=== PATIENT | female | born 1980 | race Caucasian/White ===

== ENCOUNTER 2022-05-03 07:14 | Outpatient (CLI) | payer BC, SELFPAY | END 2022-05-03 07:15 | disposition home or self-care (01) | LOC: INJ CL 07:15 | PROVIDERS: PCP Internal Medicine; Visit Provider Family Medicine | DX: M54.16 Radiculopathy, lumbar region (principal); M51.36 Other intervertebral disc degeneration, lumbar region | CPT/HCPCS: 64483; J1100; Q9966 ==

== ENCOUNTER 2022-08-30 07:37 | Outpatient (CLI) | payer BC, SELFPAY ==
--- OUTSIDE RECORDS SUMMARY | 2022-08-30 07:40 | XMS_ITS | Encounter Summary ---
:1980 Author Organization [place] Address [address] [place] [address]. [place] [address] Care Team Providers Name Role Phone Coral Douglas NP Primary Care Provider Unavailable Reason for Visit Reason Comments Infusion Fasenra Treatment and Therapy Plans (Routine) - Closed Specialty Diagnoses / Procedures Referred By Contact Refer red To Contact Diagnoses Severe persistent asthma, uncomplicated Chronic rhinosinusitis Carol Esquivel MD [facility] Procedures C INJ., BENRALIZUMAB, 1 MG [facility] [address] [place], [place] [address] [place] [id number] [address] [place] [address] Referral ID Status Reason Start Date Expiration Date Visits Requ ested Visits Authorized [id number] Closed 02/27/2020 09/24/2022 100 1 Encounter Details Date Type Department Care Team Description 10/14/2020 Infusion Therapy [facility] Carol Esquivel Sev ere persistent asthma, uncomplicated (Primary Dx); Visit [facility] MD Nader Chronic rhinosinusitis [facility] [address] [address] [place] [address] [place] [address] [place], [place] [phone] (Work) [phone] Social History Tobacco Use Types Packs/Day Years Used Date Smoking Tobacco: Never Assessed Sex Assigned at Date Recorded Not on file COVID-19 Exposure Response Date Recorded In the last month, have you been in contact with No / Unsure 10/14/2020 7:45 AM DATA CONTROL ASSISTANT someone who was confirmed or suspected to have Coronavirus / COVID-19? documented as of this encounter Last Filed Vital Signs Vital Sign Reading Time Taken Comments Blood Pressure 144/98 10/14/2020 7:55 AM DATA CONTROL ASSISTANT Pulse 98 10/14/2020 7:55 AM DATA CONTROL ASSISTANT Temperature 36.1 ??C (97 ??F) 10/14/2020 7:55 AM DATA CONTROL ASSISTANT Respiratory Rate 16 10/14/2020 7:55 AM DATA CONTROL ASSISTANT Oxygen Saturation 96% 10/14/2020 7:55 AM DATA CONTROL ASSISTANT Inhaled Oxygen Concentration - - Weight - - Height - - Body Mass Index - - documented in this encounter Progress Notes Peer, Ana Rosa Olson RN - 10/14/2020 8:00 AM CST Infusion Nursing Note: Joshua Peters presents today for [facility]. Patient seen by provider today: No Assistant Manager/Embalmer present during visit today: Not Applicable. Note: N/A. Patient did meet criteria for an asymptomatic covid-19 PCR test in infusion today. Patient declined the covid-19 test. Intravenous Access: No Intravenous access/labs at this visit. Treatment Conditions: Biological Infusion Checklist: ~~~ NOTE: If the patient answers yes to any of the questions below, hold the infusion and contact ordering provider or on-call provider. 1. Have you recently had an elevated temperature, fever, chills, productive cough, coughing for 3 weeks or longer or hemoptysis, abnormal vital signs, night sweats, chest pain or have you noticed a decrease in your appetite, unexplained weight loss or fatigue? No 2. Do you have any open wounds or new incisions? No 3. Do you have any recent or upcoming hospitalizations, surgeries or dental procedures? No 4. Do you currently have or recently have had any signs of illness or infection or are you on any antibiotics? No 5. Have you had any new, sudden or worsening abdominal pain? No 6. Have you or anyone in your household received a live vaccination in the past 4 weeks? Please note: No live vaccines while on biologic/chemotherapy until 6 months after the last treatment. Patient can receive the flu vaccine (shot only) and the pneumovax. It is optimal for the patient to get these vaccines mid cycle, but they can be given at any time as long as it is not on the day of the infusion.No 7. Have you recently been diagnosed with any new nervous system diseases (ie. Multiple sclerosis, Guillain [place], seizures, neurological changes) or cancer diagnosis? No 8. Are you on any form of radiation or chemotherapy? No 9. Are you or breast feeding or do you have plans of in the future? No 10. Have you been having any signs of worsening depression or suicidal ideations? (benlysta only) No 11. Have there been any other new onset medical symptoms? No Post Infusion Assessment: Patient tolerated injection without incident. Patient does not need to be observed for 30 minutes post Fasenra per protocol. Preston Whitley Verified this with Dr. Carol Jamil's office. Biologic Infusion Post Education: Call the triage nurse at your clinic or seek medical attention if you have chills and/or temperature greater than or equal to 100.5, uncontrolled nausea/vomiting, diarrhea, constipation, dizziness, shortness of breath, chest pain, heart palpitations, weakness or any other new or concerning symptoms, questions or concerns. You cannot have any live virus vaccines prior to or during treatment or up to 6 months post infusion. If you have an upcoming surgery, medical procedure or dental procedure during treatment, this should be discussed with your ordering physician and your surgeon/dentist. If you are having any concerning symptom, if you are unsure if you should get your next infusion or wish to speak to a provider before your next infusion, please call your respiratory care instructor or triage nurse at your clinic to notify them so we can adequately serve you. Discharge Plan: Discharge instructions reviewed with: Patient. Patient and/or family verbalized understanding of discharge instructions and all questions answered. AVS to patient via [employer]. Patient will return 12/09/2020 for next appointment. Patient discharged in stable condition accompanied by: self. Departure Mode: Ambulatory. Ana Rosa Fontana RN CONTROL ASSISTANT documented in this encounter Plan of Treatment Not on filedocumented as of this encounter Visit Diagnoses Diagnosis Severe persistent asthma, uncomplicated - Primary Unspecified asthma Chronic rhinosinusitis Unspecified sinusitis (chronic) documented in this encounter Administered Medications Inactive Administered Medications - up to 3 most recent administrations Medication Order MAR Action Action Date Dose Rate Site benralizumab (FASENRA) Given 10/14/2020 8:06 AM 30 mg Right Upper Abdomen injection 30 mg DATA CONTROL ASSISTANT 30 mg, Subcutaneous, ONCE, On Mon10/14/20 at 0815, For 1 dose, Begin 8 weeks after the third dose and repeat every 8 weeks. Let medication stand at room temp 30 minutes before injection. Administer in upper arm, thigh or abdomen. Prior to administration, warm FASENRA by leaving carton at room temperature for about 30 minutes. documented in this encounter Care Teams Ventilator Specialist Relationship Specialty Start Date End Date Coral Douglas NP PCP - General Nurse Practitioner 09/20/17 documented as of this encounter
--- OUTSIDE RECORDS SUMMARY | 2022-08-30 07:40 | XMS_ITS | Encounter Summary ---
:1980 Author Organization [place] Address [facility] [place] [address] Care Team Providers Name Role Phone Coral Douglas NP Primary Care Provider Unavailable Reason for Visit Reason Comments Imm/Inj Fasenra Treatment and Therapy Plans (Routine) - Closed Specialty Diagnoses / Procedures Referred By Contact Refer red To Contact Diagnoses Severe persistent asthma, uncomplicated Chronic rhinosinusitis Carol Esquivel MD [facility] Procedures C INJ., BENRALIZUMAB, 1 MG [facility] [address] [place], [place] [address] [place] [address] [address] [id number] Referral ID Status Reason Start Date Expiration Date Visits Requ ested Visits Authorized [id number] Closed 02/27/2020 09/24/2022 100 1 Encounter Details Date Type Department Care Team Description 05/26/2021 Infusion Therapy [facility] Carol Esquivel Sev ere persistent Visit Cancer Center MD Nader asthma, uncomplicated [place] [facility] (Primary Dx) [facility] [address] [address] [place] [address] [address] [address] [place] [address] [place], [place] [phone] (Work) [phone] Social History Tobacco Use Types Packs/Day Years Used Date Smoking Tobacco: Never Assessed Sex Assigned at Date Recorded Not on file COVID-19 Exposure Response Date Recorded In the last month, have you been in contact with No / Unsure 05/26/2021 7:37 AM CDT someone who was confirmed or suspected to have Coronavirus / COVID-19? documented as of this encounter Last Filed Vital Signs Vital Sign Reading Time Taken Comments Blood Pressure 137/83 05/26/2021 8:15 AM CDT Pulse 99 05/26/2021 8:15 AM CDT Temperature 36.6 ??C (97.8 ??F) 05/26/2021 8:15 AM CDT Respiratory Rate - - Oxygen Saturation 97% 05/26/2021 8:15 AM CDT Inhaled Oxygen Concentration - - Weight - - Height - - Body Mass Index - - documented in this encounter Progress Notes Caleb Mae RPH - 05/26/2021 8:00 AM CDT Images from the original note were not included. Copy of original order Zuly Plummer RN - 05/26/2021 8:00 AM CDT Infusion Nursing Note: Joshua Peters presents today for Fasenra. Patient seen by provider today: No Mortgage Originator present during visit today: Not Applicable. Note: Pt scheduled for back surgery 06/04/21 for herniated/bulging disc. Intravenous Access: No Intravenous access/labs at this [...] or upcoming hospitalizations, surgeries or dental procedures? Yes, Back surgery scheduled for 06/04/21; Dr Esquivel aware and ok for pt to receive Fasenra injection today per pt report Pt was told she could receive even up to day before surgery 4. Do you currently have or recently [...] nervous system diseases (ie. Multiple sclerosis, Guillain [place], seizures, neurological changes) or cancer diagnosis? No [...] Infusion Assessment: Patient tolerated injection without incident. Site patent and intact, free from redness, edema or discomfort. Discharge Plan: Discharge instructions reviewed with: Patient. Patient and/or family verbalized understanding of discharge instructions and all questions answered. AVS to patient via [employer]. Patient will return in 8 weeks for next Fasenra injection. Pt will schedule at her convenience for next appointment. Patient discharged in stable condition accompanied by: self. Departure Mode: Ambulatory. Zuly Plummer RN documented in this encounter Plan of Treatment Not on filedocumented as of this encounter Visit Diagnoses Diagnosis Severe persistent asthma, uncomplicated - Primary Unspecified asthma documented in this encounter Administered Medications Inactive Administered Medications - up to 3 most recent administrations Medication Order MAR Action Action Date Dose Rate Site benralizumab (FASENRA) Given 05/26/2021 8:17 AM 30 mg Abdominal Tissue injection 30 mg CDT 30 mg, Subcutaneous, ONCE, On Mon05/26/21 at 0745, For 1 dose, Begin 8 weeks after the third dose and repeat every 8 weeks. Let medication stand at room temp 30 minutes before injection. Administer in upper arm, thigh or abdomen. Prior to administration, warm FASENRA by leaving carton at room temperature for about 30 minutes. documented in this encounter Care Teams Clinical Technician Relationship Specialty Start Date End Date Coral Douglas NP PCP - General Nurse Practitioner 09/20/17 documented as of this encounter
--- OUTSIDE RECORDS SUMMARY | 2022-08-30 07:40 | XMS_ITS | Encounter Summary ---
:1980 Author Organization [place] Address [facility] [place] [address] Care Team Providers Name Role Phone Coral Douglas NP Primary Care Provider Unavailable Reason for Visit Reason Comments Imm/Inj Fasenra Treatment and Therapy Plans (Routine) - Closed Specialty Diagnoses / Procedures Referred By Contact Refer red To Contact Diagnoses Severe persistent asthma, uncomplicated Chronic rhinosinusitis Carol Esquivel MD [facility] Procedures C INJ., BENRALIZUMAB, 1 MG [facility] [address] [place], [place] [address] [place] [address] [address] [address] Referral ID Status Reason Start Date Expiration Date Visits Requ ested Visits Authorized [id number] Closed 02/27/2020 09/24/2022 100 1 Encounter Details Date Type Department Care Team Description 12/09/2020 Infusion Therapy [facility] Carol Esquivel Sev ere persistent Visit Cancer Center MD Nader asthma, uncomplicated [place] (Primary Dx) [facility] [address] [address] [place] [address] [address] [place] [address] [place], [place] [phone] (Work) [phone] Social History Tobacco Use Types Packs/Day Years Used Date Smoking Tobacco: Never Assessed Sex Assigned at Date Recorded Not on file COVID-19 Exposure Response Date Recorded In the last month, have you been in contact with No / Unsure 12/09/2020 7:40 AM CDT someone who was confirmed or suspected to have Coronavirus / COVID-19? documented as of this encounter Last Filed Vital Signs Vital Sign Reading Time Taken Comments Blood Pressure 147/89 12/09/2020 7:58 AM CDT Pulse 104 12/09/2020 7:58 AM CDT Temperature 36.5 ??C (97.7 ??F) 12/09/2020 7:58 AM CDT Respiratory Rate - - Oxygen Saturation 97% 12/09/2020 7:58 AM CDT Inhaled Oxygen Concentration - - Weight - - Height - - Body Mass Index - - documented in this encounter Progress Notes Zuly Plummer RN - 12/09/2020 8:00 AM CDT Infusion Nursing Note: Joshua Peters presents today for [facility]. Patient seen by provider today: No Delinquent Tax Collector Assistant present during visit today: Not Applicable. Note: N/A. Intravenous Access: No Intravenous access/labs at this [...] nervous system diseases (ie. Multiple sclerosis, Guillain [place], seizures, neurological changes) or cancer diagnosis? No [...] all questions answered. AVS to patient via [employer]. Patient will return 02/03/21 for next dose of Fasenra for next appointment. Patient discharged in stable [...] Date Dose Rate Site benralizumab (FASENRA) Given 12/09/2020 8:01 AM 30 mg Abdominal Tissue injection 30 mg CDT 30 mg, Subcutaneous, ONCE, On Mon12/09/20 at 0800, For 1 dose, Begin 8 weeks after the third dose and repeat every 8 weeks. Let medication stand at room temp 30 minutes before injection. Administer in upper arm, thigh or abdomen. Prior to administration, warm FASENRA by leaving carton at room temperature for about 30 minutes. documented in this encounter Care Teams Field Consultant Relationship Specialty Start Date End Date Coral Douglas NP PCP - General Nurse Practitioner 09/20/17 documented as of this encounter
--- OUTSIDE RECORDS SUMMARY | 2022-08-30 07:40 | XMS_ITS | Clinical Summary ---
:1980 Author Organization [place] Address [address] [place] [id number] Care Team Providers Name Role Phone Coral Douglas NP Primary Care Provider Unavailable Allergies Active Allergy Reactions Severity Noted Date Comments Amitriptyline Hives Medium 03/31/2021 Cefprozil Rash High 02/16/2010 has tolerated omnicef Erythromycin Nausea, Nausea and High 12/20/2006 Vomiting Fish Hives, Itching, High 01/28/2020 Nausea, Nausea and Vomiting Convallariae Majalis Anaphylaxis High 01/28/2020 Metoprolol Hives 08/19/2020 Penicillins Nausea and Vomiting, Low 12/20/2006 Rash Shellfish Allergy Hives 10/22/2018 Sulfa Drugs 03/04/2020 Sulfamethoxazole-Trimeth Nausea and Vomiting 7 oprim Medications Medication Sig Dispensed Refills Start End Status Date Date albuterol (PROVENTIL) albuterol sulfate 2.5 0 Active (2.5 MG/3ML) 0.083% neb mg/3 mL (0.083 %) 19 solution solution for nebulization albuterol (PROAIR albuterol sulfate HFA 0 02/04/20 Active HFA/PROVENTIL 90 mcg/actuation 20 HFA/VENTOLIN HFA) 108 aerosol inhaler (90 Base) MCG/ACT inhaler budesonide (PULMICORT) 0 02/19/20 Active 0.5 MG/2ML neb solution 20 cetirizine (ZYRTEC) 10 0 02/27/20 Active MG tablet 20 cyclobenzaprine 0 12/10/19 Acti ve (FLEXERIL) 10 MG tablet 20 EPINEPHrine (ANY BX epinephrine 0.3 mg/0.3 0 01/31/ 0 Active GENERIC EQUIV) 0.3 mL injection, 19 MG/0.3ML injection auto-injector 2-pack fluticasone (FLONASE) fluticasone propionate 0 11/06 Active 50 MCG/ACT nasal spray 50 mcg/actuation nasal 20 spray,suspension hydrochlorothiazide hydrochlorothiazide 25 0 04/25/ 0 Active (HYDRODIURIL) 25 MG mg tablet 19 tablet DULERA 200-5 MCG/ACT 0 01/16/20 Active inhaler 20 montelukast (SINGULAIR) montelukast 10 mg 0 10/28/19 Active 10 MG tablet tablet 20 naproxen (NAPROSYN) 500 naproxen 500 mg tablet 0 Active MG tablet omeprazole (PRILOSEC) 0 02/29/[address] capsule 20 DULoxetine (CYMBALTA) Take 30 mg by mouth 0 Active 30 MG capsule daily amLODIPine (NORVASC) 5 Take 5 mg by mouth 0 Active MG tablet daily PREDNISONE PO Take 60 mg by mouth 0 Active Prednisone traper. 60 mg for 3 days, starting 08/18, then 50 mg for 3 days, then 40 mg for 3 days, 30 mg for 3 days, 20mg for 3 days, 10 mg for 3 day, 5 mg for 2 days, then complete. topiramate (TOPAMAX) 25 Take 25 mg by mouth 2 0 Active MG tablet times daily Currently taking two tabs daily SUMAtriptan (IMITREX) Take 100 mg by mouth 0 Active 100 MG tablet at onset of headache for migraine verapamil (CALAN) 80 MG Take 80 mg by mouth 2 0 Active tablet times daily Active Problems Problem Noted Date Severe persistent asthma, uncomplicated 02/27/2020 Chronic rhinosinusitis 02/27/2020 Social History Tobacco Use Types Packs/Day Years Used Date Smoking Tobacco: Never Assessed Sex Assigned at Date Recorded Not on file Last Filed Vital Signs Vital Sign Reading Time Taken Comments Blood Pressure 150/108 07/21/2021 7:47 AM CDT Pulse 112 07/21/2021 7:47 AM CDT Temperature 36.3 ??C (97.4 ??F) 07/21/2021 7:47 AM CDT Respiratory Rate 16 07/21/2021 7:47 AM CDT Oxygen Saturation 95% 07/21/2021 7:47 AM CDT Inhaled Oxygen Concentration - - Weight - - Height - - Body Mass Index - - Plan of Treatment Health Maintenance Due Date Last Done Comments ADVANCE CARE PLANNING 1980 ANNUAL REVIEW OF HM ORDERS 1980 ASTHMA ACTION PLAN 1980 ASTHMA CONTROL TEST 1980 YEARLY PREVENTIVE VISIT 1980 HIV SCREENING 1995 HEPATITIS C SCREENING 1998 PAP 2001 HEPATITIS B IMMUNIZATION (3 06/22/2006 03/29/2006, 03/02/20 06 of 3 - 3-dose series) COVID-19 Vaccine (3 - 02/09/2021 01/12/2021, 12/20/2020 Pfizer risk series) PHQ-2 (once per calendar 09/25/2021 year) INFLUENZA VACCINE (#1) 2022 07/05/2021, 06/08/2020, 06/11/2019, Additional history exists DTAP/TDAP/TD IMMUNIZATION 05/14/2031 05/14/2021, 05/10/2011 (3 - Td or Tdap) Pneumococcal Vaccine: 2045 11/08/2019, 10/28/2019 Pediatrics (0 to 5 Years) and At-Risk Patients (6 to 64 Years) (3 - PPSV23 if available, else PCV20) IPV IMMUNIZATION Aged Out No longer eligi ble based on patient 's age to complete this topic MENINGITIS IMMUNIZATION Aged Out No longe r eligible based on patient 's age to complete this topic Insurance Payer Benefit Plan / Subscriber ID Effective Dates Phone Addre ss Type Group BLUE PLUS BLUE PLUS [id number] 2018-Present [phone] [place] [address] [id number] [address]MO [address] [place] [address] Care Teams Upset Welding Machine Operator Relationship Specialty Start Date End Date Coral Douglas NP PCP - General Nurse Practitioner 09/20/17
--- OUTSIDE RECORDS SUMMARY | 2022-08-30 07:40 | XMS_ITS | Encounter Summary ---
:1980 Author Organization [place] Address [address] [place] [address] Care Team Providers Name Role Phone Coral Douglas NP Primary Care Provider Unavailable Encounter Details Date Type Department Care Team Description 05/26/2021 Travel Social History Tobacco Use Types Packs/Day Years Used Date Smoking Tobacco: Never Assessed Sex Assigned at Date Recorded Not on file COVID-19 Exposure Response Date Recorded In the last month, have you been in contact with No / Unsure 05/26/2021 7:37 AM CDT someone who was confirmed or suspected to have Coronavirus / COVID-19? documented as of this encounter Plan of Treatment Not on filedocumented as of this encounter Visit Diagnoses Not on filedocumented in this encounter Care Teams Job Forwarder Relationship Specialty Start Date End Date Coral Douglas NP PCP - General Nurse Practitioner 09/20/17 documented as of this encounter
--- OUTSIDE RECORDS SUMMARY | 2022-08-30 07:40 | XMS_ITS | Encounter Summary ---
:1980 Author Organization [place] Address [facility] [place] [address] Care Team Providers Name Role Phone Coral Douglas NP Primary Care Provider Unavailable Reason for Visit Reason Comments Imm/Inj Fasenra Treatment and Therapy Plans (Routine) - Closed Specialty Diagnoses / Procedures Referred By Contact Refer red To Contact Diagnoses Severe persistent asthma, uncomplicated Chronic rhinosinusitis Carol Esquivel MD [facility] Procedures C INJ., BENRALIZUMAB, 1 MG [facility] [address] [place], [place] [address] [place] [phone] [address] [place] [id number] Referral ID Status Reason Start Date Expiration Date Visits Requ ested Visits Authorized [id number] Closed 02/27/2020 09/24/2022 100 1 Encounter Details Date Type Department Care Team Description 03/31/2021 Infusion Therapy [facility] Carol Esquivel Sev ere persistent Visit [facility] MD [place] asthma, uncomplicated [place] [facility] (Primary Dx) [facility] [address] [address] [place] [address] [place] [address] [place] [address] [place], [place] [phone] (Work) [phone] Social History Tobacco Use Types Packs/Day Years Used Date Smoking Tobacco: Never Assessed Sex Assigned at Date Recorded Not on file COVID-19 Exposure Response Date Recorded In the last month, have you been in contact with No / Unsure 03/31/2021 7:39 AM CDT someone who was confirmed or suspected to have Coronavirus / COVID-19? documented as of this encounter Last Filed Vital Signs Vital Sign Reading Time Taken Comments Blood Pressure 127/85 03/31/2021 7:00 AM CDT Pulse 107 03/31/2021 7:00 AM CDT Temperature 36.7 ??C (98 ??F) 03/31/2021 7:00 AM CDT Respiratory Rate 18 03/31/2021 7:00 AM CDT Oxygen Saturation 97% 03/31/2021 7:00 AM CDT Inhaled Oxygen Concentration - - Weight - - Height - - Body Mass Index - - documented in this encounter Progress Notes Keerthi Coleman, DAMON - 03/31/2021 8:00 AM CDT Infusion Nursing Note: Joshua Peters presents today for Fasenra. Patient seen by provider today: No Production Cost Estimator present during visit today: Not Applicable. Note: Patient has consult with spinal surgeon. She will contact Dr Esquivel's office to find out when she can schedule a potential surgery in relation to her fasenra injections. Intravenous Access: No Intravenous access/labs at this [...] or upcoming hospitalizations, surgeries or dental procedures? No, 4. Do you currently have or recently [...] nervous system diseases (ie. Multiple sclerosis, Guillain [place], seizures, neurological changes) or cancer diagnosis? No [...] from redness, edema or discomfort. Discharge Plan: [facility] Patient will return 05/26 for next appointment. Patient discharged in stable condition accompanied by: self. Departure Mode: Ambulatory. Keerthi Coleman RN documented in this encounter Plan of Treatment Not on filedocumented as of this encounter Visit Diagnoses Diagnosis Severe persistent asthma, uncomplicated - Primary Unspecified asthma documented in this encounter Administered Medications Inactive Administered Medications - up to 3 most recent administrations Medication Order MAR Action Action Date Dose Rate Site benralizumab (FASENRA) Given 03/31/2021 8:04 AM 30 mg Abdominal Tissue injection 30 mg CDT 30 mg, Subcutaneous, ONCE, On Mon03/31/21 at 0800, For 1 dose, Begin 8 weeks after the third dose and repeat every 8 weeks. Let medication stand at room temp 30 minutes before injection. Administer in upper arm, thigh or abdomen. Prior to administration, warm FASENRA by leaving carton at room temperature for about 30 minutes. documented in this encounter Care Teams Sash Installer Relationship Specialty Start Date End Date Coral Douglas NP PCP - General Nurse Practitioner 09/20/17 documented as of this encounter
--- OUTSIDE RECORDS SUMMARY | 2022-08-30 07:40 | XMS_ITS | Encounter Summary ---
:1980 Author Organization [place] Address [address] [place] [address] Care Team Providers Name Role Phone Coral Douglas NP Primary Care Provider Unavailable Encounter Details Date Type Department Care Team Description 07/21/2021 Travel Social History Tobacco Use Types Packs/Day Years Used Date Smoking Tobacco: Never Assessed Sex Assigned at Date Recorded Not on file COVID-19 Exposure Response Date Recorded In the last month, have you been in contact with No / Unsure 07/21/2021 7:39 AM CDT someone who was confirmed or suspected to have Coronavirus / COVID-19? documented as of this encounter Plan of Treatment Not on filedocumented as of this encounter Visit Diagnoses Not on filedocumented in this encounter Care Teams Repairer [employer]gear Relationship Specialty Start Date End Date Coral Douglas NP PCP - General Nurse Practitioner 09/20/17 documented as of this encounter
--- OUTSIDE RECORDS SUMMARY | 2022-08-30 07:40 | XMS_ITS | Encounter Summary ---
:1980 Author Organization [place] Address [address] [place] [address] Care Team Providers Name Role Phone Coral Douglas NP Primary Care Provider Unavailable Encounter Details Date Type Department Care Team Description 03/31/2021 Travel Social History Tobacco Use Types Packs/Day [...] on filedocumented in this encounter Care Teams Reception Specialist Relationship Specialty Start Date End Date Coral Douglas NP PCP - General Nurse Practitioner 09/20/17 documented as of this encounter
--- OUTSIDE RECORDS SUMMARY | 2022-08-30 07:40 | XMS_ITS | Encounter Summary ---
:1980 Author Organization [place] Address [address] [place] [address] Care Team Providers Name Role Phone Coral Douglas NP Primary Care Provider Unavailable Encounter Details Date Type Department Care Team Description 02/03/2021 Travel Social History Tobacco Use Types Packs/Day Years Used Date Smoking Tobacco: Never Assessed Sex Assigned at Date Recorded Not on file COVID-19 Exposure Response Date Recorded In the last month, have you been in contact with No / Unsure 02/03/2021 7:44 AM CDT someone who was confirmed or suspected to have Coronavirus / COVID-19? documented as of this encounter Plan of Treatment Not on filedocumented as of this encounter Visit Diagnoses Not on filedocumented in this encounter Care Teams Weatherization Field Technician Relationship Specialty Start Date End Date Coral Douglas NP PCP - General Nurse Practitioner 09/20/17 documented as of this encounter
--- OUTSIDE RECORDS SUMMARY | 2022-08-30 07:40 | XMS_ITS | Encounter Summary ---
:1980 Author Organization [place] Address [address] [place] [address] Care Team Providers Name Role Phone Coral Douglas NP Primary Care Provider Unavailable Encounter Details Date Type Department Care Team Description 10/14/2020 Travel Social History Tobacco Use Types Packs/Day Years Used Date Smoking Tobacco: Never Assessed Sex Assigned at Date Recorded Not on file COVID-19 Exposure Response Date Recorded In the last month, have you been in contact with No / Unsure 10/14/2020 7:45 AM MECHANICAL SERVICE TECHNICIAN someone who was confirmed or suspected to have Coronavirus / COVID-19? documented as of this encounter Plan of Treatment Not on filedocumented as of this encounter Visit Diagnoses Not on filedocumented in this encounter Care Teams Commercial [employer] Sales Executive Relationship Specialty Start Date End Date Coral Douglas NP PCP - General Nurse Practitioner 09/20/17 documented as of this encounter
--- OUTSIDE RECORDS SUMMARY | 2022-08-30 07:40 | XMS_ITS | Encounter Summary ---
:1980 Author Organization [place] Address [facility] [place] [address] Care Team Providers Name Role Phone Coral Douglas NP Primary Care Provider Unavailable Reason for Visit Reason Comments Imm/Inj Fasenra Treatment and Therapy Plans (Routine) - Closed Specialty Diagnoses / Procedures Referred By Contact Refer red To Contact Diagnoses Severe persistent asthma, uncomplicated Chronic rhinosinusitis Carol Esquivel MD [facility] Procedures C INJ., BENRALIZUMAB, 1 MG [facility] [address] [place], [place] [address] [facility] [phone] [place] [address] Referral ID Status Reason Start Date Expiration Date Visits Requ ested Visits Authorized [id number] Closed 02/27/2020 09/24/2022 100 1 Encounter Details Date Type Department Care Team Description 07/21/2021 Infusion Therapy [facility] St[place], Severe persistent Visit [facility] [place] asthma, uncomplicated [facility] [address] (Primary Dx) [facility] [address] [place] [facility] [address] [place] [address] Social History Tobacco Use Types Packs/Day Years [...] - documented in this encounter Progress Notes Katrina [place], DAMON - 07/21/2021 8:00 AM CDT Infusion Nursing Note: Joshua Peters presents today for Ami. Patient seen by provider today: No Solar Installation Manager present during visit today: Not Applicable. Note: Pt states she is currently on steroids and whenever she is on a steroid her blood pressure is elevated. BP elevated this morning, but she states its how it normally runs with being on steroids and doing the neb treatments. She denies any headache, shortness of breath, chest pain, or other symptoms at this time. Intravenous Access: No Intravenous access/labs at this [...] nervous system diseases (ie. Multiple sclerosis, Guillain [place], seizures, neurological changes) or cancer diagnosis? No [...] Infusion Assessment: Patient tolerated injection without incident. Discharge Plan: Discharge instructions reviewed with: Patient. Patient and/or family verbalized understanding of discharge instructions and all questions answered. Copy of AVS reviewed with patient and/or family. Patient will return 09/15/21 for next appointment. Patient discharged in stable condition accompanied by: self. Departure Mode: Ambulatory. Katrina [place] RN documented in this encounter Plan of Treatment Not on filedocumented as of this encounter Visit Diagnoses Diagnosis Severe persistent asthma, uncomplicated - Primary Unspecified asthma documented in this encounter Administered Medications Inactive Administered Medications - up to 3 most recent administrations Medication Order MAR Action Action Date Dose Rate Site benralizumab (FASENRA) Given 07/21/2021 8:00 AM 30 mg Abdominal Tissue injection 30 mg CDT 30 mg, Subcutaneous, ONCE, On Mon07/21/21 at 0745, For 1 dose, Begin 8 weeks after the third dose and repeat every 8 weeks. Let medication stand at room temp 30 minutes before injection. Administer in upper arm, thigh or abdomen. Prior to administration, warm FASENRA by leaving carton at room temperature for about 30 minutes. documented in this encounter Care Teams Communications Equipment Installer Relationship Specialty Start Date End Date Coral Douglas NP PCP - General Nurse Practitioner 09/20/17 documented as of this encounter
--- OUTSIDE RECORDS SUMMARY | 2022-08-30 07:40 | XMS_ITS | Encounter Summary ---
:1980 Author Organization [place] Address [address] [place] [address] Care Team Providers Name Role Phone Coral Douglas NP Primary Care Provider Unavailable Encounter Details Date Type Department Care Team Description 12/09/2020 Travel Social History Tobacco Use Types Packs/Day [...] on filedocumented in this encounter Care Teams Freight Brake Operator Relationship Specialty Start Date End Date Coral Douglas NP PCP - General Nurse Practitioner 09/20/17 documented as of this encounter
--- OUTSIDE RECORDS SUMMARY | 2022-08-30 07:40 | XMS_ITS | Clinical Summary ---
:1980 Author Organization [employer] [place] [address] Care Team Providers Name Role Phone Do Barlow Saloni MONK Primary Care Provider Allergies Active Allergy Reactions Severity Noted Date Comments Amitriptyline Hives, Itching Medium 03/31/2021 Amoxicillin Rash, Nausea And 12/20/2006 Vomiting Sulfamethoxazole-Trimeth Nausea And Vomiting 7 oprim Cefprozil Rash 02/16/2010 has tolerated omnicef Erythromycin Nausea And Vomiting 12/20/2006 Fish Containing Products Hives, Itching, Nausea High 2019 Only, Vomiting [facility] Anaphylaxis High 01/28/2020 Unlisted Allergen Anaphylaxis High 05/11/2015 [facility] (Include Detail In Comments) Shellfish Containing *Unknown 10/22/2018 Products Metoprolol Succinate Hives 08/07/2020 Medications Medication Sig Dispensed Refills Start End Status Date Date cholecalciferol Take 1 0 Acti ve (VITAMIN D-3) 2,000 capsule by 7 unit capsule mouth once daily. cetirizine (ZYRTEC) 10 Take 1 tablet 0 Active mg tablet by mouth once 9 daily. every morning Magnesium Oxide 500 mg Take by 0 Active tab mouth. 0 albuterol (PROVENTIL) INHALE 3ML (1 1 box 2 Active 0.083 % neb AMPULE) VIA A 0 solutionIndications: NEBULIZER Exacerbation of asthma, EVERY 4 HOURS unspecified asthma NEEDED severity, unspecified whether persistent albuterol HFA (PRO-AIR; INHALE TWO 1 Each 1 Active VENTOLIN; PROVENTIL) 90 PUFFS BY 1 mcg/actuation MOUTH EVERY 4 inhalerIndications: HOURS WHILE Exacerbation of asthma, AWAKE unspecified asthma severity, unspecified whether persistent montelukast (SINGULAIR) TAKE ONE 90 tablet 2 Active 10 mg TABLET BY 1 tabletIndications: MOUTH AT Intrinsic asthma BEDTIME fluticasone (50 mcg per INSTILL ONE 0 Active actuation) nasal SPRAY IN THE 1 solution (FLONASE) AFFECTED NOSTRIL EVERY DAY gabapentin (NEURONTIN) Take 3 810 Capsule 3 Active 300 mg Capsules (900 1 capsuleIndications: mg) by mouth Acute bilateral low 3 times back pain without daily. 900mg sciatica, Chronic 3x daily by midline low back pain mouth with left-sided sciatica loperamide (IMODIUM) 1 Take 15 mL (2 236 mL Active mg/7.5 mL mg) by mouth 2 liquidIndications: each time if Chronic diarrhea needed for Diarrhea. esomeprazole (NEXIUM) Take 1 30 Capsule 1 Active 20 mg Capsule (20 2 capsuleIndications: mg) by mouth Gastroesophageal reflux once daily. disease, unspecified whether esophagitis present prochlorperazine Take 1-2 30 Tablet 0 Act gerhard (COMPAZINE) 5 mg Tablets (5-10 2 tabletIndications: mg) by mouth Nausea every 6 hours if needed for Nausea/Vomiti ng. naratriptan (AMERGE) Take 2.5 mg 0 Active 2.5 mg tablet by mouth 2 023 every 4 hours if needed. cyclobenzaprine Take 1 Tablet 90 Tablet 3 Active (FLEXERIL) 5 mg (5 mg) by 2 tabletIndications: mouth 3 times Acute bilateral low daily if back pain without needed for sciatica Muscle Spasm. amLODIPine (NORVASC) 10 Take 1 Tablet 90 Tablet 3 Active mg tabletIndications: (10 mg) by 2 Benign essential mouth once hypertension daily. Pulmozyme 1 mg/mL neb 0 Active solution 2 ipratropium (ATROVENT Inhale 2 15 mL 0 Active NASAL) 42 mcg (0.06 %) Sprays to 2 nasal spray both nostrils four times daily. mometasone-formoterol 2 puffs twice 0 Active (DULERA) 200-5 daily as 2 mcg/actuation needed for inhalerIndications: illnesses Exacerbation of asthma, unspecified asthma severity, unspecified whether persistent verapamiL (CALAN) 80 mg TAKE ONE 180 Tablet 0 Active tabletIndications: TABLET BY 2 Chronic migraine with MOUTH TWICE A aura DAY hydroCHLOROthiazide TAKE ONE 60 Tablet 0 Active (HCTZ) 25 mg TABLET BY 2 tabletIndications: MOUTH EVERY Hypertension, DAY unspecified type DULoxetine (CYMBALTA) TAKE ONE 60 Capsule 0 Active 30 mg Delayed-release CAPSULE BY 2 capsuleIndications: MOUTH EVERY Depression with anxiety DAY DULoxetine (CYMBALTA) Take 1 90 Capsule 0 Discontinued 30 mg Delayed-release Capsule (30 2 022 capsuleIndications: mg) by mouth Depression with anxiety once daily. hydroCHLOROthiazide Take 1 Tablet 90 Tablet 0 Discontinued (HCTZ) 25 mg (25 mg) by 2 022 tabletIndications: mouth once Hypertension, daily. 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 Krishan Almendarez at [facility] in Oct 2020. Recommended the following for treatment: A) Topiramate starting at 15-25 mg orall y once a day at bedtime and this can be increased by 15-25 mg every week if needed and if tolerated to a goal dose that will typically range between 75 to 200 mg once a day at bedtime. An initial goal d ose of 100 mg daily, however, is often enough to control migraine without experiencing bothersome side effects. B) Verapamil starting at 80 mg orally on ce a day and increase this by 80 mg every week if needed and if tolerated to a typical goal dose of 80 mg three times a day. C) Botox following the PREEMPT treatment paradigm, giving it at least 3 tries with 12 weeks in between injections. D) Emgality (galcanezumab), starting wit h one 240 mg subcutaneous dose (administered as 2 consecutive 120 mg doses), followed by 120 mg subcutaneously once monthly. If no meaningful response after 3 mon ths of treatment I typically discontinue this. If there is a favorable response, however, I typically continue this for a longer period of time. An oral prophylactic should be tried one at a time for at least three months at the highest tolerated dose (within the above specified goal dose range) before believing it has failed. A successful preve ntive is commonly defined as one that de creases the headache frequency and/or intensity by approximately 50%. Once a successful preventive is found, I suggest continuing it for at least 6-24 months before attempting to gradually taper off it. For the acute treatment of mild to moder ate headaches, I recommend to continue acetaminophen or Aleve as needed but these should not be used more than 14 days a month. For headaches that do not respond to this, or for severe headaches from on set, I recommend 100 mg of oral sumatriptan at onset and this can be repeated every 2 hours if needed (maximum 200 mg/24 hours) and this should not be used more t carmona 9 days a month (2 days per week) to prevent medication overuse headache. Sumatriptan should only be used if her blood pressure is under good control. She can use antiemetics as needed for migraine r elated nausea under the guidance of her local providers. The patient will follow the above recomm endations with her local providers. Headache 10/30/2020 COVID-19 virus infection 09/22/2020 Overview: Positive covid antibody in Aug 2020, lik anisa infection in Jul 2020 Severe persistent asthma, uncomplicated 02/27/2020 Chronic rhinosinusitis 02/27/2020 Tinnitus of right ear 12/10/2019 Myofascial pain 12/10/2019 Limited opening of mandible 12/10/2019 Instability of right shoulder joint 12/21/2018 Hand pain, left 07/26/2017 Encounter for surveillance of injectable contraceptive 02/25/2016 Overview: last DepoProvera 11/09/15 Morbid obesity 12/17/2015 Overview: Formatting of this note might be differe nt from the original. Morbid Obesity Body Mass Index (BMI) >40 Adult Benign essential hypertension 12/17/2015 Overview: Formatting of this note might be differe nt from the original. Hypertension (HTN) Essential Benign Anaphylactic reaction 05/11/2015 Overview: [place] Vitamin D deficiency 11/04/2014 Otalgia 07/11/2012 Episodic tension-type headache 07/11/2012 GERD (gastroesophageal reflux disease) 07/28/2011 Allergic rhinitis, cause unspecified 04/02/2008 Dysthymic disorder 06/17/2007 Irritable bowel syndrome 12/20/2006 Neuritis of right sural nerve Resolved Problems Problem Noted Date Resolved Date Pain 12/21/2018 05/14/2021 Moderate persistent asthma with acute exacerbation 8 05/14/2021 Overview: heterozygous for alpha 1 antitrypsin Adjustment disorder 01/27/2017 01/27/2017 HTN (hypertension) 11/09/2015 05/14/2021 Obesity 11/03/2014 05/14/2021 ALLERGIC RHINITIS 06/17/2007 01/30/2010 Unspecified asthma(493.90) 12/20/2006 05/14/2021 Scar tissue 05/14/2021 Encounters Date Type Specialty Care Team Description 08/29/2022 Travel 08/15/2022 Medical Messaging Lazaro Ramirez Back manuela giovanni Garcia MD 08/06/2022 Refill CainDo james, Refill Re quest DO (Hydrochlorothi azide, Duloxetine) 08/01/2022 Orders Only Scanner <No scans attac hed> 07/23/2022 Refill Do Barlow, Refill Re quest (Verapamil) DO 07/04/2022 Office Visit Do Barlow, Medicatio n Management DO (coughing); Immunization/In jection (COVID-19 vacci ne) 07/04/2022 Travel 06/29/2022 Orders Only Scanner <No scans attac hed> 06/29/2022 Travel 06/08/2022 Refill Do Barlow, Refill Re quest (Verapamil) DO 06/02/2022 Ancillary Procedure 06/02/2022 Office Visit Lazaro Ramirez Musculoskelet eros Garcia MD (Follow up back pain, NAOMI on 05/03/22/Follo w up right shoulder pain, USGI 04/06/22) 06/02/2022 Travel from Last 3 Months Immunizations Name Administration Dates Next Due COVID-19 vaccine ([facility] 07/04/2022 30mcg/0.3mL) 12YO+ BIVALENT BOOSTER PF, MDV COVID-19 vaccine ([facility] 08/10/2021, 01/12/2021, 30mcg/0.3mL) PF, MDV Hepatitis B (Peds) 09/05/2006, 03/29/2006, 03/02/2006 Influenza A (H1N1), Inactivated (Age 1209/08/2009 >=3 Years) Influenza, IIV3 (Age >=3 years) 05/31/2018, 06/20/2013, 10/2011, 05/26/2011, 06/30/2010, 08/20/2008, 07/19/2007 Influenza, IIV4 07/04/2022, 07/05/2021, 06/08/2020, 05/28/2019, 06/01/2017, 08/19/2015, 06/11/2014 Influenza, IIV4 (=>6mos) MDV 05/31/2018 Influenza, RIV3 (Age =>18 Years) 05/19/2016 Pneumococcal Poly,23-Valent 10/28/2019 (Pneumovax) Td (Age >=7 Years) 10/20/1997 Tdap 05/14/2021, 05/10/2011 Family History Medical History Relation Name Comments Heart Disease Brother hole heart Diabetes Father Genetic Father MS Heart Disease Father Hypertension Father Lupus Father Psychiatric illness Maternal Aunt schizophreni a Seizures Maternal Aunt Allergies Maternal Grandfather Kidney failure Maternal Grandfather Cancer Maternal Grandmother skin Allergies Maternal Uncle Allergies Mother Hypertension Mother Melanoma Paternal Aunt 1 Allison Heart Disease Paternal Grandfather kidney fail ure after infection Other Paternal Uncle 1 Rishi ms Other Paternal Uncle 2 MS Genetic Son Seizures and Aut ism Cancer-breast No Family History Relation Name Status Comments Brother Alive Father Alive Maternal Aunt Maternal Grandfather Maternal Grandmother Alive Maternal Uncle Alive Mother Alive Paternal Aunt 1 Allison Paternal Aunt 2 Alive Paternal Aunt 3 Alive Paternal Aunt 4 Alive Paternal Aunt 5 Alive Paternal Grandfather Paternal Grandmother Paternal Uncle 1 Rishi Paternal Uncle 2 Alive Son Alive Social History Tobacco Use Types Packs/Day Years Used Date Never Smoker Smokeless Tobacco: Never Used Tobacco Cessation: Counseling Given: Yes Alcohol Use Standard Drinks/Week Comments Not Currently 0 (1 standard drink = 0.6 oz pure alcoho l) rarely Alcohol Habits Answer Date Recorded How often do you have a drink containing alcohol? Not asked How many drinks containing alcohol do you have on a typical Not asked day when you are drinking? How often do you have six or more drinks on one occasion? No t asked Comment: rarely 11/03/2014 Sex Assigned at Date Recorded Not on file COVID-19 Exposure Response Date Recorded In the last 10 days, have you been in contact with No / Unsu re 08/29/2022 1:52 PM SURVEY INTERVIEWER someone who was confirmed or suspected to have Coronavirus/COVID-19? Obstetrics History Last Filed Vital Signs Vital Sign Reading Time Taken Comments Blood Pressure 126/64 07/04/2022 7:40 AM CDT Pulse 82 07/04/2022 7:40 AM CDT Temperature 36.8 ??C (98.2 ??F) 06/02/2022 1:44 PM CDT Respiratory Rate 18 06/04/2021 12:17 PM CDT Oxygen Saturation 98% 06/02/2022 1:44 PM CDT Inhaled Oxygen Concentration - - Weight 165.5 kg (364 lb 12.8 oz) 07/04/2022 7:40 AM CDT Height 178.2 cm (5' 10.16) 01/21/2022 8:11 AM CDT Body Mass Index 52.11 01/21/2022 8:11 AM CDT Plan of Treatment Upcoming Encounters Date Type Specialty Care Team Description 09/13/2022 Telemedicine Haley Quezada, WORKSHOP MANAGER [address] [place], [place] [phone] (Wo rk) 09/29/2022 Office Visit Cain Doedda coleman, DO [address] [place], [place] [address] (Wo rk) Health Maintenance Due Date Last Done Comments HIV for age 15-65 1995 Pneumococcal series for age 19-64 10/28/2020 10/28/2019 (2 - PCV) BMI (ht and wt on same day) for 01/21/2023 01/21/2022, 02/24, age 18+ 12/23/2020, Additional history exists Depression screening for age 12+ 03/09/2023 03/09/2022, 07/2021, 06/08/2020, Additional history exists Pap test for age 21-65 10/28/2024 10/28/2019, 10/28/2019, 11/01/2016, Additional history exists Tetanus booster 05/14/2031 05/14/2021, 05/10/2011, 10/20/1997 Hepatitis C screening for age Completed 11/08/2004 18-79 Tdap Completed 05/14/2021, 05/10/2011 COVID-19 vaccine series Completed 07/04/2022, 08/10/2021, 01/12/2021, Additional history exists Influenza for age 9-49 Completed 07/04/2022, 07/05/2021, 06/08/2020, Additional history exists Medical Devices Implanted Type Area Special Machine Operator Device Shelf Model / Identifier Expiration Date Ser ial / Lot Ancr Sut 2.4x8.5mm Suturetak Micro W/2-0 Fiberwire Ndls Bio - Lo [id number] Left: [employer] 09/25/2016 [id number] / Implanted: Qty: 2 on 07/18/2016 by Marcio Fried DPM at [facility] Ankle / [id number] Description: Suture anchor Nov-1688-Cp - [id number] Right: Ankle [employer] 08/24/2020 [id number] / Implanted: Qty: 1 on 10/22/2018 by Marcio Fried DPM at [facility] / [id number] Description: Implant System, Internal br jayne Ligament Augmentation Repair Collagen Nerve Wrap- Neuromend Right: Leg [place] [facility] 09/24/2019 [id number] / Implanted: Qty: 1 on 06/17/2019 by Marcio Fried DPM at [facility] / [id number] Description: From our shelf by Jan i mplants Explanted Type Area Special Machine Operator Device Shelf Model / Identifier Expiration Date Ser ial / Lot Nov-8990st - [id number] Right: [employer] 05/28 [id number] / Explanted: Qty: 1 on 10/22/2018 by Marcio Fried DPM at [facility] Ankle / [id number] Description: Fiber Jordan DX Suture [place] with 1.3mm FiberWire Suture Tape and [place] Procedures Procedure Name Priority Date/Time Associated Diagnosis Comme nts SCAN-OPERATIVE/PROCED 08/01/2022 12:00 Re sults for this URE REPORT AM SURVEY INTERVIEWER procedure are i n the results section. CBC WITH AUTO Routine 07/04/2022 8:32 Benign essential Results for this DIFFERENTIAL AM CDT hypertension procedure are i n the results section. LIPID PANEL W REFLEX Routine 07/04/2022 8:32 Benign essential Results for this MEASURED LDL AM CDT hypertension procedure are i n the results section. COMP METABOLIC PANEL Routine 07/04/2022 8:32 Benign essential Results for this AM CDT hypertension procedure are i n the results section. CBC WITH AUTO Routine 07/04/2022 8:32 Benign essential Results for this DIFFERENTIAL AM CDT hypertension procedure are i n the results section. VITAMIN D 25 Routine 07/04/2022 8:31 Vitamin D deficiency Resu lts for this (DEFICIENCY) AM CDT procedure are i n the results section. SCAN-ELECTROMYOGRAM 06/29/2022 12:00 Resu lts for this EMG AM CDT procedure are i n the results section. XR KNEE WB 2 VIEWS Routine 06/02/2022 2:39 Lumbar hernia leno disc Results for this BILATERAL AND 1 VIEW PM CDT Lumbar radiculopathy procedure are in RIGHT the results section. from Last 3 Months Results SCAN-OPERATIVE/PROCEDURE REPORT (08/01/2022 12:00 AM SURVEY INTERVIEWER) Narrative This result has an attachment that is no t available. Scanner OTHER (ABNORMAL) CBC WITH AUTO DIFFERENTIAL (07/04/2022 8:32 AM CDT) [facility] gist Method Time Signature WHITE BLOOD 8.6 4.5 - 07/04/2022 [place] COUNT 11.0 8:43 AM [facility] thou/cu LABORATORY mm RED BLOOD COUNT 5.07 4.00 - 07/04/2022 [place] 5.20 8:43 AM [facility] mil/cu mm LABORATORY HEMOGLOBIN 13.4 12.0 - 07/04/2022 [place] 16.0 g/dL 8:43 AM [facility] LABORATORY HEMATOCRIT 42.2 33.0 - 07/04/2022 [place] 51.0 % 8:43 AM [facility] LABORATORY MCV 83 80 - 100 07/04/2022 [place] fL 8:43 AM [facility] LABORATORY MCH 26.4 26.0 - 07/04/2022 [place] 34.0 pg 8:43 AM [facility] LABORATORY MCHC 31.8 (L) 32.0 - 07/04/2022 [place] 36.0 g/dL 8:43 AM [facility] LABORATORY RDW 15.5 11.5 - 07/04/2022 [place] 15.5 % 8:43 AM [facility] LABORATORY PLATELET COUNT 277 140 - 440 07/04/2022 [place] thou/cu 8:43 AM [facility] mm LABORATORY MPV 10.0 6.5 - 07/04/2022 [place] 11.0 fL 8:43 AM [facility] LABORATORY % NEUT 61.5 % 07/04/2022 [place] 8:43 AM [facility] LABORATORY % LYMPH 30.4 % 07/04/2022 [place] 8:43 AM [facility] LABORATORY % MONO 6.2 % 07/04/2022 [place] 8:43 AM [facility] LABORATORY % EOS 1.3 % 07/04/2022 [place] 8:43 AM [facility] LABORAT[facility] % BASO 0.6 % 07/04/2022 [place] 8:43 AM [facility] LABOR[facility] ABSOLUTE 5.3 1.7 - 7.0 07/04/2022 [place] NEUTROPHILS thou/cu 8:43 AM [facility] mm LABORATORY ABSOLUTE 2.6 0.9 - 2.9 07/04/2022 [place] LYMPHOCYTES thou/cu 8:43 AM [facility] mm LABORATORY ABSOLUTE 0.5 <0.9 07/04/2022 [place] MONOCYTES thou/cu 8:43 AM [facility] mm LABORATORY ABSOLUTE 0.1 <0.5 07/04/2022 [place] EOSINOPHILS thou/cu 8:43 AM [facility] mm LABORATORY ABSOLUTE 0.1 <0.3 07/04/2022 [place] BASOPHILS thou/cu 8:43 AM [facility] mm LABORATORY Specimen Anatomical Collection Method / Collection Time Recei christy Time (Source) Location / Volume Laterality Blood BLOOD SPECIMEN / Venipuncture / 07/04/2022 8:32 2021 8:34 Unknown Unknown AM CDT AM CDT Do Barlow DO HEMATOLOGY Performing Organization Address City/State/ZIP Code Phon e Number [facility] [address] [place] [address] (ABNORMAL) LIPID PANEL W REFLEX MEASURED LDL (07/04/2022 8:32 AM CDT) [facility] Method Time Signature CHOLESTEROL,TOTAL 250 (H) 100 - 199 07/04/2022 [place] mg/dL 8:59 AM [facility] TRIGLYCERIDES 290 (H) <150 07/04/2022 [facility] mg/dL 8:59 AM [facility] HDL CHOLESTEROL 33 (L) >40 mg/dL 07/04/2022 [place] 8:59 AM [facility] NON-HDL 217 (H) <145 07/04/2022 [facility] CHOLESTEROL mg/dl 8:59 AM [facility] LABOR[facility]ORY CHOL/HDL RATIO 7.58 (H) <4.50 07/04/2022 [place] 8:59 AM [facility] LABORATORY LDL CHOLESTEROL 159 (H) <=130 07/04/2022 [place] mg/dL 8:59 AM [facility] LABORATORY VLDL CHOLESTEROL 58 (H) <=30 07/04/2022 [place] mg/dL 8:59 AM [facility] LABORATORY PROVIDER ORDERED RANDOM 07/04/2022 [place] STATUS 8:59 AM [facility] LABORATORY Specimen Anatomical Collection Method / Collection Time Recei christy Time (Source) Location / Volume Laterality Blood BLOOD SPECIMEN / Venipuncture / 07/04/2022 8:32 2021 8:34 Unknown Unknown AM CDT AM CDT Do Barlow DO CHEMISTRY Performing Organization Address City/State/ZIP Code Phon e Number [facility] [address] [place] [address] (ABNORMAL) COMP METABOLIC PANEL (07/04/2022 8:32 AM CDT) [facility] gist Method Time Signature SODIUM 138 135 - 145 07/04/2022 [place] mmol/L 9:00 AM [facility] LABORATORY POTASSIUM 3.5 3.5 - 5.0 07/04/2022 [place] mmol/L 9:00 AM [facility] LABOR[facility] CHLORIDE 104 98 - 110 07/04/2022 [place] mmol/L 9:00 AM [facility] LABOR[facility]ORY CO2,TOTAL 24 21 - 31 07/04/2022 [place] mmol/L 9:00 AM [facility] LABOR[facility]ORY ANION GAP 10 5 - 18 07/04/2022 [place] 9:00 AM [facility] LABORATORY GLUCOSE 112 (H) 65 - 100 07/04/2022 [place] mg/dL 9:00 AM [facility] LABORATORY CALCIUM 9.8 8.5 - 10.5 07/04/2022 [place] mg/dL 9:00 AM [facility] LABORATORY BUN 10 8 - 25 07/04/2022 [place] mg/dL 9:00 AM [facility] LABORATORY CREATININE 0.82 0.57 - 07/04/2022 [place] 1.11 mg/dL 9:00 AM [facility] LABORATORY BUN/CREAT RATIO 12 10 - 20 07/04/2022 [place] 9:00 AM [facility] LABORATORY ALBUMIN 4.3 3.5 - 5.2 07/04/2022 [place] g/dL 9:00 AM [facility] LABORATORY PROTEIN,TOTAL 7.6 6.0 - 8.0 07/04/2022 [place] g/dL 9:00 AM [facility] LABORATORY GLOBULIN 3.3 2.0 - 3.7 07/04/2022 [place] g/dL 9:00 AM [facility] LABORATORY A/G RATIO 1.3 1.0 - 2.0 07/04/2022 [place] 9:00 AM [facility] LABORATORY BILIRUBIN,TOTAL 0.7 0.2 - 1.2 07/04/2022 [facility] mg/dL 9:00 AM [facility] LABOR[facility] ALK PHOSPHATASE 96 50 - 136 07/04/2022 [facility] IU/L 9:00 AM [facility] LAB[facility] ALT (SGPT) 22 8 - 45 07/04/2022 [facility] IU/L 9:00 AM [facility] LAB[facility] AST (SGOT) 19 2 - 40 07/04/2022 [facility] IU/L 9:00 AM [facility] LABORATORY eGFR >90 >90 07/04/2022 [place] mL/min/1.7 9:00 AM [facility] 3m2 LABORATORY Comment: As of 2021, eGFR is calcu lated by the CKD-EPI creatinine equation without race adjustment. eGFR can be inf luenced by muscle mass, exercise, and diet. The reported eGFR is an estimation only and is only applicable if the renal function is stable. Specimen Anatomical Collection Method / Collection Time Recei christy Time (Source) Location / Volume Laterality Blood BLOOD SPECIMEN / Venipuncture / 07/04/2022 8:32 2021 8:34 Unknown Unknown AM [facility] AM T Do Barlow DO CHEMISTRY Performing Organization Address City/State/ZIP Code Phon e Number [facility] [address] [place] [address] VITAMIN D 25 (DEFICIENCY) (07/04/2022 8:31 AM CDT) athologist Signature VITAMIN D 36.5 30.0 - 07/04/2022 [facility] TOTAL 80.0 ng/mL 9:08 PM CDT LABORATORY-[facility]ENT [facility]AL LABORATORY Specimen Anatomical Collection Method / Collection Time Recei christy Time (Source) Location / Volume Laterality Blood BLOOD SPECIMEN / Venipuncture / 07/04/2022 8:31 2021 8:32 Unknown Unknown AM CDT AM CDT Narrative [facility] LABORATORY-CENTRAL LAB[facility]AT [facility]Y - 07/04/2022 9:08 PM CDT Deficiency: ? <20 ng/mL Insufficiency: ?20-29 ng/mL Sufficiency: ?30-80 ng/mL Possible Toxicity: ??>80 ng/mL Based on [place] [facility] recommend ations Do Barlow DO SEND OUTS Performing Organization Address City/State/ZIP Code Phon e Number [facility] [address] [place] [address] LABORATORY-CENTRAL 2000 LABORATORY SCAN-ELECTROMYOGRAM EMG (06/29/2022 12:00 AM CDT) Narrative This result has an attachment that is no t available. Scanner OTHER XR KNEE WB 2 VIEWS BILATERAL AND 1 VIEW RIGHT (06/02/2022 2:39 PM CDT) Anatomical Region Laterality Modality KNEES, KNEE R Computed Radiography Specimen (Source) Anatomical Collection Method Collection Time Re ceived Time Location / / Volume Laterality 06/02/2022 2:46 PM CDT Narrative 06/02/2022 2:46 PM CDT For Patients: ??As a result of the Century Cures Act, medical imaging exams and procedure report s are released immediately into your [facility] medical record. ??You may view this report before your referring provider. ??If you have questions, please contact your health care provider. Indication: Radiating pain Technique: PA standing both knees, standing lateral view right knee and bilateral patellofemoral views, five views total Comparison: MRI 03/29/2019 Findings: Chronic incidental thickening of the lef t proximal tibial diaphyseal cortex. No acute destructive changes or fracture. Medial compartment narrowing and spurring bilaterally, mild. Small right knee effusion. Mild bilateral patellofemoral spurring. Impression: Mild medial and patellofemoral compartme nt spurring bilaterally. Incidental chronic thickening of the left proximal medial tibial cortex, unchanged. Dictated by Rishi Copeland MD @ Sep ??2021 ??2:46PM (Electronically Signed) ?? Procedure Note Rishi Copeland MD - 06/02/2022For matting of this note might be different from the original. For Patients: As a result of the ntury Cures Act, medical imaging exams and procedure reports are released immediately into your electronic medical record. You may view this report before your referring provider. If you have questions, please contact [facility] health care provider. Indication: Radiating pain Technique: PA standing both knees, standing lateral view right knee and bilateral patellofemoral views, five views total Comparison: MRI 03/29/2019 Findings: Chronic incidental thickening of the lef t proximal tibial diaphyseal cortex. No acute destructive changes or fracture. Medial compartment narrowing and spurring bilaterally, mild. Small right knee effusion. Mild bilateral patellofemoral spurring. Impression: Mild medial and patellofemoral compartme nt spurring bilaterally. Incidental chronic thickening of the left proximal medial tibial cortex, unchanged. Dictated by Rishi Copeland MD @ Jun 02 2:46PM (Electronically Signed) Lazaro Ramirez MD GENERAL IMAGING from Last 3 Months Insurance Payer Benefit Plan / Subscriber ID Effective Dates Phone Addre ss Type Group [employer]UE [employer]OSS [place] BLUE ADVANTAGE [id number] 2018-Present [address] [address] [place] [address] [employer]UE [employer]OSS BLUE CROSS OF [id number] 2020-Presen [facility] [address] [place] [address] Joshua Peters Personal/Famil Self 1980 [address] (Home) [facility] [phone] Nika CHEUNG (Work) [id number] [address] [facility] Employer 09/25/1900 [address] [facility] (Home) [place] [id number] Advance Directives Latest Code Status on File Code Status Date Activated Date Inactivated Comments Full Code 06/17/2019 7:34 AM 06/17/2019 4:45 PM Code Status Discussion: Discussed Full Code 06/17/2019 7:34 AM 06/17/2019 7:34 AM Code Status Discussion: Discussed Full Code 10/22/2018 10:19 AM 10/22/2018 6:52 PM Code Status Discussion: Discussed Full Code 07/18/2016 11:34 AM 07/18/2016 5:35 PM Code Status Discussion: Not Discussed Full Code 07/18/2016 9:26 AM 07/18/2016 11:34 AM Code Status Discussion: Not Discussed Care Teams Cafeteria Worker Relationship Specialty Start Date End Date Do Barlow, DO PCP - General Internal Medicine 11/10/[address] [place] [address] [place] [id number]
--- OUTSIDE RECORDS SUMMARY | 2022-08-30 07:40 | XMS_ITS | Encounter Summary ---
:1980 Author Organization [place] Address [facility] [place] [address] Care Team Providers Name Role Phone Coral Douglas NP Primary Care Provider Unavailable Reason for Visit Reason Comments Infusion Fasenra Treatment and Therapy Plans (Routine) - Closed Specialty Diagnoses / Procedures Referred By Contact Refer red To Contact Diagnoses Severe persistent asthma, uncomplicated Chronic rhinosinusitis Carol Esquivel MD [facility] Procedures C INJ., BENRALIZUMAB, 1 MG [facility] [address] [place], [place] [address] [place] [phone] [address] [place] [id number] Referral ID Status Reason Start Date Expiration Date Visits Requ ested Visits Authorized [id number] Closed 02/27/2020 09/24/2022 100 1 Encounter Details Date Type Department Care Team Description 02/03/2021 Infusion Therapy [facility] Carol Esquivel Sev ere persistent Visit Cancer Center MD Nader asthma, uncomplicated [facility] (Primary Dx) [facility] [address] [address] [place] [address] [place] [address] [place], [place] [phone] (Work) [phone] Social History Tobacco Use Types Packs/Day Years [...] Sign Reading Time Taken Comments Blood Pressure 138/83 02/03/2021 8:00 AM CDT Pulse 108 02/03/2021 8:00 AM CDT Temperature 36.8 ??C (98.3 ??F) 02/03/2021 8:00 AM CDT Respiratory Rate 18 02/03/2021 8:00 AM CDT Oxygen Saturation 97% 02/03/2021 8:00 AM CDT Inhaled Oxygen Concentration - - Weight - - Height - - Body Mass Index - - documented in this encounter Progress Notes Peer, Ana Rosa Olson RN - 02/03/2021 8:00 AM CDT Infusion Nursing Note: Joshua Peters presents today for [facility]. Patient seen by provider today: No Record Systems Analyst present during visit today: Not Applicable. Note: [...] nervous system diseases (ie. Multiple sclerosis, Guillain [place], seizures, neurological changes) or cancer diagnosis? No [...] Infusion Assessment: Patient tolerated injection without incident. Biologic Infusion Post Education: Call the triage [...] before your next infusion, please call your healthcare administrative assistant or triage nurse at your clinic to notify them so we can adequately serve you. Discharge Plan: Discharge instructions reviewed with: Patient. Patient and/or family verbalized understanding of discharge instructions and all questions answered. AVS to patient via Appiterate. Patient will return 04/10/2021 for next appointment. Patient discharged in stable condition accompanied by: self. Departure Mode: Ambulatory. Ana Rosa Fontana, RN documented in this encounter Plan of Treatment Not on filedocumented as of this encounter Visit Diagnoses Diagnosis Severe persistent asthma, uncomplicated - Primary Unspecified asthma documented in this encounter Administered Medications Inactive Administered Medications - up to 3 most recent administrations Medication Order MAR Action Action Date Dose Rate Site benralizumab (FASENRA) Given 02/03/2021 8:13 AM CDT 30 mg Left Arm injection 30 mg 30 mg, Subcutaneous, ONCE, On Mon02/03/21 at 0815, For 1 dose, Begin 8 weeks after the third dose and repeat every 8 weeks. Let medication stand at room temp 30 minutes before injection. Administer in upper arm, thigh or abdomen. Prior to administration, warm FASENRA by leaving carton at room temperature for about 30 minutes. documented in this encounter Care Teams Hotel Services Sales Representative Relationship Specialty Start Date End Date Coral Douglas NP PCP - General Nurse Practitioner 09/20/17 documented as of this encounter
--- OUTSIDE RECORDS SUMMARY | 2022-08-30 07:41 | XMS_ITS | Encounter Summary ---
:1980 Author Organization [place] Address [facility] [place] [address] Care Team Providers Name Role Phone Coral Douglas NP Primary Care Provider Unavailable Encounter Details Date Type Department Care Team Description 02/27/2020 Orders Only [facility] Carol Esquivel Severe persistent asthma, uncomplicated; Cancer Center MD Nader Chronic rhinosinusitis [facility] [address] [place], [place] [address] [facility] [phone] [facility] [address] [place], [place] [address] (Wo rk) Social History Tobacco Use Types Packs/Day Years Used Date Smoking Tobacco: Never Assessed Sex Assigned at Date Recorded Not on file documented as of this encounter Progress Notes Rafa Colindres RPH - 02/27/2020 1:57 PM CDT Images from the original note were not included. documented in this encounter Plan of Treatment Not on filedocumented as of this encounter Visit Diagnoses Diagnosis Severe persistent asthma, uncomplicated Unspecified asthma Chronic rhinosinusitis Unspecified sinusitis (chronic) documented in this encounter Care Teams Air Control/Anti Air Warfare Officer Relationship Specialty Start Date End Date Coral Douglas NP PCP - General Nurse Practitioner 09/20/17 documented as of this encounter
--- OUTSIDE RECORDS SUMMARY | 2022-08-30 07:41 | XMS_ITS | Encounter Summary ---
:1980 Author Organization [place] Address [address] [place] [address] Care Team Providers Name Role Phone Coral Douglas NP Primary Care Provider Unavailable Encounter Details Date Type Department Care Team Description 08/19/2020 Travel Social History Tobacco Use Types Packs/Day Years Used Date Smoking Tobacco: Never Assessed Sex Assigned at Date Recorded Not on file COVID-19 Exposure Response Date Recorded In the last month, have you been in contact with No / Unsure 08/19/2020 8:34 AM STOVE CLEANER someone who was confirmed or suspected to have Coronavirus / COVID-19? documented as of this encounter Plan of Treatment Not on filedocumented as of this encounter Visit Diagnoses Not on filedocumented in this encounter Care Teams Staff Editor Relationship Specialty Start Date End Date Coral Douglas NP PCP - General Nurse Practitioner 09/20/17 documented as of this encounter
--- OUTSIDE RECORDS SUMMARY | 2022-08-30 07:41 | XMS_ITS | Encounter Summary ---
:1980 Author Organization [place] Address [address] [place] [address]. [place] [address] Care Team Providers Name Role Phone Coral Douglas NP Primary Care Provider Unavailable Reason for Visit Reason Comments Imm/Inj Fasenra Treatment and Therapy Plans (Routine) - Closed Specialty Diagnoses / Procedures Referred By Contact Refer red To Contact Diagnoses Severe persistent asthma, uncomplicated Chronic rhinosinusitis Carol [facility] MD [facility] Procedures C INJ., BENRALIZUMAB, 1 MG [facility] [address] [place], [place] [address] [place] [phone] [address] [place] [address] Referral ID Status Reason Start Date Expiration Date Visits Requ ested Visits Authorized [id number] Closed 02/27/2020 09/24/2022 100 1 Encounter Details Date Type Department Care Team Description 06/24/2020 [facility] Carol Esquivel Imm/Inj (Fasenra) Health/Nurse Cancer Center MD Nader Visit [facility] P[facility]IATRIC [facility] Medical Ctr [facility] [address] [address] [place] [address] [place] [address] [place], [place] [phone] (Wo rk) [id number] [phone] Social History Tobacco Use Types Packs/Day Years Used Date Smoking Tobacco: Never Assessed Sex Assigned at Date Recorded Not on file COVID-19 Exposure Response Date Recorded In the last month, have you been in contact with No / Unsure 06/24/2020 8:45 AM CDT someone who was confirmed or suspected to have Coronavirus / COVID-19? documented as of this encounter Last Filed Vital Signs Vital Sign Reading Time Taken Comments Blood Pressure 142/99 06/24/2020 9:00 AM CDT Pulse 96 06/24/2020 9:00 AM CDT Temperature 36.7 ??C (98 ??F) 06/24/2020 9:00 AM CDT Respiratory Rate 20 06/24/2020 9:00 AM CDT Oxygen Saturation 96% 06/24/2020 9:00 AM CDT Inhaled Oxygen Concentration - - Weight - - Height - - Body Mass Index - - documented in this encounter Progress Notes Keerthi Coleman, DAMON - 06/24/2020 9:00 AM CDT Infusion Nursing Note: Joshua Peters presents today for Fasenra. Patient seen by provider today: No Software Tools Engineer present during visit today: Not Applicable. Note: Per order, only observe post Fasenra for first three doses. Today was the fourth dose. No prior reactions. No observation time needed. Currently taking PO doxycycline for sinus infection. Dr Esquivel's office notified. TORB: Ok to give Fasenra today. Intravenous Access: No Intravenous access/labs at this [...] infection or are you on any antibiotics? Yes, sinus infection on doxycycline since 06/19 5. Have you had any new, sudden [...] nervous system diseases (ie. Multiple sclerosis, Guillain [place], seizures, neurological changes) or cancer diagnosis? No 8. Are you on any form of radiation or chemotherapy? No 9. Are you or breast feeding or do you have plans of in the future? No 10. Have you been having any signs of worsening depression or suicidal ideations? (benlysta only) No 11. Have there been any other new onset medical symptoms? Yes, sinus infection Post Infusion Assessment: Patient tolerated injection without incident. Site patent and intact, free from redness, edema or discomfort. Discharge Plan: AVS to patient via MYCHART. Patient needs to schedule next appointment. Patient discharged in stable condition [...] Date Dose Rate Site benralizumab (FASENRA) Given 06/24/2020 9:05 AM CDT 30 mg Right Arm injection 30 mg 30 mg, Subcutaneous, ONCE, On Mon06/24/20 at 0900, For 1 dose, Begin 8 weeks after the third dose and repeat every 8 weeks. Let medication stand at room temp 30 minutes before injection. Administer in upper arm, thigh or abdomen. Prior to administration, warm FASENRA by leaving carton at room temperature for about 30 minutes. documented in this encounter Care Teams Band Attacher Relationship Specialty Start Date End Date Coral Douglas NP PCP - General Nurse Practitioner 09/20/17 documented as of this encounter
--- OUTSIDE RECORDS SUMMARY | 2022-08-30 07:41 | XMS_ITS | Encounter Summary ---
:1980 Author Organization [place] Address [address] [place] [address] Care Team Providers Name Role Phone Coral Douglas NP Primary Care Provider Unavailable Encounter Details Date Type Department Care Team Description 04/01/2020 Travel Social History Tobacco Use Types Packs/Day Years Used Date Smoking Tobacco: Never Assessed Sex Assigned at Date Recorded Not on file COVID-19 Exposure Response Date Recorded In the last month, have you been in contact with No / Unsure 04/01/2020 11:41 AM CDT someone who was confirmed or suspected to have Coronavirus / COVID-19? documented as of this encounter Plan of Treatment Not on filedocumented as of this encounter Visit Diagnoses Not on filedocumented in this encounter Care Teams Software Programmer Relationship Specialty Start Date End Date Coral Douglas NP PCP - General Nurse Practitioner 09/20/17 documented as of this encounter
--- OUTSIDE RECORDS SUMMARY | 2022-08-30 07:41 | XMS_ITS | Encounter Summary ---
:1980 Author Organization [facility] Address [address] [place] [address] Care Team Providers Name Role Phone Unavailable Primary Care Provider Unavailable Reason for Referral Outpatient (Routine) - Authorized Specialty Diagnoses / Procedures Referred By Contact Refer red To Contact Diagnoses Migraine Headache Krishan Rodrigues M.D. [facility] Procedures Botox for Chronic Migraine RI INJECTION,ONABOTULINUMTOXINA RI CHEMODENERV FACIAL TRIGEM CRUZ Botox 150 units every 12 weeks [address] [place], [place] [phone] Referral ID Status Reason Start Date Expiration Date Visits V isits Requested Authorized [id number] Authorized 02/08/2022 02/08/2023 12 12 Reason for Visit Outpatient (Routine) - Authorized Specialty Diagnoses / Procedures Referred By Contact Refer red To Contact Diagnoses Migraine Headache Chronic Krishan Almendarez M.D. [facility] Procedures Botox for Chronic Migraine RI INJECTION,ONABOTULINUMTOXINA RI CHEMODENERV FACIAL TRIGEM CRUZ Botox 150 units every 12 weeks [address] [place] [phone] Referral ID Status Reason Start Date Expiration Date Visits V isits Requested Authorized [id number] Authorized 02/08/2022 02/08/2023 12 12 Encounter Details Date Type Department Care Team Description 02/10/2022 Hospital Encounter Department of Krishan Almendarez M.D. [address] [place] [phone] Migraine Headache Neurology in [facility] P[facility] Olson C.NGaudencioPGaudencio, M.S.N. [address] [place] [phone] Chronic [place], [place] [address] [place] [phone] Social History Tobacco Use Types Packs/Day Years Used Date Smoking Tobacco: Never Smokeless Tobacco: Never Alcohol Use Standard Drinks/Week Comments Never 0 (1 standard drink = 0.6 oz pure alcoho l) Alcohol Habits Answer Date Recorded How often do you have a drink containing alcohol? Never 10/21/2021 How many drinks containing alcohol do you have on a typical Not asked day when you are drinking? How often do you have six or more drinks on one occasion? No t asked Social Isolation Answer Date Recorded In a typical week, how many times do you talk on the phone T wice a week 10/21/2021 with family, friends, or neighbors? How often do you get together with friends or relatives? Nev er 10/21/2021 How often do you attend buddhism or synagogue services? Never 10/21/2021 Do you belong to any clubs or organizations such as buddhism N o 10/21/2021 groups, unions, fraternal or athletic groups, or school groups? How often do you attend meetings of the clubs or Never 10/21/2021 organizations you belong to? Are you now , , , , never Div orced 10/21/2021 or living with a partner? Physical Activity Answer Date Recorded On average, how many days per week do you engage in moderate to 7 days 10/21/2021 strenuous exercise (like walking fast, running, jogging, dancing, swimming, biking, or other activities that cause a light or heavy sweat)? On average, how many minutes do you engage in exercise at th is 10 min 10/21/2021 level? Stress Answer Date Recorded Do you feel stress - tense, restless, nervous, or Only a lit tle 10/21/2021 anxious, or unable to sleep at night because your mind is troubled all the time - these days? Financial Resource Strain Answer Date Recorded How hard is it for you to pay for the very basics like Not v wilbur hard 10/21/2021 food, housing, medical care, and heating? Intimate Partner Violence Answer Date Recorded Within the last year, have you been afraid of your partner o r No 10/21/2021 ex-partner? Within the last year, have you been humiliated or emotionall y No 10/21/2021 abused in other ways by your partner or ex-partner? Within the last year, have you been kicked, hit, slapped, or No 10/21/2021 otherwise physically hurt by your partner or ex-partner? Within the last year, have you been raped or forced to have any No 10/21/2021 kind of sexual activity by your partner or ex-partner? Food Insecurity Answer Date Recorded Within the past 12 months, you worried that your food would Never true 10/21/2021 run out before you got money to buy more. Within the past 12 months, the food you bought just didn't N ever true 10/21/2021 last and you didn't have money to get more. Transportation Needs Answer Date Recorded In the past 12 months, has lack of transportation kept you f rom No 10/21/2021 medical appointments or from getting medications? In the past 12 months, has lack of transportation kept you f rom No 10/21/2021 meetings, work, or getting things needed for daily living? Housing Stability Answer Date Recorded In the last 12 months, was there a time when you were not ab le No 10/21/2021 to pay the mortgage or rent on time? In the last 12 months, how many places have you lived? 1 10/21/2021 In the last 12 months, was there a time when you did not hav e a No 10/21/[address] to sleep or slept in a custodial (including now)? Education Answer Date Recorded What is the highest level of school you have GED or equivale nt 10/21/2021 completed or the highest degree you have received? 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 0 mg tablet azelastine (ASTELIN) 137 Administer 2 sprays into 30 mL 11 01/03/2022 mcg/spray (0.1 %) nasal each nostril 2 (two) spray times a day. Use in each nostril as directed benzonatate (TESSALON) benzonatate 200 mg 0 08/26 200 mg capsule capsule budesonide (PULMICORT) budesonide 0.5 mg/2 mL 0 0 02/19/2020 0.5 mg/2 mL nebulizer suspension for solution nebulization cetirizine 10 mg capsule 0 cholecalciferol (VITAMIN Take 2,000 Units by 0 D3) 50 mcg (2,000 Unit) mouth. capsule cyclobenzaprine 0 (FLEXERIL) 5 mg tablet dextromethorphan-guaiFEN Take 1 tablet by mouth. 0 09/29/2020 esin 60-1,200 mg tablet extended release 12 hr Dulera 200-5 2 puffs 2 (two) times a 0 09/30/2021 mcg/actuation inhaler day. DULoxetine (CYMBALTA) 30 Take 30 mg by mouth. 0 0 06/08/[address] capsule Dupixent Pen 300 mg/2 mL 0 09/27/2021 injection EPINEPHrine 0.3 mg/0.3 epinephrine 0.3 mg/0.3 0 0 01/31/2019 mL injection syringe mL injection, auto-injector esomeprazole (NexIUM) 20 Take 20 mg by mouth [address] capsule every morning before breakfast. fluticasone propionate INSTILL ONE SPRAY IN THE 0 12/10/2020 (FLONASE) 50 AFFECTED NOSTRIL EVERY mcg/actuation nasal DAY spray fluticasone propionate Administer 2 sprays into 16 g 5 11/24/2021 (FLONASE) 50 each nostril daily. mcg/actuation nasal spray gabapentin (NEURONTIN) Take 900 mg by mouth 3 0 0 09/28/2021 300 mg capsule (three) times a day. hydroCHLOROthiazide hydrochlorothiazide 25 0 11/24 (HYDRODIURIL) 25 mg mg tablet tablet ipratropium (ATROVENT) Administer 2 sprays into 15 mL 0 01/03/2022 42 mcg (0.06 %) nasal each nostril 3 (three) spray times a day. magnesium oxide 500 mg Take by mouth. 0 0 tablet tablet montelukast (SINGULAIR) Take 10 mg by mouth 0 12/2021 10 mg tablet daily. sodium chloride (OCEAN) Administer 1 spray into 15 mL 12 11/24/2021 0.65 % nasal spray each nostril 2 (two) times a day. verapamiL (CALAN) 80 mg Take 80 mg by mouth 2 0 1 tablet (two) times a day. rizatriptan ARCHITECT MANAGER Dissolve 1 tablet (10 mg 18 tablet 3 2021 (MAXALT-ARCHITECT MANAGER) 10 mg total) in the mouth 2 disintegrating tablet every 2 (two) hours as needed for migraine. MAX 30mg/day. MAX 9 days/month. documented as of this encounter Procedure Notes Diana Price APRN C.NJuan Francisco, M.S.N. - 02/10/2022 9:15 AM CDTAssociated Order(s): Botox for Chronic Migraine Pre-Procedure Diagnose(s): Migraine Headache Chronic Post-Procedure Diagnose(s): Migraine Headache Chronic Botox for Chronic Migraine Date/Time: 02/10/2022 9:07 AM Performed by: Diana Price APRN, C.N.P., M.S.N. Authorized by: Krishan Almendarez M.D. Care team members present 1. Winnie Nettles L.P.N. 2. Socorro Molina R.N. PROCEDURE DETAILS Pre-procedure pain score: 6/10 Injection of: 100 Units onabotulinumtoxinA 100 unit 50 Units onabotulinumtoxinA 50 unit Needle gauge: 30 Needle length: 0.5 in Injection site details Security Professional / Procerus muscle(s): 5 units into the left pie baker muscle, 5 units into the right pie baker muscle and 5 units into the procerus muscle (15 units total). Superior Frontalis muscle(s): 5 units into the left superior frontalis muscle and 5 units into the right superior frontalis muscle (2 injection sites per muscle) (10 units total). Temporalis muscle(s): 12.5 units into the left temporalis muscle and 12.5 units into the right temporalis muscle (2 injection sites per muscle) (25 units total). Splenius Capitis muscle(s): 12.5 units into the left splenius capitis muscle and 12.5 units into theright splenius capitis muscle (2 injection sites per muscle) (25 units total). Occipitalis muscle(s): 12.5 units into the left occipitalis muscle and 12.5 units into the right occipitalis muscle (2 injection sites per muscle) (25 units total). Trapezius muscle(s): 25 units into the left trapezius muscle and 25 units into the right trapezius muscle (3 injection sites per muscle) (50 units total). Total units wasted: 0 Total units injected: 150 CONSENT Consent obtained: written UNIVERSAL PROTOCOL All relevant documentation and testing were reviewed and available. All required blood products, implants, devices and or special equipment were made available as applicable. Pre-procedure verificationwas conducted and the correct site was marked if required. A fire risk assessment was done as applicable. The procedural time-out was conducted prior to performing the procedure and confirmed in a procedural pause. PRE-PROCEDURE DETAILS Reason for injections: chronic migraine Appropriate hand hygiene, gown, cap, mask, protective eyewear, sterile gloves, skin preparation, sterile drape, and strict aseptic technique were utilized as applicable for the procedure: yes Site preparation: alcohol Clinical history: Patient was made aware that they may be responsible for any and all costs associated with injection of Botulinum Toxin Type A that is not covered by a third republican. Prior preventative medication trials: gabapentin, verapamil, amitriptyline and duloxetine (Cymbalta)(Vitamin D 3) Headache frequency Headache days per month: 30 days Severe headache days per month: 15 days Midas Scorin (02/02/2022 11:21 AM) POST-PROCEDURE DETAILS Procedure completed successfully: yes Complications: no apparent complications documented in this encounter Plan of Treatment Upcoming Encounters Date Type Specialty Care Team Description 10/31/2022 Appointment Neurology Krishan Almendarez M.D . [address] [place], [place] [phone] (Wo rk) documented as of this encounter Procedures Procedure Name Priority Date/Time Associated Comments Diagnosis RI CHEMODENERV FACIAL Routine 02/10/2022 9:07 AM Migraine Head ache Results for this TRIGEM CRUZ CDT Chronic procedure are i n the results section. documented in this encounter Results RI CHEMODENERV FACIAL TRIGEM CRUZ (02/10/2022 9:07 AM CDT) Narrative MMODAL - 02/10/2022 9:07 AM CDT Diana Price APRN, C.N.P., M.S.N. ? 02/10/2022 ??9:48 AM Botox for Chronic Migraine Date/Time: 02/10/2022 9:07 AM Performed by: Diana Price APRN, C .N.P., M.S.N. Authorized by: Krishna Almendarez M.D. Care team members present 1. Winnie Nettles L.P.N. 2. Socorro Molina R.N. PROCEDURE DETAILS ?? Pre-procedure pain score: 6/10 Injection of: 100 Units onabotulinumtoxi nA 100 unit 50 Units onabotulinumtoxinA 50 unit Needle gauge: 30 Needle length: 0.5 in Injection site details Security Professional / Procerus muscle(s): 5 units into the left pie baker muscle, 5 units into the right pie baker muscle and 5 units into the procerus muscle ??(15 units total). Superior Frontalis muscle(s): 5 units in to the left superior frontalis muscle and 5 units into the right superi or frontalis muscle ?? (2 injection sites per muscle) (10 units total). Temporalis muscle(s): 12.5 units into th e left temporalis muscle and 12.5 units into the right temporalis muscle ? ? (2 injection sites per muscle) ?? (25 units total). Splenius Capitis muscle(s): 12.5 units i nto the left splenius capitis muscle and 12.5 units into the right spl enius capitis muscle ?? (2 injection sites per muscle) ??(25 units total). Occipitalis muscle(s): 12.5 units into t he left occipitalis muscle and 12.5 units into the right occipitalis mu scle ??(2 injection sites per muscle) ??(25 units total). Trapezius muscle(s): 25 units into the l eft trapezius muscle and 25 units into the right trapezius muscle ??(3 inj ection sites per muscle) ??(50 units total). Total units wasted: 0 Total units injected: 150 CONSENT Consent obtained: written UNIVERSAL PROTOCOL All relevant documentation and testing w ere reviewed and available. All required blood products, implants, devic es and or special equipment were made available as applicable. Pre-proced ure verification was conducted and the correct site was marked if required. A fire risk assessment was done as applicable. The procedural time-out w as conducted prior to performing the procedure and confirmed in a procedu ral pause. PRE-PROCEDURE DETAILS ?? Reason for injections: chronic migraine Appropriate hand hygiene, gown, cap, mas k, protective eyewear, sterile gloves, skin preparation, sterile drape, and strict aseptic technique were utilized as applicable for the procedure : yes Site preparation: alcohol Clinical history: Patient was made aware that they may be responsible for any and all costs associated with inject ion of Botulinum Toxin Type A that is not covered by a third republican. ?? Prior preventative medication trials: [place] bapentin, verapamil, amitriptyline and duloxetine (Cymbalta) (Vitamin D 3) Headache frequency Headache days per month: 30 days Severe headache days per month: 15 days Midas Scorin (02/02/2022 11:21 AM) POST-PROCEDURE DETAILS ?? Procedure completed successfully: yes ?? Complications: no apparent complications Authorizing Provider Result Faye Almendarez M.D. NEUROLOGY ORDERABLES Performing Organization Address City/State/ZIP Code Phon e Number MMODAL MMODAL NA documented in this encounter Visit Diagnoses Diagnosis Migraine Headache Chronic documented in this encounter Administered Medications Inactive Administered Medications - up to 3 most recent administrations Medication Order MAR Action Action Date Dose Rate Site onabotulinumtoxinA injection 100 Given 02/10/2022 9:07 AM 100 Un its Units (BOTOX) CDT 100 Units, injection, One-Time Injection, Starting on Aster 02/10/22 at 0907, For 1 dose onabotulinumtoxinA injection 50 Units Given 02/10/2022 9:07 AM C DT 50 Units (BOTOX COSMETIC) 50 Units, injection, One-Time Injection, Starting on Aster 02/10/22 at 0907, For 1 dose documented in this encounter Additional Health Concerns Assessment Noted Time PHQ-9 Depression Total Score: 13 02/08/2022 10:14 AM C DT documented as of this encounter
--- OUTSIDE RECORDS SUMMARY | 2022-08-30 07:41 | XMS_ITS | Encounter Summary ---
:1980 Author Organization [facility] Address [address] [place] [address] Care Team Providers Name Role Phone Unavailable Primary Care Provider Unavailable Reason for Visit Outpatient (Routine) - Closed Specialty Diagnoses / Procedures Referred By Contact Refer red To Contact Otorhinolaryngology Diagnoses Rhinitis [facility] [address] [place] [address] Referral ID Status Reason Start Date Expiration Date Visits V isits Requested Authorized [id number] Closed Specialty 12/14/2021 12/14/2022 1 1 Services Required Encounter Details Date Type Department Care Team Description 01/03/2022 Comprehensive Visit Department of Burak Ashby Nasal (Primary Dx); Otorhinolaryngology in [place], Rhini tis; [place], [place] 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 Epistaxis; [place] [address] [address] Chronic Cough [phone] [place] [id number] Social History Tobacco Use Types Packs/Day Years [...] do you talk on the phone T kenny a week 10/21/2021 with family, friends, or neighbors? How often do you get together with friends or relatives? Nev er 10/21/2021 How often do you attend latter-day or alevism services? Never 10/21/2021 Do you belong to any clubs or organizations such as latter-day N o 10/21/2021 groups, unions, fraternal or [...] place to sleep or slept in a jail (including now)? Education Answer Date Recorded What is the highest level of school you have GED or equivale nt 10/21/2021 completed or the highest degree you have received? 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 - 01/03/2022 2:00 PM CDT SUBJECTIVE CHIEF COMPLAINT / REASON FOR VISIT Joshua Peters is a 41 y.o. female who presents for evaluation of recurrent sinusitis History of Present Illness: Joshua Peters is here for evaluation of sinus issues. She was referred by pulmonology, who she last saw on 10/25/2021 with recurrent cough. She messaged in on 12/14/2021 and felt her cough was caused by sinus drainage. Reports having seen several ENTs who had prescribed nasal saline rinses withclindamycin. She reported it dried her out and caused her to have epistaxis and increased drainage down the back of her throat. She is also using Afrin and Sudafed for 3 days on and 3 days off of the time. She has reported sinus headaches, facial pain, teeth pain, and yellow nasal discharge. Today, she reports daily clear, white, thick nasal drainage, frontal and maxillary sinus pain and pressure, cough, nausea, and thick clear phlegm. She reports feeling like she had an infection all yearlong last year requiring multiple courses of antibiotics and steroids. She feels like she always needs 1 or both of these to feel better. She also endorses difficulty with trying to cough up her phlegmand a getting stuck in her throat. She does endorse 1 to 2 times a week epistaxis, that she pinches and applies pressure for. 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 She currently uses Tessalon Pearls and Mucinex and feels that this has kepther asthma under control. She is also using twice daily saline rinses, Flonase once daily but has discontinued the triple spray due to repeated epistaxis and insurance issues. This was prescribed by Allergy in 2020. She reports that since her COVID infection in 2019 she has had a severely dry mouth, diminished sense of smell and almost complete loss of taste. She denies any nasal obstruction or difficulty breathing through her nose. She does endorse a history of GERD, taking omeprazole 20 mg twice daily. This was just changed and was only using it p.r.n. She states to have environmental allergies with skin testing in 2020 revealing an allergen to short ragweed. Prior to this she did have allergy skin test done in 2010 that revealed multiple allergens. At that time she underwent allergy shots but was unable to get in for routine shots due to other obstacles going on. She was previously seen by Dr. Iniguez in Allergy, in October of 2020 with complaints of chronic cough, and allergic rhinitis. Her sinus CT was clear at that time and did not indicate any signs of acute or chronic sinusitis. She was recommended to start triple nasal spray 1 spray twice daily, and undergo allergy skin testing. She was also referred to Neurology for evaluation and treatment of her headaches. She currently takes Tylenol and Aleve to manage her migraines. The patient's worst symptoms are Nasal blockage, Post-nasal discharge, Thick nasal discharge, Facialpain/pressure, Decreased sense of smell/taste and the total SNOT-22 score is 80. Of note, she was seen by Collette Cole in October 2020 for goals of improving breathing for functional communication in activities of daily living. REVIEW OF SYSTEMS The following portions of the patient's history were reviewed and updated as appropriate: allergies,current medications, family history, medical history, social history, surgical history and problem list. Social History Tobacco Use Smoking status: Never Smoker Smokeless tobacco: Never Used REVIEW OF SYSTEMS Respiratory: Positive for coughing up mucus (phlegm). All other systems reviewed and are negative. OBJECTIVE PHYSICAL EXAM Physical Exam PHYSICAL EXAM: General: Patient doing well overall and is in no apparent distress. Psych: Pleasant affect, and answers questions appropriately. Head & Face: Symmetric facial movements Eyes: Pupils equal, round, reactive. Extraoccular movements intact without gaze restrictions or nystagmus. No epiphora. Ears: External auditory canals are normal. Tympanic membranes are clear. No middle ear effusion is seen. All middle ear landmarks are normal. Nose: Anterior rhinoscopy revealed nonobstructive inferior turbinates with view of middle meatus. More posterior areas of the nasal cavity could not be completely examined. Oral Cavity/Oropharynx: Without lesions or masses to visual exam. Neck: Supple without lymphadenopathy. Lungs: Non-labored, and without evidence of stridor. Cardiac: Pulses are strong, well-perfused. Extremities: Without gross evidence of clubbing, cyanosis, or edema. Neuro: Cranial nerves II-XII grossly intact; Intact facial movements. PROCEDURE NOTE Laryngoscopy: A comprehensive upper airway exam was performed using a flexible fiberoptic scope under topical anesthesia. Verbal consent was obtained and universal protocol was followed. The bilateral nares were anesthestized using oxymetazoline with tetracaine nasal spray. The endoscope was passed gently along thefloor of the nose. The bilateral nasal cavities were unremarkable. The nasopharynx was without masses or lesions. The scope was passed in to the oropharynx. There were no masses or lesions appreciable here. The posterior pharyngeal wall and palatine tonsils were non-erythematous without exudates. The base of tongue, vallecula, lingual tonsils, epiglottis, were all unremarkable. The pyriform sinuses, arytenoids, aryepiglottic folds were without masses or lesions. The vocal cords were visualized and appeared symmetrically mobile on abduction and adduction. There were no nodules, granulomas, or papillomas visualized on the vocal cords. Full glottic closure can be achieved with phonation. The subglottis was briefly visualized and appeared patent without edema or stenosis. The endoscope was then withdrawn atraumatically and the patient tolerated the procedure well. Findings: Septum midline. Bilateral anterior crusting. Middle meatus found to have thick, clear mucus bilaterally and down into bilateral nasaopharynx. Bilateral middle and inferior turbinates were in good position. The base of the tongue, vallecula, lingual tonsils, and epiglottis were all covered with thick, foamy type mucus. No pus/purulence/polyps noted in by lateral nares. [place]-Moncho Endoscopic Scoring System Right Side Left Side Polyp Absent = 0 Absent = 0 Edema Absent = 0 Absent = 0 Discharge Purulent or thick = 2 Purulent or thick = 2 Scarring Absent = 0 Absent = 0 Crusting Absent = 0 Absent = 0 Emanuel-Moncho Endoscopy Score =4 ASSESSMENT / PLAN #1 Rhinitis #2 Postnasal drip #3 GERD #4 Epistaxis #5 Chronic cough It was a pleasure to meet Ms. Peters in clinic today. She has a history of postnasal drainage and sinus congestion having seen allergy in 2020. She has also been seen by our speech language pathology team, Pulmonary, Allergy, and neurology for continued cough, postnasal drainage, allergies, and repeated bronchitis. She has daily thick clear drainage from her nose and throat along with bilateralmaxillary and frontal sinus pressure. She has felt sick the past year and only felt better when on courses of antibiotics and/or steroids. Her previous CT exams from September 2020, October & February of 2020, revealed no inflammation or sinus disease. On physical exam, she is noted to have anterior bilateral crusting, with thick, clear postnasal drainage. She is also noted to have thick, foamy mucus around her vocal cords and base of tongue. Due to insurance, she has been struggling with starting her twice daily omeprazole. We discussed changing it to 40 mg once daily to see if that improves symptoms. I advised her to try the triple spray again but due to insurance not covering we will order each item separate. She is currently already using Flonase once a day and will just add Astelin and Atrovent to her daily routine. She will do this for the next 6-8 weeks, and message in to let us know how she is doing. We also discussed when she begins to have signs of an acute infection to reach out and we will get asinus CT at that time. We have discussed the importance of nasal humidity, hygiene, and nasal cares and this has been demonstrated and discussed with patient. I likely feel her cough, post nasal drip and rhinitis are the results of her GERD and hope this willalleviate her symptoms. She is welcome to reach out with any questions or concerns as they arise.Allquestions were answered and the patient was agreeable to plan. Ady Ashby APRN, C.N.P., M.S.N. Addendum: We did also discuss her facial pain. I likely feel this is related to her history of migraines not due to sinus pressure as her 3 previous sinus CTs have been clear. Ady Ashby APRN, Milka.NNaveen., M.S.N. documented in this encounter Plan of Treatment Upcoming Encounters Date Type Specialty Care Team Description 10/31/2022 Appointment Neurology Krishan Almendarez M.D . [address] [place] [address] [phone] (Wo rk) documented as of this encounter Visit Diagnoses Diagnosis Drip Post Nasal - Primary Rhinitis Gastroesophageal Reflux Disease Epistaxis Chronic Cough documented in this encounter
--- OUTSIDE RECORDS SUMMARY | 2022-08-30 07:41 | XMS_ITS | Encounter Summary ---
:1980 Author Organization [facility] Address 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 Primary Care Provider Unavailable Encounter Details Date Type Department Care Team Description 09/16/2020 Orders Only [facility] Cancer Craol Esquivel MD [facility] [address] [facility] [address] [place] [address] [place], [place] [id number] (Wo rk) Social History Tobacco Use Types Packs/Day Years Used Date Smoking Tobacco: Never Assessed Sex Assigned at Date Recorded Not on file COVID-19 Exposure Response Date Recorded In the last month, have you been in contact with No / Unsure 08/19/2020 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 documented as of this encounter Progress Notes Caleb Mae RPH - 09/16/2020 1:47 PM CST Images from the original note were not included. Copy of original order RAM PROPOSALS COORDINATOR documented in this encounter Plan of Treatment Not on filedocumented as of this encounter Visit Diagnoses Not on filedocumented in this encounter Care Teams Fold Skiver Relationship Specialty Start Date End Date Coral Douglas NP PCP - General Nurse Practitioner 09/20/17 documented as of this encounter
--- OUTSIDE RECORDS SUMMARY | 2022-08-30 07:41 | XMS_ITS | Encounter Summary ---
:1980 Author Organization [facility] Address [address] [place] [id number] Care Team Providers Name Role Phone Coral Douglas NP Primary Care Provider Unavailable Encounter Details Date Type Department Care Team Description 03/04/2020 Travel Social History Tobacco Use Types Packs/Day Years Used Date Smoking Tobacco: Never Assessed Sex Assigned at Date Recorded Not on file COVID-19 Exposure Response Date Recorded In the last month, have you been in contact with No / Unsure 03/04/2020 12:23 PM CDT someone who was confirmed or suspected to have Coronavirus / COVID-19? documented as of this encounter Plan of Treatment Not on filedocumented as of this encounter Visit Diagnoses Not on filedocumented in this encounter Care Teams Padded Box Sewer Relationship Specialty Start Date End Date Coral Douglas NP PCP - General Nurse Practitioner 09/20/17 documented as of this encounter
--- OUTSIDE RECORDS SUMMARY | 2022-08-30 07:41 | XMS_ITS | Clinical Summary ---
:1980 Author Organization [facility] Address [address] [place] [address] Care Team Providers Name Role Phone Unavailable Primary Care Provider Unavailable Source Comments Patient records contain information from all sites at [facility]. For routine questions regarding patient records, call [phone] during business hours, M-F 8:00 AM - 5:00 PM Central Time. Record requests for emergency care only can be directed to [phone] at any time.[facility] Allergies Active Allergy Reactions Severity Noted Date Comments Amitriptyline Hives, Itching Medium 03/31/2021 Cefprozil Hives, Rash High 02/16/2010 has tolerated omnicef has tolerated omnicef Erythromycin Nausea Only, Nausea High 12/20/2006 And Vomiting, Other (see comments), GI intolerance Fish Containing Products Hives, Itching, Nausea High 2019 Only, Nausea And Vomiting Eason Anaphylaxis, Hives, High 10/12/2020 Lillies Shortness of breath, Itching, Rash, Wheezing [place] Anaphylaxis High 01/28/2020 Metoprolol Cough, Hives, Itching, 08/07/2020 Rash Penicillins GI intolerance, Hives, Low 12/20/2006 Nausea And Vomiting, Rash Shellfish Containing Hives 10/22/2018 Products Sulfa (Sulfonamide GI intolerance 03/04/2020 Antibiotics) Sulfamethoxazole-Trimeth Nausea And Vomiting 7 oprim Medications Medication Sig Dispensed Refills Start End Status Date Date albuterol sulfate 90 0 Active mcg/actuation aero powdr breath act w/sensor cetirizine 10 mg 0 Act gerhard capsule cyclobenzaprine 0 Acti ve (FLEXERIL) 5 mg tablet dextromethorphan-guaiFE Take 1 tablet by 0 09/29/19 Active Nesin 60-1,200 mg mouth. 21 tablet extended release 12 hr albuterol (ACCUNEB) 2.5 albuterol sulfate 2.5 0 08/26 03/14 Active mg /3 mL nebulizer mg/3 mL (0.083 %) 19 solution solution for nebulization amLODIPine (NORVASC) 10 Take 10 mg by mouth. 0 08/31 Active mg tablet 20 benzonatate (TESSALON) benzonatate 200 mg 0 08/26/20 Active 200 mg capsule capsule 20 budesonide (PULMICORT) budesonide 0.5 mg/2 mL 0 01/24 04/13 Active 0.5 mg/2 mL nebulizer suspension for 20 solution nebulization DULoxetine (CYMBALTA) Take 30 mg by mouth. [address] capsule 20 magnesium oxide 500 mg Take by mouth. 0 06/17/20 Active tablet tablet 20 hydroCHLOROthiazide hydrochlorothiazide 25 0 0 Active (HYDRODIURIL) 25 mg mg tablet 16 tablet EPINEPHrine 0.3 mg/0.3 epinephrine 0.3 mg/0.3 0 06/14 Active mL injection syringe mL injection, 19 auto-injector cholecalciferol Take 2,000 Units by 0 09/29/19 Active (VITAMIN D3) 50 mcg mouth. 17 (2,000 Unit) capsule verapamiL (CALAN) 80 mg Take 80 mg by mouth 2 0 06/26 11/14 Active tablet (two) times a day. 21 montelukast (SINGULAIR) Take 10 mg by mouth 0 Active 10 mg tablet daily. 22 Dulera 200-5 2 puffs 2 (two) times 0 09/30/19 Active mcg/actuation inhaler a day. 22 medroxyPROGESTERone Inject 150 mg 0 11/18/19 Active (DEPO-PROVERA) 150 intramuscularly. 21 mg/mL injection gabapentin (NEURONTIN) Take 900 mg by mouth 3 0 01/12 Active 300 mg capsule (three) times a day. 22 fluticasone propionate INSTILL ONE SPRAY IN 0 Active (FLONASE) 50 THE AFFECTED NOSTRIL 21 mcg/actuation nasal EVERY DAY spray Dupixent Pen 300 mg/2 0 09/27/19 Active mL injection 22 fluticasone propionate Administer 2 sprays 16 g 5 0 Active (FLONASE) 50 into each nostril 22 mcg/actuation nasal daily. spray sodium chloride (OCEAN) Administer 1 spray 15 mL 12 0 Active 0.65 % nasal spray into each nostril 2 22 (two) times a day. azelastine (ASTELIN) Administer 2 sprays 30 mL 11 01/04/20 Active 137 mcg/spray (0.1 %) into each nostril 2 22 nasal spray (two) times a day. Use in each nostril as directed ipratropium (ATROVENT) Administer 2 sprays 15 mL 0 0 Active 42 mcg (0.06 %) nasal into each nostril 3 22 spray (three) times a day. esomeprazole (NexIUM) Take 20 mg by mouth [address] capsule every morning before breakfast. naratriptan (AMERGE) Take 1 tablet (2.5 mg 18 tablet 3 0 Active 2.5 mg tablet total) by mouth every 22 023 4 (four) hours as needed for migraine. MAX 5mg/day. MAX 9 days/month. Active Problems Problem Noted Date Migraine Headache Chronic 02/08/2022 Headache Daily 10/30/2020 Asthma Chronic Mild 12/17/2015 Overview: Asthma Chronic Mild Hypertension Essential Benign 12/17/2015 Overview: Hypertension (HTN) Essential Benign Morbid Obesity Body Mass Index Greater Than Or Equal T o 40 Adult 12/17/2015 Overview: Morbid Obesity Body Mass Index (BMI) >40 Adult Encounters Date Type Specialty Care Team Description 08/01/2022 Hospital Encounter Neurology Krishan Almendarez M.D. Migraine Headache Chronic Diana Price APRN, C.N.P., M.S.N. from Last 3 Months Immunizations Name Administration Dates Next Due H1N1 All Forms 09/08/2009 HepB, Unspecified 03/29/2006, 03/02/2006 Influenza, Unspecified 08/20/2008, 07/19/2007, 07/25/2006, 1 10/01/2004, 07/21/2004, 08/23/2002 Family History Medical History Relation Name Comments pneumothorax Brother Arthritis Father Harman Rischmiller Depression Father Harman Rischmiller Diabetes Father Harman Rischmiller Hypertension Father Harman Rischmiller Sleep apnea Father Harman Rischmiller Tuberculosis Father Harman Rischmiller Tuberculosis Father's Sister Giovana Rischmiller Alcohol abuse Maternal Grandfather Augie Givenskristal Dementia Maternal Grandmother Bee Givenskristal Skin cancer Maternal Grandmother Bee Givenskristal Anesthesia problems Mother Ludmila Rischmiller Has proble ms waking up Depression Mother Ludmila Rischmiller Hypertension Mother Ludmila Rischmiller Migraines Mother Ludmila Rischmiller Psychiatric Mother's Sister Giovana Fratzke Schizophrenia Seizures Mother's Sister Giovana Fratzfazal Tuberculosis Paternal Grandfather Derek Theronchmijori Anxiety disorder Son Derek Theronchmillhi Depression Son Derek Peters Relation Name Status Comments Brother Father Harman Rischmiller Father's Sister Giovana Rischmiller Maternal Grandfather Augie Givensjessafazal Maternal Grandmother Bee French Mother Ludmila Rischmiller Mother's Sister Giovana Fratzke Paternal Grandfather Derek Crumpchmiller Son Derek Lorraine Social History Tobacco Use Types Packs/Day Years [...] er 10/21/2021 How often do you attend mormon or muslim services? Never 10/21/2021 Do you belong to any clubs or organizations such as mormon N o 10/21/2021 groups, unions, fraternal or [...] place to sleep or slept in a care home (including now)? Education Answer Date Recorded What is the highest level of school you have GED or equivale nt 10/21/2021 completed or the highest degree you have received? Sex Assigned at Date Recorded Female 10/21/2021 4:05 AM HEAD OF MATHEMATICS Last Filed Vital Signs Vital Sign Reading Time Taken Comments Blood Pressure 168/103 02/08/2022 10:50 AM CDT Pulse 120 02/08/2022 10:50 AM CDT Temperature 36.9 ??C (98.4 ??F) 10/25/2021 3:48 PM HEAD OF MATHEMATICS Respiratory Rate 18 11/13/2020 11:21 AM HEAD OF MATHEMATICS Oxygen Saturation 95% 12/03/2021 8:47 AM HEAD OF MATHEMATICS Inhaled Oxygen Concentration - - Weight 167 kg (368 lb 2.7 oz) 02/08/2022 10:50 AM CDT Height 180.5 cm (5' 11.06) 02/08/2022 10:50 AM CDT Body Mass Index 51.26 02/08/2022 10:50 AM CDT Plan of Treatment Upcoming Encounters Date Type Specialty Care Team Description 10/31/2022 Appointment Neurology Krishan Almendarez M.D . [address] [place] [address] [phone] (Wo rk) Health Maintenance Due Date Last Done Comments Cervical Cancer Screening 1980 Hepatitis C Screening 1980 Mammogram 1980 Hepatitis B Vaccines (3 of 3 - 19+ 08/29/2006 03/29/2006, 0 03/02/2006 3-dose series) Asthma Action Plan 08/06/2020 Asthma Control Test Questionnaire 08/06/2020 Pneumococcal vaccine (0-64 years) 11/08/2020 11/08/2019, (2 - PCV) Office Visit for Blood Pressure 05/11/2022 02/08/2022 Check / Re-check Creatinine Level 05/14/2022 05/14/2021, 06/12/2020, 04/14/2020, Additional history exists Potassium Level 05/14/2022 05/14/2021, 06/12/2020, 04/14/2020, Additional history exists Sodium Level 05/14/2022 05/14/2021, 06/12/2020, 04/14/2020, Additional history exists Lipid (Cholesterol) Screening 07/04/2027 07/04/2022, 2019, 06/21/2018 DTaP,Tdap,and Td Vaccines (3 - Td 05/14/2031 05/14/2021, or Tdap) Depression Screening (Annual Completed 02/08/2022 PHQ-2) COVID-19 Vaccine Completed 07/04/2022, 08/10/2021, 01/12/2021, Additional history exists Influenza Vaccine Completed 07/04/2022, 07/05/2021, 06/08/2020, Additional history exists Medical Devices Implanted Type Area Public Affairs Director Device Shelf Model / Identifier Expiration Serial / Date Lot Hardware E.G. Hardware Bilateral Pins/Screws/R e.g. : Ankle ods pins/screws/ rods Procedures Procedure Name Priority Date/Time Associated Comments Diagnosis KS CHEMODENERV FACIAL Routine 08/01/2022 9:45 AM Migraine Head ache Results for this TRIGEM CRUZ HEAD OF MATHEMATICS Chronic procedure are i n the results section. from Last 3 Months Results [place] CHEMODENERV FACIAL TRIGEM CRUZ (08/01/2022 9:45 AM HEAD OF MATHEMATICS) Narrative MMODAL - 08/01/2022 9:45 AM HEAD OF MATHEMATICS Diana Price APRN, C.N.P., M.S.N. ? 08/01/2022 10:08 AM Botox for Chronic Migraine Performed by: Diana Price APRN, C .N.P., M.S.N. Authorized by: Krishan Almendarez M.D. Care team members present 1. Diana Price APRN, C.N.P., M.S. N. 2. Margaret Zepeda 3. Edmund Vasquez LGaudencioPGaudencioN. PROCEDURE DETAILS ?? Pre-procedure pain score: 7/10 Injection of: ??100 Units onabotulinumto xinA 100 unit 50 Units onabotulinumtoxinA 50 unit Needle gauge: 30 Needle length: 0.5 in Injection site details Doll Eye Setter / Procerus muscle(s): 5 units into the left staying machine operator muscle, 5 units into the right staying machine operator muscle ??and 5 units into the procerus muscle ??(15 units total). Superior Frontalis muscle(s): 5 units in to the left superior frontalis muscle and 5 units into the right superi or frontalis muscle ?(2 injection sites per muscle) (10 units to kayla). Temporalis muscle(s): 12.5 units into th e left temporalis muscle and 12.5 units into the right temporalis muscle ?(2 injection sites per muscle) ?? (25 units total). Splenius Capitis muscle(s): 12.5 units i nto the left splenius capitis muscle and 12.5 units into the right spl enius capitis muscle ?(2 injection sites per muscle) ??(25 units total). Occipitalis muscle(s): 12.5 units into t he left occipitalis muscle and 12.5 units into the right occipitalis mu scle ?? (2 injection sites per muscle) ??(25 units total). Trapezius muscle(s): 25 units into the l eft trapezius muscle and 25 units into the right trapezius muscle ?? (3 in jection sites per muscle) ??(50 units total). Total [...] was done as applicable. The procedural time-out t o verify correct patient, correct side/site, and procedure was conducted p rior to performing the procedure and confirmed in a procedural pause. PRE-PROCEDURE DETAILS ?? Reason for injections: [...] that is not covered by a third green party. ?? Prior to treatment with Botox, the frequ ency of headaches was greater than 15 days per month and with significant i mpairment in the quality of life. ?? Please see the initial Botox injection n ote and Headache consultation note regarding specific details of the headac he history prior to the start of treatment. Any other daily migraine prophylactic tr eatments taken over the last 3 months: ??Gabapentin, duloxetine (Cymbal ta), verapamil and atenolol (VD3) Headache frequency when Botox is most ef fective (middle month in between rounds). Headache days per month: 30 days Severe headache days per month: 30 days Wearing off phenomenon prior to this rou nd of Botox: no (pt still hant felt change but only second time) Patient finds Botox treatment helpful an d wants to repeat the treatment? yes Patient had migraine headache frequency reduction by at least 7 days per month compared to pretreatment level, or migraine headache duration reduction of at least 100 hours per shirley h compared to pretreatment level? yes POST-PROCEDURE DETAILS ?? Procedure completed successfully: yes ?? Complications: no apparent complications Comments MODIFIED PROTOCOL: ??Moved up staying machine operator and procerus to avoid brow droop. ?? Administered temporalis injections anter ior to the helix to avoid post auricular pain. PLAN: The patient has had good response for tr eatment of their chronic migraine with onabotulinumtoxin A injections at 1 50 units every 12 weeks in that the patient had migraine headache freque ncy reduction by at least 7 days per month compared to pretreatment level , or migraine headache duration reduction of at least 100 hours per shirley h compared to pretreatment level. ?? Therefore, I have encouraged the patient to schedule their next round of injections 150 units in 12 weeks. Authorizing Provider Result Faye Almendarez M.D. NEUROLOGY ORDERABLES Performing Organization Address City/State/ZIP Code Phon e Number MMODAL MMODAL NA from Last 3 Months Insurance Payer Benefit Plan Subscriber ID Effective Phone Address Typ e / Group Dates BLUE CROSS BS BLUE [id number] 2018-Prese ATTN: Nika zuñiga HMO BLUE SHIELD PLUS HMO nt [facility] [place] [address] [address] [place] [address]
--- OUTSIDE RECORDS SUMMARY | 2022-08-30 07:41 | XMS_ITS | Encounter Summary ---
:1980 Author Organization [facility] Address [address] [place] [address] Care Team Providers Name Role Phone Coral Douglas NP Primary Care Provider Unavailable Encounter Details Date Type Department Care Team Description 04/29/2020 Travel Social History Tobacco Use Types Packs/Day Years Used Date Smoking Tobacco: Never Assessed Sex Assigned at Date Recorded Not on file COVID-19 Exposure Response Date Recorded In the last month, have you been in contact with No / Unsure 04/29/2020 12:15 PM CDT someone who was confirmed or suspected to have Coronavirus / COVID-19? documented as of this encounter Plan of Treatment Not on filedocumented as of this encounter Visit Diagnoses Not on filedocumented in this encounter Care Teams Intern Product Marketing Manager Relationship Specialty Start Date End Date Coral Douglas NP PCP - General Nurse Practitioner 09/20/17 documented as of this encounter
--- OUTSIDE RECORDS SUMMARY | 2022-08-30 07:41 | XMS_ITS | Encounter Summary ---
:1980 Author Organization [facility] Address [address] [place] [address]. [place] [address] Care Team Providers Name Role Phone Coral Douglas NP Primary Care Provider Unavailable Reason for Visit Reason Comments Infusion fasenra Treatment and Therapy Plans (Routine) - Closed Specialty Diagnoses / Procedures Referred By Contact Refer red To Contact Diagnoses Severe persistent asthma, uncomplicated Chronic rhinosinusitis Carol Esquivel MD [facility] Procedures C INJ., BENRALIZUMAB, 1 MG [facility] [address] [place], [place] [address] [place] [phone] [address] [place] [id number] Referral ID Status Reason Start Date Expiration Date Visits Requ ested Visits Authorized [id number] Closed 02/27/2020 09/24/2022 100 1 Encounter Details Date Type Department Care Team Description 04/01/2020 Infusion Therapy [facility] Carol Esquivel Sev ere persistent asthma, uncomplicated (Primary Dx); Visit [facility] Nader Chronic rhinosinusitis [facility] [address] [address] [place] [address] [place] [address] [place] [address] [place], [place] [phone] (Work) [phone] Social History Tobacco Use Types Packs/Day Years [...] Sign Reading Time Taken Comments Blood Pressure 134/96 04/01/2020 12:22 PM CDT Pulse 89 04/01/2020 12:22 PM CDT Temperature 36.6 ??C (97.9 ??F) 04/01/2020 12:22 PM CDT Respiratory Rate 20 04/01/2020 12:22 PM CDT Oxygen Saturation 98% 04/01/2020 12:22 PM CDT Inhaled Oxygen Concentration - - Weight - - Height - - Body Mass Index - - documented in this encounter Progress Notes Keerthi Lozoya RN - 04/01/2020 12:00 PM CDT Infusion Nursing Note: Joshua Peters presents today for Fasenra, dose 2. Patient seen by provider today: No Echo Technician present during visit today: Not Applicable. Note: Patient didn't notice improvement in symptoms after first dose. Did have a headache a few hours after first dose but is prone to headaches. Only 30 minute observation per the orders. Intravenous Access: No Intravenous access/labs at this [...] nervous system diseases (ie. Multiple sclerosis, Guillain Severance, seizures, neurological changes) or cancer diagnosis? No [...] Assessment: Patient tolerated injection without incident. Patient observed for 30 minutes post Fasenra per protocol. Discharge Plan: Copy of AVS reviewed with patient and/or family. Patient will return 04/29 for next appointment. Patient discharged in stable condition accompanied by: self. Departure Mode: Ambulatory. Keerthi Lozoya RN documented in this encounter Plan of Treatment Not on filedocumented as of this encounter Visit Diagnoses Diagnosis Severe persistent asthma, uncomplicated - Primary Unspecified asthma Chronic rhinosinusitis Unspecified sinusitis (chronic) documented in this encounter Administered Medications Inactive Administered Medications - up to 3 most recent administrations Medication Order MAR Action Action Date Dose Rate Site benralizumab (FASENRA) Given 04/01/2020 12:27 PM CDT 30 mg Right Arm injection 30 mg 30 mg, Subcutaneous, ONCE, On Mon04/01/20 at 1230, For 1 dose, Give every 4 weeks x3 doses. Let medication stand at room temp 30 minutes before injection. Administer in upper arm, thigh or abdomen. Prior to administration, warm FASENRA by leaving carton at room temperature for about 30 minutes. documented in this encounter Care Teams Skein Inspector Relationship Specialty Start Date End Date Coral Douglas NP PCP - General Nurse Practitioner 09/20/17 documented as of this encounter
--- OUTSIDE RECORDS SUMMARY | 2022-08-30 07:41 | XMS_ITS | Encounter Summary ---
:1980 Author Organization [facility] Address [address] [place] [address]. [place] [address] Care Team Providers Name Role Phone Coral Douglas NP Primary Care Provider Unavailable Encounter Details Date Type Department Care Team Description 09/16/2020 Medical Correspondence [facility] Scan, PHYSICIAN ORDERS Health Info Mgmt Non-Provider [facility] [address] [place] [phone] Social History Tobacco Use Types Packs/Day Years Used Date Smoking Tobacco: Never Assessed Sex Assigned at Date Recorded Not on file COVID-19 Exposure Response Date Recorded In the last month, have you been in contact with No / Unsure 08/19/2020 8:34 AM DIRECTOR OF CAPITAL GIVING someone who was confirmed or suspected to have Coronavirus / COVID-19? documented as of this encounter Plan of Treatment Not on filedocumented as of this encounter Visit Diagnoses Not on filedocumented in this encounter Care Teams Polymer Engineer Relationship Specialty Start Date End Date Coral Douglas NP PCP - General Nurse Practitioner 09/20/17 documented as of this encounter
--- OUTSIDE RECORDS SUMMARY | 2022-08-30 07:41 | XMS_ITS | Encounter Summary ---
:1980 Author Organization [facility] Address [address] [place] [address] Care Team Providers Name Role Phone Unavailable Primary Care Provider Unavailable Reason for Visit Reason Comments Med Refill Encounter Details Date Type Department Care Team Description 01/31/2022 Refill RST Mira Ernandez M.D. Med Refill [address] [facility] [address] [place] [address] [place] [address] (Wo rk) Social History Tobacco Use Types [...] er 10/21/2021 How often do you attend cheondoism or zoroastrian services? Never 10/21/2021 Do you belong to any clubs or organizations such as cheondoism N o 10/21/2021 groups, unions, fraternal or [...] place to sleep or slept in a group home (including now)? Education Answer Date Recorded What is the highest level of school you have GED or equivale nt 10/21/2021 completed or the highest degree you have received? Sex Assigned at Date Recorded Female 10/21/2021 4:05 AM HAUL CANE BRAKEMAN documented as of this encounter Miscellaneous Notes Telephone Encounter - Lacy Ireland - 01/31/2022 3:04 PM CDT No primary documented in this encounter Plan of Treatment Upcoming Encounters Date Type Specialty Care Team Description 10/31/2022 Appointment Neurology Krishan Almendarez M.D . [address] [place] [address] [phone] (Wo rk) documented as of this encounter Visit Diagnoses Not on filedocumented in this encounter
--- OUTSIDE RECORDS SUMMARY | 2022-08-30 07:41 | XMS_ITS | Encounter Summary ---
:1980 Author Organization [facility] Address [address] [place] [address] Care Team Providers Name Role Phone Unavailable Primary Care Provider Unavailable Reason for Referral Outpatient (Routine) - Authorized Specialty Diagnoses / Procedures Referred By Contact Refer red To Contact Diagnoses Migraine Headache Krishan Rodrigues M.D. [facility] Procedures Botox for Chronic Migraine ND INJECTION,ONABOTULINUMTOXINA ND CHEMODENERV FACIAL TRIGEM CRUZ Botox 150 units every 12 weeks [address] [place], [place] [address] Referral ID Status Reason Start Date Expiration Date Visits V isits Requested Authorized [id number] Authorized 02/08/2022 02/08/2023 12 12 Reason for Visit Outpatient (Routine) - Authorized Specialty Diagnoses / Procedures Referred By Contact Refer red To Contact Diagnoses Migraine Headache Chronic Krishan Almendarez M.D. [facility] Procedures Botox for Chronic Migraine ND INJECTION,ONABOTULINUMTOXINA ND CHEMODENERV FACIAL TRIGEM CRUZ Botox 150 units every 12 weeks [address] [place] [address] Referral ID Status Reason Start Date Expiration Date Visits V isits Requested Authorized [id number] Authorized 02/08/2022 02/08/2023 12 12 Encounter Details Date Type Department Care Team Description 05/06/2022 Hospital Encounter Department of Krishan Almendarez M.D. [address] [place] [phone] Migraine Headache Neurology in Erich [place] M.D. [address] [place] [phone] Chronic [place], [place] [address] [place] [address] Social History Tobacco Use Types Packs/Day Years [...] er 10/21/2021 How often do you attend orthodox or hoahaoism services? Never 10/21/2021 Do you belong to any clubs or organizations such as orthodox N o 10/21/2021 groups, unions, fraternal or [...] minutes do you engage in exercise at is 10 min 10/21/2021 level? Stress Answer [...] place to sleep or slept in a long term (including now)? Education Answer Date Recorded What is the highest level of school you have GED or equivale nt 10/21/2021 completed or the highest degree you have received? 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 naratriptan (AMERGE) 2.5 Take 1 tablet (2.5 mg 18 tablet 3 04/05/2022 mg tablet total) by mouth every 4 3 (four) hours as needed for migraine. MAX 5mg/day. MAX 9 days/month. sodium chloride (OCEAN) Administer 1 spray into 15 mL 12 11/24/2021 0.65 % nasal spray each nostril 2 (two) times a day. verapamiL (CALAN) 80 mg Take 80 mg by mouth 2 0 1 tablet (two) times a day. documented as of this encounter Procedure Notes Janeen Teague M.D. - 05/06/2022 9:15 AM CDTAssociated Order(s): Botox for Chronic Migraine Pre-Procedure Diagnose(s): Migraine Headache Chronic Post-Procedure Diagnose(s): Migraine Headache Chronic Botox for Chronic Migraine Date/Time: 05/06/2022 8:57 AM Performed by: Janeen Teague M.D. Authorized by: Krishan Almendarez M.D. Care team members present 1. Denton Blair L.P.N. PROCEDURE DETAILS Pre-procedure pain score: 7/10 Injection of: 100 Units onabotulinumtoxinA 100 unit 50 Units onabotulinumtoxinA 50 unit Needle gauge: 30 Needle length: 0.5 in Injection site details Linux Server Engineer / Procerus muscle(s): 5 units into the left arts and sciences dean muscle, 5 units into the right arts and sciences dean muscle and 5 units into the procerus [...] was done as applicable. The procedural time-out to verify correct patient, correct side/site, and procedure was conducted prior to performing the procedure [...] that is not covered by a third alliance party. Prior to treatment with Botox, the frequency of headaches was greater than 15 days per month and with significant impairment in the quality of life. Please see the initial Botox injection note and Headache consultation note regarding specific details of the headache history prior to the start of treatment. Any other daily migraine prophylactic treatments taken over the last 3 months: Gabapentin, verapamiland duloxetine (Cymbalta) (Vitamin D3) Headache frequency when Botox is most effective (middle month in between rounds). Headache days per month: 30 days Severe headache days per month: 21 days Wearing off phenomenon prior to this round of Botox: no Patient finds Botox treatment helpful and wants to repeat the treatment? yes Patient had migraine headache frequency reduction by at least 7 days per month compared to pretreatment level, or migraine headache duration reduction of at least 100 hours per month compared to pretreatment level? yes POST-PROCEDURE DETAILS Procedure completed successfully: yes Complications: no apparent complications PLAN: The patient has had good response for treatment of their chronic migraine with onabotulinumtoxin A injections at 150 units every 12 weeks in that the patient had migraine headache frequency reduction by at least 7 days per month compared to pretreatment level, or migraine headache duration reduction of at least 100 hours per month compared to pretreatment level. Therefore, I have encouraged the patient to schedule their next round of injections 150 units in 12 weeks. documented in this encounter Miscellaneous Notes Addendum Note - Janeen Teague M.D. - 05/06/2022 9:15 AM CDT Encounter addended by: Janeen Teague M.D. on: 05/06/2022 10:46 AM Actions taken: SmartForm saved, Clinical Note Signed documented in this encounter Plan of Treatment Upcoming Encounters Date Type Specialty Care Team Description 10/31/2022 Appointment Neurology Krishan Almendarez M.D . [address] [place] [phone] (Wo rk) documented as of this encounter Procedures Procedure Name Priority Date/Time Associated Comments Diagnosis ND CHEMODENERV FACIAL Routine 05/06/2022 8:57 AM Migraine Head ache Results for this TRIGEM CRUZ CDT Chronic procedure are i n the results section. documented in this encounter Results ND CHEMODENERV FACIAL TRIGEM CRUZ (05/06/2022 8:57 AM CDT) Narrative MMODAL - 05/06/2022 8:57 AM CDT Janeen Teague M.D. ? 05/06/2022 10:46 AM Botox for Chronic Migraine Date/Time: 05/06/2022 8:57 AM Performed by: Janeen Teague M.D . Authorized by: Krishan Almendarez M.D. Care team members present 1. Denton Blair L.P.N. PROCEDURE DETAILS ?? Pre-procedure pain score: 7/10 Injection of: ??100 Units onabotulinumto xinA 100 unit 50 Units onabotulinumtoxinA 50 unit Needle gauge: 30 Needle length: 0.5 in Injection site details Linux Server Engineer / Procerus muscle(s): 5 units into the left arts and sciences dean muscle, 5 units into the right arts and sciences dean muscle ??and 5 units into the procerus [...] that is not covered by a third alliance party. ?? Prior to treatment with Botox, [...] taken over the last 3 months: ??Gabapentin, verapamil and dulo xetine (Cymbalta) (Vitamin D3) Headache frequency when Botox is most ef fective (middle month in between rounds). Headache days per month: 30 days Severe headache days per month: 21 days Wearing off phenomenon prior to this rou nd of Botox: no Patient finds Botox treatment helpful an d wants to repeat the treatment? yes Patient had migraine headache frequency reduction by at least 7 days per month compared to pretreatment level, or migraine headache duration reduction of at least 100 hours per shirley h compared to pretreatment level? yes POST-PROCEDURE DETAILS ?? Procedure completed successfully: yes ?? Complications: no apparent complications PLAN: The patient has had good response [...] of injections 150 units in 12 weeks. Krishan Almendarez M.D. NEUROLOGY ORDERABLES Performing Organization Address City/State/ZIP Code Phon e Number MMODAL MMODAL NA documented in this encounter Visit Diagnoses Diagnosis Migraine Headache Chronic documented in this encounter Administered Medications Inactive Administered Medications - up to 3 most recent administrations Medication Order MAR Action Action Date Dose Rate Site onabotulinumtoxinA injection 100 Given 05/06/2022 8:57 AM 100 Un its Other Units (BOTOX) CDT 100 Units, injection, One-Time Injection, Starting on Mon05/06/22 at 0857, For 1 dose onabotulinumtoxinA injection 50 Units Given 05/06/2022 8:57 AM C DT 50 Units Other (BOTOX COSMETIC) 50 Units, injection, One-Time Injection, Starting on Mon05/06/22 at 0857, For 1 dose documented in this encounter Additional Health Concerns Assessment Noted Time PHQ-9 Depression Total Score: 13 02/08/2022 10:14 AM C DT documented as of this encounter
--- OUTSIDE RECORDS SUMMARY | 2022-08-30 07:41 | XMS_ITS | Encounter Summary ---
:1980 Author Organization [facility] Address [address] [place] [address] Care Team Providers Name Role Phone Unavailable Primary Care Provider Unavailable Reason for Referral Outpatient (Routine) - Authorized Specialty Diagnoses / Procedures Referred By Contact Refer red To Contact Diagnoses Migraine Headache Chronic Krishan Almendarez M.D. [facility] [place] Procedures Botox for Chronic Migraine WV INJECTION,ONABOTULINUMTOXINA WV CHEMODENERV FACIAL TRIGEM CRUZ Botox 150 units every 12 weeks [address] [place], [place] [address] Referral ID Status Reason Start Date Expiration Date Visits V isits Requested Authorized [id number] Authorized 02/08/2022 02/08/2023 12 12 SSESSOR Reason for Visit Outpatient (Routine) - Authorized Specialty Diagnoses / Procedures Referred By Contact Refer red To Contact Diagnoses Migraine Headache Chronic Krishan Almendarez M.D. [facility] Procedures Botox for Chronic Migraine W[place] INJECTION,ONABOTULINUMTOXINA WV CHEMODENERV FACIAL TRIGEM CRUZ Botox 150 units every 12 weeks [address] [place] [address] Referral ID Status Reason Start Date Expiration Date Visits V isits Requested Authorized [id number] Authorized 02/08/2022 02/08/2023 12 12 Encounter Details Date Type Department Care Team Description 08/01/2022 Hospital Encounter Department of Krishan Almendarez M.D. [address] [place] [phone] Migraine Headache Neurology in Diana PricePEDRO C.NGaudencioPGaudencio, M.S.N. [address] [place] [phone] Chronic [place], [place] [address] [place] [phone] Social History Tobacco Use Types Packs/Day Years [...] er 10/21/2021 How often do you attend taoism or yarsani services? Never 10/21/2021 Do you belong to any clubs or organizations such as taoism N o 10/21/2021 groups, unions, fraternal or [...] place to sleep or slept in a longterm (including now)? Education Answer Date Recorded What is the highest level of school you have GED or equivale nt 10/21/2021 completed or the highest degree you have received? 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 hydroCHLOROthiazide hydrochlorothiazide 25 0 /12/2015 (HYDRODIURIL) 25 mg mg tablet tablet ipratropium [...] of this encounter Procedure Notes Diana Price APRN, C.NJuan Francisco, M.S.N. - 08/01/2022 9:45 AM CSTAssociated Order(s): Botox for Chronic Migraine Pre-Procedure Diagnose(s): Migraine Headache Chronic Post-Procedure Diagnose(s): Migraine Headache Chronic Botox for Chronic Migraine Performed by: Diana Price APRN C.N.PGaudencio, M.S.N. Authorized by: Krishan Almendarez M.D. Care team members present 1. Diana Price APRN, C.N.P., M.S.N. 2. Margaret Zepeda 3. Edmund Vasquez L.P.N. PROCEDURE DETAILS Pre-procedure pain score: 7/10 Injection of: 100 Units onabotulinumtoxinA 100 unit 50 Units onabotulinumtoxinA 50 unit Needle gauge: 30 Needle length: 0.5 in Injection site details Manager Compensation / Procerus muscle(s): 5 units into the left nursery technician muscle, 5 units into the right nursery technician muscle and 5 units into the procerus [...] that is not covered by a third constitution party. Prior to treatment with Botox, the frequency of headaches was greater than 15 days per month and with significant impairment in the quality of life. Please see the initial Botox injection note and Headache consultation note regarding specific details of the headache history prior to the start of treatment. Any other daily migraine prophylactic treatments taken over the last 3 months: Gabapentin, duloxetine (Cymbalta), verapamil and atenolol (VD3) Headache frequency when Botox is most effective (middle month in between rounds). Headache days per month: 30 days Severe headache days per month: 30 days Wearing off phenomenon prior to this round of Botox: no (pt still hant felt change but only second time) Patient finds Botox treatment helpful and wants to repeat the treatment? yes Patient had migraine headache frequency reduction by at least 7 days per month compared to pretreatment level, or migraine headache duration reduction of at least 100 hours per month compared to pretreatment level? yes POST-PROCEDURE DETAILS Procedure completed successfully: yes Complications: no apparent complications Comments MODIFIED PROTOCOL: Moved up nursery technician and procerus to avoid brow droop. Administered temporalis injections anterior to the helix to avoid post auricular [...] of injections 150 units in 12 weeks. SSESSOR documented in this encounter Plan of Treatment Upcoming Encounters Date Type Specialty Care Team Description 10/31/2022 Appointment Neurology Krishan Almendarez M.D . [address] [place] [phone] (Wo rk) documented as of this encounter Procedures Procedure Name Priority Date/Time Associated Comments Diagnosis WV CHEMODENERV FACIAL Routine 08/01/2022 9:45 AM Migraine Head ache Results for this TRIGEM CRUZ REPOSSESSOR Chronic procedure are i n the results section. documented in this encounter Results WV CHEMODENERV FACIAL TRIGEM CRUZ (08/01/2022 9:45 AM REPOSSESSOR) Narrative MMODAL - 08/01/2022 9:45 AM REPOSSESSOR Diana Price APRN, C.N.P., M.S.N. ? 08/01/2022 10:08 AM Botox for Chronic Migraine Performed by: Diana Price APRN, C .N.P., M.S.N. Authorized by: Krishan Almendarez M.D. Care team members present 1. Diana Price, PEDRO, C.N.P., M.S. N. 2. Margaret Zepeda 3. Edmund Vasquez L.PAbdiel. PROCEDURE DETAILS ?? Pre-procedure pain score: 7/10 Injection of: ??100 Units onabotulinumto xinA 100 unit 50 Units onabotulinumtoxinA 50 unit Needle gauge: 30 Needle length: 0.5 in Injection site details Manager Compensation / Procerus muscle(s): 5 units into the left nursery technician muscle, 5 units into the right nursery technician muscle ??and 5 units into the procerus [...] that is not covered by a third constitution party. ?? Prior to treatment with Botox, [...] apparent complications Comments MODIFIED PROTOCOL: ??Moved up nursery technician and procerus to avoid brow droop. ?? [...] Dose Rate Site onabotulinumtoxinA injection 100 Given 08/01/2022 8:57 AM 100 Un its Other Units (BOTOX) REPOSSESSOR 100 Units, injection, One-Time Injection, Starting on Mon08/01/22 at 0857, For 1 dose onabotulinumtoxinA injection 50 Units Given 08/01/2022 8:[address] 50 Units Other (BOTOX COSMETIC) 50 Units, injection, One-Time Injection, Starting on Mon08/01/22 at 0857, For 1 dose documented in this encounter Additional Health Concerns Assessment Noted Time PHQ-9 Depression Total Score: 13 02/08/2022 10:14 AM C DT documented as of this encounter
--- OUTSIDE RECORDS SUMMARY | 2022-08-30 07:41 | XMS_ITS | Encounter Summary ---
:1980 Author Organization [place] Address [facility] [place] [address] Care Team Providers Name Role Phone Coral [place] NP Primary Care Provider Unavailable Reason for Visit Reason Comments Imm/Inj Fasenra Treatment and Therapy Plans (Routine) - Closed Specialty Diagnoses / Procedures Referred By Contact Refer red To Contact Diagnoses Severe persistent asthma, uncomplicated Chronic rhinosinusitis Carol Esquivel MD [facility] Procedures C INJ., BENRALIZUMAB, 1 MG [facility] [address] [place], [place] [address] [place] [phone] [address] [place] [address] Referral ID Status Reason Start Date Expiration Date Visits Requ ested Visits Authorized [id number] Closed 02/27/2020 09/24/2022 100 1 Encounter Details Date Type Department Care Team Description 08/19/2020 Infusion Therapy [facility] Carol Esquivel Sev ere persistent asthma, uncomplicated (Primary Dx); Visit [facility] MD Nader Chronic rhinosinusitis [facility] [address] [address] [place] [address] [place] [address] [place] [address] [place], [place] [phone] (Work) [phone] Social History Tobacco Use Types Packs/Day Years Used Date Smoking Tobacco: Never Assessed Sex Assigned at Date Recorded Not on file COVID-19 Exposure Response Date Recorded In the last month, have you been in contact with No / Unsure 08/19/2020 8:34 AM FURNITURE REFINISHER someone who was confirmed or suspected to have Coronavirus / COVID-19? documented as of this encounter Last Filed Vital Signs Vital Sign Reading Time Taken Comments Blood Pressure 157/103 08/19/2020 8:40 AM FURNITURE REFINISHER Pulse 109 08/19/2020 8:40 AM FURNITURE REFINISHER Temperature 36.7 ??C (98 ??F) 08/19/2020 8:40 AM FURNITURE REFINISHER Respiratory Rate 16 08/19/2020 8:40 AM FURNITURE REFINISHER Oxygen Saturation 97% 08/19/2020 8:40 AM FURNITURE REFINISHER Inhaled Oxygen Concentration - - Weight - - Height - - Body Mass Index - - documented in this encounter Progress Notes Zuly Magallanes, DAMON - 08/19/2020 9:00 AM CST Infusion Nursing Note: Joshua Peters presents today for Ami. Patient seen by provider today: No Accounts Receivable Bookkeeper present during visit today: Not Applicable. Note: Continues getting bronchitis monthly, finished doxycycline, still on prednisone taper. Cough improving. BP elevated, attributed to prednisone. Patient on Norvasc. Per patient provider doesn't want to start any new BP medications until off prednisone taper. Had tried metoprolol, but got hivesand was discontinued. Intravenous Access: No Intravenous access/labs at this [...] your appetite, unexplained weight loss or fatigue? Yes, recovering from bronchitis. MD aware 2. Do you have any open wounds [...] nervous system diseases (ie. Multiple sclerosis, Guillain [place], seizures, neurological changes) or cancer diagnosis? No [...] intact, free from redness, edema or discomfort. No obs needed. Discharge Plan: Patient will return 10/14 for next appointment. Patient discharged in stable condition accompanied by: self. Departure Mode: Ambulatory. Zuly Magallanes RN ITURE REFINISHER documented in this encounter Plan of Treatment Not on filedocumented as of this encounter Visit Diagnoses Diagnosis Severe persistent asthma, uncomplicated - Primary Unspecified asthma Chronic rhinosinusitis Unspecified sinusitis (chronic) documented in this encounter Administered Medications Inactive Administered Medications - up to 3 most recent administrations Medication Order MAR Action Action Date Dose Rate Site benralizumab (FASENRA) Given 08/19/2020 8:53 AM 30 mg Abdominal Tissue injection 30 mg FURNITURE REFINISHER 30 mg, Subcutaneous, ONCE, On Mon08/19/20 at 0900, For 1 dose, Begin 8 weeks after the third dose and repeat every 8 weeks. Let medication stand at room temp 30 minutes before injection. Administer in upper arm, thigh or abdomen. Prior to administration, warm FASENRA by leaving carton at room temperature for about 30 minutes. documented in this encounter Care Teams Acid Purifier Relationship Specialty Start Date End Date Coral [place] NP PCP - General Nurse Practitioner 09/20/17 documented as of this encounter
--- OUTSIDE RECORDS SUMMARY | 2022-08-30 07:41 | XMS_ITS | Encounter Summary ---
:1980 Author Organization [facility] Address [address] [place] [address] Care Team Providers Name Role Phone Unavailable Primary Care Provider Unavailable Encounter Details Date Type Department Care Team Description 04/07/2022 Orders Only Pharmacy Prior Auth [place] Deepa Maldonado [phone] Social History Tobacco Use Types Packs/Day Years [...] er 10/21/2021 How often do you attend scientologist or evangelical services? Never 10/21/2021 Do you belong to any clubs or organizations such as scientologist N o 10/21/2021 groups, unions, fraternal or [...] place to sleep or slept in a intermediate (including now)? Education Answer Date Recorded What is the highest level of school you have GED or equivale nt 10/21/2021 completed or the highest degree you have received? 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 [address] [place] [phone] (Wo rk) documented as of this encounter Visit Diagnoses Not on filedocumented in this encounter Additional Health Concerns Assessment Noted Time PHQ-9 Depression Total Score: 13 02/08/2022 10:14 AM C DT documented as of this encounter
--- OUTSIDE RECORDS SUMMARY | 2022-08-30 07:41 | XMS_ITS | Encounter Summary ---
:1980 Author Organization [facility] Address [address] [place] [address] Care Team Providers Name Role Phone Unavailable Primary Care Provider Unavailable Reason for Visit Reason Comments Rx Prior Authorization PA DENIED QUANTITY- OMEPRAZO LE 40 MG OR CPDR Encounter Details Date Type Department Care Team Description 01/10/2022 Clinical Communication Pharmacy Prior Auth Simón, Rx Prior RO Ksenia A Authorization (MIRTA [id number] DENIED QUANTITY - OMEPRAZOLE 40 M G OR CPDR ) Social History Tobacco Use Types Packs/Day Years [...] er 10/21/2021 How often do you attend anglican or taoist services? Never 10/21/2021 Do you belong to any clubs or organizations such as anglican N o 10/21/2021 groups, unions, fraternal or [...] place to sleep or slept in a half-way (including now)? Education Answer Date Recorded What is the highest level of school you have GED or equivale nt 10/21/2021 completed or the highest degree you have received? 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 The patient's health insurer has denied prior authorization for OMEPRAZOLE 40 MG OR CPDR. A quick view of the denial reason is in this communication message. To view the denial letter: 1. Go to Snapshot 2. Go to the purple Medications box 3. Click on the blue Prior Authorizations link 4. Under Denied, click on the blue medication link to open and view the attachment. As the prescriber your options are: ??? Appeal the decision to the insurer directly (see denial letter for how to appeal). ??? Write a new Rx for an alternative medication therapy. ??? Release the Rx to the pharmacy so the patient can pay out of pocket if they desire. To Release Rx: Open this encounter, go to Meds & Orders, click on the medication, and click the blue ???Release Rx?? button. PLEASE NOTE: If the ???Release Rx?? button is not visible, the Rx has already been released to the pharmacy. If you have questions, please reply via QuickNote to [facility] [place]. Thank you, The [facility] Team documented in this encounter Plan of Treatment Upcoming Encounters Date Type Specialty Care Team Description 10/31/2022 Appointment Neurology Krishan Almendarez M.D . [address] [place], [place] [phone] (Wo rk) documented as of this encounter Visit Diagnoses Not on filedocumented in this encounter
--- OUTSIDE RECORDS SUMMARY | 2022-08-30 07:41 | XMS_ITS | Encounter Summary ---
:1980 Author Organization [facility] Address [address] [place] [address] Care Team Providers Name Role Phone Unavailable Primary Care Provider Unavailable Encounter Details Date Type Department Care Team Description 01/03/2022 Ancillary Procedure Department of Otorhinolaryngology Social History Tobacco Use Types Packs/Day Years [...] er 10/21/2021 How often do you attend hindu or oriental orthodox services? Never 10/21/2021 Do you belong to any clubs or organizations such as hindu N o 10/21/2021 groups, unions, fraternal or [...] place to sleep or slept in a [facility] (including now)? Education Answer Date Recorded What is the highest level of school you have GED or equivale nt 10/21/2021 completed or the highest degree you have received? 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 [address] [place] [address] [phone] (Wo rk) documented as of this encounter Procedures Procedure Name Priority Date/Time Associated Comments Diagnosis OTORHINOLARYNGOLOGY IMAGE Routine 01/03/2022 2:35 Results for this EXAM PM CDT procedure are i n the results section. documented in this encounter Results Direct Laryngoscopy-Otorhinolaryngology Image Exam (01/03/2022 2:35 PM CDT) Specimen (Source) Anatomical Collection Method Collection Time Re ceived Time Location / / Volume Laterality 01/03/2022 3:08 PM CDT Narrative [facility] - 01/03/2022 2:35 PM CDT This order has been created and auto-finalized to support the import of images acquired without order. The clini sg documentation to support these images can be found on the encounter garrison t produced images. Provider Not In System IMG NON RAD IMAGING PROCEDUR ES Performing Organization Address City/State/ZIP Code Phon e Number [facility] NA documented in this encounter Visit Diagnoses Not on filedocumented in this encounter
--- OUTSIDE RECORDS SUMMARY | 2022-08-30 07:41 | XMS_ITS | Encounter Summary ---
:1980 Author Organization [facility] Address [address] [place] [address] Care Team Providers Name Role Phone Unavailable Primary Care Provider Unavailable Reason for Referral Outpatient (Routine) - Authorized Specialty Diagnoses / Procedures Referred By Contact Refer red To Contact Neurology Krishan Almendarez M.D. [facility] [address] [place] [phone] Referral ID Status Reason Start Date Expiration Date Visits V isits Requested Authorized [id number] Authorized 02/08/2022 02/08/2023 1 1 Scheduling Instructions 60 min. With Headache MARKER DELIVERY. Coordinate wit h Botox utpatient (Routine) - Authorized Specialty Diagnoses / Procedures Referred By Contact Refer red To Contact Diagnoses Migraine Headache Chronic Krishan Almendarez M.D. [facility] Procedures Botox for Chronic Migraine NJ INJECTION,ONABOTULINUMTOXINA NJ CHEMODENERV FACIAL TRIGEM CRUZ Botox 150 units every 12 weeks [address] [place] [phone] Referral ID Status Reason Start Date Expiration Date Visits V isits Requested Authorized [id number] Authorized 02/08/2022 02/08/2023 12 12 Reason for Visit Appointment Request (Routine) - Closed Specialty Diagnoses / Procedures Referred By Contact Refer red To Contact Neurology Diagnoses Migraine Headache With Aura Do Barlow D.O. [address] [place] [address] Referral ID Status Reason Start Date Expiration Date Visits Requ ested Visits Authorized [id number] Closed 01/25/2022 01/25/2023 1 1 Encounter Details Date Type Department Care Team Description 02/08/2022 Office Visit Department of Kirshan Almendarez Migraine Heada yomi Neurology in M.D. Chronic (Primary Dx) [place], [place] [address] [facility] [address] [place] [phone] Social History Tobacco Use Types Packs/Day Years [...] er 10/21/2021 How often do you attend amish or anabaptism services? Never 10/21/2021 Do you belong to any clubs or organizations such as amish N o 10/21/2021 groups, unions, fraternal or [...] place to sleep or slept in a long-term (including now)? Education Answer Date Recorded What is the highest level of school you have GED or equivale nt 10/21/2021 completed or the highest degree you have received? 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 - 02/08/2022 11:00 AM CDT SUBJECTIVE Chief Complaint: Follow-up on headache. HPI:Joshua Peters returns today for follow-up. I last saw her October 30, 2020. We ruled out intracranial hypertension and confirmed diagnosis of chronic migraine with visual aura. Following my recommendations she tried topiramate but she did not tolerate the associated dizziness, diarrhea and abdominal pain on it. She then tried verapamil which she takes at 80 mg twice daily but while on gabapentin higher doses of verapamil makes her dizzy. She is also on amlodipine for hypertension. She is on gabapentin 600 mg 3 times a day for back pain which does not help headache. Headaches continue to be constant and daily since I last saw her. Her current headaches are the same headaches without any change since I last saw her. Sumatriptan makes her excessively sleepy. She denies any other new symptom of concern. OBJECTIVE EXAM: Focused neurologic exam limited to funduscopy was normal without papilledema. ASSESSMENT / PLAN #1 Chronic migraine with aura (visual) She accepted my recommendation to start Botox for migraine prophylaxis, I recommend to give it at least 3 tries before giving up on it assuming it is tolerated. She will follow with my headache MARKER DELIVERY colleagues in 6 months. If Botox is only partially effective consideration could be given to adding Emgality. For acute treatment of lspq-cw-dbssxnmo headache he can continue to use Aleve or acetaminophen not more than 14 days per month. For severe headache instead of sumatriptan she can use rizatriptan, hopefully this is better tolerated. If that would not be the case then naratriptan would probably be the best next Triptan to try. I explained the need to limit the use of triptans to not than 9 days a monthto prevent medication overuse headache. If overall triptans fail to give her relief without side effects then consideration could be given to Nurtec instead. She can use antiemetics as needed under theguidance of her local primary care provider. #2 Hypertension I explained the need to follow up on this with her primary care provider. I note that she is on 2 calcium channel blockers. I have recommended to discuss with her primary care provider about possibly getting off amlodipine and instead gradually going up on verapamil hoping that verapamil may serve as an antihypertensive and also as a migraine preventive. I also explained the need to avoid using triptans if blood pressure is not under good control. If blood pressure is not under good control triptanscan be switched to Nurtec for acute treatment of severe migraine headache. She expressed understanding and agreement with the plan. PATIENT EDUCATION Ready to learn, no apparent learning barriers were identified; learning preferences include listening. Explained diagnosis and treatment plan; patient expressed understanding of the content. documented in this encounter Plan of Treatment Upcoming Encounters Date Type Specialty Care Team Description 10/31/2022 Appointment Neurology Krishan Almendarez M.D . [address] [place], [place] [phone] (Wo rk) Scheduled Orders Name Type Priority Associated Diagnoses Order S chedule Botox for Chronic Procedures Routine Migraine Headache - Lacie ry 12 weeks for 12 Migraine Chronic Occurrences sta rting 02/08/2022 unti l 02/08/2025, 3 c ompleted Scheduled Referrals Name Type Priority Associated Diagnoses Order S chedule Neurology office Outpatient Referral Routine Expe cted: visit (clinic) 08/11/2022 (Approximate), Expires: 05/11/2023 documented as of this encounter Results NJ CHEMODENERV FACIAL TRIGEM CRUZ (08/01/2022 9:45 AM SUPERVISOR [employer]AREHOUSE) Narrative [facility] - 08/01/2022 9:45 AM SUPERVISOR DIMENSION WAREHOUSE Price, Diana Olson APRN, C.NJuan Francisco, M.S.N. ? 08/01/2022 10:08 AM Botox for Chronic Migraine Performed by: Diana Price APRN, C .N.Ang, M.S.N. Authorized by: Krishan Almendarez M.D. Care team members present 1. Diana Price APRN, C.N.P., M.S. N. 2. Margaret Zepeda 3. Edmund Vasquez LGaudencioPGaudencioNGaudencio PROCEDURE DETAILS ?? Pre-procedure pain score: 04/03 Injection of: ??100 Units onabotulinumto xinA 100 unit 50 Units onabotulinumtoxinA 50 unit Needle gauge: 30 Needle length: 0.5 in Injection site details Job Development Specialist / Procerus muscle(s): 5 units into the left magnet maker muscle, 5 units into the right magnet maker muscle ??and 5 units into the procerus [...] covered by a third republican. ?? Prior to treatment with Botox, the [...] apparent complications Comments MODIFIED PROTOCOL: ??Moved up magnet maker and procerus to avoid brow droop. ?? [...] Code Phon e Number MMODAL MMODAL NA NJ CHEMODENERV FACIAL TRIGEM CRUZ (05/06/2022 8:57 AM [...] Needle length: 0.5 in Injection site details Job Development Specialist / Procerus muscle(s): 5 units into the left magnet maker muscle, 5 units into the right magnet maker muscle ??and 5 units into the procerus [...] covered by a third republican. ?? Prior to treatment with Botox, the [...] Code Phon e Number MMODAL MMODAL NA NJ CHEMODENERV FACIAL TRIGEM CRUZ (02/10/2022 9:07 AM CDT) Narrative MMODAL - 02/10/2022 9:07 AM CDT Diana Price APRN C.N.P., M.S.N. ? 02/10/2022 ??9:48 AM Botox for Chronic Migraine Date/Time: 02/10/2022 9:07 AM Performed by: Dinaa Price APRN C .N.PGaudencio, M.S.N. Authorized by: Krishan Almendarez M.D. Care team members present 1. Winnie Nettles L.P.N. 2. Socorro Molina R.N. PROCEDURE DETAILS ?? Pre-procedure pain score: 6/10 Injection of: 100 Units onabotulinumtoxi nA 100 unit 50 Units onabotulinumtoxinA 50 unit Needle gauge: 30 Needle length: 0.5 in Injection site details Job Development Specialist / Procerus muscle(s): 5 units into the left magnet maker muscle, 5 units into the right magnet maker muscle and 5 units into the procerus [...] successfully: yes ?? Complications: no apparent complications Krishan Almendarez M.D. NEUROLOGY ORDERABLES Performing Organization Address City/State/ZIP Code Phon e Number MMODAL MMODAL NA documented in this encounter Visit Diagnoses Diagnosis Migraine Headache Chronic - Primary Migraine Headache Chronic Migraine Headache Chronic Migraine Headache Chronic documented in this encounter Additional Health Concerns Assessment Noted Time PHQ-9 Depression Total Score: 13 02/08/2022 10:14 AM C DT documented as of this encounter
--- OUTSIDE RECORDS SUMMARY | 2022-08-30 07:41 | XMS_ITS | Encounter Summary ---
:1980 Author Organization [facility] Address [address] [place] [address]. [place] [address] Care Team Providers Name Role Phone Coral Douglas NP Primary Care Provider Unavailable Reason for Visit Reason Comments Imm/Inj Fasenra Treatment and Therapy Plans (Routine) - Closed Specialty Diagnoses / Procedures Referred By Contact Refer red To Contact Diagnoses Severe persistent asthma, uncomplicated Chronic rhinosinusitis Carol Esquivel MD [facility] Procedures C INJ., BENRALIZUMAB, 1 MG [facility] [address] [place], [place] [address] [place] [phone] [address] [place] [address] Referral ID Status Reason Start Date Expiration Date Visits Requ ested Visits Authorized [id number] Closed 02/27/2020 09/24/2022 100 1 Encounter Details Date Type Department Care Team Description 04/29/2020 Infusion Therapy [facility] Carol Esquivel Sev ere persistent asthma, uncomplicated (Primary Dx); Visit [facility] MD Nader Chronic rhinosinusitis [facility] [place] [facility] [address] [address] [place] [address] [place] [address] [place], [place] [phone] (Work) [phone] Social History Tobacco Use Types Packs/Day Years [...] Sign Reading Time Taken Comments Blood Pressure 150/91 04/29/2020 12:00 PM CDT Pulse 93 04/29/2020 12:00 PM CDT Temperature 36.4 ??C (97.5 ??F) 04/29/2020 12:00 PM CDT Respiratory Rate 20 04/29/2020 12:00 PM CDT Oxygen Saturation 99% 04/29/2020 12:00 PM CDT Inhaled Oxygen Concentration - - Weight - - Height - - Body Mass Index - - documented in this encounter Progress Notes Hillary Grier RN - 04/29/2020 12:30 PM CDT Infusion Nursing Note: Joshua Peters presents today for Fasenra. Patient seen by provider today: No Clay Pigeon Setter present during visit today: Not Applicable. Note: N/A. Intravenous Access: No Intravenous access/labs at this visit. Treatment Conditions: Not Applicable. Post Infusion Assessment: Patient tolerated injection without incident. Patient observed for 30 minutes post Fasenra per protocol. Discharge Plan: Discharge instructions reviewed with: Patient. Patient and/or family verbalized understanding of discharge instructions and all questions answered. AVS to patient via OpTierT. Patient will return 06/24/2020 for next appointment. Patient discharged in stable condition accompanied by: self. Departure Mode: Ambulatory. Hillary Grier RN documented in this encounter Plan of Treatment Not on filedocumented as of this encounter Visit Diagnoses Diagnosis Severe persistent asthma, uncomplicated - Primary Unspecified asthma Chronic rhinosinusitis Unspecified sinusitis (chronic) documented in this encounter Administered Medications Inactive Administered Medications - up to 3 most recent administrations Medication Order MAR Action Action Date Dose Rate Site benralizumab (FASENRA) Given 04/29/2020 12:28 PM CDT 30 mg Left Arm injection 30 mg 30 mg, Subcutaneous, ONCE, On Mon04/29/20 at 1230, For 1 dose, Give every 4 weeks x3 doses. Let medication stand at room temp 30 minutes before injection. Administer in upper arm, thigh or abdomen. Prior to administration, warm FASENRA by leaving carton at room temperature for about 30 minutes. documented in this encounter Care Teams Roll Bucker Relationship Specialty Start Date End Date Coral Douglas NP PCP - General Nurse Practitioner 09/20/17 documented as of this encounter
--- OUTSIDE RECORDS SUMMARY | 2022-08-30 07:41 | XMS_ITS | Encounter Summary ---
:1980 Author Organization [facility] Address [address] [place] [address] Care Team Providers Name Role Phone Unavailable Primary Care Provider Unavailable Encounter Details Date Type Department Care Team Description 01/10/2022 Orders Only Pharmacy Prior Auth Ksenia Trujillo [phone] Social History Tobacco Use Types Packs/Day Years [...] er 10/21/2021 How often do you attend sikh or methodist services? 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 [address] [place] [phone] (Wo rk) documented as of this encounter Visit Diagnoses Not on filedocumented in this encounter
--- OUTSIDE RECORDS SUMMARY | 2022-08-30 07:41 | XMS_ITS | Encounter Summary ---
:1980 Author Organization [facility] Address [address] [place] [address] Care Team Providers Name Role Phone Coral Douglas NP Primary Care Provider Unavailable Encounter Details Date Type Department Care Team Description 06/24/2020 Travel Social History Tobacco Use Types Packs/Day [...] on filedocumented in this encounter Care Teams Tobacco Cloth Reclaimer Relationship Specialty Start Date End Date Coral Douglas NP PCP - General Nurse Practitioner 09/20/17 documented as of this encounter
--- OUTSIDE RECORDS SUMMARY | 2022-08-30 07:41 | XMS_ITS | Encounter Summary ---
:1980 Author Organization [facility] Address [facility] [place] [address] Care Team Providers Name Role Phone Coral Douglas NP Primary Care Provider Unavailable Reason for Visit Reason Comments Imm/Inj Fasenra Treatment and Therapy Plans (Routine) - Closed Specialty Diagnoses / Procedures Referred By Contact Refer red To Contact Diagnoses Severe persistent asthma, uncomplicated Chronic rhinosinusitis Carol Esquivel MD [facility] Procedures C INJ., BENRALIZUMAB, 1 MG [facility] [address] [place], [place] [address] [place] [phone] [address] [place] [address] Referral ID Status Reason Start Date Expiration Date Visits Requ ested Visits Authorized [id number] Closed 02/27/2020 09/24/2022 100 1 Encounter Details Date Type Department Care Team Description 03/04/2020 Infusion Therapy [facility] Carol Esquivel Sev ere persistent asthma, uncomplicated (Primary Dx); Visit Cancer Center MD Nader Chronic rhinosinusitis [facility] [place] [address] [address] [place] [address] [address] [place] [address] [place], [place] [phone] (Work) [phone] Social History Tobacco Use Types Packs/Day Years [...] Sign Reading Time Taken Comments Blood Pressure 140/89 03/04/2020 1:45 PM CDT Pulse 89 03/04/2020 1:45 PM CDT Temperature 36.1 ??C (97 ??F) 03/04/2020 12:52 PM CDT Respiratory Rate 16 03/04/2020 12:52 PM CDT Oxygen Saturation 96% 03/04/2020 1:45 PM CDT Inhaled Oxygen Concentration - - Weight - - Height - - Body Mass Index - - documented in this encounter Patient Instructions Patient InstructionsAle Archer RN - 03/04/2020 12:30 PM CDT EDUCATION POST BIOLOGICAL/CHEMOTHERAPY INFUSION Call the triage nurse at your clinic or seek medical attention if you have chills and/or temperaturegreater than or equal to 100.5, uncontrolled nausea/vomiting, diarrhea, constipation, dizziness, shortness of breath, chest pain, heart palpitations, weakness or any other new or concerning symptoms, qu estions or concerns. You can not have any live virus vaccines prior to [...] your next infusion, please call your healthcare applications analyst or triage nurse at your clinic to notify them so we can adequately serve you. documented in this encounter Progress Notes Ale Archer RN - 03/04/2020 12:30 PM CDT Infusion Nursing Note: Joshua Peters presents today for Ami. Patient seen by provider today: No Belt Molder present during visit today: Not Applicable. Note: First dose today. Declined medication information printout. When discussing this medication and its administration, informed patient that she has a 2 hour observation period after the injection. She indicates that Dr Esquivel told her she would not have to wait at all. Called Dr Esquivel's office todiscuss: Observe patient for 30 minutes after Fasenra for the first three doses. BAKARI Lacy RN/ Dr. Esquivel/ Jasper JOES Patient reported she had recent pneumonia. It lasted about 6 weeks, and has since cleared. Per patient, she was being treated by Dr Esquivel for this so MD is aware. Rick has finished as of last Monday.Having a dry cough. States her BP runs high when she's been sick Intravenous Access: No Intravenous access/labs at this [...] appetite, unexplained weight loss or fatigue? Yes, pneumonia for 6 weeks, treated by help desk representative 2. Do you have any open wounds or new incisions? No 3. Do you have any recent or upcoming hospitalizations, surgeries or dental procedures? No 4. Do you currently have or recently have had any signs of illness or infection or are you on any antibiotics? Yes, recent pneumonia, has cleared, help desk representative aware 5. Have you had any new, sudden [...] is not on the day of the infusion.No- Mother is getting Shingrix tomorrow, verified with pharmacy that this is not live. 7. Have you recently been diagnosed with any new nervous system diseases (ie. Multiple sclerosis, Guillain [place], seizures, neurological changes) or cancer diagnosis? No [...] symptoms? No Post Infusion Assessment: Patient tolerated infusion without incident. Blood return noted pre and post infusion. Site patent and intact, free from redness, edema or discomfort. No evidence of extravasations. Access discontinued per protocol. Biologic Infusion Post Education: Call the triage [...] your next infusion, please call your healthcare applications analyst or triage nurse at your clinic to notify them so we can adequately serve you. Discharge Plan: Discharge instructions reviewed with: Patient. Patient and/or family verbalized understanding of discharge instructions and all questions answered. Copy of AVS reviewed with patient and/or family. Patient will return 04/01 for next appointment. Patient discharged in stable condition accompanied by: self. Departure Mode: Ambulatory. Ale Archer RN documented in this encounter Plan of Treatment Not on filedocumented as of this encounter Visit Diagnoses Diagnosis Severe persistent asthma, uncomplicated - Primary Unspecified asthma Chronic rhinosinusitis Unspecified sinusitis (chronic) documented in this encounter Administered Medications Inactive Administered Medications - up to 3 most recent administrations Medication Order MAR Action Action Date Dose Rate Site benralizumab (FASENRA) Given 03/04/2020 1:12 PM CDT 30 mg Right Arm injection 30 mg 30 mg, Subcutaneous, ONCE, On Mon03/04/20 at 1300, For 1 dose, Give every 4 weeks x3 doses. Let medication stand at room temp 30 minutes before injection. Administer in upper arm, thigh or abdomen. Prior to administration, warm FASENRA by leaving carton at room temperature for about 30 minutes. documented in this encounter Care Teams B2B Appointment Setter Relationship Specialty Start Date End Date Coral Douglas NP PCP - General Nurse Practitioner 09/20/17 documented as of this encounter
--- OUTSIDE RECORDS SUMMARY | 2022-08-30 07:41 | XMS_ITS | Encounter Summary ---
:1980 Author Organization [facility] Address [address] [place] [id number] Care Team Providers Name Role Phone Coral Douglas NP Primary Care Provider Unavailable Encounter Details Date Type Department Care Team Description 04/17/2020 Travel Social History Tobacco Use Types Packs/Day Years Used Date Smoking Tobacco: Never Assessed Sex Assigned at Date Recorded Not on file COVID-19 Exposure Response Date Recorded In the last month, have you been in contact with No / Unsure 04/17/2020 11:41 AM CDT someone who was confirmed or suspected to have Coronavirus / COVID-19? documented as of this encounter Plan of Treatment Not on filedocumented as of this encounter Visit Diagnoses Not on filedocumented in this encounter Care Teams Casting Molder Relationship Specialty Start Date End Date Coral Douglas NP PCP - General Nurse Practitioner 09/20/17 documented as of this encounter
--- OUTSIDE RECORDS SUMMARY | 2022-08-30 07:41 | XMS_ITS | Encounter Summary ---
:1980 Author Organization [facility] Address [address] [place] [address] Care Team Providers Name Role Phone Unavailable Primary Care Provider Unavailable Reason for Visit Outpatient (Routine) - Closed Specialty Diagnoses / Procedures Referred By Referred To Contact Contact Allergy and Diagnoses Sinusitis Recurrent [facility] Immunology Procedures Allergy and Immunology - Immunodeficiency eConsult Saravanan M.D. [address] [place] [address] Referral ID Status Reason Start Date Expiration Date Visits Requ ested Visits Authorized [id number] Closed 11/26/2021 11/26/2022 1 1 Encounter Details Date Type Department Care Team Description 12/09/2021 Internal E-Consult Division of Allergic Ricardo Yoon S hortness Of Breath (Primary Dx); Diseases in M.D., Ph.D. Sinusitis Recurrent [place], [place] [address] [facility] [address] [place] [address] [phone] Social History Tobacco Use Types Packs/Day Years [...] er 10/21/2021 How often do you attend gnosticism or congregational services? Never 10/21/2021 Do you belong to any clubs or organizations such as gnosticism N o 10/21/2021 groups, unions, fraternal or [...] to pay for the very basics like Rizwan emma wilbur hard 10/21/2021 food, housing, medical care, [...] place to sleep or slept in a fdc (including now)? Education Answer Date Recorded What is the highest level of school you have GED or equivale nt 10/21/2021 completed or the highest degree you have received? Sex Assigned at Date Recorded Female 10/21/2021 4:05 AM REGISTERED APPRAISER documented as of this encounter Consult Notes Ricardo Yoon M.D., Ph.D. - 12/09/2021 8:00 AM CDT E consult SHARON Peters is a 41 y.o. female with a history of recurrent and persistent respiratory problems, and possible recurrent infection. 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 Sinus CT from October 12, 2020 was satisfact ory. Immunoglobulin levels from that same date shows a normal IgA, normal IgM, and IgG of 681, whichis below the reference range but at a level that typically is not associated with recurrent infection. The medical record indicates that the patient may have been taking oral prednisone around that time. The clinical history and laboratory test results are not particularly suggestive of a primary immunodeficiency. The patient does not have common variable immunodeficiency. Systemic corticosteroids are known to depress IgG levels. I suggest consideration of rechecking an IgG level (without subclasses) at a time when the patient has not been on systemic corticosteroids for several weeks. documented in this encounter Plan of Treatment Upcoming Encounters Date Type Specialty Care Team Description 10/31/2022 Appointment Neurology Krishan Almendarez M.D . [address] [place], [place] [phone] (Wo rk) documented as of this encounter Visit Diagnoses Diagnosis Shortness Of Breath - Primary Sinusitis Recurrent documented in this encounter
--- OUTSIDE RECORDS SUMMARY | 2022-08-30 07:42 | XMS_ITS | Encounter Summary ---
:1980 Author Organization [facility] Address [address] [place] [address] Care Team Providers Name Role Phone Unavailable Primary Care Provider Unavailable Encounter Details Date Type Department Care Team Description 12/08/2021 Orders Only [facility] Mira Martinez, [address] [place] [address] [place] [phone] (Wo rk) Social History Tobacco Use Types [...] er 10/21/2021 How often do you attend muslim or restorationism services? Never 10/21/2021 Do you belong to any clubs or organizations such as muslim N o 10/21/2021 groups, unions, fraternal or [...] place to sleep or slept in a fci (including now)? Education Answer Date Recorded What is the highest level of school you have GED or equivale nt 10/21/2021 completed or the highest degree you have received? Sex Assigned at Date Recorded Female 10/21/2021 4:05 AM RADIO MESSAGE ROUTER documented as of this encounter Plan of Treatment Upcoming Encounters Date Type Specialty Care Team Description 10/31/2022 Appointment Neurology Krishan Almendarez M.D . [address] [place], [place] [phone] (Wo rk) documented as of this encounter Visit Diagnoses Not on filedocumented in this encounter
--- OUTSIDE RECORDS SUMMARY | 2022-08-30 07:42 | XMS_ITS | Encounter Summary ---
:1980 Author Organization [facility] Address [address] [place] [address] Care Team Providers Name Role Phone Unavailable Primary Care Provider Unavailable Reason for Referral Outpatient (Routine) - Closed Specialty Diagnoses / Procedures Referred By Contact Refer red To Contact Laboratory Medicine Diagnoses Shortness Of Breath Mira Martinez, [facility] Procedures ECG 12 Lead M.D. [address] [place] [address] Referral ID Status Reason Start Date Expiration Date Visits Requ ested Visits Authorized [id number] Closed 11/26/2021 11/26/2022 1 1 GNMENT MANAGER Encounter Details Date Type Department Care Team Description 11/26/2021 Clinical Communication Department of Gretchen Rodriguez, Cardiovascular Diseases R.N. in [place] [address] [phone] [place] [address] [place] [phone] Social History Tobacco Use Types Packs/Day Years [...] er 10/21/2021 How often do you attend confucianist or christian services? Never 10/21/2021 Do you belong to any clubs or organizations such as confucianist N o 10/21/2021 groups, unions, fraternal or [...] place to sleep or slept in a alf (including now)? Education Answer Date Recorded What is the highest level of school you have GED or equivale nt 10/21/2021 completed or the highest degree you have received? Sex Assigned at Date Recorded Female 10/21/2021 4:05 AM ASSIGNMENT MANAGER documented as of this encounter Miscellaneous Notes Telephone Encounter - Gretchen Rodriguez R.N. - 11/26/2021 8:32 [address] is scheduled for a dobutamine stress echo on December 03. Prior to her appointment cardiology would prefer to obtain a baseline EKG (order pended). Thank you, Gretchen Mccain Cardiology GNMENT MANAGER documented in this encounter Plan of Treatment Upcoming Encounters Date Type Specialty Care Team Description 10/31/2022 Appointment Neurology Krishan Almendarez M.D . [address] [place] [phone] (Wo rk) documented as of this encounter Results ECG 12 Lead (12/01/2021 12:40 PM ASSIGNMENT MANAGER) P athologist Signature Ventricular Rate 94 BPM MUSE ECG/Min AL Interval 142 ms MUSE QRSD Interval 90 ms MUSE QT Interval 370 ms MUSE QTC Interval 462 ms MUSE P [place] 44 degrees MUSE R [place] 58 degrees MUSE T Wave [place] 4 degrees MUSE Specimen Anatomical Collection Method Collection Time Receive d Time (Source) Location / / Volume Laterality 12/01/2021 12:40 12/01/2021 PM ASSIGNMENT MANAGER 12:42 PM ASSIGNMENT MANAGER Impressions MUSE - 12/01/2021 12:42 PM ASSIGNMENT MANAGER Normal sinus rhythm Normal ECG No previous ECGs available Reviewed by TOR García Narrative This result has an attachment that is no t available. Procedure Note Baljeet Mercado M.D. - 12/01/2021Formatt ing of this note might be different from the original. IMPRESSION: Normal sinus rhythm Normal ECG No previous ECGs available Reviewed by TOR García Mira Martinez M.D. ECG ORDERABLES Performing Organization Address City/State/ZIP Code Phon e Number MUSE MUSE NA documented in this encounter Visit Diagnoses Diagnosis Shortness Of Breath - Primary Shortness Of Breath documented in this encounter
--- OUTSIDE RECORDS SUMMARY | 2022-08-30 07:42 | XMS_ITS | Encounter Summary ---
:1980 Author Organization [facility] Address [address] [place] [address] Care Team Providers Name Role Phone Unavailable Primary Care Provider Unavailable Reason for Referral Outpatient (Routine) - Closed Specialty Diagnoses / Procedures Referred By Contact Refer red To Contact Diagnoses Dyspnea Mira Martinez M.D. [facility] Procedures Echo Stress [address] [place] [address] Referral ID Status Reason Start Date Expiration Date Visits Requ ested Visits Authorized [id number] Closed 11/05/2021 11/05/2022 1 1 SIFTER Reason for Visit Outpatient (Routine) - Closed Specialty Diagnoses / Procedures Referred By Contact Refer red To Contact Diagnoses Dyspnea Mira Martinez M.D. [facility] Procedures Echo Stress [address] [place] [address] Referral ID Status Reason Start Date Expiration Date Visits Requ ested Visits Authorized [id number] Closed 11/05/2021 11/05/2022 1 1 Encounter Details Date Type Department Care Team Description 12/03/2021 Hospital Encounter Department of Mira Martinez Cardiovascular Diseases [facility] [address] [facility] [address] [place] [phone] Social History Tobacco Use Types Packs/Day Years [...] How often do you attend mormon or lutheran services? Never 10/21/2021 Do you belong to [...] pay for the very basics like Not emma bowles hard 10/21/2021 food, housing, medical care, and [...] at Date Recorded Female 10/21/2021 4:05 AM NUT SIFTER documented as of this encounter Last Filed Vital Signs Vital Sign Reading Time Taken Comments Blood Pressure 140/100 12/03/2021 8:47 AM NUT SIFTER Pulse - - Temperature - - Respiratory Rate - - Oxygen Saturation 95% 12/03/2021 8:47 AM NUT SIFTER Inhaled Oxygen Concentration - - Weight - - Height 177.7 cm (5' 9.96) 12/03/2021 8:47 AM NUT SIFTER Body Mass Index - - documented in this encounter Medications at Time of Discharge Medication Sig Dispensed Refills Start Date End Date albuterol (ACCUNEB) 2.5 albuterol sulfate 2.5 0 1 11/20/2018 mg /3 mL nebulizer mg/3 mL (0.083 %) solution solution for nebulization albuterol sulfate 90 0 mcg/actuation aero powdr breath act w/sensor amLODIPine (NORVASC) 10 Take 10 mg by mouth. 0 mg tablet benzonatate (TESSALON) benzonatate 200 mg 0 08/26 [...] 01/31/2019 mL injection syringe mL injection, auto-injector fluticasone propionate INSTILL ONE SPRAY IN THE [...] 11/24 (HYDRODIURIL) 25 mg mg tablet tablet magnesium oxide 500 mg Take by mouth. 0 0 tablet tablet medroxyPROGESTERone Inject 150 mg 0 11/18/2020 (DEPO-PROVERA) 150 mg/mL intramuscularly. injection montelukast (SINGULAIR) Take 10 mg by mouth 0 12/2021 10 mg tablet daily. sodium chloride (OCEAN) Administer 1 spray into 15 mL 12 11/24/2021 0.65 % nasal spray each nostril 2 (two) times a day. verapamiL (CALAN) 80 mg Take 80 mg by mouth 2 0 1 tablet (two) times a day. omeprazole (PriLOSEC) 20 Take 1 capsule (20 mg 60 capsule 1 11/24/2021 02/09/[address] capsule total) by mouth 2 (two) 22 times a day before breakfast and dinner. predniSONE (DELTASONE) TAKE SIX TABLETS BY 0 /09/202002/09/20 10 mg tablet MOUTH EVERY DAY FOR 3 2 2 DAYS, THEN FIVE TABLETS EVERY DAY FOR 3 DAYS, THEN FOUR TABLETS EVERY DAY FOR 3 DAYS, THEN THREE T pseudoephedrine (SUDAFED Take 120 mg by mouth. 0 10/20/2021 02/09/20 12 HR) 120 mg 12 hr 22 tablet SUMAtriptan (IMITREX) Take 100 mg by mouth. 0 11/202002/09/20 100 mg tablet 22 topiramate (TOPAMAX) 25 Take 25 mg by mouth. 0 02/09/20 mg tablet 22 documented as of this encounter Plan of Treatment Upcoming Encounters Date Type Specialty Care Team Description 10/31/2022 Appointment Neurology Krishan Almendarez M.D . [address] [place], [place] [phone] (Wo rk) documented as of this encounter Procedures Procedure Name Priority Date/Time Associated Diagnosis Comme nts ECHO STRESS 2D WITH Routine 12/03/2021 10:14 AM Dyspnea R esults for this COLOR, LIMITED NUT SIFTER procedure are in DOPPLER AND the results CONTRAST section. documented in this encounter Results ECHO STRESS 2D WITH COLOR, LIMITED DOPPLER AND CONTRAST (12/03/2021 10:14 AM NUT SIFTER) [facility] Method Time Signature Ejection Fraction 57 MC CV EIMS Mid-Ascending Aorta 33 MC CV EIMS LV Mass Index 94 MC CV EIMS LV End-Diastolic 55 MC CV EIMS Diameter LV End-Systolic 38 MC CV EIMS Diameter MV E Velocity 0.70 MC CV EIMS MV A Velocity 0.80 MC CV EIMS MV E/A 0.87 MC CV EIMS MV e' Velocity 0.09 MC CV EIMS Medial MV E/e' Medial 7.80 MC CV EIMS LV Interventricular 12 MC CV EIMS Septal Wall Thickness LV Posterior Wall 11 MC CV EIMS Thickness LV Relative Wall 40 MC CV EIMS Thickness RA Pressure 5 MC CV EIMS WMSI At Rest 1 MC CV EIMS WMSI At Peak Stress 1 MC CV EIMS Anatomical Region Laterality Modality Echocardiography, Ot her Specimen (Source) Anatomical Collection Method Collection Time Re ceived Time Location / / Volume Laterality 12/03/2021 8:47 AM NUT SIFTER Impressions 12/03/2021 9:49 PM NUT SIFTER STRESS TEST:Dobutamine was infused from 5 mcg/kg/min to 20 mcg/kg/min. A peak heart rate of 157 BPM was achieved (88% age-predicted maximal HR). Patient developed scalp tingling during stress test. The test was terminated due to target heart rate achievement. The baseline ECG demonstrat ed sinus rhythm. The baseline ECG demonstrated APC's and VPC's. With stress, there were no S-T changes. APC's and VPC's present at stress. The stress ECG was negative for ischemia. Please see Nursing Notes for additional information. REST IMAGES:Intravenous Definity ultraso und enhancement agent(s) administered to enhance endocardial border definition. LEFT VENTRICLE:Normal left ventricular c hamber size. Calculated 2-D linear left ventricular ejection fraction 57%. Normal left ventricular geometry. No regional wall motion abnormalities. Normal left ventricular diastolic function. RIGHT VENTRICLE:Normal right ventricular chamber size. Normal right ventricular systolic function. Unable to detect peak tricuspid regurgitation velocity for pulmonary artery systolic pressure calculation. ATRIA:Normal left atrial size by visual estimate. Normal right atrial size by visual estimate. CARDIAC VALVES:Trileaflet aortic valve. No aortic valve regurgitation. Normal mitral valve. Trivial mitral valve regurgitation. Pulmonary valve not well visualized. Tricuspid valve not well visualized. No hemodynamically significant tricuspid regurgitation. OTHER ECHO FINDINGS:Normal mid ascending aorta diameter (diameter 33 mm at mid level). No intracardiac mass or thrombus identified. No ??pericardial effusion. Attempts were made to optimize the echocard iographic images and two or more left ve ntricular segments were not visualized adequately to evaluate cardiac structure. The patient's current allergies and medications have been screened. Imaging enhancement agent administered per Echocardiography Con trast Administration Protocol Reference Document [id number]. Patient met an inclusion cri terion and did not have contraindications in screening sections. For the complete report, see the Order-L evel Documents. Narrative 12/03/2021 9:49 PM NUT SIFTER For the complete report, see the Order-Level Documents. Final Impressions 1. STRESS IMPRESSIONS: 2. Dobutamine stress echocardiogram nega tive for myocardial ischemia. 3. Ejection fraction response from 57% a t rest to 70% at peak stress. 4. Left ventricular end-systolic volume decreased with stress. 5. No regional wall motion abnormalities with stress. 6. REST IMPRESSIONS: 7. Normal left ventricular diastolic fun ction. 8. No hemodynamically significant valvul ar heart disease. 9. No ??pericardial effusion. 10. There are no previous [facility] ec hocardiograms available for comparison. Comments Review of digital video ([employer]) images was helpful for interpretation of today's study. -BDN Procedure Note Pankaj Zabala M.D. - 12/03/2021F ormatting of this note might be different from the original. For the complete report, see the Order-L evel Documents. Final Impressions 1. STRESS IMPRESSIONS: 2. Dobutamine stress echocardiogram nega tive for myocardial ischemia. 3. Ejection fraction response from 57% a t rest to 70% at peak stress. 4. Left ventricular end-systolic volume decreased with stress. 5. No regional wall motion abnormalities with stress. 6. REST IMPRESSIONS: 7. Normal left ventricular diastolic fun ction. 8. No hemodynamically significant valvul ar heart disease. 9. No pericardial effusion. 10. There are no previous [facility] ec hocardiograms available for comparison. Comments Review of digital video ([employer]) images was helpful for interpretation of today's study. -BDN Findings STRESS TEST:Dobutamine was infused from 5 mcg/kg/min to 20 mcg/kg/min. A peak heart rate of 157 BPM was achieved (88% age-predicted maximal HR). Patient developed scalp tingling during stress test. The test was terminated due to target heart rate achi evement. The baseline ECG demonstrated sinus rhythm. The baseline ECG demonstrated APC's and VPC's. With stress, there were no S-T changes. APC's and VPC's present at stress. The stress ECG was negative for ischemia . Please see Nursing Notes for additional information. REST IMAGES:Intravenous Definity ultraso und enhancement agent(s) administered to enhance endocardial border definition. LEFT VENTRICLE:Normal left ventricular c hamber size. Calculated 2-D linear left ventricular ejection fraction 57%. Normal left ventricular geometry. No regional wall motion abnormalities. Normal left ventricular diastolic function. RIGHT VENTRICLE:Normal right ventricular chamber size. Normal right ventricular systolic function. Unable to detect peak tricuspid regurgitation velocity for pulmonary artery systolic pressure calculation. ATRIA:Normal left atrial size by visual estimate. Normal right atrial size by visual estimate. CARDIAC VALVES:Trileaflet aortic valve. No aortic valve regurgitation. Normal mitral valve. Trivial mitral valve regurgitation. Pulmonary valve not well visualized. Tricuspid valve not well visualized. No hemodynamically significant tricuspid re gurgitation. OTHER ECHO FINDINGS:Normal mid ascending aorta diameter (diameter 33 mm at mid level). No intracardiac mass or thrombus identified. No pericardial effusion. Attempts were made to optimize the echocardiographic images and two or more left ventricular segments we re not visualized adequately to evaluate cardiac structure. The patient's current allergies and medications have been screened. Imaging enhancement agent administered per Echocardiography Contrast Administration Protocol Reference Document [id number]. Patient met an inclusion criterion and did not have contraindications in screening sections. For the complete report, see the Order-L evel Documents. Mira Martinez M.D. CV ECHO PROCEDURES documented in this encounter Visit Diagnoses Diagnosis Dyspnea documented in this encounter Administered Medications Inactive Administered Medications - up to 3 most recent administrations Medication Order MAR Action Action Date Dose Rate Site DOBUTamine 1,000 mcg/mL in D5W 250 New Bag 12/03/2021 9:31 AM NUT SIFTER 19 mg mL infusion 1-100 mg (DOBUTREX) 1-100 mg, intravenous, Once, On Mon12/03/21 at 0900, For 1 dose, Infusion rate: 5-40 mcg/kg/min - see protocol. 250 mg in 250 mL perflutren lipid microspheres injection Given 12/03/2021 9:25 AM NUT SIFTER 9 mL (DEFINITY) intravenous, Once in imaging, contrast, Starting on Mon12/03/21 at 0852, For 1 dose, Standard concentration - perflutren lipid microsphere (DEFINITY) injection: To be administered for inclusion criteria that does not include an indication of myocardial perfusion. 1. Activate perflutren lipid microsphere by shaking the vial for 45 seconds using a Vialmix. 2. Draw up contents of vial into 10 mL syringe with 8.5 mL of 0.9% sodium chloride for a total of 10 mL. 3. Administer 0.5 mL IV push of the diluted solution. 4. Immediately flush with 0.9% sodium chloride over 10 seconds. 5. May repeat steps 3 and 4 until images are optimal or for a total of 10 mL of diluted solution being administered. See protocol. sodium chloride 0.9 % injection 10 mL Given 12/03/2021 9:02 AM NUT SIFTER 10 mL 10 mL, intravenous, As needed, line care, Starting on Mon12/03/21 at 0852, Prior to and following infusion and between multiple consecutive infusions: sodium chloride 0.9 % injection documented in this encounter
--- OUTSIDE RECORDS SUMMARY | 2022-08-30 07:42 | XMS_ITS | Encounter Summary ---
:1980 Author Organization [facility] Address [address] [place] [address] Care Team Providers Name Role Phone Unavailable Primary Care Provider Unavailable Encounter Details Date Type Department Care Team Description 11/03/2021 Orders Only Division of Pulmonary [facility]ira [facility] [place] [address] [facility] [address] [place] [address] [place] [address] [phone] Social History Tobacco Use Types Packs/Day Years [...] er 10/21/2021 How often do you attend holiness or scientology services? Never 10/21/2021 Do you belong to any clubs or organizations such as holiness N o 10/21/2021 groups, unions, fraternal or [...] at Date Recorded Female 10/21/2021 4:05 AM TIP CUTTER documented as of this encounter Plan of Treatment Upcoming Encounters Date Type Specialty Care Team Description 10/31/2022 Appointment Neurology Krishan Almendarez M.D . [address] [place] [phone] (Wo rk) documented as of this encounter Visit Diagnoses Not on filedocumented in this encounter
--- OUTSIDE RECORDS SUMMARY | 2022-08-30 07:42 | XMS_ITS | Encounter Summary ---
:1980 Author Organization [facility] Address [address] [place] [address] Care Team Providers Name Role Phone Unavailable Primary Care Provider Unavailable Reason for Visit MRI/CAT/PET Scan (Routine) - Closed Specialty Diagnoses / Procedures Referred By Contact Refer red To Contact Radiology Diagnoses Headache Unspecified Krishan Almendarez M.D. [facility] Procedures MR Brain without and with IV Contrast [address] [place] [address] Referral ID Status Reason Start Date Expiration Date Visits Requ ested Visits Authorized [id number] Closed 11/03/2020 11/03/2021 1 1 Encounter Details Date Type Department Care Team Description 11/06/2020 Hospital Encounter Department of Krishan Almendarez Canceled (Patient: Brendan Del Valle M.D. Request) [facility], [address] [place], [place] [address] [place] [phone] [place], [place] [phone] (Work) [phone] Social History Tobacco Use Types Packs/Day Years [...] er 10/21/2021 How often do you attend spiritism or orthodox services? Never 10/21/2021 Do you belong to any clubs or organizations such as spiritism N o 10/21/2021 groups, unions, fraternal or [...] pay for the very basics like Rizwan carter wilbur hard 10/21/2021 food, housing, medical care, [...] place to sleep or slept in a usp (including now)? Education Answer Date Recorded What is the highest level of school you have completed or 12 th grade 10/06/2020 the highest degree you have received? 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 0 0 06/08/[address] capsule EPINEPHrine 0.3 mg/0.3 epinephrine 0.3 mg/0.3 0 0 01/31/2019 mL injection syringe mL injection, auto-injector hydroCHLOROthiazide hydrochlorothiazide 25 0 /12/2015 (HYDRODIURIL) 25 mg mg tablet tablet magnesium oxide 500 mg Take by mouth. 0 0 tablet tablet amitriptyline (ELAVIL) Take 1 tablet (10 mg 30 tablet 3 10 mg tablet total) by mouth at 2 bedtime. benralizumab (Fasenra Inject 30 mg under the 0 Pen) 30 mg/mL injection skin every 8 (eight) 2 weeks. mometasone 0.033 Administer 1 spray into 75 mL 2 2020 %-ipratropium 0.02 each nostril 2 (two) 2 %-diphenhydramine 0.033 times a day. Shake very % nasal well prior to each use. sprayIndications: Drip Post Nasal NaCl 0.9 % irrigation Use with clindamycin 0 0909/2019 150mg capsule opened 2 into 1000ml of saline/rinse each nostril with 20cc of soln bid omeprazole (PriLOSEC) 20 omeprazole 20 mg 0 02/[address] capsule capsule,delayed release 2 documented as of this encounter Plan of Treatment Upcoming Encounters Date Type Specialty Care Team Description 10/31/2022 Appointment Neurology Krishan Almendarez M.D . [address] [place] [phone] (Wo rk) documented as of this encounter Visit Diagnoses Not on filedocumented in this encounter
--- OUTSIDE RECORDS SUMMARY | 2022-08-30 07:42 | XMS_ITS | Encounter Summary ---
:1980 Author Organization [facility] Address [address] [place] [address] Care Team Providers Name Role Phone Unavailable Primary Care Provider Unavailable Encounter Details Date Type Department Care Team Description 12/25/2020 Orders Only [facility] Sa lena Shook M.D. [address] [place], [place] [phone] (Wo rk) Social History Tobacco [...] er 10/21/2021 How often do you attend yazdanism or hindu services? Never 10/21/2021 Do you belong to any clubs or organizations such as yazdanism N o 10/21/2021 groups, unions, fraternal or [...] place to sleep or slept in a residential (including now)? Education Answer Date Recorded What is the highest level of school you have completed or 12 th grade 10/06/2020 the highest degree you have received? Sex Assigned at Date Recorded Female 10/21/2021 4:05 AM TRAY FILLER documented as of this encounter Plan of Treatment Upcoming Encounters Date Type Specialty Care Team Description 10/31/2022 Appointment Neurology Krishan Almendarez M.D . [address] [place], [place] [phone] (Wo rk) documented as of this encounter Visit Diagnoses Not on filedocumented in this encounter
--- OUTSIDE RECORDS SUMMARY | 2022-08-30 07:42 | XMS_ITS | Encounter Summary ---
:1980 Author Organization [facility] Address [address] [place] [address] Care Team Providers Name Role Phone Unavailable Primary Care Provider Unavailable Reason for Referral Outpatient (Routine) - Closed Specialty Diagnoses / Procedures Referred By Contact Refer red To Contact Laboratory Medicine Diagnoses Shortness Of Breath Mira Martinez [facility] Region Procedures ECG 12 Lead M.D. 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 [address] [place] [phone] Referral ID Status Reason Start Date Expiration Date Visits Requ ested Visits Authorized [id number] Closed 11/26/2021 11/26/2022 1 1 Encounter Details Date Type Department Care Team Description 12/01/2021 Hospital Encounter Department of Mira Martinez rtness Of Breath Laboratory Medicine [place] in [place] [address] [address] [place], [place] [phone] (Work) [phone] Social History Tobacco Use Types Packs/Day Years [...] er 10/21/2021 How often do you attend confucianism or jainism services? 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 [address] [place] [phone] (Wo rk) documented as of this encounter Procedures Procedure Name Priority Date/Time Associated Diagnosis Comme [facility] ECG Routine 12/01/2021 12:40 PM Shortness Of Breath R esults for this INVOICE MACHINE OPERATOR procedure are i n the results section . documented in this encounter Results ECG 12 Lead (12/01/2021 12:40 PM INVOICE MACHINE OPERATOR) P athologist Signature Ventricular Rate 94 BPM MUSE ECG/Min NC Interval 142 ms MUSE QRSD Interval 90 ms MUSE QT Interval 370 ms MUSE QTC Interval 462 ms MUSE P [place] 44 degrees MUSE R [place] 58 degrees MUSE T Wave [place] 4 degrees MUSE Specimen Anatomical Collection Method Collection Time Receive d Time (Source) Location / / Volume Laterality 12/01/2021 12:40 12/01/2021 PM INVOICE MACHINE OPERATOR 12:42 PM INVOICE MACHINE OPERATOR Impressions MUSE - 12/01/2021 12:42 PM INVOICE MACHINE OPERATOR Normal sinus rhythm Normal ECG No previous [...] encounter Visit Diagnoses Diagnosis Shortness Of Breath documented in this encounter
--- OUTSIDE RECORDS SUMMARY | 2022-08-30 07:42 | XMS_ITS | Encounter Summary ---
:1980 Author Organization [facility] Address [address] [place] [address] Care Team Providers Name Role Phone Unavailable Primary Care Provider Unavailable Encounter Details Date Type Department Care Team Description 10/25/2021 Hospital Encounter Department of Mohinder Mukherjee Alpha 1 Laboratory Medicine R, Parminder Antitrypsin (HCC) and Pathology, [address] [place] [address], in [place], [place] [phone] [place] [address] [place], [place] (Work[place] [phone] Social History Tobacco Use Types Packs/Day Years [...] How often do you attend orthodox or zoroastrianism services? Never 10/21/2021 Do you belong to [...] place to sleep or slept in a [facility] (including now)? Education Answer Date Recorded What is the highest level of school you have GED or equivale nt 10/21/2021 completed or the highest degree you have received? 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 verapamiL (CALAN) 80 mg Take 80 mg by mouth 2 0 1 tablet (two) times a day. omeprazole (PriLOSEC) 20 omeprazole 20 mg 0 02/[address] capsule capsule,delayed release 2 predniSONE (DELTASONE) TAKE SIX TABLETS BY 0 12/0 09/2020 10 mg tablet MOUTH EVERY DAY FOR 3 2 DAYS, THEN FIVE TABLETS EVERY DAY FOR 3 DAYS, THEN FOUR TABLETS EVERY DAY FOR 3 DAYS, THEN THREE T pseudoephedrine (SUDAFED Take 120 mg by mouth. 0 10/20/2021 12 HR) 120 mg 12 hr 2 tablet SUMAtriptan (IMITREX) Take 100 mg by mouth. 0 11/2020 100 mg tablet 2 topiramate (TOPAMAX) 25 Take 25 mg by mouth. 0 mg tablet 2 documented as of this encounter Plan of Treatment Upcoming Encounters Date Type Specialty Care Team Description 10/31/2022 Appointment Neurology Krishan Almendarez M.D . [address] [place] [phone] (Wo rk) documented as of this encounter Procedures Procedure Name Priority Date/Time Associated Diagnosis Comme nts [id number] Routine 10/25/2021 11:09 Deficiency Alpha 1 Results for this PROTEOTYPE S/Z BY BARBARA POLY PACKER AND HEAT SEALER Antitrypsin (HCC) proce dure are in LC-MS/MS, S the results section. 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 * This is an abnormal result. Comment: ----ADDITIONAL INFORMATION---- This test was developed and its performa nce characteristics determined by [facility] in a manner consistent with CLIA requirements. This test has not been cleared or approved by the [place] Ax[place] d and Drug Administration. Specimen Anatomical Collection Method Collection Time Receive d Time (Source) Location / / Volume Laterality Blood (Blood, 10/25/2021 11:09 10/26/2021 6:13 Venous) AM POLY PACKER AND HEAT SEALER AM POLY PACKER AND HEAT SEALER Mohinder Mukherjee M.D. LAB BLOOD NON ADD-ON Performing Organization Address City/State/ZIP Code Phon e Number [facility] [address] [place], [place] [address] [facility] [place] [address] Laboratory Medicine and Pathology [address] [place] documented in this encounter Visit Diagnoses Diagnosis Deficiency Alpha 1 Antitrypsin (HCC) documented in this encounter
--- OUTSIDE RECORDS SUMMARY | 2022-08-30 07:42 | XMS_ITS | Encounter Summary ---
:1980 Author Organization [facility] Address [address] [place] [address] Care Team Providers Name Role Phone Unavailable Primary Care Provider Unavailable Reason for Referral Outpatient (Routine) - Closed Specialty Diagnoses / Procedures Referred By Contact Refer red To Contact Radiology Diagnoses Headache Unspecified Krishan Almendarez M.D. [facility] Procedures IR Lumbar Puncture Diagnostic [address] [place] [phone] Referral ID Status Reason Start Date Expiration Date Visits Requ ested Visits Authorized [id number] Closed 10/30/2020 10/30/2021 1 1 [place] ASSOCIATE Reason for Visit Auth/Cert Specialty Diagnoses / Procedures Referred By Contact Refer red To Contact Diagnoses Headache Unspecified Procedures IR LUMBAR PUNCTURE DIAGNOSTIC Referral ID Status Reason Start Date Expiration Date Visits Requ ested Visits Authorized [id number] 1 1 Encounter Details Date Type Department Care Team Description 11/13/2020 Hospital Encounter Department of Krishan Almendarez M.D. 200 [place] [phone] Headache Radiology in Maxime Killian M.D. [address] [place] [phone] Unspecified Horace Arce Christina J [address] [place] [phone] [place] Pushpa Murphy, RGeraldine(R)() [address] [place] [phone] [id number] [place] [phone] Social History Tobacco Use Types Packs/Day Years [...] er 10/21/2021 How often do you attend yazidism or synagogue services? Never 10/21/2021 Do you belong to any clubs or organizations such as yazidism N o 10/21/2021 groups, unions, fraternal or [...] at Date Recorded Female 10/21/2021 4:05 AM RETAIL ASSOCIATE documented as of this encounter Last Filed Vital Signs Vital Sign Reading Time Taken Comments Blood Pressure 131/78 11/13/2020 11:30 AM RETAIL ASSOCIATE Pulse 98 11/13/2020 11:30 AM RETAIL ASSOCIATE Temperature 36.8 ??C (98.3 ??F) 11/13/2020 11:21 AM RETAIL ASSOCIATE Respiratory Rate 18 11/13/2020 11:21 AM RETAIL ASSOCIATE Oxygen Saturation 98% 11/13/2020 11:30 AM RETAIL ASSOCIATE Inhaled Oxygen Concentration - - Weight 164 kg (360 lb 10.8 oz) 11/13/2020 9:46 AM RETAIL ASSOCIATE Height - - Body Mass Index 51.81 10/12/2020 8:55 AM RETAIL ASSOCIATE documented in this encounter Discharge Instructions AttachmentsThe following attachments cannot be sent through Care Everywhere. About Your Lumbar Puncture (Kazakh)documented in this encounter Medications at Time of [...] mL injection, auto-injector hydroCHLOROthiazide hydrochlorothiazide 25 0 11/24 (HYDRODIURIL) 25 [...] 0.9 % irrigation Use with clindamycin 0 09/0 09/2019 150mg capsule opened 2 into 1000ml of saline/rinse each nostril with 20cc of soln bid omeprazole (PriLOSEC) 20 omeprazole 20 mg 0 02/[address] capsule capsule,delayed release 2 documented as of this encounter Miscellaneous Notes Result Encounter Note - Krishan Almendarez M.D. - 11/18/2020 11:51 AM CST Reviewed. Lumbar puncture showed normal opening pressure and CSF routine studies were normal. At present I conclude that the headaches I evaluated in October 30, 2020 are occurring on the basis of chronic migraine and I suggest to treat accordingly as follows: For migraine prophylaxis I recommend starting either one of the following agents in decreasing orderof preference: A) Topiramate starting at 15-25 mg orally once a day at bedtime and this can be increased by 15-25 mg every week if needed and if tolerated to a goal dose that will typically range between 75 to 200 mgonce a day at bedtime. An initial goal dose of 100 mg daily, however, is often enough to control migraine without experiencing bothersome side effects. B) Verapamil starting at 80 mg orally once a day and increase this by 80 mg every week if needed andif tolerated to a typical goal dose of 80 mg three times a day. C) Botox following the PREEMPT treatment paradigm, giving it at least 3 tries with 12 weeks in between injections. D) Emgality (galcanezumab), starting with one 240 mg subcutaneous dose (administered as 2 consecutive 120 mg doses), followed by 120 mg subcutaneously once monthly. If no meaningful response after 3 months of treatment I typically discontinue this. If there is a favorable response, however, I typically continue this for a longer period of time. An oral prophylactic should be tried one at a time for at least three months at the highest tolerated dose (within the above specified goal dose range) before believing it has failed. A successful preventive is commonly defined as one that decreases the headache frequency and/or intensity by approximately 50%. Once a successful preventive is found, I suggest continuing it for at least 6-24 months before attempting to gradually taper off it. For the acute treatment of mild to moderate headaches, I recommend to continue acetaminophen or Aleve as needed but these should not be used more than 14 days a month. For headaches that do not respondto this, or for severe headaches from onset, I recommend 100 mg of oral sumatriptan at onset and this can be repeated every 2 hours if needed (maximum 200 mg/24 hours) and this should not be used more than 9 days a month (2 days per week) to prevent medication overuse headache. Sumatriptan should onlybe used if her blood pressure is under good control. She can use antiemetics as needed for migraine related nausea under the guidance of her local providers. The patient will follow the above recommendations with her local providers. [place] ASSOCIATE documented in this encounter Plan of Treatment Upcoming Encounters Date Type Specialty Care Team Description 10/31/2022 Appointment Neurology Krishan Almendarez M.D . [address] [place] [phone] (Wo rk) documented as of this encounter Procedures Procedure Name Priority Date/Time Associated Comments Diagnosis IR LUMBAR PUNCTURE RAD - Routine 11/13/2020 11:11 Headache Resu lts for this DIAGNOSTIC (most inpatients AM RETAIL ASSOCIATE Unspecified procedure a re in and all the results outpatients) section. XANTHOCHROMIA, CSF Routine 11/13/2020 11:07 Resul ts for this AM RETAIL ASSOCIATE procedure are i n the results section. CELL COUNT AND Routine 11/13/2020 11:07 Results f or this DIFFERENTIAL, CSF AM RETAIL ASSOCIATE procedure are in the results section. PROTEIN, TOTAL, Routine 11/13/2020 11:07 Results for this CSF AM RETAIL ASSOCIATE procedure are i n the results section. GLUCOSE, CSF Routine 11/13/2020 11:07 Results for this AM RETAIL ASSOCIATE procedure are i n the results section. documented in this encounter Results IR Lumbar Puncture Diagnostic (11/13/2020 11:11 AM RETAIL ASSOCIATE) Anatomical Region Laterality Modality Lumbar Spine, Neuro Interventional RST LOS, N/A X-Ray Angiography Neuroradiology ARZ LOS, Vascular Interventional FLA LOS Specimen (Source) Anatomical Collection Method Collection Time Re ceived Time Location / / Volume Laterality 11/13/2020 11:44 AM RETAIL ASSOCIATE Impressions 11/13/2020 11:46 AM RETAIL ASSOCIATE Successful fluoroscopic-guided lumbar puncture. Narrative 11/13/2020 11:46 AM RETAIL ASSOCIATE EXAM: IR LUMBAR PUNCTURE DIAGNOSTIC PREPROCEDURE: Patient seen and evaluated . Allergies, pertinent medications, and history reviewed. Discussed risks, benef its, alternatives for procedure, and obtained informed consent. Patient under stands information and questions answered. Immediately prior to starting the procedure, in the presence of the assisting personnel, procedural pause wa s conducted to verify correct patient identity and verification of procedure t o be performed, and as applicable, correct side and site, correct patient p osition, availability of implants, special equipment, or special requiremen ts, and all image and specimen identification data. The roles and respo nsibilities of care team members were discussed. TECHNIQUE: Using sterile technique, loca l anesthesia with 1% lidocaine and fluoroscopic guidance, a 6 inch, 20 gaug e spinal needle was advanced into the subarachnoid space at the L 2/3 level. T here was spontaneous return of clear, colorless cerebrospinal fluid. ??Opening pressure was 190 ??mm of water. ??8 mL of cerebrospinal fluid were collected and s ent for the requested laboratory analyses. Closing pressure was 160. The spinal needle with stylet was removed. POST-PROCEDURE DIAGNOSIS: Headache COMPLICATION: No immediate complication. BLOOD LOSS: None.. PATIENT INSTRUCTIONS: ??Bedrest for 30 m inutes after the procedure followed by light activity the rest of the day. Iona ent can resume normal activities as tolerated. Bandage can be removed after 24 hours. Patient may shower at 24 hours following the procedure, but should not soak in water for 5 days. If a post procedure headache develops, lying flat, increased fluids and caffeinated beverages may help. Contact the primary service for headache management. Patient may be dismissed from the radiology depa rtment when dismissal criteria met. Authorizing Provider Result Faye TOBIN IR PROCEDURES Xanthochromia, CSF (11/13/2020 11:07 AM RETAIL ASSOCIATE) athologist Signature Xanthochromia, Negative Negative 11/13/2020 [facility] CSF 12:47 PM RETAIL ASSOCIATE Specimen Anatomical Collection Method Collection Time Receive d Time (Source) Location / / Volume Laterality Fluid 11/13/2020 11:07 11/13/2020 (Cerebrospinal AM RETAIL ASSOCIATE 11:58 AM RETAIL ASSOCIATE Fluid) Authorizing Provider Result Faye Almendarez M.D. LAB GENETIC TESTING Performing Organization Address City/[facility]/ZIP Code Phon e Number [facility] - [address] [place], [place] [address] [place] [address] Laboratories-[facility] [address] [facility] Protein, Total, CSF (11/13/2020 11:07 AM RETAIL ASSOCIATE) athologist Signature Protein, Total, 22 0 - 35 11/13/2020 [facility] CSF mg/dL 1:00 PM RETAIL ASSOCIATE Specimen (Source) Anatomical Collection Method Collection Time Re ceived Time Location / / Volume Laterality Cerebrospinal Fluid 11/13/2020 11:07 10/26 (Cerebrospinal AM RETAIL ASSOCIATE 11:51 AM RETAIL ASSOCIATE Fluid) Authorizing Provider Result Faye Almendarez M.D. LAB BODY FLUIDS AND STOOLS Marco BALDERAS Performing Organization Address City/[facility]/ZIP Code Phon e Number [facility] - [address] [place], [place] [address] [place] [address] [facility] [address] Glucose, CSF (11/13/2020 11:07 AM RETAIL ASSOCIATE) athologist Signature Glucose, CSF 56 mg/dL 11/13/2020 [facility] 1:00 PM RETAIL ASSOCIATE Comment: ----REFERENCE VALUE---- CSF glucose concentration should be approximately 60% of the plasma /serum concentration and should be compared with concurrently measured plasma /serum glucose for adequate clinical interpretation. Specimen (Source) Anatomical Collection Method Collection Time Re ceived Time Location / / Volume Laterality Cerebrospinal Fluid 11/13/2020 11:07 10/26 (Cerebrospinal AM RETAIL ASSOCIATE 11:51 AM RETAIL ASSOCIATE Fluid) Authorizing Provider Result Faye Almendarez M.D. LAB BODY FLUIDS AND STOOLS O ANDREY Performing Organization Address City/[facility]/ZIP Code Phon e Number [facility] - 200 [place], [place] [address] [place] [address] [facility] [address] [facility] Cell Count and Differential, CSF (11/13/2020 11:07 AM RETAIL ASSOCIATE) athologist Signature Fluid Type CSF 11/13/2020 [facility] 12:47 PM RETAIL ASSOCIATE CSF Gross Clear 11/13/2020 [facility] Appearance 12:47 PM RETAIL ASSOCIATE Total Nucleated <1 0 - 5 /mcL 11/13/2020 [facility] Cells 12:47 PM RETAIL ASSOCIATE Comment: ----ADDITIONAL INFORMATION---- This test has been modified from the man ufmoirar's instructions. Its performance characteri stics were determined by [facility] in a manner co nsistent with CLIA requirements. This test has not bee n cleared or approved by the U.S. Food and Drug Admin istration. Erythrocytes 6 GT06 /mcL 11/13/2020 12:47 PM RETAIL ASSOCIATE DH PM Neutrophils 0 % 11/13/2020 12:47 PM RETAIL ASSOCIATE [facility] Comment: ----REFERENCE VALUE---- Adults (2% +/- 4%) Neonates (4% +/- 4%) Lymphocytes 75 % 11/13/2020 12:47 PM RETAIL ASSOCIATE [facility] Comment: ----REFERENCE VALUE---- Adult: (60% +/- 20%) Neonates: (20% +/- 15%) Monocytes/Macrophages 25 % 11/13/2020 12:47 P M RETAIL ASSOCIATE [facility] Comment: ----REFERENCE VALUE---- Adult: (30% +/- 15%) Neonates: (70% +/- 20%) Eosinophils 0 GT06 % 11/13/2020 12:47 PM RETAIL ASSOCIATE [facility] Basophils 0 GT06 % 11/13/2020 12:47 PM RETAIL ASSOCIATE [facility] Other Cells 0 GT06 % 11/13/2020 12:47 PM RETAIL ASSOCIATE [facility] Diff Comments 12 cells counted. 11/13/2020 12:47 P M RETAIL ASSOCIATE [facility] Comment No blasts or malignant cells 11/13/2020 12:47 PM RETAIL ASSOCIATE DHPM seen. Reviewed by: Tech 11/13/2020 12:47 PM RETAIL ASSOCIATE DHP M Specimen Anatomical Collection Method Collection Time Receive d Time (Source) Location / / Volume Laterality Fluid 11/13/2020 11:07 11/13/2020 (Cerebrospinal AM RETAIL ASSOCIATE 11:58 AM RETAIL ASSOCIATE Fluid) Authorizing Provider Result Faye Almendarez M.D. LAB BODY FLUIDS AND STOOLS O RDKAEL Performing Organization Address City/State/ZIP Code Phon e Number [facility] - [address] [place], [place] [address] [place] [address] [facility] [address] documented in this encounter Visit Diagnoses Diagnosis Headache Unspecified documented in this encounter Administered Medications Inactive Administered Medications - up to 3 most recent administrations Medication Order MAR Action Action Date Dose Rate Site lidocaine (PF) 10 mg/mL (1 %) Given 11/13/2020 11:02 AM RETAIL ASSOCIATE 2 mL injection (XYLOCAINE) Code/trauma/sedation medication, Starting on Mon11/13/20 at 1102 documented in this encounter Active and Recently Administered Medications Times are shown in RETAIL ASSOCIATE. PRN Medication Order 11/11/2020 11/12/2020 11/13/2020 lidocaine (PF) 10 mg/mL (1 %) injection (XYLOCAINE) (COMPLETED) 1102 (Given - Provider: Rosemarie Rangel P.A.-C.) Code/trauma/sedation medication, Starting on Mon11/13/20 at 1102 documented in this encounter
--- OUTSIDE RECORDS SUMMARY | 2022-08-30 07:42 | XMS_ITS | Encounter Summary ---
:1980 Author Organization [facility] Address [address] [place] [address] Care Team Providers Name Role Phone Unavailable Primary Care Provider Unavailable Reason for Referral Outpatient (Routine) - Closed Specialty Diagnoses / Procedures Referred By Contact Refer red To Contact Radiology Diagnoses Headache Unspecified Krishan Almendarez M.D. [facility] Procedures IR Lumbar Puncture Diagnostic [address] [place] [phone] Referral ID Status Reason Start Date Expiration Date Visits Requ ested Visits Authorized [id number] Closed 10/30/2020 10/30/2021 1 1 ICS AND ASTRONOMY PROFESSOR Reason for Visit Outpatient (Routine) - Closed Specialty Diagnoses / Procedures Referred By Contact Refer red To Contact Neurology Diagnoses Migraine Headache Headache Sinus Ranjeet Iniguez, [facility] M.B.B.S., Ph.D. [address] [place] [phone] Referral ID Status Reason Start Date Expiration Date Visits Requ ested Visits Authorized [id number] Closed 10/30/2020 10/30/2021 1 1 Encounter Details Date Type Department Care Team Description 10/30/2020 Comprehensive Visit Department of Katrina Iniguez M.B.B.S., Ph.D. [address] [place] [phone] Migraine Headache; Neurology in Krishan Almendarez M.D. [address] [place] [phone] Headache Sinus; [place], Headache Unspec ified; [place] Intracranial And Intraspinal Phlebitis And Thrombophlebitis (HCC) [address] [place] [address] Social History Tobacco Use Types Packs/Day Years [...] er 10/21/2021 How often do you attend yazidi or lutheran services? Never 10/21/2021 Do you belong to any clubs or organizations such as yazidi N o 10/21/2021 groups, unions, fraternal or [...] place to sleep or slept in a assisted (including now)? Education Answer Date Recorded What is the highest level of school you have completed or 12 th grade 10/06/2020 the highest degree you have received? Sex Assigned at Date Recorded Female 10/21/2021 4:05 AM PHYSICS AND ASTRONOMY PROFESSOR documented as of this encounter Consult Notes Krishan Almendarez M.D. - 10/30/2020 1:00 PM CST SUBJECTIVE Referring Provider: Ranjeet Iniguez, M.B.B.S., Ph.D. CHIEF COMPLAINT / REASON FOR VISIT Joshua Peters is a 40 y.o. female who presents for evaluation of Headache. HISTORY OF PRESENT ILLNESS I did not obtain collateral history from others in the office today. She has a longstanding history of unprovoked headaches since she was 10 years old. There is family history of migraine in her mother. Throughout the years headaches used to be infrequent happening onlyonce or twice per month. Two years ago, however, she started to develop a constant and daily headache that has been continues since then for the last 2 years. The headache is diffuse throughout the whole head and varies from mild to severe. When severe the headache is throbbing with nausea and sensitivity to light and sound and aggravation by physical activity but there is no vomiting. In the last 5 years she has intermittent episodes where she will see a gradually enlarging zigzag lasting 1- 30 minutes. She has noted a significant gain in weight in the last year and a half. She denies snoring but she has been told that she makes unusual sound when she sleeps that are comparable to the sounds that catsmake. In the last couple of years she has noted that she can hear her heart pulse in her head when the headache is severe. For the last 10 years she intermittently can lose vision throughout her whole vision field in both eyes for a few seconds intermittently. She denies double vision or orthostatic headache. Sometime headache is worse coughing or sneezing. She had a CT scan of the paranasal sinuses October 12, 2020 which was normal. Per her report she hada brain MRI 3 or 4 years ago which was normal but is not available for my review. She had a home overnight oximetry recently in October 23, 2020 and this was abnormal and suggestive of sleep disorder breathing. She uses Tylenol or Aleve as needed which helps if the headache is not severe. She has lqckbkojalvop10 mg a day for ???postnasal drip close call. She is on Cymbalta for depression and she reports goodcontrol of depression at present. She has a history of hypertension that is not under good control. In the past she has tried Excedrin which did not help. Ibuprofen has upset her stomach. Metoprolol for used for hypertension gave her a rash. She has not tried other headache medications. I have not reviewed outside records for this visit. I have not directly reviewed imaging studies for this visit. The following portions of the patient's history were reviewed and updated as appropriate: allergies,current medications, family history, medical history, social history, surgical history and problem list. Ten point review of systems was completed and was negative other than as noted in the HPI. OBJECTIVE I have reviewed vital signs as recorded in the EPIC record. For details of the neurologic examination, please see the neurologic examination form. In summary: She has a normal neurologic exam. Specifically I did not see papilledema. ASSESSMENT / PLAN #1 Chronic daily headache #2 Migraine with aura (visual) There is no doubt she has migraine with visual aura. What is unclear is why she abruptly started to have constant and daily headache a couple of years ago. Interestingly, the worsened headache occurredin the setting of significant weight gain and she reports what sounds like pulsatile tinnitus and transient visual obscurations. Taking these into consideration, together with the fact that she is a young woman without a doubt I recommend to look into the possibility of idiopathic intracranial hypertension (IIH). I have recommended to get brain MRI and MRV in addition to lumbar puncture measuring CSFopening pressure and sending CSF for routine studies. I also recommend a ophthalmologic exam to ruleout papilledema although on my examination there was no papilledema at all. She would like to get the ophthalmologic examination with her local weaver apprentice which is perfectly fine. She has agreed to bring me or send me the results of her ophthalmology evaluation. I will see her back after all is co mpleted. If IIH is confirmed that will be treated accordingly but if this is ruled out then we can talk about migraine treatment strategies. If IIH would be ruled out consideration could be given to topiramate, verapamil, Botox, or Emgality in that order of preference for migraine prophylaxis. Acute treatment could consist of her current Tylenol and Aleve but she could benefit from adding a Triptan such as sumatriptan but only for hypertension is under good control. She could also use antiemetics asneeded. Final recommendations are pending at present. PATIENT EDUCATION Ready to learn, no apparent learning barriers were identified; learning preferences include listening. Explained diagnosis and treatment plan; patient expressed understanding of the content. ICS AND ASTRONOMY PROFESSOR documented in this encounter Miscellaneous Notes Addendum Note - Krishan Almendarez M.D. - 10/30/2020 1:00 PM PHYSICS AND ASTRONOMY PROFESSOR Addended by: KRISHAN ALMENDAREZ on: 10/30/2020 01:30 PM Modules accepted: Orders ICS AND ASTRONOMY PROFESSOR documented in this encounter Plan of Treatment Upcoming Encounters Date Type Specialty Care Team Description 10/31/2022 Appointment Neurology Krishan Almendarez M.D . [address] [place], [place] [phone] (Wo rk) documented as of this encounter Results IR Lumbar Puncture Diagnostic (11/13/2020 11:11 AM PHYSICS AND ASTRONOMY PROFESSOR) Anatomical Region Laterality Modality Lumbar Spine, Neuro Interventional RST LOS, N/A X-Ray Angiography Neuroradiology ARZ LOS, Vascular Interventional FLA LOS Specimen (Source) Anatomical Collection Method Collection Time Re ceived Time Location / / Volume Laterality 11/13/2020 11:44 AM PHYSICS AND ASTRONOMY PROFESSOR Impressions 11/13/2020 11:46 AM PHYSICS AND ASTRONOMY PROFESSOR Successful fluoroscopic-guided lumbar puncture. Narrative 11/13/2020 11:46 AM PHYSICS AND ASTRONOMY PROFESSOR EXAM: IR LUMBAR PUNCTURE DIAGNOSTIC PREPROCEDURE: Patient [...] radiology depa rtment when dismissal criteria met. Krishan TOBIN IR PROCEDURES documented in this encounter Visit Diagnoses Diagnosis Migraine Headache Headache Sinus Headache Unspecified Intracranial And Intraspinal Phlebitis A nd Thrombophlebitis (HCC) Headache Unspecified documented in this encounter
--- OUTSIDE RECORDS SUMMARY | 2022-08-30 07:42 | XMS_ITS | Encounter Summary ---
:1980 Author Organization [facility] Address [address] [place] [address] Care Team Providers Name Role Phone Unavailable Primary Care Provider Unavailable Encounter Details Date Type Department Care Team Description 10/22/2021 Lab Department of Mira Hoyt, Preprocedural Lab Exam; [facility] [place] [facility] Parminder Contact With And (Suspected) Exposure To [address], in [address] [address] [place] [address] [facility] [place][note 2] [phone] Social History Tobacco Use Types Packs/Day Years [...] er 10/21/2021 How often do you attend bahai or worship services? Never 10/21/2021 Do you belong to any clubs or organizations such as bahai N o 10/21/2021 groups, unions, fraternal or [...] place to sleep or slept in a detention (including now)? Education Answer Date Recorded What is the highest level of school you have GED or equivale nt 10/21/2021 completed or the highest degree you have received? Sex Assigned at Date Recorded Female 10/21/2021 4:05 AM CHILD PROTECTIVE SERVICES SOCIAL WORKER documented as of this encounter Plan of Treatment Upcoming Encounters Date Type Specialty Care Team Description 10/31/2022 Appointment Neurology Krishan Almendarez M.D . [address] [place], [place] [phone] (Wo rk) documented as of this encounter Procedures Procedure Name Priority Date/Time Associated Diagnosis Comme nts SARS CORONAVIRUS-2 Routine 10/22/2021 8:03 AM Preprocedu ral Lab Exam Results for this RNA, V CHILD PROTECTIVE SERVICES SOCIAL WORKER Contact With And procedure a re in (Suspected) Exposure the res ults To COVID-19 section. documented in this encounter Results SARS Coronavirus-2 RNA, V Asymptomatic (10/22/2021 8:03 AM CHILD PROTECTIVE SERVICES SOCIAL WORKER) [facility] Method Time Signature SARS-CoV-2 Swab, 10/22/2021 MKTO Specimen Nasopharynx 8:37 PM CHILD PROTECTIVE SERVICES SOCIAL WORKER Source SARS CoV-2 Undetected Undetected 10/22/2021 MKTO RNA, TMA 8:37 PM CHILD PROTECTIVE SERVICES SOCIAL WORKER Comment: SARS-CoV-2 RNA absent. This result does not rule out COVID-19 in the patient, as the sensitivity of the test depends o n the timing of the specimen collection and the quality of the specim en. Result should be correlated with patient's history and clinical presentat ion. ----ADDITIONAL INFORMATION---- This molecular amplification test was pe rformed using the Aptima SARS-CoV-2 assay ([employer] on the [employer] Vide[employer] tem under emergency use authorization (EUA) by the U.S. Food and Drug Administ ration. Fact sheets for this EUA assay can be fo und at the following links: For Healthcare Providers: https://www.fd a.gov/media/010610/download For Patients: https://www.fda.gov/media/ 454023/download Specimen Anatomical Collection Method Collection Time Receive d Time (Source) Location / / Volume Laterality Varies 10/22/2021 8:03 AM 2:22 (Nasopharynx) CHILD PROTECTIVE SERVICES SOCIAL WORKER PM CHILD PROTECTIVE SERVICES SOCIAL WORKER Mira Martinez M.D. LAB MICROBIOLOGY - GENERAL O RDERABLES Performing Organization Address City/State/[facility] Phon e Number [facility]- [address] [place] [address] [place] [address] [address] documented in this encounter Visit Diagnoses Diagnosis Preprocedural Lab Exam Contact With And (Suspected) Exposure To COVID-19 documented in this encounter Additional Health Concerns Infection Onset Date Last Indicated Resolved Time COVID19 Pending 10/21/2021 10/22/2021 10/22/2021 8:37 PM CHILD PROTECTIVE SERVICES SOCIAL WORKER documented as of this encounter
--- OUTSIDE RECORDS SUMMARY | 2022-08-30 07:42 | XMS_ITS | Encounter Summary ---
:[address] [facility] Address [address] [place] [address] Care Team Providers Name Role Phone Unavailable Primary Care Provider Unavailable Encounter Details Date Type Department Care Team Description 11/05/2021 Orders Only Division of Pulmonary Kana, Roscoe farrell, Medicine in [facility] [address] [facility] [address] [place] [phone] (Wo rk) Social History Tobacco Use Types [...] er 10/21/2021 How often do you attend temple or denominational services? Never 10/21/2021 Do you belong to any clubs or organizations such as temple N o 10/21/2021 groups, unions, fraternal or [...] place to sleep or slept in a prison (including now)? Education Answer Date Recorded What is the highest level of school you have GED or equivale nt 10/21/2021 completed or the highest degree you have received? Sex Assigned at Date Recorded Female 10/21/2021 4:05 AM TIME CLOCK MECHANIC documented as of this encounter Plan of Treatment Upcoming Encounters Date Type Specialty Care Team Description 10/31/2022 Appointment Neurology Krishan Almendarez M.D . [address] [place] [phone] (Wo rk) documented as of this encounter Visit Diagnoses Not on filedocumented in this encounter
--- OUTSIDE RECORDS SUMMARY | 2022-08-30 07:42 | XMS_ITS | Encounter Summary ---
:1980 Author Organization [facility] Address [address] [place] [address] Care Team Providers Name Role Phone Unavailable Primary Care Provider Unavailable Reason for Referral MRI/CAT/PET Scan (Routine) - Closed Specialty Diagnoses / Procedures Referred By Contact Refer red To Contact Radiology Diagnoses Headache Unspecified Krishan Almendarez M.D. [facility] Procedures MR Brain Venogram with IV Contrast MR Brain Venogram without and with IV Contrast [address] [place], [place] [address] Referral ID Status Reason Start Date Expiration Date Visits Requ ested Visits Authorized [id number] Closed 11/03/2020 11/03/2021 1 1 RI/CAT/PET Scan (Routine) - Closed Specialty Diagnoses / Procedures Referred By Contact Refer red To Contact Radiology Diagnoses Headache Unspecified Krishan Almendarez M.D. [facility] Procedures MR Brain without and with IV Contrast [address] [place], [place] [phone] Referral ID Status Reason Start Date Expiration Date Visits Requ ested Visits Authorized [id number] Closed 11/03/2020 11/03/2021 1 1 RSION METAL CLEANER Reason for Visit MRI/CAT/PET Scan (Routine) - Closed Specialty Diagnoses / Procedures Referred By Contact Refer red To Contact Radiology Diagnoses Headache Unspecified Krishan Almendarez M.D. [facility] Procedures MR Brain without and with IV Contrast [address] [place] [address] Referral ID Status Reason Start Date Expiration Date Visits Requ ested Visits Authorized [id number] Closed 11/03/2020 11/03/2021 1 1 Encounter Details Date Type Department Care Team Description 11/11/2020 Hospital Encounter Department of Almendarez, Krishan, Headache Unspecified Radiology, Brendan Alexis, in [place], [address] [place] [address] [place] [address] [place], [place] [phone] (Work) [phone] Social History Tobacco Use Types Packs/Day Years [...] er 10/21/2021 How often do you attend tenriism or voodoo services? Never 10/21/2021 Do you belong to any clubs or organizations such as tenriism N o 10/21/2021 groups, unions, fraternal or [...] place to sleep or slept in a correction (including now)? Education Answer Date Recorded What is the highest level of school you have completed or 12 th grade 10/06/2020 the highest degree you have received? Sex Assigned at Date Recorded Female 10/21/2021 4:05 AM IMMERSION METAL CLEANER documented as of this encounter Medications at [...] 0.9 % irrigation Use with clindamycin 0 090 09/2019 150mg capsule opened 2 into 1000ml of saline/rinse each nostril with 20cc of soln bid omeprazole (PriLOSEC) 20 omeprazole 20 mg 0 02/[address] capsule capsule,delayed release 2 documented as of this encounter Plan of Treatment Upcoming Encounters Date Type Specialty Care Team Description 10/31/2022 Appointment Neurology Krishan Almendarez M.D . [address] [place] [phone] (Wo rk) documented as of this encounter Procedures Procedure Name Priority Date/Time Associated Comments Diagnosis MR BRAIN VENOGRAM RAD - Routine 11/11/2020 4:39 Headache Result s for this WITH IV CONTRAST (most inpatients PM IMMERSION METAL CLEANER Unspecified procedu re are in and all the results outpatients) section. MR BRAIN WITHOUT RAD - Routine 11/11/2020 4:39 Headache Results for this AND WITH IV (most inpatients PM IMMERSION METAL CLEANER Unspecified procedure a re in CONTRAST and all the results outpatients) section. documented in this encounter Results MR Brain Venogram with IV Contrast (11/11/2020 4:39 PM IMMERSION METAL CLEANER) Anatomical Region Laterality Modality Head, Brain, Neuroradiology RST LOS, Neuroradiology ARZ N/A Magnetic Resonance LOS, Neuroradiology FLA LOS Specimen (Source) Anatomical Collection Method Collection Time Re ceived Time Location / / Volume Laterality 11/12/2020 10:26 AM IMMERSION METAL CLEANER Impressions 11/12/2020 10:39 AM IMMERSION METAL CLEANER 1. No findings to suggest intracranial hypertension. 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 Narrative 11/12/2020 10:39 AM IMMERSION METAL CLEANER EXAM: MR BRAIN VENOGRAM WITH IV CONTRAST, MR BRAIN WITHOUT AND WITH IV CONTRAST COMPARISON: Sinus CT 10/12/2020 FINDINGS: MR BRAIN: Few scattered nonspecific T2 h yperintense foci in the cerebral white matter. Subtle focus of susceptibility w ith brush-like enhancement in the paramedian left frontal lobe (series 5, image 20, and series 101, image 60) compatible with a capillary telangiectas ia. Otherwise, no abnormal contrast enhancement. No diffusion restriction or hemorrhage. No mass effect or midline shift. Normal ventricular size. No protr usion of the optic nerves heads or enlargement of the optic nerve sheaths e vident on brain imaging. Normal pituitary gland. MR VENOGRAM: No focal narrowing of the l ateral aspects of the transverse sinuses. No evidence of venous sinus thr ombosis. Arachnoid granulation left transverse sinus. Asymmetric right large r than left transverse sinuses, sigmoid sinuses, and internal jugular veins. Gideon ssly patent deep venous structures. Procedure Note Calin Preciado M.D., Ph.D. - 11/12 EXAM: MR BRAIN VENOGRAM WITH IV CONTRAST , MR BRAIN WITHOUT AND WITH IV CONTRAST COMPARISON: Sinus CT 10/12/2020 FINDINGS: MR BRAIN: Few scattered nonspecific T2 h yperintense foci in the cerebral white matter. Subtle focus of susceptibility w ith brush-like enhancement in the paramedian left frontal lobe (series 5, image 20, and series 101, image 60) compatible with a capillary telangiectas ia. Otherwise, no abnormal contrast enhancement. No diffusion restriction or hemorrhage. No mass effect or midline shift. Normal ventricular size. No protr usion of the optic nerves heads or enlargement of the optic nerve sheaths e vident on brain imaging. Normal pituitary gland. MR VENOGRAM: No focal narrowing of the l ateral aspects of the transverse sinuses. No evidence of venous sinus thr ombosis. Arachnoid granulation left transverse sinus. Asymmetric right large r than left transverse sinuses, sigmoid sinuses, and internal jugular veins. Gideon ssly patent deep venous structures. IMPRESSION: 1. No findings to suggest intracranial h ypertension. 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 Krishan TOBIN MRI PROCEDURES MR Brain without and with IV Contrast (11/11/2020 4:39 PM IMMERSION METAL CLEANER) Anatomical Region Laterality Modality Head, Brain, Neuroradiology RST LOS, Neuroradiology TANIA N/A Magnetic Resonance LOS, Neuroradiology [facility] Specimen (Source) Anatomical Collection Method Collection Time Re ceived Time Location / / Volume Laterality 11/12/2020 10:26 AM IMMERSION METAL CLEANER Impressions 11/12/2020 10:39 AM IMMERSION METAL CLEANER 1. No findings to suggest intracranial hypertension. 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 Narrative 11/12/2020 10:39 AM IMMERSION METAL CLEANER EXAM: MR BRAIN VENOGRAM WITH IV CONTRAST, MR BRAIN WITHOUT AND WITH IV CONTRAST COMPARISON: Sinus CT 10/12/2020 FINDINGS: MR BRAIN: Few scattered nonspecific T2 h yperintense foci in the cerebral white matter. Subtle focus of susceptibility w ith brush-like enhancement in the paramedian left frontal lobe (series 5, image 20, and series 101, image 60) compatible with a capillary telangiectas ia. Otherwise, no abnormal contrast enhancement. No diffusion restriction or hemorrhage. No mass effect or midline shift. Normal ventricular size. No protr usion of the optic nerves heads or enlargement of the optic nerve sheaths e vident on brain imaging. Normal pituitary gland. MR VENOGRAM: No focal narrowing of the l ateral aspects of the transverse sinuses. No evidence of venous sinus thr ombosis. Arachnoid granulation left transverse sinus. Asymmetric right large r than left transverse sinuses, sigmoid sinuses, and internal jugular veins. Gideon ssly patent deep venous structures. Procedure Note Calin Preciado M.D., Ph.D. - 11/12 EXAM: MR BRAIN VENOGRAM WITH IV CONTRAST , MR BRAIN WITHOUT AND WITH IV CONTRAST COMPARISON: Sinus CT 10/12/2020 FINDINGS: MR BRAIN: Few scattered nonspecific T2 h yperintense foci in the cerebral white matter. Subtle focus of susceptibility w ith brush-like enhancement in the paramedian left frontal lobe (series 5, image 20, and series 101, image 60) compatible with a capillary telangiectas ia. Otherwise, no abnormal contrast enhancement. No diffusion restriction or hemorrhage. No mass effect or midline shift. Normal ventricular size. No protr usion of the optic nerves heads or enlargement of the optic nerve sheaths e vident on brain imaging. Normal pituitary gland. MR VENOGRAM: No focal narrowing of the l ateral aspects of the transverse sinuses. No evidence of venous sinus thr ombosis. Arachnoid granulation left transverse sinus. Asymmetric right large r than left transverse sinuses, sigmoid sinuses, and internal jugular veins. Gideon ssly patent deep venous structures. IMPRESSION: 1. No findings to suggest intracranial h ypertension. 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 Krishan CHRISTIAN MRI PROCEDURES documented in this encounter Visit Diagnoses Diagnosis Headache Unspecified documented in this encounter Administered Medications Inactive Administered Medications - up to 3 most recent administrations Medication Order MAR Action Action Date Dose Rate Site gadobutrol injection 0.01-30 mL Given 11/11/2020 4:20 PM IMMERSION METAL CLEANER 14 mL (GADAVIST) 0.01-30 mL, intravenous, Once in imaging, contrast, Starting on Mon11/11/20 at 1521, For 1 dose, Imaging Protocol Orders, Dose per Radiant Medication Guidelines sodium chloride (PF) 0.9 % injection 1-1 00 mL Given 11/11/2020 4:20 PM IMMERSION METAL CLEANER 50 mL 1-100 mL, intravenous, Once, On Mon11/11/20 at 1530, For 1 dose, Imaging Protocol Orders documented in this encounter
--- OUTSIDE RECORDS SUMMARY | 2022-08-30 07:42 | XMS_ITS | Encounter Summary ---
:1980 Author Organization [facility] Address [address] [place] [address] Care Team Providers Name Role Phone Unavailable Primary Care Provider Unavailable Reason for Referral Outpatient (Routine) - Closed Specialty Diagnoses / Procedures Referred By Referred To Contact Contact Allergy and Diagnoses Sinusitis Recurrent Mira Martinez [facility] Immunology Procedures Allergy and Immunology - Immunodeficiency eConsult Saravanan M.D. [address] [place] [phone] Referral ID Status Reason Start Date Expiration Date Visits Requ ested Visits Authorized [id number] Closed 11/26/2021 11/26/2022 1 1 ISSIONED SALES ASSOCIATE Reason for Visit Reason Comments Pre-visit Testing Orders Encounter Details Date Type Department Care Team Description 11/24/2021 Clinical Division of Juan Pre-visit Testi [facility] Pulmonary Medicine Nika Morrow Orders in [address] [place] [phone] [place], [place] [phone] (Work) [phone] Social History Tobacco Use Types Packs/Day Years [...] er 10/21/2021 How often do you attend rastafari or nondenominational services? Never 10/21/2021 Do you belong to any clubs or organizations such as rastafari N o 10/21/2021 groups, unions, fraternal or [...] at Date Recorded Female 10/21/2021 4:05 AM COMMISSIONED SALES ASSOCIATE documented as of this encounter Miscellaneous Notes Telephone Encounter - Sander Kasper - 11/26/2021 10:05 AM CST Good Morning Dr. Martinez Thank you for the information. I spoke with Allergy scheduling and they recommended that this be done as an econsult. Thank you. ISSIONED SALES ASSOCIATE Telephone Encounter - Sander Kasper - 11/24/2021 2:[address] Martinez, I contacted this patient to schedule the allergy consult. According to Allergy they need to have skin testing ordered before the consult can be scheduled. They provided order codes of [id number] and [id number]. Could you please place these orders? Thank you. ISSIONED SALES ASSOCIATE documented in this encounter Plan of Treatment Upcoming Encounters Date Type Specialty Care Team Description 10/31/2022 Appointment Neurology Krishan Almendarez M.D . [address] [place], [place] [phone] (Wo rk) documented as of this encounter Visit Diagnoses Diagnosis Sinusitis Recurrent - Primary documented in this encounter
--- OUTSIDE RECORDS SUMMARY | 2022-08-30 07:42 | XMS_ITS | Encounter Summary ---
:1980 Author Organization [facility] Address [address] [place] [address] Care Team Providers Name Role Phone Unavailable Primary Care Provider Unavailable Encounter Details Date Type Department Care Team Description 11/24/2021 Orders Only Division of Pulmonary Mira Martinez inusitis Recurrent (Primary Dx); Medicine in R, M.D. Chronic Cough [place], [place] [address] [facility] [address] [place] [phone] Social History Tobacco Use Types Packs/Day Years [...] er 10/21/2021 How often do you attend christian or cheondoism services? Never 10/21/2021 Do you belong to any clubs or organizations such as christian N o 10/21/2021 groups, unions, fraternal or [...] at Date Recorded Female 10/21/2021 4:05 AM SOAKER HIDES documented as of this encounter Plan of Treatment Upcoming Encounters Date Type Specialty Care Team Description 10/31/2022 Appointment Neurology Krishan Almendarez M.D . [address] [place] [phone] (Wo rk) documented as of this encounter Visit Diagnoses Diagnosis Sinusitis Recurrent - Primary Chronic Cough documented in this encounter
--- OUTSIDE RECORDS SUMMARY | 2022-08-30 07:42 | XMS_ITS | Encounter Summary ---
:1980 Author Organization [facility] Address [address] [place] [address] Care Team Providers Name Role Phone Unavailable Primary Care Provider Unavailable Reason for Referral MRI/CAT/PET Scan (Routine) - Closed Specialty Diagnoses / Procedures Referred By Contact Refer red To Contact Radiology Diagnoses Headache Unspecified Krishan Almendarez M.D. [facility] Procedures MR Brain Venogram with IV Contrast MR Brain Venogram without and with IV Contrast [address] [place] [phone] Referral ID Status Reason Start Date Expiration Date Visits Requ ested Visits Authorized [id number] Closed 11/03/2020 11/03/2021 1 1 RI/CAT/PET Scan (Routine) - Closed Specialty Diagnoses / Procedures Referred By Contact Refer red To Contact Radiology Diagnoses Headache Unspecified Krishan Almendarez M.D. [facility] Procedures MR Brain without and with IV Contrast [address] [place], [place] [address] Referral ID Status Reason Start Date Expiration Date Visits Requ ested Visits Authorized [id number] Closed 11/03/2020 11/03/2021 1 1 UNITY ORGANIZER Reason for Visit Reason Comments Crispin Encounter Details Date Type Department Care Team Description 11/03/2020 Clinical Communication Department of Neurology Krishan Almendarez W8B/Garza in [facility] cristina Zur[place] 200 [facility] 200 [place] [phone] Social History Tobacco Use Types Packs/Day Years [...] er 10/21/2021 How often do you attend rastafarian or congregation services? Never 10/21/2021 Do you belong to any clubs or organizations such as rastafarian N o 10/21/2021 groups, unions, fraternal or [...] at Date Recorded Female 10/21/2021 4:05 AM COMMUNITY ORGANIZER documented as of this encounter Miscellaneous Notes Telephone Encounter - Bebeto Meyers - 11/04/2020 8:09 AM CST My apologies, Dr. Almendarez, after my initial conversation with Ms. Peters she had discussed her desire for the LP to be done over in the [facility]. I hadn't realized she had changed her mind since then. Hence the complication and frustration with multiple orders as you had stated. UNITY ORGANIZER documented in this encounter Plan of Treatment Upcoming Encounters Date Type Specialty Care Team Description 10/31/2022 Appointment Neurology Krishan Almendarez M.D . [address] [place] [phone] (Wo rk) documented as of this encounter Results MR Brain Venogram with IV Contrast (11/11/2020 4:39 PM COMMUNITY ORGANIZER) Anatomical Region Laterality Modality Head, Brain, Neuroradiology RST LOS, Neuroradiology ARZ N/A Magnetic Resonance LOS, Neuroradiology FLA LOS Specimen (Source) Anatomical Collection Method Collection Time Re ceived Time Location / / Volume Laterality 11/12/2020 10:26 AM COMMUNITY ORGANIZER Impressions 11/12/2020 10:39 AM COMMUNITY ORGANIZER 1. No findings to suggest intracranial hypertension. 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 Narrative 11/12/2020 10:39 AM COMMUNITY ORGANIZER EXAM: MR BRAIN VENOGRAM WITH IV CONTRAST, [...] and with IV Contrast (11/11/2020 4:39 PM COMMUNITY ORGANIZER) Anatomical Region Laterality Modality Head, Brain, Neuroradiology RST LOS, Neuroradiology ARZ N/A Magnetic Resonance LOS, Neuroradiology FLA LOS Specimen (Source) Anatomical Collection Method Collection Time Re ceived Time Location / / Volume Laterality 11/12/2020 10:26 AM COMMUNITY ORGANIZER Impressions 11/12/2020 10:39 AM COMMUNITY ORGANIZER 1. No findings to suggest intracranial hypertension. 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 Narrative 11/12/2020 10:39 AM COMMUNITY ORGANIZER EXAM: MR BRAIN VENOGRAM WITH IV CONTRAST, [...] capillary tel angiectasia. Krishan TOBIN MRI PROCEDURES documented in this encounter Visit Diagnoses Diagnosis Headache Unspecified - Primary Headache Unspecified documented in this encounter
--- OUTSIDE RECORDS SUMMARY | 2022-08-30 07:42 | XMS_ITS | Encounter Summary ---
:1980 Author Organization [facility] Address [address] [place] [address] Care Team Providers Name Role Phone Unavailable Primary Care Provider Unavailable Reason for Visit Outpatient (Routine) - Closed Specialty Diagnoses / Procedures Referred By Contact Refer red To Contact Pulmonary Medicine Diagnoses Deficiency Alpha 1 Antitrypsin (HCC) [facility] [address] [place] [address] Referral ID Status Reason Start Date Expiration Date Visits Requ ested Visits Authorized [id number] Closed 10/30/2020 10/30/2021 1 1 Encounter Details Date Type Department Care Team Description 10/25/2021 Office Visit Division of Pulmonary Mira Martinez eficiency Alpha 1 Medicine in [place], MViraj Antitrypsin (HCC) [place], [place] [address] [facility] [address] [place] [phone] Social History Tobacco Use Types Packs/Day Years [...] er 10/21/2021 How often do you attend mandaen or synagogue services? Never 10/21/2021 Do you belong to any clubs or organizations such as mandaen N o 10/21/2021 groups, unions, fraternal or [...] place to sleep or slept in a senior living (including now)? Education Answer Date Recorded What is the highest level of school you have GED or equivale nt 10/21/2021 completed or the highest degree you have received? Sex Assigned at Date Recorded Female 10/21/2021 4:05 AM [employer] documented as of this encounter Last Filed Vital Signs Vital Sign Reading Time Taken Comments Blood Pressure - - Pulse - - Temperature 36.9 ??C (98.4 ??F) 10/25/2021 3:48 PM [employer] Respiratory Rate - - Oxygen Saturation 97% 10/25/2021 3:48 PM [employer] Inhaled Oxygen Concentration - - Weight 170 kg (374 lb 5.5 oz) 10/25/2021 3:48 PM [employer] Height 177.7 cm (5' 9.96) 10/25/2021 3:48 PM [employer] Body Mass Index 53.77 10/25/2021 3:48 PM [employer] documented in this encounter Progress Notes Mira Martinez M.D. - 10/25/2021 4:00 PM CST SUBJECTIVE CHIEF COMPLAINT / REASON FOR VISIT Follow up on pulmonary function testing HISTORY OF PRESENT ILLNESS Joshua Peters is a 41 y.o. 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 Comorbidities: Hypertension GERD IBS Migraine headaches line anxiety Depression BMI 54 Recurrent sinusitis Outside diagnosis of asthma-poorly controlled GERD Environmental allergies Recurrent bronchitis since childhood Mrs. Peters is a 41-year-old with recurrent episodes that have been diagnosed as asthma attacks. She was last seen in Pulmonary Clinic last year with Dr. Mukherjee and Dr. Roger. She had normal pulmonary function testing with normal exhaled nitric oxide (7). She received chest CT with inspiratory and expiratory views that did not find significant small airways disease or evidence of chronic lung disease. Anca vasculitis panel was negative. Immunoglobulin levels were slightly low for IgG. Alpha-1antitrypsin level revealed tryptase level of 89 with phenotype MZ. Overnight oximetry was performed revealing an MANNY 14. She additionally had undergone evaluation with Allergy and immunology for chronic sinusitis and repeat allergy testing. She has received a head sinus head CT which showed no evidence of chronic sinusitis or polyps. Allergy testing here was only positive for ragweed. There was concern of a possible headache component contributing to her sinusitis symptomatology and she was referredto neurology. Neurology had considered idiopathic intracranial hypertension and she received brain MRI and MRV in addition to lumbar puncture. This was negative for intracranial hypertension and she was diagnosed with migraine disorder. She has also evaluated by ENT for vocal cord dysfunction, that was negative. Since her evaluation, she has continued to struggle with respiratory issues. Roughly every other month she requires prednisone burst for bronchitis resulting in cough and shortness breath. The prednisone burst usually starts at 60 mg for several days followed by slow taper. The prednisone taper has lasted as long as 3 months. She has been trialed on Fasenra and now on Dupixent and it is unclear if these have been of benefit. She currently feels like she is on the verge of having another flare as sheis 2 weeks into a worsening cough. We obtain repeat pulmonary function testing today which does not show any obstruction to suggest asthma and there is no significant bronchodilator response. FEV1 100%, FVC 92%, ratio 107%, DLCO 101%. These values are slightly lower than a year ago, but more indicate restriction. Of note the patient has gained several kg since last year. She unfortunately has continued to require these high doses of steroid burst with taper and was bedbound for several months due to a lumbar disc issue. She has shortness of breath, but this does not explain her cough. She feels that she gets sick any time she leaves the house. She does not feel that there is any specific allergy contributor as she believe she just gets sick any time that she is out in public. She has been unable to work. Since her last visit at [facility], she has been unable to receive social security as asthma was not a diagnosisidentified during her visit. ROS: Answers for HPI/ROS submitted by the patient on 10/21/2021 Fatigue: Yes No eye issues: Yes Persistent hoarse voice: Yes Sinus congestion: Yes No heart issues: Yes Shortness of breath: Yes Coughing up mucus (phlegm): Yes Dry cough: Yes Wheezing: Yes No GI issues: Yes Muscle pain/stiffness: Yes Pain or stiffness in the joints: Yes Back pain/stiffness: Yes No skin issues: Yes Headache: Yes No mental health issues: Yes No blood/lymph issues: Yes No urinary/reproductive issues: Yes Medications: Albuterol, Dulera, prednisone, and Dupixent Flonase, Tessalon Perles, cetirizine, montelukast Amlodipine, hydrochlorothiazide, verapamil Topiramate, Imitrex, gabapentin, Flexeril, Cymbalta Omeprazole OBJECTIVE VS:Temp 36.9 ??C (Temporal) Ht 177.7 cm Wt (!) 170 kg SpO2 97% BMI 53.77 kg/m?? PHYSICAL EXAM Physical Exam General: Obesity, no acute distress Respiratory: Clear to auscultation bilaterally with no wheezing or crackles, intermittent barking cough CV: Regular rate and rhythm-slightly tachycardic from going on to exam table, warm extremities, no pitting lower leg edema Skin: No abnormal rashes or lesions, no clubbing Imaging/reports: Chest CT 10/12/2020 IMPRESSION: 1. No evidence of tracheomalacia or bronchiectasis. 2. Few small pulmonary nodules measuring up to 4 mm. Guidelines for follow-up as discussed in the body of the report 3. Sequela of prior granulomatous infection. 4. Hepatic steatosis. Pulmonary function test If he seen a 2%, FEV1 100%, ratio 107%, DLCO 101% Labs: 05/14/2021 Hemoglobin 14.3, WBC 7.2-normal differential; no eosinophilia Creatinine 0.82 Allergy testing-positive for ragweed; all else negative Anca panel-negative Immunoglobulin level- IgG 1 slightly low at 322, total IgG slightly low at 681 Alpha-1 antitrypsin level 89 ASSESSMENT / PLAN Ms. Peters is a 41-year-old woman with recurrent episodes of coughing and shortness of breath that have previously been diagnosed as asthma and recurrent bronchitis. Repeat pulmonary function testing currently does not show evidence of obstruction to support an asthma diagnosis. She does believe she is at the start of an exacerbation. She does believe she improves while on steroid, but is unclear if biologic have been helpful. Her previous thorough evaluation has been negative. At this point, I am uncertain what repeat evaluation should be performed. I will discuss her case with asthma experts within the Division for further advice. I wonder if she would benefit from evaluation by immunology again to look for a deficiency that may be resulting in her current bronchitis episodes- such as an immune deficiency. I will contact the patient when a definitive plan has been created via the portal. 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 [address] [place], [place] [phone] (Wo rk) documented as of this encounter Visit Diagnoses Diagnosis Deficiency Alpha 1 Antitrypsin (HCC) documented in this encounter
--- OUTSIDE RECORDS SUMMARY | 2022-08-30 07:42 | XMS_ITS | Encounter Summary ---
:1980 Author Organization [facility] Address [address] [place] [address] Care Team Providers Name Role Phone Unavailable Primary Care Provider Unavailable Reason for Referral Outpatient (Routine) - Closed Specialty Diagnoses / Procedures Referred By Contact Refer red To Contact Diagnoses Dyspnea Mira Martinez M.D. [facility] Procedures Echo Stress [address] [place], [place] [phone] Referral ID Status Reason Start Date Expiration Date Visits Requ ested Visits Authorized [id number] Closed 11/05/2021 11/05/2022 1 1 FIRER Encounter Details Date Type Department Care Team Description 11/05/2021 Orders Only Division of Pulmonary Mira Martinez yspnea (Primary Dx) [place] in [place] [address] [facility] [address] [place] [phone] Social History Tobacco Use Types Packs/Day Years [...] er 10/21/2021 How often do you attend scientology or jehovah's witness services? Never 10/21/2021 Do you belong to any clubs or organizations such as scientology N o 10/21/2021 groups, unions, fraternal or [...] for the very basics like Not emma wilbur hard 10/21/2021 food, housing, medical [...] at Date Recorded Female 10/21/2021 4:05 AM DOPE [employer]ER documented as of this encounter Plan of Treatment Upcoming Encounters Date Type Specialty Care Team Description 10/31/2022 Appointment Neurology Krishan Almendarez M.D . [address] [place], [place] [phone] (Wo rk) documented as of this encounter Results ECHO STRESS 2D WITH COLOR, LIMITED DOPPLER AND CONTRAST (12/03/2021 10:14 AM DOPE FIRER) [facility] Method Time Signature Ejection Fraction 57 [...] / / Volume Laterality 12/03/2021 8:47 AM DOPE FIRER Impressions 12/03/2021 9:49 PM DOPE FIRER STRESS TEST:Dobutamine was infused from 5 mcg/kg/min [...] Echocardiography Con trast Administration Protocol Reference Document [id number]. Patient met an inclusion cri terion and did not have contraindications in screening sections. For the complete report, see the Order-L evel Documents. Narrative 12/03/2021 9:49 PM DOPE FIRER For the complete report, see the Order-Level [...] ??pericardial effusion. 10. There are no previous [facility] ec hocardiograms available for comparison. Comments Review of digital video ([employer]) images was helpful for interpretation of today's [...] pericardial effusion. 10. There are no previous [facility] ec hocardiograms available for comparison. Comments Review of digital video ([employer]) images was helpful for interpretation of today's [...] per Echocardiography Contrast Administration Protocol Reference Document [id number]. Patient met an inclusion criterion and did not have contraindications in screening sections. For the complete report, see the Order-L evel Documents. Mira Martinez M.D. CV ECHO PROCEDURES documented in this encounter Visit Diagnoses Diagnosis Dyspnea - Primary Dyspnea documented in this encounter
--- OUTSIDE RECORDS SUMMARY | 2022-08-30 07:43 | XMS_ITS | Encounter Summary ---
:1980 Author Organization [facility] Address [address] [place] [address] Care Team Providers Name Role Phone Unavailable Primary Care Provider Unavailable Reason for Referral Outpatient (Routine) - Closed Specialty Diagnoses / Procedures Referred By Contact Refer red To Contact Neurology Diagnoses Migraine Headache Headache Sinus Ranjeet Iniguez [facility] TristaBGaudencioSGaudencio, Ph.D. [address] [place], [place] [phone] Referral ID Status Reason Start Date Expiration Date Visits Requ ested Visits Authorized [id number] Closed 10/30/2020 10/30/2021 1 1 NEER INTERN Reason for Visit Outpatient (Routine) - Closed Specialty Diagnoses / Procedures Referred By Contact Refer red To Contact Allergy and Immunology Diagnoses Shortness Of Breath Chronic Cough Sinusitis Recurrent Mohinder Mukherjee [facility] Parminder [address] [place] [address] Referral ID Status Reason Start Date Expiration Date Visits Requ ested Visits Authorized [id number] Closed 10/12/2020 10/12/2021 1 1 Encounter Details Date Type Department Care Team Description 10/30/2020 Comprehensive Visit Division of Lion Mukherjee M.D. [address] [place] [id number] Migraine Headache (Primary Dx); Allergic Diseases Jenny Lindsey M.D. 200 [place] [address] Cough Chronic; in [place], Sinusitis Recu rrent; [place] Headache Sinus; 200 [facility] [place] [address] Social History Tobacco Use Types Packs/Day Years [...] How often do you attend muslim or sabianist services? Never 10/21/2021 Do you belong to [...] place to sleep or slept in a skilled nursing (including now)? Education Answer Date Recorded What is the highest level of school you have completed or 12 th grade 10/06/2020 the highest degree you have received? Sex Assigned at Date Recorded Female 10/21/2021 4:05 AM ENGINEER INTERN documented as of this encounter Last Filed Vital Signs Vital Sign Reading Time Taken Comments Blood Pressure - - Pulse - - Temperature 35.5 ??C (95.9 ??F) 10/30/2020 10:28 AM ENGINEER INTERN Respiratory Rate - - Oxygen Saturation - - Inhaled Oxygen Concentration - - Weight - - Height - - Body Mass Index - - documented in this encounter Progress Notes Jenny Lindsey M.D. - 10/30/2020 10:30 AM CST SUPERVISED BY: Dr. Iniguez SUBJECTIVE CHIEF COMPLAINT / REASON FOR VISIT Joshua Peters is a 40 y.o. female with a past medical history of asthma without abnormal pulmonary function testing, concerns for chronic rhinosinusitis, GERD, and seasonal allergies who is presenting for evaluation of chronic rhinosinusitis. HISTORY OF PRESENT ILLNESS She states that about 30 years ago she began having frequent episodes of sinusitis. She she states she began having sinus pressure, mucopurulent nasal discharge, sore throat, productive cough, chest tightness and wheezing both in the fall and spring. The symptoms have progressed and become more frequent approximately 5 years ago. She saw an outside finger grip machine operator to performed skin testing. She states thatshe was positive to molds, all tree pollens, and grasses. She attempted to get injection therapy forher allergies but this sessions or frequently interrupted by prednisone burst for her sinusitis and a sthma flares. And she has not been able to fully complete immunization therapies. She states that she has required prednisone 1 to 2 times a month the past 2 years. Her symptoms start with nasal discharge, sinus tenderness, and progressed to wheezing and dyspnea. She states her symptoms all improved with prednisone. Also has postnasal drip. She last saw an ENT physician in the spring where she had a normal CT scan of the sinuses, anterior rhinoscopy, flexible laryngoscopy, otoscopy, and audiometry. She was most recently evaluated by ENT for vocal cord dysfunction. It was felt that her symptoms were not consistent with paradoxicalvocal cord dysfunction. For asthma she takes albuterol nebulizers every 4 hours, a budesonide nebulizer twice a day, and montelukast nightly.On Singulair for long time now. She was seen by pulmonology on 10/12/2020 that felt that her respiratory symptoms were most likely multifactorial and not due to asthma given her normal pulmonary function test inhaled nitric oxide. Given her history of sinusitis with previous skin testing, pulmonology recommended an allergy evaluation. Given her recurrent infections a hypogammaglobulinemia workup was ordered. Her labs were normal for IgA and IgM immunoglobulins. Alpha1 antitrypsin was abnormal at 89. She had elevated total IgG of 681 and elevated IgG 1 of 322. She had normal ANCA and IgG antibody testing. She is currently on cetirizine 10 mg b.i.d.(has been on this for years) and Benralizumab since 01/2020 without any benefit. She has been on a nasal regimen azelastine BID, and fluticasone BID, and saline irrigation BID which she said helps since September. In the past she has tied Zyrtec, Liliya, and other oral antihistamines. She also has headaches for years now that she thinks may be associated with sinuses. She gets migraines 2-3 x a month associated with light/sound sensitivity and nausea. Her other headaches are more tension type headaches and are bilateral and occur almost daily. She has not recently seen neurology. She additinally states that for her sinuses she frequently requires multiple courses of antibiotics > 4 per year due to infections. She additionally has epistaxis very frequently almost every week that is worse in the winter. She has a humidifier at home. IMAGING: CT sinuses 10/12/2020: FINDINGS: Paranasal sinuses without significant disease. No intrasinus fluid. No chronic inflammatory changes of reactive osteitis. Midline bony nasal septum without spurring. Mastoid air cells and middle ear cavities clear. Visualized portions of the intracranial fossa without acute abnormality. ?? IMPRESSION: No evidence for acute or chronic sinusitis. OBJECTIVE PHYSICAL EXAM There were no vitals taken for this visit. Gen: well appearing, well-nourished female sitting in exam chair in no acute distress Cardiac: Regular rate rhythm Lungs: Clear to auscultation bilaterally Abdomen: Soft nontender numbness Skin: No rashes or edema present ASSESSMENT / PLAN # Shortness Of Breath # Cough Chronic # Allergic Rhinitis - Allergy and Immunology - Rhinitis and sinusitis consult (clinic) She recently had basic skin panel and Northern skin panel testing performed on 10/14/2020 that was positive only for short ragweed. All of her symptoms of rhinorrea, sinuse pressure, and post nasal drip are interfering with her quality of life. We discussed that her CT sinuses from 10/12/2020 was normal with no evidence of acute or chronic sinusitis. With thus discussed that is unlikely she has sinusitis given the normal imaging. We would recommend referral to neurology for further evaluation and treatment of her headaches. Regarding her allergic rhinitis, she has been on oral antihistamines, oral intranasal steroid sprays, and nasal saline irrigations for this. We reviewed the risks versus benefits of triple spray that may help with her symptoms. We also reviewed several different sprays to helpwith epistaxis. Patient was in agreement with the above plan and all of her questions were addressed. RECOMMENDATIONS: - Prescription for triple spray (mometasone, ipratropium, diphenhydramine) and patient counseled on appropriate use - Reviewed proper administration of nasal sprays - IgE lab work for several allergens given her prior positive skin testing to other allergens in past and most recent testing only positive for ragweed. - Neurology referral for evaluation/ treatment of her headaches I spent a total of 60 minutes reviewing the patient's medical records and diagnostic tests, seeing the patient, speaking with the nursing team, placing the orders noted above, coordinating care, and documenting in the record. Patient was seen in consultation with Dr. Iniguez. Jenny Lindsey PGY-1 Pager # [phone] NEER INTERN documented in this encounter Consult Notes Ranjeet Iniguez M.B.B.S., Ph.D. - 10/30/2020 10:30 AM CST I have seen and discussed with Ms.Jamie Ama Peters and Dr. César RUSS her visit today. I agree withthe history, exam and assessment as outlined in the clinic note. The impression, report, and plan were made in agreement with Dr. César Jack MD and myself. Fall and spring related symptoms, which are worse now. She was positive to numerous allergens with outside finger grip machine operator several years ago. 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 She has sinus infections monthly. Sino-Nasal Outcome Test (SNOT-22) Need to blow nose: Moderate problem Nasal blockage: Severe Problem Sneezing: Moderate problem Runny nose: Severe Problem Cough: Severe Problem Post-nasal discharge: Severe Problem Thick nasal discharge: Severe Problem Ear fullness: Moderate problem Dizziness: Moderate problem Ear pain: Severe Problem Facial pain/pressure: Severe Problem Decreased sense of smell/taste: Moderate problem Difficulty falling asleep: Severe Problem Wake up at night: Severe Problem Lack of a good night's sleep: Severe Problem Wake up tired: Severe Problem Fatigue: Problem as bad as it can be Reduced productivity: Severe Problem Reduced concentration: Moderate problem Frustrated/restless/irritable: Mild or slight problem Sad: Moderate problem Embarrassed: Very mild problem Most important items affecting health: Cough, Thick nasal discharge, Facial pain/pressure, Lack of agood night's sleep, Fatigue Sino-Nasal Outcome Test (SNOT-22): 77 #1 Cough Chronic #2 Sinusitis Recurrent #3 Migraine Headache #4 Headache Sinus Other orders - Allergy and Immunology - Rhinitis and sinusitis consult (clinic) 1. CT scan of the paranasal sinuses showed no evidence of chronic sinusitis, polyps hyperplastic changes. She endorses very frequent episodes of facial pain and pressure which could suggest an atypicalfacial pain syndrome/migraine type disorder. I will set up an appointment for her with the Neurology/Headache Clinic here for additional recommendations on management of her headache/migraine. I discussed with her that of a sinus pressure and pain stemming from a headache disorder can be Misattributedas chronic sinusitis 2. She reports nosebleeds from a nasal spray she is currently on azelastine and Flonase: I think shemay benefit from reducing the volume and frequency of nasal medications by providing her the triple spray which she will do 1 spray 2 times a day for the next month. 3. Recommend Ponaris nasal emollient for nasal application to reduce the risk of epistaxis and over drying of nasal mucosa. 4. We will also send for blood ImmunoCAP IgE to aero allergens to weaken side the difference betweenthe skin test she obtained approximately 8 years ago with numerous sensitivities and the skin test obtained here which showed only the ragweed. She does have seasonal symptoms in spring and fall and this would help clarify whether or not she has contribution of allergic sensitization to her symptoms. NEER INTERN documented in this encounter Plan of Treatment Upcoming Encounters Date Type Specialty Care Team Description 10/31/2022 Appointment Neurology Krishan Almendarez M.D . [address] [place] [address], [place] [phone] (Wo rk) Scheduled Referrals Name Type Priority Associated Diagnoses Order S chedule Neurology - Outpatient Referral Routine Migraine Hea dache Expected: Headache consult Headache Sinus (clinic) (Approximate), Expires: 10/30/2023 documented as of this encounter Results Stemphyllium, IgE (10/30/2020 11:50 AM ENGINEER INTERN) P athologist Signature Stemphyllium, <0.35 kU/L 10/30/2020 [facility] IgE 7:57 PM ENGINEER INTERN Comment: Class 0 (Negative <0.35) Specimen Anatomical Collection Method Collection Time Receive d Time (Source) Location / / Volume Laterality Blood (Blood, 10/30/2020 11:50 10/30/2020 5:26 Venous) AM ENGINEER INTERN PM ENGINEER INTERN Ranjeet Cutler, Ph.D. LAB BLOOD ADD-ON Performing Organization Address City/[facility] Code Phon e Number [facility] [address] [place] [address] SUPPORT CENTER [facility] [place] [address] Laboratory Medicine and Pathology [address] [place] [address] Dr. KYMBERLY amaya, IgE (10/30/2020 11:50 AM ENGINEER INTERN) Analysis Performed At Patho logist Time Signature Aureobasidium <0.35 kU/L 10/30/2020 [facility] Chencho IgE 7:57 PM ENGINEER INTERN Comment: Class 0 (Negative <0.35) Specimen Anatomical Collection Method Collection Time Receive d Time (Source) Location / / Volume Laterality Blood (Blood, 10/30/2020 11:50 10/30/2020 5:26 Venous) AM ENGINEER INTERN PM ENGINEER INTERN Ranjeet Cutler, Ph.D. LAB BLOOD ADD-ON Performing Organization Address City/[facility] Phon e Number [facility] [address] [place], [place] [address] SU[facility] CENTER [facility] [place] [address] Laboratory Medicine and Pathology [address] [place] [address] Dr. KYMBERLY barrios, IgE (10/30/2020 11:50 AM ENGINEER INTERN) athologist Signature Phoma Betae, <0.35 kU/L 10/30/2020 [facility] IgE 7:57 PM ENGINEER INTERN Comment: Class 0 (Negative <0.35) Specimen Anatomical Collection Method Collection Time Receive d Time (Source) Location / / Volume Laterality Blood (Blood, 10/30/2020 11:50 10/30/2020 5:26 Venous) AM ENGINEER INTERN PM ENGINEER INTERN Ranjeet AlvaradoSGaudencio, Ph.D. LAB BLOOD ADD-ON Performing Organization Address [facility] Phon e Number [facility] [address] [place] [phone] SUPPORT CENTER [facility] [place] [address] Laboratory Medicine and Pathology [address] [place] [address] Dr. [place] Penicillium chrysogenum, IgE (10/30/2020 11:50 AM ENGINEER INTERN) athologist Signature Penicillium, <0.35 kU/L 10/30/2020 [facility] IgE 7:57 PM ENGINEER INTERN Comment: Class 0 (Negative <0.35) Specimen Anatomical Collection Method Collection Time Receive d Time (Source) Location / / Volume Laterality Blood (Blood, 10/30/2020 11:50 10/30/2020 5:26 Venous) AM ENGINEER INTERN PM ENGINEER INTERN Ranjeet WestonBGaudencioSGaudencio, Ph.D. LAB BLOOD ADD-ON Performing Organization Address City/[facility] Phon e Number [place] [phone] [place] [address] SUPPORT CENTER [facility] [place] [address] Laboratory Medicine and Pathology [address] [place] [address] Dr. [place] Mucor, IgE (10/30/2020 11:50 AM ENGINEER INTERN) athologist Signature Mucor, IgE <0.35 kU/L 10/30/2020 7:57 [facility] PM ENGINEER INTERN Comment: Class 0 (Negative <0.35) Specimen Anatomical Collection Method Collection Time Receive d Time (Source) Location / / Volume Laterality Blood (Blood, 10/30/2020 11:50 10/30/2020 5:26 Venous) AM ENGINEER INTERN PM ENGINEER INTERN Ranjeet Cutler, Ph.D. LAB BLOOD ADD-ON Performing Organization Address City/State/ZIP Code Phon e Number [facility] [address] [place], [place] [address] [facility] [place] [address] Laboratory Medicine and Pathology [address] [place] [address] Dr. [place] Cladosporium, IgE (10/30/2020 11:50 AM ENGINEER INTERN) P athologist Signature Cladosporium, <0.35 kU/L 10/30/2020 [facility] IgE 7:57 PM ENGINEER INTERN Comment: Class 0 (Negative <0.35) Specimen Anatomical Collection Method Collection Time Receive d Time (Source) Location / / Volume Laterality Blood (Blood, 10/30/2020 11:50 10/30/2020 5:26 Venous) AM ENGINEER INTERN PM ENGINEER INTERN Ranjeet Cutler, Ph.D. LAB BLOOD ADD-ON Performing Organization Address City/[facility]/ZIP Code Phon e Number [facility] [address] [place], [place] [address] [facility] [place] [address] Laboratory Medicine and Pathology [address] [place] [address] Dr. [place] Epicoccum purpurascens, IgE (10/30/2020 11:50 AM ENGINEER INTERN) P athologist Signature Epicoccum <0.35 kU/L 10/30/2020 [facility] Purpurascens, 7:57 PM ENGINEER INTERN IgE Comment: Class 0 (Negative <0.35) Specimen Anatomical Collection Method Collection Time Receive d Time (Source) Location / / Volume Laterality Blood (Blood, 10/30/2020 11:50 10/30/2020 5:26 Venous) AM ENGINEER INTERN PM ENGINEER INTERN Ranjeet Cutler, Ph.D. LAB BLOOD ADD-ON Performing Organization Address City/State/ZIP Code Phon e Number [facility] [address] [place], [place] [address] SU[facility]ENTER [facility] [place] [address] Laboratory Medicine and Pathology [address] [place] [address] Dr. [place] Aspergillus fumigatus, IgE (10/30/2020 11:50 AM ENGINEER INTERN) P athologist Signature Aspergillus <0.35 kU/L 10/30/2020 [facility] Fumigatus, IgE 7:57 PM ENGINEER INTERN Comment: Class 0 (Negative <0.35) Specimen Anatomical Collection Method Collection Time Receive d Time (Source) Location / / Volume Laterality Blood (Blood, 10/30/2020 11:50 10/30/2020 5:26 Venous) AM ENGINEER INTERN PM ENGINEER INTERN Ranjeet Cutler, Ph.D. LAB BLOOD ADD-ON Performing Organization Address City/[facility] Phon e Number [facility] [address] [place] [phone] [facility] [place] [address] Laboratory Medicine and Pathology [address] [place] [address] Dr. [place] king, IgE (10/30/2020 11:50 AM ENGINEER INTERN) P athologist Signature Alternaria <0.35 kU/L 10/30/2020 [facility] Tenuis, IgE 7:57 PM ENGINEER INTERN Comment: Class 0 (Negative <0.35) Specimen Anatomical Collection Method Collection Time Receive d Time (Source) Location / / Volume Laterality Blood (Blood, 10/30/2020 11:50 10/30/2020 5:26 Venous) AM ENGINEER INTERN PM ENGINEER INTERN Ranjeet Cutler, Ph.D. LAB BLOOD ADD-ON Performing Organization Address [facility] Phon e Number [address] [place] [address] SU[facility] CENTER [facility] [place] [address] Laboratory Medicine and Pathology [address] [place] [address] Dr. [place] Horse Dander, IgE (10/30/2020 11:50 AM ENGINEER INTERN) P athologist Signature Horse Dander, <0.35 kU/L 10/30/2020 [facility] IgE 7:57 PM ENGINEER INTERN Comment: Class 0 (Negative <0.35) Specimen Anatomical Collection Method Collection Time Receive d Time (Source) Location / / Volume Laterality Blood (Blood, 10/30/2020 11:50 10/30/2020 5:26 Venous) AM ENGINEER INTERN PM ENGINEER INTERN Ranjeet Cutler, Ph.D. LAB BLOOD ADD-ON Performing Organization Address City/[facility] Phon e Number [facility] [address] [place] [phone] [facility] [place] [address] Laboratory Medicine and Pathology [address] [place] [address] Dr. [place] House Dust Mites/Dermatophagoides pteronyssinus, IgE (10/30/2020 11:50 AM ENGINEER INTERN) athologist Signature House Dust <0.35 kU/L 10/30/2020 [facility] Mites/D.P., IgE 7:57 PM ENGINEER INTERN Comment: Class 0 (Negative <0.35) Specimen Anatomical Collection Method Collection Time Receive d Time (Source) Location / / Volume Laterality Blood (Blood, 10/30/2020 11:50 10/30/2020 5:26 Venous) AM ENGINEER INTERN PM ENGINEER INTERN Ranjeet WestonBGaudencioSGaudencio, Ph.D. LAB BLOOD ADD-ON Performing Organization Address [facility] Phon e Number [place] [phone] [place] [phone] [facility] [place] [address] Laboratory Medicine and Pathology [address] [place] [address] Dr. [place] House Dust Mites/Dermatophagoides farinae, IgE (10/30/2020 11:50 AM ENGINEER INTERN) athologist Signature House Dust <0.35 kU/L 10/30/2020 [facility] Mites/D.F., IgE 7:57 PM ENGINEER INTERN Comment: Class 0 (Negative <0.35) Specimen Anatomical Collection Method Collection Time Receive d Time (Source) Location / / Volume Laterality Blood (Blood, 10/30/2020 11:50 10/30/2020 5:26 Venous) AM ENGINEER INTERN PM ENGINEER INTERN Ranjeet WestonBGaudencioSGaudencio, Ph.D. LAB BLOOD ADD-ON Performing Organization Address City/[facility]/ZIP Code Phon e Number [place] [phone] [place] [phone] [facility] [place] [address] Laboratory Medicine and Pathology [address] [place] [address] Dr. [place] Dog Dander, IgE (10/30/2020 11:50 AM ENGINEER INTERN) athologist Signature Dog Dander, IgE <0.35 kU/L 10/30/2020 [facility] 8:49 PM ENGINEER INTERN Comment: Class 0 (Negative <0.35) Specimen Anatomical Collection Method Collection Time Receive d Time (Source) Location / / Volume Laterality Blood (Blood, 10/30/2020 11:50 10/30/2020 5:26 Venous) AM ENGINEER INTERN PM ENGINEER INTERN Ranjeet Cutler, Ph.D. LAB BLOOD ADD-ON Performing Organization Address [facility] Phon e Number [facility] [address] [place] [address] [place] [address] Laboratory Medicine and Pathology [address] [place] [address] Dr. [place] Green, IgE (10/30/2020 11:50 AM ENGINEER INTERN) P athologist Signature Cockroach, IgE <0.35 kU/L 10/30/2020 [facility] 8:19 PM ENGINEER INTERN Comment: Class 0 (Negative <0.35) Specimen Anatomical Collection Method Collection Time Receive d Time (Source) Location / / Volume Laterality Blood (Blood, 10/30/2020 11:50 10/30/2020 5:26 Venous) AM ENGINEER INTERN PM ENGINEER INTERN Ranjeet Cutler, Ph.D. LAB BLOOD ADD-ON Performing Organization Address City/[facility] Phon e Number [place] [phone] [place] [address] [place] [address] Laboratory Medicine and Pathology [address] [place] [address] Dr. [place] Cat Epithelium, IgE (10/30/2020 11:50 AM ENGINEER INTERN) P athologist Signature Cat Epithelium, <0.35 kU/L 10/30/2020 [facility] IgE 8:19 PM ENGINEER INTERN Comment: Class 0 (Negative <0.35) Specimen Anatomical Collection Method Collection Time Receive d Time (Source) Location / / Volume Laterality Blood (Blood, 10/30/2020 11:50 10/30/2020 5:26 Venous) AM ENGINEER INTERN PM ENGINEER INTERN Ranjeet Cutler, Ph.D. LAB BLOOD ADD-ON Performing Organization Address City/State/ZIP Code Phon e Number [facility] [address] [place], [place] [address] [facility] [place] [address] Laboratory Medicine and Pathology [address] [place] [address] Dr. [place] Short Johnnyweed, IgE (10/30/2020 11:50 AM ENGINEER INTERN) athologist Signature Short Ragweed, 0.72 kU/L 10/30/2020 [facility] IgE 8:19 PM ENGINEER INTERN Comment: Class 2 (Positive 0.70-3.49) Specimen Anatomical Collection Method Collection Time Receive d Time (Source) Location / / Volume Laterality Blood (Blood, 10/30/2020 11:50 10/30/2020 5:26 Venous) AM ENGINEER INTERN PM ENGINEER INTERN Ranjeet WestonBGaudencioSGaudencio, Ph.D. LAB BLOOD ADD-ON Performing Organization Address City/[facility]/ZIP Code Phon e Number [place] [phone] [place] [phone] SU[facility] [place] [address] Laboratory Medicine and Pathology [address] [place] [address] Dr. [place] Red Milburn, IgE (10/30/2020 11:50 AM ENGINEER INTERN) athologist Signature Red Milburn, IgE <0.35 kU/L 10/30/2020 [facility] CENTER 8:49 PM ENGINEER INTERN Comment: Class 0 (Negative <0.35) Specimen Anatomical Collection Method Collection Time Receive d Time (Source) Location / / Volume Laterality Blood (Blood, 10/30/2020 11:50 10/30/2020 5:26 Venous) AM ENGINEER INTERN PM ENGINEER INTERN Ranjeet WestonBGaudencioSGaudencio, Ph.D. LAB BLOOD ADD-ON Performing Organization Address City/State/ZIP Code Phon e Number [place] [phone] [place] [phone] 05 SUPPORT CENTER [facility] [place] [address] Laboratory Medicine and Pathology [address] [place] [address] Dr. KYMBERLY Ernandez, IgE (10/30/2020 11:50 AM ENGINEER INTERN) athologist Signature Malian <0.35 kU/L 10/30/2020 [facility] Oma, IgE 8:19 PM ENGINEER INTERN Comment: Class 0 (Negative <0.35) Specimen Anatomical Collection Method Collection Time Receive d Time (Source) Location / / Volume Laterality Blood (Blood, 10/30/2020 11:50 10/30/2020 5:26 Venous) AM ENGINEER INTERN PM ENGINEER INTERN Ranjeet Cutler, Ph.D. LAB BLOOD ADD-ON Performing Organization Address City/[facility]/ZIP Code Phon e Number [facility] [address] [place] [phone] 05 SUPPORT CENTER [facility] [place] [address] Laboratory Medicine and Pathology [address] [place] [address] Dr. [place] Rough Pigweed, IgE (10/30/2020 11:50 AM ENGINEER INTERN) P athologist Signature Rough Pigweed, <0.35 kU/L 10/30/2020 [facility] IgE 8:49 PM ENGINEER INTERN Comment: Class 0 (Negative <0.35) Specimen Anatomical Collection Method Collection Time Receive d Time (Source) Location / / Volume Laterality Blood (Blood, 10/30/2020 11:50 10/30/2020 5:26 Venous) AM ENGINEER INTERN PM ENGINEER INTERN Ranjeet WestonBGaudencioSGaudencio, Ph.D. LAB BLOOD ADD-ON Performing Organization Address City/[facility]/ZIP Code Phon e Number [place] [phone] [place] [address] SUPPORT CENTER [facility] [place] [address] Laboratory Medicine and Pathology [address] [place] [address] Dr. KYMBERLY Nina Plantain, IgE (10/30/2020 11:50 AM ENGINEER INTERN) P athologist Signature Lithuanian <0.35 kU/L 10/30/2020 [facility] Plantain, IgE 8:19 PM ENGINEER INTERN Comment: Class 0 (Negative <0.35) Specimen Anatomical Collection Method Collection Time Receive d Time (Source) Location / / Volume Laterality Blood (Blood, 10/30/2020 11:50 10/30/2020 5:26 Venous) AM ENGINEER INTERN PM ENGINEER INTERN Ranjeet WestonBGaudencioSGaudencio, Ph.D. LAB BLOOD ADD-ON Performing Organization Address City/[facility]/ZIP Code Phon e Number [facility] [address] [place] [address] SUPPORT CENTER [facility] [place] [address] Laboratory Medicine and Pathology [address] [place] [address] Dr. KYMBERLY Chávez, IgE (10/30/2020 11:50 AM ENGINEER INTERN) athologist Signature Angiewfermin, IgE <0.35 kU/L 10/30/2020 [facility] 8:19 PM ENGINEER INTERN Comment: Class 0 (Negative <0.35) Specimen Anatomical Collection Method Collection Time Receive d Time (Source) Location / / Volume Laterality Blood (Blood, 10/30/2020 11:50 10/30/2020 5:26 Venous) AM ENGINEER INTERN PM ENGINEER INTERN Ranjeet Cutler, Ph.D. LAB BLOOD ADD-ON Performing Organization Address City/[facility] Phon e Number [facility] [address] [place] [address] [place] [address] Laboratory Medicine and Pathology [address] [place] [address] Dr. KYMBERLY Sterling, IgE (10/30/2020 11:50 AM ENGINEER INTERN) [facility] Kaelyn Nicole <0.35 kU/L 10/30/2020 [facility] Elder, IgE 8:49 PM ENGINEER INTERN Comment: Class 0 (Negative <0.35) Specimen Anatomical Collection Method Collection Time Receive d Time (Source) Location / / Volume Laterality Blood (Blood, 10/30/2020 11:50 10/30/2020 5:26 Venous) AM ENGINEER INTERN PM ENGINEER INTERN Ranjeet Cutler, Ph.D. LAB BLOOD ADD-ON Performing Organization Address City/[facility] Phon e Number [address] [place] [address] [place] [address] Laboratory Medicine and Pathology [address] [place] [address] Dr. KYMBERLY [place], IgE (10/30/2020 11:50 AM ENGINEER INTERN) athologist [facility] [place], <0.35 kU/L 10/30/2020 [facility] IgE 8:19 PM ENGINEER INTERN Comment: Class 0 (Negative <0.35) Specimen Anatomical Collection Method Collection Time Receive d Time (Source) Location / / Volume Laterality Blood (Blood, 10/30/2020 11:50 10/30/2020 5:26 Venous) AM ENGINEER INTERN PM ENGINEER INTERN Ranjeet Cutler, Ph.D. LAB BLOOD ADD-ON Performing Organization Address City/State/ZIP Code Phon e Number [facility] [address] [place], [place] [address] SUPPORT CENTER [facility] [place] [address] Laboratory Medicine and Pathology [address] [place] [address] Dr. KYMBERLY Elizabeth ([facility]), IgE (10/30/2020 11:50 AM ENGINEER INTERN) P athologist Signature Jamesh <0.35 kU/L 10/30/2020 [facility] ([facility]), IgE 8:49 PM ENGINEER INTERN Comment: Class 0 (Negative <0.35) Specimen Anatomical Collection Method Collection Time Receive d Time (Source) Location / / Volume Laterality Blood (Blood, 10/30/2020 11:50 10/30/2020 5:26 Venous) AM ENGINEER INTERN PM ENGINEER INTERN Ranjeet Cutler, Ph.D. LAB BLOOD ADD-ON Performing Organization Address City/State/ZIP Code Phon e Number [facility] [address] [place], [place] [address] SUPPORT CENTER [facility] [place] [address] Laboratory Medicine and Pathology [address] [place] [address] Dr. KYMBELRY Garcia IgE (10/30/2020 11:50 AM ENGINEER INTERN) P athologist Signature Haroon Garcia, <0.35 kU/L 10/30/2020 [facility] IgE 8:19 PM ENGINEER INTERN Comment: Class 0 (Negative <0.35) Specimen Anatomical Collection Method Collection Time Receive d Time (Source) Location / / Volume Laterality Blood (Blood, 10/30/2020 11:50 10/30/2020 5:26 Venous) AM ENGINEER INTERN PM ENGINEER INTERN Ranjeet Cutler, Ph.D. LAB BLOOD ADD-ON Performing Organization Address City/State/ZIP Code Phon e Number [facility] [address] [place], [place] [address] SUPPORT CENTER [facility] [place] [address] Laboratory Medicine and Pathology [address] [place] [address] Dr. KYMBERLY Garcia, IgE (10/30/2020 11:50 AM ENGINEER INTERN) athologist Signature Harmony Garcia, <0.35 kU/L 10/30/2020 [facility] IgE 8:19 PM ENGINEER INTERN Comment: Class 0 (Negative <0.35) Specimen Anatomical Collection Method Collection Time Receive d Time (Source) Location / / Volume Laterality Blood (Blood, 10/30/2020 11:50 10/30/2020 5:26 Venous) AM ENGINEER INTERN PM ENGINEER INTERN Ranjeet Cutler, Ph.D. LAB BLOOD ADD-ON Performing Organization Address City/[facility] Phon e Number [facility] [address] [place] [phone] 05 SUPPORT CENTER [facility] [place] [address] Laboratory Medicine and Pathology [address] [place] [address] Dr. KYMBERLY Garcia, IgE (10/30/2020 11:50 AM ENGINEER INTERN) athologist Signature Jenny Garcia, IgE <0.35 kU/L 10/30/2020 [facility] 8:19 PM ENGINEER INTERN Comment: Class 0 (Negative <0.35) Specimen Anatomical Collection Method Collection Time Receive d Time (Source) Location / / Volume Laterality Blood (Blood, 10/30/2020 11:50 10/30/2020 5:26 Venous) AM ENGINEER INTERN PM ENGINEER INTERN Ranjeet Cutler, Ph.D. LAB BLOOD ADD-ON Performing Organization Address City/[facility] Phon e Number [facility] [address] [place] [phone] 05 SUPPORT CENTER [facility] [place] [address] Laboratory Medicine and Pathology [address] [place] [address] Dr. KYMBERLY Garcia, IgE (10/30/2020 11:50 AM ENGINEER INTERN) athologist Signature Kevin Radha, <0.35 kU/L 10/30/2020 [facility] IgE 8:19 PM ENGINEER INTERN Comment: Class 0 (Negative <0.35) Specimen Anatomical Collection Method Collection Time Receive d Time (Source) Location / / Volume Laterality Blood (Blood, 10/30/2020 11:50 10/30/2020 5:26 Venous) AM ENGINEER INTERN PM ENGINEER INTERN Ranjeet Cutler, Ph.D. LAB BLOOD ADD-ON Performing Organization Address City/[facility]/ZIP [facility] Phon e Number [facility] [address] [place] [phone] 05 SUPPORT [place] [address] Laboratory Medicine and Pathology [address] [place] [address] Dr. KYMBERLY Bergeron Wash[place], IgE (10/30/2020 11:50 AM ENGINEER INTERN) athologist Signature Eastern <0.35 kU/L 10/30/2020 [facility] Washburn, IgE 8:49 PM ENGINEER INTERN Comment: Class 0 (Negative <0.35) Specimen Anatomical Collection Method Collection Time Receive d Time (Source) Location / / Volume Laterality Blood (Blood, 10/30/2020 11:50 10/30/2020 5:26 Venous) AM ENGINEER INTERN PM ENGINEER INTERN Ranjeet Cutler, Ph.D. LAB BLOOD ADD-ON Performing Organization Address City/[facility] Phon e Number [address] [place] [address] 05 SUPPORT CENTER [facility] [place] [address] Laboratory Medicine and Pathology [address] [place] [address] Dr. KYMBERLY Espinoza IgE (10/30/2020 11:50 AM ENGINEER INTERN) athologist Eliseo Romario Espinoza, IgE <0.35 kU/L 10/30/2020 [facility] 8:49 PM ENGINEER INTERN Comment: Class 0 (Negative <0.35) Specimen Anatomical Collection Method Collection Time Receive d Time (Source) Location / / Volume Laterality Blood (Blood, 10/30/2020 11:50 10/30/2020 5:26 Venous) AM ENGINEER INTERN PM ENGINEER INTERN Ranjeet Cutler, Ph.D. LAB BLOOD ADD-ON Performing Organization Address City/[facility]/ZIP [facility] Phon e Number [address] [place] [address] 05 SUPPORT CENTER [facility] [place] [address] Laboratory Medicine and Pathology [address] [place] [address] Dr. KYMBERLY Mehta IgE (10/30/2020 11:50 AM ENGINEER INTERN) athologist Signature Tyson, IgE <0.35 kU/L 10/30/2020 8:19 SDSC PM ENGINEER INTERN Comment: Class 0 (Negative <0.35) Specimen Anatomical Collection Method Collection Time Receive d Time (Source) Location / / Volume Laterality Blood (Blood, 10/30/2020 11:50 10/30/2020 5:26 Venous) AM ENGINEER INTERN PM ENGINEER INTERN Ranjeet Cutler, Ph.D. LAB BLOOD ADD-ON Performing Organization Address City/[facility]/ZIP Code Phon e Number [facility] [address] [place] [address] SUPPORT CENTER [facility] [address] Laboratory Medicine and Pathology [address] [place] [address] Dr. KYMBERLY Garcia IgE (10/30/2020 11:50 AM ENGINEER INTERN) athologist Signature [place], <0.35 kU/L 10/30/2020 [facility] IgE 8:49 PM ENGINEER INTERN Comment: Class 0 (Negative <0.35) Specimen Anatomical Collection Method Collection Time Receive d Time (Source) Location / / Volume Laterality Blood (Blood, 10/30/2020 11:50 10/30/2020 5:26 Venous) AM ENGINEER INTERN PM ENGINEER INTERN Ranjeet Cutler, Ph.D. LAB BLOOD ADD-ON Performing Organization Address City/[facility] Phon e Number [facility] [address] [place] [address] SUPPORT [place] [address] Laboratory Medicine and Pathology [address] [place] [address] Dr. KYMBERLY Sterling/Radha, IgE (10/30/2020 11:50 AM ENGINEER INTERN) P athologist Signature Box Eld/Maple, <0.35 kU/L 10/30/2020 [facility] S, IgE 8:19 PM ENGINEER INTERN Comment: Class 0 (Negative <0.35) Specimen Anatomical Collection Method Collection Time Receive d Time (Source) Location / / Volume Laterality Blood (Blood, 10/30/2020 11:50 10/30/2020 5:26 Venous) AM ENGINEER INTERN PM ENGINEER INTERN Ranjeet Cutler, Ph.D. LAB BLOOD ADD-ON Performing Organization Address City/[facility]/ZIP Code Phon e Number [facility] [address] [place], [place] [address] SUPPORT CENTER [facility] [place] [address] Laboratory Medicine and Pathology [address] [place] [address] Dr. KYMBERLY Salmon, IgE (10/30/2020 11:50 AM ENGINEER INTERN) athologist Signature Elm, IgE <0.35 kU/L 10/30/2020 8:19 SDSC PM ENGINEER INTERN Comment: Class 0 (Negative <0.35) Specimen Anatomical Collection Method Collection Time Receive d Time (Source) Location / / Volume Laterality Blood (Blood, 10/30/2020 11:50 10/30/2020 5:26 Venous) AM ENGINEER INTERN PM ENGINEER INTERN Ranjeet Cutler, Ph.D. LAB BLOOD ADD-ON Performing Organization Address City/[facility] Phon e Number [place] [phone] [place] [address] 05 SUPPORT CENTER [facility] [place] [address] Laboratory Medicine and Pathology [address] [place] [address] Dr. KYMBERLY Wagner, IgE (10/30/2020 11:50 AM ENGINEER INTERN) athologist Signature Bernard, IgE <0.35 kU/L 10/30/2020 [facility] 8:49 PM ENGINEER INTERN Comment: Class 0 (Negative <0.35) Specimen Anatomical Collection Method Collection Time Receive d Time (Source) Location / / Volume Laterality Blood (Blood, 10/30/2020 11:50 10/30/2020 5:26 Venous) AM ENGINEER INTERN PM ENGINEER INTERN Ranjeet WestonBGaudencioSGaudencio, Ph.D. LAB BLOOD ADD-ON Performing Organization Address City/[facility]/ZIP Code Phon e Number [place] [phone] [place], [place] [address] SUPPORT CENTER [facility] [place] [address] Laboratory Medicine and Pathology [address] [place] [address] Dr. KYMBERLY Hogan, IgE (10/30/2020 11:50 AM ENGINEER INTERN) athologist Signature Jordan Hogan, <0.35 kU/L 10/30/2020 [facility] IgE 8:19 PM ENGINEER INTERN Comment: Class 0 (Negative <0.35) Specimen Anatomical Collection Method Collection Time Receive d Time (Source) Location / / Volume Laterality Blood (Blood, 10/30/2020 11:50 10/30/2020 5:26 Venous) AM ENGINEER INTERN PM ENGINEER INTERN Ranjeet Cutler, Ph.D. LAB BLOOD ADD-ON Performing Organization Address City/[facility]/ZIP Code Phon e Number [facility] [address] [place] [address] SUPPORT CENTER [facility] [place] [address] Laboratory Medicine and Pathology [address] [place] [address] Dr. KYMBERLY Banks, IgE (10/30/2020 11:50 AM ENGINEER INTERN) P athologist Signature Romario Banks, IgE <0.35 kU/L 10/30/2020 [facility] 8:49 PM ENGINEER INTERN Comment: Class 0 (Negative <0.35) Specimen Anatomical Collection Method Collection Time Receive d Time (Source) Location / / Volume Laterality Blood (Blood, 10/30/2020 11:50 10/30/2020 5:26 Venous) AM ENGINEER INTERN PM ENGINEER INTERN Ranjeet Cutler, Ph.D. LAB BLOOD ADD-ON Performing Organization Address City/[facility] Code Phon e Number [facility] [address] [place], [place] [address] SUPPORT CENTER [facility] [place] [address] Laboratory Medicine and Pathology [address] [place] [address] Dr. KYMBERLY Mckeon, IgE (10/30/2020 11:50 AM ENGINEER INTERN) P athologist Signature Price Mckeon, IgE <0.35 kU/L 10/30/2020 [facility] 8:19 PM ENGINEER INTERN Comment: Class 0 (Negative <0.35) Specimen Anatomical Collection Method Collection Time Receive d Time (Source) Location / / Volume Laterality Blood (Blood, 10/30/2020 11:50 10/30/2020 5:26 Venous) AM ENGINEER INTERN PM ENGINEER INTERN Ranjeet Cutler, Ph.D. LAB BLOOD ADD-ON Performing Organization Address City/[facility]/ZIP Code Phon e Number [facility] [address] [place], [place] [address] SUPPORT CENTER [facility] [place] [address] Laboratory Medicine and Pathology [address] [place] documented in this encounter Visit Diagnoses Diagnosis Migraine Headache - Primary Chronic Cough Sinusitis Recurrent Headache Sinus Drip Post Nasal documented in this encounter
--- OUTSIDE RECORDS SUMMARY | 2022-08-30 07:43 | XMS_ITS | Encounter Summary ---
:1980 Author Organization [facility] Address [address] [place] [address] Care Team Providers Name Role Phone Unavailable Primary Care Provider Unavailable Reason for Visit Outpatient (Routine) - Closed Specialty Diagnoses / Procedures Referred By Contact Refer red To Contact Video Medicine Diagnoses Dysphonia [facility] [address] [place] [phone] Referral ID Status Reason Start Date Expiration Date Visits Requ ested Visits Authorized [id number] Closed 10/23/2020 10/23/2021 1 1 Encounter Details Date Type Department Care Team Description 10/27/2020 Telemedicine Department of Collette Cole Otorhinolaryngology in [place], [place] [address] [place] [address] [address] [place] [phone] Social History Tobacco Use Types Packs/Day Years [...] er 10/21/2021 How often do you attend pentecostalism or nondenominational services? Never 10/21/2021 Do you belong to any clubs or organizations such as pentecostalism N o 10/21/2021 groups, unions, fraternal or [...] at Date Recorded Female 10/21/2021 4:05 AM EMERGENCY MEDICAL TECH documented as of this encounter Progress Notes Collette Cole CCC-SENIOR ADVISORY - 10/27/2020 2:30 PM CST Referring provider Mohinder Mukherjee M.D. Consult/treatnent conducted via real-time audio/video technology by Collette Cole M.S.,KENN-SENIOR ADVISORY in [facility] to patient in home for follow up . This Video Visit was performed during the COVID-19 emergency, when many states had issued [id number]/safer at home orders. In-person treatment was unavailable. To maintain medically necessary rehabilitation progress/goals, telemedicine was used as a necessary method of treatment. Telemedicine provided equivalent interaction. Patient denied limitations in telemedicine interaction Plan of care: Patient will be seen for one- two sessions over six weeks with goals of improving breathing for functional communication in activities of daily living. Chief complaint/purpose of visit: Voice therapy Impression/Report/Plan Ms. Peters returns today for ongoing skilled intervention. Goals of therapy are as follows: 1. Patient will demonstrate mastery of various Breathing techniques as judged by the clinician. Patient was instructed in pursed lip and paced breathing techniques Patient benefitted from clinician modeling, and direct verbal cues. She will practice these on a regular basis and send me an update via the patient portal. Patient was provided with customized written home practice program via the portal.. PATIENT EDUCATION Ready to learn, no apparent learning barriers were identified; learning preferences include listening. Explained diagnosis and treatment plan; patient expressed understanding of the content. GENCY MEDICAL TECH documented in this encounter Plan of Treatment Upcoming Encounters Date Type Specialty Care Team Description 10/31/2022 Appointment Neurology Krishan Almendarez M.D . [address] [place] [phone] (Wo rk) documented as of this encounter Visit Diagnoses Diagnosis Dysphonia documented in this encounter
--- OUTSIDE RECORDS SUMMARY | 2022-08-30 07:43 | XMS_ITS | Encounter Summary ---
:1980 Author Organization [facility] Address [address] [place] [address] Care Team Providers Name Role Phone Unavailable Primary Care Provider Unavailable Reason for Referral Outpatient (Routine) - Closed Specialty Diagnoses / Procedures Referred By Contact Refer red To Contact Pulmonary Medicine Diagnoses Dyspnea Mohinder Mukherjee M.D. [address] [phone] Referral ID Status Reason Start Date Expiration Date Visits Requ ested Visits Authorized [id number] Closed 10/24/2020 10/24/2021 1 1 Scheduling Instructions Return with myself on Monday 10/30 for fol low up. RAISING MANAGER Encounter Details Date Type Department Care Team Description 10/24/2020 Orders Only Division of Pulmonary Mohinder Mukherjee, Dyspnea (Primary Dx) Medicine in [place] [address] [place] [phone] Social History Tobacco Use Types Packs/Day Years [...] at Date Recorded Female 10/21/2021 4:05 AM FUNDRAISING MANAGER documented as of this encounter Plan of Treatment Upcoming Encounters Date Type Specialty Care Team Description 10/31/2022 Appointment Neurology Krishan Almendarez M.D . [address] [place], [place] [phone] (Wo rk) Scheduled Referrals Name Type Priority Associated Diagnoses Order S [facility] Pulmonary Medicine Outpatient Referral Routine Dyspnea Ex pected: office visit 10/30/2020 (clinic) (Approximate), Expires: 10/24/2023 documented as of this encounter Visit Diagnoses Diagnosis Dyspnea - Primary documented in this encounter
--- OUTSIDE RECORDS SUMMARY | 2022-08-30 07:43 | XMS_ITS | Encounter Summary ---
:1980 Author Organization [facility] Address [address] [place] [address] Care Team Providers Name Role Phone Unavailable Primary Care Provider Unavailable Encounter Details Date Type Department Care Team Description 10/22/2020 Clinical Support [facility] Disorder Genetics in Carlos Coe M.S., Screening Nelly james [place], [place] [facility] [address] [place] [address] Social History Tobacco Use Types Packs/Day Years [...] er 10/21/2021 How often do you attend caodaism or mandaen services? Never 10/21/2021 Do you belong to any clubs or organizations such as caodaism N o 10/21/2021 groups, unions, fraternal or [...] at Date Recorded Female 10/21/2021 4:05 AM PILE DRIVING TECHNICIAN documented as of this encounter Progress Notes Carlos Cao M.S., [facility] - 10/22/2020 10:00 AM CST REFERRAL No ref. provider found CHIEF COMPLAINT/PURPOSE OF VISIT Obtain and construct family history for clinical assessment. HISTORY OF PRESENT ILLNESS Please see Dr. Kvaon Martinez MD's Clinical Gen[facility] consultation for further details. FAMILY HISTORY Per the referral of No ref. provider found, a comprehensive family history was obtained and constructed for the Clinical Genomics consult. The complete family history has been saved as a scanned document and is available for viewing. The patient was seen in Clinical Genomics by Dr. Kavon Martinez MD. Please see the consult note regarding pertinent findings of the family history in relation to the differential diagnosis and clinical assessment. Total time: 18 minutes Electronically signed by Carlos Cao M.S., [facility] at 10/22/2020 10:29 AM PILE DRIVING TECHNICIAN documented in this encounter Plan of Treatment Upcoming Encounters Date Type Specialty Care Team Description 10/31/2022 Appointment Neurology Krishan Almendarez M.D . [address] [place] [phone] (Wo rk) documented as of this encounter Visit Diagnoses Diagnosis Genetic Disorder Screening Exam documented in this encounter
--- OUTSIDE RECORDS SUMMARY | 2022-08-30 07:43 | XMS_ITS | Encounter Summary ---
:1980 Author Organization [facility] Address [address] [place] [phone] Care Team Providers Name Role Phone Unavailable Primary Care Provider Unavailable Reason for Visit Reason Comments Allergy Testing Outpatient (Routine) - Closed Specialty Diagnoses / Procedures Referred By Contact Refer red To Contact Diagnoses Chronic Cough Sinusitis Recurrent Mohinder Mukherjee M.D. [facility] Procedures Northern Skin Test [address] [place] [phone] Referral ID Status Reason Start Date Expiration Date Visits Requ ested Visits Authorized [id number] Closed 10/13/2020 10/13/2021 1 1 Encounter Details Date Type Department Care Team Description 10/22/2020 Clinical Support Division of Allergic Bao Mukherjee M.D. [address] [place] [address] [phone] Cough Chronic; Diseases in Collette Hung, R.NGaudencio [address] [place] [address] [phone] Sinusitis Recurrent [place], [place] Valerie Romano R.N. [address] [place] [address] [phone] [place] [address] [phone] Social History Tobacco Use Types Packs/Day Years [...] How often do you attend yazidism or holiness services? Never 10/21/2021 Do you belong to [...] to sleep or slept in a senior care (including now)? Education Answer Date Recorded What is the highest level of school you have completed or 12 th grade 10/06/2020 the highest degree you have received? 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 - 10/22/2020 3:30 PM CST Panel Skin Tests Clinical Support from 10/22/2020 in Division of Allergic Diseases in [place], [place] Controls Prick Control 0 Histamine (15 min W/F) 5x5f Glycerine (15 min W/F) 0 Basic Panel Cat Hair 0 Cockroach mix (Citizen Of [place] & Mongolian) 0 Dog AP 0 D.F. Mite 0 D. P Mite 0 Horse 0 Alternaria Alternata 0 Aspergillus Fumigatus 0 Bipolaris Sorokiniana 0 Chaetomium Globosum 0 Curvularia Spicifera (Drechstera Spidfera) 0 Epicoccum 0 Fusarium 0 Geotrichum 0 Helminthosporium 0 Hormodendrum/Clad (Cladostorium Cladosporioides) 0 Mucor Racemosus 0 Penicillium Mix 0 Phoma Herbarum 0 Pullularia 0 Rhizopus Stolonifer 0 Stemphylium Solani 0 Northern Panel Mike, White 0 Darren, White 0 Birch 0 [place], Red 0 Taylor, Eastern 0 Elm, Citizen Of [place] 0 Maple 0 Brock, Black 0 [place] 0 [place], White 0 Wilmot, Citizen Of [place] 0 [place] 0 [place] Blue 0 Orchard 0 Haroon 0 Kochia 0 [place] 0 Nicole Elder, Burweed 0 Mugwort, Common 0 Plantain, Hungarian 0 Rough Pigweed 0 Somali thistle 0 Short Ragweed 5x5f Barron, Sheep Red 0 Skin test positive. Clinical correlation recommended and allergy consult, if clinically indicated. RY DRYER OPERATOR documented in this encounter Plan of Treatment Upcoming Encounters Date Type Specialty Care Team Description 10/31/2022 Appointment Neurology Krishan Almendarez M.D . [address] [place] [address] [phone] (Wo rk) documented as of this encounter Visit Diagnoses Diagnosis Chronic Cough Sinusitis Recurrent documented in this encounter
--- OUTSIDE RECORDS SUMMARY | 2022-08-30 07:43 | XMS_ITS | Encounter Summary ---
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 [facility] Procedures FISHER TROT LINE Voice evaluation [address] [place] [phone] Referral ID Status Reason Start Date Expiration Date Visits Requ ested Visits Authorized [id number] Closed 10/12/2020 10/12/2021 1 1 Encounter Details Date Type Department Care Team Description 10/23/2020 Comprehensive Visit Department of Lion Mukherjee M.D. [address] [place] [phone] Dysphonia (Primary Dx); [facility] [address] [place] [phone] Shortness Of Breath; [place], [place] Cough Chronic; [address] [facility] [place] [phone] Social History Tobacco Use Types Packs/Day Years [...] er 10/21/2021 How often do you attend religion or zoroastrianism services? 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 HISTORY OF PRESENT ILLNESS Joshua Peters is a pleasant 40 y.o. year old woman here for evaluation. She was seen recentlyby our Pulmonary group. Please refer to the excellent notes of Dr. Mukherjee in Dr. Roger dated October 12, 2020. Briefly, they questioned vocal cord dysfunction and sent her on for evaluation. Briefly,she reports long history of breathing difficulties. She states that over the past 10 years her breathing has worsened. When she has difficulty she notes shortness of breath and chest tightness. She identifies a variety allergy type triggers including mehdi is, mold, trees, ragweed, and grass. She does feel that strong odors can set her off as well. She describes a typical episode is beginning with a cough. She will then feel pain in her chest. She endorses difficulty with both inhalation and exhalation. She denies stridor. She states that at times she will have ???rattling?? in her chest. She states that she has had two years of ongoing hoarseness. She has so sits this primarily with illness she feels the postnasal drainage contribute to her cough. She reports that she has significant sinus symptoms including chronic sinus infections. She has been evaluated on multiple occasions by ENTproviders and found to have normal exam and normal CT. Her most recent sinus CT was done here on October 12 with results as follows: FINDINGS: Paranasal sinuses without significant disease. No intrasinus fluid. No chronic inflammatory changes of reactive osteitis. Midline bony nasal septum without spurring. Mastoid air cells and middle ear cavities clear. Visualized portions of the intracranial fossa without acute abnormality. IMPRESSION: No evidence for acute or chronic sinusitis. She also had recent rhinolaryngoscopy with Dr. Lindo on October 12. This exam was normal. PHYSICAL EXAMINATION I. Phonation: Phonatory quality during connected speech is mildly hoarse. II. Patient Self-Assessment: Patient rates the voice today as 50 percent of normal. The best voice gets is 50 percent of normal, and it will worsen to 0 percent of normal. Patient rates concern about voice as 5/7, andd effort when speaking as 4/7, both on a scale where 7 equals most extreme concern orextreme effort. Patient has difficulty within 10-20 minutes of speaking. Total score on the Voice Handicap Index-10 (VHI-10) is 30/40. III. Other: Clinical voice questionnaire is checked positive for allergies, asthma, fullness in the throat, heartburn, reflux, neck pain, throat pain, and chronic cough Occupation is unemployed. IV. Voice care: Patient consumes 6 glasses of water per day and 3 caffeinated beverages per day. Social History Tobacco Use ??? Smoking status: Never Smoker ??? Smokeless tobacco: Never Used Substance Use Topics ??? Alcohol use: Never Frequency: Never ??? Drug use: Never IMPRESSION Ms. Peters has long history of breathing difficulty. She is undergoing workup with our Pulmonary group. Her history is not compelling for paradoxic vocal fold motion. There could be a component ofbehavioral breathlessness. She does endorse some voice difficulty. Therefore, I offered to see her for a video visit to work on some breathing techniques as well as voice therapy techniques. She was agreeable to this. It was my pleasure to participate in her care. PATIENT EDUCATION Ready to learn, no apparent learning barriers identified; learning preferences include listening. Diagnosis and treatment plan explained; opportunity to ask questions given; patient expressed understanding of content. 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 [address] [place], [place] [phone] (Wo rk) Scheduled Referrals Name Type Priority Associated Diagnoses Order S chedule Video anyplace Outpatient Referral Routine Dysphonia Expect ed: visit 10/23/2020 (Approximate), Expires: 10/23/2023 documented as of this encounter Visit Diagnoses Diagnosis Dysphonia - Primary Shortness Of Breath Chronic Cough Sinusitis Recurrent documented in this encounter
--- OUTSIDE RECORDS SUMMARY | 2022-08-30 07:43 | XMS_ITS | Encounter Summary ---
:1980 Author Organization [facility] Address [address] [place] [address] Care Team Providers Name Role Phone Unavailable Primary Care Provider Unavailable Reason for Referral MRI/CAT/PET Scan (Routine) - Closed Specialty Diagnoses / Procedures Referred By Contact Refer red To Contact Radiology Diagnoses Shortness Of Breath Chronic Cough Sinusitis Recurrent Mohinder Mukherjee M.D. [facility] Procedures CT Sinuses without IV Contrast [address] [place], [place] [phone] Referral ID Status Reason Start Date Expiration Date Visits Requ ested Visits Authorized [id number] Closed 10/12/2020 10/12/2021 1 1 BURNER MRI/CAT/PET Scan (Routine) - Closed Specialty Diagnoses / Procedures Referred By Contact Refer red To Contact Radiology Diagnoses Shortness Of Breath Chronic Cough Sinusitis Recurrent Mohinder Mukherjee M.D. [facility] Procedures CT Chest without IV Contrast [address] [place], [place] [phone] Referral ID Status Reason Start Date Expiration Date Visits Requ ested Visits Authorized [id number] Closed 10/12/2020 10/12/2021 1 1 BURNER Reason for Visit MRI/CAT/PET Scan (Routine) - Closed Specialty Diagnoses / Procedures Referred By Contact Refer red To Contact Radiology Diagnoses Shortness Of Breath Chronic Cough Sinusitis Recurrent Mohinder Mukherjee M.D. [facility] Procedures CT Sinuses without IV Contrast [address] [place] [phone] Referral ID Status Reason Start Date Expiration Date Visits Requ ested Visits Authorized [id number] Closed 10/12/2020 10/12/2021 1 1 Encounter Details Date Type Department Care Team Description 10/12/2020 Hospital Encounter Department of Mohinder Mukherjee ness Of Breath; Radiology, Sabi Coe M.D. Cough Chronic; Building, in [address] [place] [address] Sinusitis Recurrent [place], [place] [address] [facility] [phone] [place], [place] [phone] (Work) [phone] Social History Tobacco Use Types Packs/Day Years [...] er 10/21/2021 How often do you attend worship or oriental orthodox services? Never 10/21/2021 Do you belong to any clubs or organizations such as worship N o 10/21/2021 groups, unions, fraternal or [...] place to sleep or slept in a nursing home (including now)? Education Answer Date Recorded What is the highest level of school you have completed or 12 th grade 10/06/2020 the highest degree you have received? 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 azelastine (ASTELIN) 137 azelastine 137 mcg (0.1 0 05/12/2020 mcg/spray (0.1 %) nasal %) nasal spray aerosol 1 spray azelastine (ASTELIN) 137 Administer 2 sprays into 25 mL 11 10/12/2020 mcg/spray (0.1 %) nasal each nostril 2 (two) 1 spray times a day. Use in each nostril as directed benralizumab (Fasenra Inject 30 mg under the 0 Pen) 30 mg/mL injection skin every 8 (eight) 2 weeks. fluticasone propionate fluticasone propionate 0 0 11/06/2019 (FLONASE) 50 50 mcg/actuation nasal 1 mcg/actuation nasal spray,suspension spray fluticasone propionate Administer 2 sprays into 16 g 6 10/12/2020 (FLONASE) 50 each nostril 2 (two) 1 mcg/actuation nasal times a day. spray NaCl 0.9 % irrigation Use with clindamycin 0 09/0 09/2019 150mg capsule opened 2 into 1000ml of saline/rinse each nostril with 20cc of soln bid omeprazole (PriLOSEC) 20 omeprazole 20 mg 0 02/[address] capsule capsule,delayed release 2 documented as of this encounter Plan of Treatment Upcoming Encounters Date Type Specialty Care Team Description 10/31/2022 Appointment Neurology Krishan Almendarez M.D . [address] [place] [phone] (Wo rk) documented as of this encounter Procedures Procedure Name Priority Date/Time Associated Comments Diagnosis CT SINUSES RAD - Routine 10/12/2020 1:06 Shortness Of Results for this WITHOUT IV (most inpatients PM KILN BURNER Breath procedure are in CONTRAST and all Cough Chronic the results outpatients) Sinusitis section. Recurrent CT CHEST WITHOUT RAD - Routine 10/12/2020 1:06 Shortness Of Results for this IV CONTRAST (most inpatients PM KILN BURNER Breath procedure are in and all Cough Chronic the results outpatients) Sinusitis section. Recurrent documented in this encounter Results CT Sinuses without IV Contrast (10/12/2020 1:06 PM KILN BURNER) Anatomical Region Laterality Modality Head, Neuroradiology RST LOS, N/A Computed T omography, Computed Neuroradiology ARZ LOS, Neuroradiology T omography FLA LOS Specimen (Source) Anatomical Collection Method Collection Time Re ceived Time Location / / Volume Laterality 10/12/2020 2:25 PM KILN BURNER Impressions 10/12/2020 2:31 PM KILN BURNER No evidence for acute or chronic sinusit is. Narrative 10/12/2020 2:31 PM KILN BURNER EXAM: CT SINUSES WITHOUT IV CONTRAST COMPARISON: None FINDINGS: Paranasal sinuses without sign ificant disease. No intrasinus fluid. No chronic inflammatory changes of reactive osteitis. Midline bony nasal septum without spurring. Mastoid air cells and middle ear cavities clear. Visualized portions of the intracranial fossa witho ut acute abnormality. Procedure Note Renaldo Garcia M.D. - 10/12/2020Form atting of this note might be different from the original. EXAM: CT SINUSES WITHOUT IV CONTRAST COMPARISON: None FINDINGS: Paranasal sinuses without sign ificant disease. No intrasinus fluid. No chronic inflammatory changes of reactive osteitis. Midline bony nasal septum without spurring. Mastoid air cells and middle ear cavities clear. Visualized portions of the intracranial fossa witho ut acute abnormality. IMPRESSION: No evidence for acute or chronic sinusit is. Mohinder Mukherjee M.D. IMG CT PROCEDURES CT Chest without IV Contrast (10/12/2020 1:06 PM KILN BURNER) Anatomical Region Laterality Modality Chest, Thoracic RST LOS, Thoracic ARZ N/A Co mputed Tomography, Computed LOS, Thoracic FLA LOS Tomography Specimen (Source) Anatomical Collection Method Collection Time Re ceived Time Location / / Volume Laterality 10/12/2020 3:30 PM KILN BURNER Impressions 10/12/2020 3:54 PM KILN BURNER 1. No evidence of tracheomalacia or bron chiectasis. 2. Few small pulmonary nodules measuring up to 4 mm. Guidelines for follow-up as discussed in the body of the report 3. Sequela of prior granulomatous infect ion. 4. Hepatic steatosis. Narrative 10/12/2020 3:54 PM KILN BURNER EXAM: CT CHEST WITHOUT IV CONTRAST COMPARISON: Chest x-ray 10/09/2020 ?? FINDINGS: Tiny foci of endobronchial mucous pluggi ng. No evidence of tracheomalacia on the dynamic images. No bronchiectasis. There is very mild mosaic attenuation of the lung parenchyma which may relate to smal l airway disease. Tiny pulmonary nodules such as the 3 mm nodule right middle lob e (series 3/image 247) and a 4 mm nodule in the right lower lobe (series 3/image 325). Calcified granulomas. Mild dependent groundglass opacities at the d ependent aspect of both lungs are favored to represent atelectasis. No ple ural effusion. No intrathoracic lymphadenopathy by CT s ize criteria. Calcified mediastinal and hilar lymph nodes are likely due to pamela te granulomatous disease. No suspicious osseous lesions. ??Mild hy pertrophic changes of the thoracic spine. The visualized upper abdomen demonstrate s diffuse hepatic steatosis and a calcified splenic granuloma. GUIDELINES FOR FOLLOW-UP of newly detect ed solid nodules incidentally detected on CT in persons 35 years or older. (201 7 revision) LOW-RISK PATIENT (Minimal or absent hist ory of smoking or of other known risk factors) For single nodule, size: <6mm ??No routine follow-up required 6-8mm CT at 6-12 months; then consider C T at 18-24 months, if no change >8mm ??Consider Pulmonary Medicine consu ltation for management, or follow-up with CT at 3 months For multiple nodules, size of largest no dule: <6mm ??No routine follow-up required 6mm or > CT at 3-6 months, then consider CT at 18-24 months HIGH-RISK PATIENT (History of smoking or of other known risk factors) For single nodule, size: <6mm ??Optional CT at 12 months*; If unc hanged, no further follow-up required 6-8mm CT at 6-12 months; then CT at 18-2 4 months, if no change >8mm Consider Pulmonary Medicine consult ation for management, or follow-up with CT at 3 months For multiple nodules, size of largest no dule: <6mm Optional CT at 12 months*; If uncha nged, no further follow-up required 6mm or > CT at 3-6 months, then at 18-24 months (Nodule size is the average of length an d width.) *Nodules <6mm do not require routine fol low-up, but certain patients at high risk with suspicious nodule morphology, upper lobe location, or both may warrant 12-month follow-up. ?? Guidelines do not apply to lung cancer s creening, patients with immunosuppression, or patients with a kn own primary cancer. Procedure Note Vanna Poon M.D. - 10/12/2020Form atting of this note might be different from the original. EXAM: CT CHEST WITHOUT IV CONTRAST COMPARISON: Chest x-ray 10/09/2020 FINDINGS: Tiny foci of endobronchial mucous pluggi ng. No evidence of tracheomalacia on the dynamic images. No bronchiectasis. There is very mild mosaic attenuation of the lung parenchyma which may relate to smal l airway disease. Tiny pulmonary nodules such as the 3 mm nodule right middle lob e (series 3/image 247) and a 4 mm nodule in the right lower lobe (series 3/image 325). Calcified granulomas. Mild dependent groundglass opacities at the d ependent aspect of both lungs are favored to represent atelectasis. No ple ural effusion. No intrathoracic lymphadenopathy by CT s ize criteria. Calcified mediastinal and hilar lymph nodes are likely due to pamela te granulomatous disease. No suspicious osseous lesions. Mild hype rtrophic changes of the thoracic spine. The visualized upper abdomen demonstrate s diffuse hepatic steatosis and a calcified splenic granuloma. GUIDELINES FOR FOLLOW-UP of newly detect ed solid nodules incidentally detected on CT in persons 35 years or older. (201 7 revision) LOW-RISK PATIENT (Minimal or absent hist ory of smoking or of other known risk factors) For single nodule, size: <6mm No routine follow-up required 6-8mm CT at 6-12 months; then consider C T at 18-24 months, if no change >8mm Consider Pulmonary Medicine consult ation for management, or follow-up with CT at 3 months For multiple nodules, size of largest no dule: <6mm No routine follow-up required 6mm or > CT at 3-6 months, then consider CT at 18-24 months HIGH-RISK PATIENT (History of smoking or of other known risk factors) For single nodule, size: <6mm Optional CT at 12 months*; If uncha nged, no further follow-up required 6-8mm CT at 6-12 months; then CT at 18-2 4 months, if no change >8mm Consider Pulmonary Medicine consult ation for management, or follow-up with CT at 3 months For multiple nodules, size of largest no dule: <6mm Optional CT at 12 months*; If uncha nged, no further follow-up required 6mm or > CT at 3-6 months, then at 18-24 months (Nodule size is the average of length an d width.) *Nodules <6mm do not require routine fol low-up, but certain patients at high risk with suspicious nodule morphology, upper lobe location, or both may warrant 12-month follow-up. Guidelines do not apply to lung cancer s creening, patients with immunosuppression, or patients with a kn own primary cancer. IMPRESSION: 1. No evidence of tracheomalacia or bron chiectasis. 2. Few small pulmonary nodules measuring up to 4 mm. Guidelines for follow-up as discussed in the body of the report 3. Sequela of prior granulomatous infect ion. 4. Hepatic steatosis. Mohinder TOBIN CT PROCEDURES documented in this encounter Visit Diagnoses Diagnosis Shortness Of Breath Chronic Cough Sinusitis Recurrent documented in this encounter
--- OUTSIDE RECORDS SUMMARY | 2022-08-30 07:43 | XMS_ITS | Encounter Summary ---
:1980 Author Organization [facility] Address [address] [place] [address] Care Team Providers Name Role Phone Unavailable Primary Care Provider Unavailable Encounter Details Date Type Department Care Team Description 10/22/2020 Diagnostic Division of Pulmonary oMhinder Mukherjee, Shortness Of Breath; [place] Cough Chronic; [place] [address] [facility] Sinusitis Recurrent [address] [place] [phone] Social History Tobacco Use Types Packs/Day Years [...] er 10/21/2021 How often do you attend latter day or spiritism services? 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 ??[place] Sleepiness Scale was 11. Baseline oxygen saturation was 95%, with mean overnight saturation ranging between 89 and 95%. ??There were multipl e episodes of oscillatory desaturation, concerning for sleep disor dered breathing. Impression: ??Abnormal. ??Episodes of os cillatory desaturation concerning for sleep disordered breathing. ?? Mohinder Mukherjee M.D. PFT ORDERABLES Performing Organization Address City/State/ZIP Code Phon e Number COLTON LOWERY EAP documented in this encounter Visit Diagnoses Diagnosis Shortness Of Breath Chronic Cough Sinusitis Recurrent documented in this encounter
--- OUTSIDE RECORDS SUMMARY | 2022-08-30 07:43 | XMS_ITS | Encounter Summary ---
:1980 Author Organization [facility] Address [address] [place] [id number] Care Team Providers Name Role Phone Unavailable Primary Care Provider Unavailable Reason for Referral Outpatient (Routine) - Closed Specialty Diagnoses / Procedures Referred By Contact Refer red To Contact Pulmonary Medicine Diagnoses Deficiency Alpha 1 Antitrypsin (HCC) Mohinder Mukherjee [facility] [address] [place] [address] Referral ID Status Reason Start Date Expiration Date Visits Requ ested Visits Authorized [id number] Closed 10/30/2020 10/30/2021 1 1 Scheduling Instructions After tests ATG DEVELOPER Reason for Visit Outpatient (Routine) - Closed Specialty Diagnoses / Procedures Referred By Contact Refer red To Contact Pulmonary Medicine Diagnoses Dyspnea Mohinder Mukherjee M.D. [facility] [address] [place] [phone] Referral ID Status Reason Start Date Expiration Date Visits Requ ested Visits Authorized [id number] Closed 10/24/2020 10/24/2021 1 1 Encounter Details Date Type Department Care Team Description 10/30/2020 Office Visit Division of Pulmonary Mohinder Mukherjee Obesity (HCC) (Primary Dx); [place] Deficiency Alpha 1 Antitrypsin (HCC); [place] [address] [facility] Apnea Sleep Obstructive; [address] [place], [place] [phone] Social History Tobacco Use Types Packs/Day [...] er 10/21/2021 How often do you attend mandaeism or restoration services? Never 10/21/2021 Do you belong to any clubs or organizations such as mandaeism N o 10/21/2021 groups, unions, fraternal or [...] at Date Recorded Female 10/21/2021 4:05 AM LEAD ATG DEVELOPER documented as of this encounter Progress Notes Mohinder Mukherjee M.D. - 10/30/2020 3:30 PM CST Joshua Peters is a 40 y.o. female with medical comorbidities including but not limited to morbid obesity, and outside diagnosis' severe persistent asthma without abnormal pulmonary function testing, chronic mucopurulent sinusitis/bronchitis without abnormal CT scan previously normal ENT evaluation, GERD on p.r.n. omeprazole, multiple environmental allergies with reported positive skin testing and previous injection therapy. I am seeing her back today for follow-up after a number of tests. ENT did not think that there was vocal cord dysfunction. The commented that she could have a component of behavioral breathlessness and they are currently working on breathing techniques. Her CT scan of the lungs did not show signs of bronchiectasis for tracheobronchomalacia, nor did it show any other etiologies for her breathlessness. IgG was just below normal and the decrease is not thought to be clinically significant. Other immunoglobulins were normal. Autoimmune panel for an ANCA vasculitis was negative. She had a rhinoscopy which showed excessive posterior rhinorrhea and crusting from recent epistaxis in the anterior nasal cavity. Skin testing was only positive to ragweed. Our Allergy team reviewed her case and recommended using a triple spray, getting a a neurology evaluation for headaches, and obtaining additional blood work to assess for other allergens. 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 There were no clear signs of emphysema on her CT scan. We discussed that we should repeat the level in 1 year along with pulmonary function tests. I have put through orders for this to occur. Overnight oximetry showed an MANNY of 14. She has follow-up established with her home Sleep Medicine team. Overall I explained that we do not see objective signs of asthma that would necessitate her intense medical regimen. I expressed that the number one thing that we could do for her now is to focus on weight loss and improving her exercise capacity. I offered a consultation with our weight Management Clinic with a goal of targeting diet therapy, and considering pharmacotherapy or surgical management ifnecessary. She did not want to move forward with this. She told me that she has lost 100 lb in the past and believes she can do it again. I left the door open to reaching out to me in the future in order to help overcome her barriers to weight loss. The above was explained to the patient in detail. We have discussed the risks / benefits / alternatives to all of the above proposed treatment plan. There were no apparent barriers to learning and understanding. Questions were answered. ATG DEVELOPER documented in this encounter Plan of Treatment Upcoming Encounters Date Type Specialty Care Team Description 10/31/2022 Appointment Neurology Krishan Almendarez M.D . [address] [place], [place] [phone] (Wo rk) Scheduled Referrals Name Type Priority Associated Diagnoses Order S [facility] Pulmonary Medicine Outpatient Referral Routine Deficiency Alph a 1 Expected: office visit Antitrypsin (HCC) 10/30/2021 (clinic) (Approximate), Expires: 10/30/2023 documented as of this encounter Results [id number] Proteotype S/Z by LC-MS/MS (10/25/2021 11:09 AM LEAD ATG DEVELOPER) athologist Signature Jufiu-3-Aystwfq 102 100 - 190 10/26/2021 [facility] psin, S mg/dL 3:06 PM LEAD ATG DEVELOPER Comment: ----ADDITIONAL INFORMATION---- Method: Nephelometry Interpretation S Mutation: Negative 10/29/2021 12: 10 PM LEAD ATG DEVELOPER [facility] 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 * This is an abnormal result. Comment: ----ADDITIONAL INFORMATION---- This test was developed and its performa nce characteristics determined by [facility] in a manner consistent with CLIA requirements. This test has not been cleared or approved by the [place] d and Drug Administration. Specimen Anatomical Collection Method Collection Time Receive d Time (Source) Location / / Volume Laterality Blood (Blood, 10/25/2021 11:09 10/26/2021 6:13 Venous) AM LEAD ATG DEVELOPER AM LEAD ATG DEVELOPER Mohinder Mukherjee M.D. LAB BLOOD NON ADD-ON Performing Organization Address City/State/ZIP Code Phon e Number [facility] [address] [place], [place] [phone] [facility] [place] [address] Laboratory Medicine and Pathology [address] [place] Pulmonary Function Tests (10/25/2021 10:21 AM LEAD ATG DEVELOPER) Analysis Performed At Patho logist Time Signature VC MAX POST 4.25 L 10/25/2021 [place] [facility] 3:23 PM LEAD ATG DEVELOPER SUITE PostFVC 4.18 L 10/25/2021 [place] [facility] 3:23 PM LEAD ATG DEVELOPER SUITE PostFEV1 3.64 L 10/25/2021 [place] [facility] 3:23 PM LEAD ATG DEVELOPER SUITE FEV1/FVC POST 87.05 % 10/25/2021 [facility] [facility] 3:23 PM LEAD ATG DEVELOPER SUITE FEF 25-75 % 4.47 L/s 10/25/2021 [place] [facility] POST 3:23 PM LEAD ATG DEVELOPER SUITE PEF POST 10.03 L/s 10/25/2021 [facility] 3:23 PM LEAD ATG DEVELOPER SUITE FET POST 5.25 sec 10/25/2021 [facility] 3:23 PM LEAD ATG DEVELOPER SUITE DLCO SINGLE 26.63 ml/(min*mm 10/25/2021 [place] [facility] BREATH POST Hg) 3:23 PM LEAD ATG DEVELOPER SUITE VA SINGLE 5.38 L 10/25/2021 [facility] [facility] BREATH POST 3:23 PM LEAD ATG DEVELOPER SUITE VC MAX PRE 4.14 L 10/25/2021 [facility] [facility] 3:23 PM LEAD ATG DEVELOPER SUITE FVC 4.13 L 10/25/2021 [place] [facility] 3:23 PM LEAD ATG DEVELOPER SUITE FEV1 3.60 L 10/25/2021 [facility] [facility] 3:23 PM LEAD ATG DEVELOPER SUITE FEV1/FVC 87.35 % 10/25/2021 [facility] [facility] 3:23 PM LEAD ATG DEVELOPER SUITE EHW76-64% 4.45 L/s 10/25/2021 [facility] [facility] 3:23 PM LEAD ATG DEVELOPER SUITE PEF PRE 9.57 L/s 10/25/2021 [place] [facility] 3:23 PM LEAD ATG DEVELOPER SUITE FET PRE 6.58 sec 10/25/2021 [place] [facility] 3:23 PM LEAD ATG DEVELOPER SUITE SUBSTANCE POST Albuterol 10/25/2021 [facility] [facility] 3:23 PM LEAD ATG DEVELOPER SUITE DOSE POST 2 Puff 10/25/2021 [facility] [facility] 3:23 PM LEAD ATG DEVELOPER SUITE % PRED VC MAX 92 % % 10/25/2021 [facility] [facility] 3:23 PM LEAD ATG DEVELOPER SUITE FVC% 92 % % 10/25/2021 [facility] [facility] 3:23 PM LEAD ATG DEVELOPER SUITE FEV1% 100 % % 10/25/2021 [facility] [facility] 3:23 PM LEAD ATG DEVELOPER SUITE % PRED 107 % % 10/25/2021 [facility] FEV1/FVC 3:23 PM LEAD ATG DEVELOPER SUITE % PRED FEF 125 % % 10/25/2021 [facility] [facility] 25-75% 3:23 PM LEAD ATG DEVELOPER SUITE % PRED PEF 138 % % 10/25/2021 [place] [facility] 3:23 PM LEAD ATG DEVELOPER SUITE PRED VC MAX 4.48 10/25/2021 [facility] [facility] 3:23 PM LEAD ATG DEVELOPER SUITE PRED FVC 4.48 10/25/2021 [facility] 3:23 PM LEAD ATG DEVELOPER SUITE PRED FEV 1 3.61 10/25/2021 [facility] 3:23 PM LEAD ATG DEVELOPER SUITE PRED FEV1/FVC 81.3 10/25/2021 [facility] 3:23 PM LEAD ATG DEVELOPER SUITE PRED FEF 3.55 10/25/2021 [facility] 25-75% 3:23 PM LEAD ATG DEVELOPER SUITE PRED PEF 6.9 10/25/2021 [facility] 3:23 PM LEAD ATG DEVELOPER SUITE PRED DLCO 26.4 10/25/2021 [facility] 3:23 PM LEAD ATG DEVELOPER SUITE Specimen (Source) Anatomical Collection Method Collection Time Re ceived Time Location / / Volume Laterality 10/25/2021 10:21 AM LEAD ATG DEVELOPER Narrative This result has an attachment that is no t available. Mohinder Mukherjee M.D. PFT ORDERABLES Performing Organization Address City/State/ZIP Code Phon e Number [facility] NA documented in this encounter Visit Diagnoses Diagnosis Morbid Obesity (HCC) - Primary Deficiency Alpha 1 Antitrypsin (HCC) Apnea Sleep Obstructive Dyspnea documented in this encounter
--- OUTSIDE RECORDS SUMMARY | 2022-08-30 07:43 | XMS_ITS | Encounter Summary ---
:1980 Author Organization [facility] Address [address] [place] [address] Care Team Providers Name Role Phone Unavailable Primary Care Provider Unavailable Encounter Details Date Type Department Care Team Description 10/30/2020 Hospital Encounter Department of Ranjeet Iniguez Cou gh Chronic Laboratory Medicine and Omayra , Ph.D. Pathology, [address] in [facility] [id number] [place] [address] [place], [place] (Work) [phone] Social History Tobacco Use Types Packs/Day Years [...] er 10/21/2021 How often do you attend restoration or jewish services? Never 10/21/2021 Do you belong to any clubs or organizations such as restoration N o 10/21/2021 groups, unions, fraternal or [...] place to sleep or slept in a retirement (including now)? Education Answer Date Recorded What is the highest level of school you have completed or 12 th grade 10/06/2020 the highest degree you have received? Sex Assigned at Date Recorded Female 10/21/2021 4:05 AM MANAGER SUSTAINABILITY documented as of this encounter Medications at [...] Care Team Description 10/31/2022 Appointment Neurology Krishan Almendarze M.D . [address] [place] [address] [phone] (Wo rk) documented as of this encounter Procedures Procedure Name Priority Date/Time Associated Comments Diagnosis RED SORREL, IGE, S Routine 10/30/2020 11:50 Cough Chronic Resu lts for this AM MANAGER SUSTAINABILITY procedure are i n the results section. JENNY GRASS, IGE, S Routine 10/30/2020 11:50 Cough Chronic Resu lts for this AM MANAGER SUSTAINABILITY procedure are i n the results section. BETHANY SYNANCYORE, IGE, Routine 10/30/2020 11:50 Cough Chronic Results for this S AM MANAGER SUSTAINABILITY procedure are i n the results section. PATRICIA GARCIA, IGE, S Routine 10/30/2020 11:50 Cough Chronic R esults for this AM MANAGER SUSTAINABILITY procedure are i n the results section. ENGLISH MONROE, IGE, Routine 10/30/2020 11:50 Cough Chronic Results for this S AM MANAGER SUSTAINABILITY procedure are i n the results section. PENICILLIUM Routine 10/30/2020 11:50 Cough Chronic Results fo r this CHRYSOGENUM, IGE, S AM MANAGER SUSTAINABILITY procedur e are in the results section. HORSE DANDER, IGE, S Routine 10/30/2020 11:50 Cough Chronic Re sults for this AM MANAGER SUSTAINABILITY procedure are i n the results section. STEMPHYLLIUM, IGE, S Routine 10/30/2020 11:50 Cough Chronic Re sults for this AM MANAGER SUSTAINABILITY procedure are i n the results section. EPICOCCUM Routine 10/30/2020 11:50 Cough Chronic Results fo r this PURPURASCENS, IGE, S AM MANAGER SUSTAINABILITY procedu re are in the results section. ORCHARD GRASS, IGE, S Routine 10/30/2020 11:50 Cough Chronic R esults for this AM MANAGER SUSTAINABILITY procedure are i n the results section. MUCOR, IGE, S Routine 10/30/2020 11:50 Cough Chronic Results f or this AM MANAGER SUSTAINABILITY procedure are i n the results section. ELM, IGE, S Routine 10/30/2020 11:50 Cough Chronic Results fo r this AM MANAGER SUSTAINABILITY procedure are i n the results section. WALNUT TREE, IGE, S Routine 10/30/2020 11:50 Cough Chronic Res ults for this AM MANAGER SUSTAINABILITY procedure are i n the results section. SILVER BIRCH, IGE, S Routine 10/30/2020 11:50 Cough Chronic Re sults for this AM MANAGER SUSTAINABILITY procedure are i n the results section. ALTERNARIA TENUIS, Routine 10/30/2020 11:50 Cough Chronic Resu lts for this IGE, S AM MANAGER SUSTAINABILITY procedure are i n the results section. ASPERGILLUS FUMIGATUS, Routine 10/30/2020 11:50 Cough Chronic Results for this IGE, S AM MANAGER SUSTAINABILITY procedure are i n the results section. HOUSE DUST Routine 10/30/2020 11:50 Cough Chronic Results fo r this MITES/DERMATOPHAGOIDES AM MANAGER SUSTAINABILITY proce dure are in PTERONYSSINUS, IGE, S the re sults section. HOUSE DUST Routine 10/30/2020 11:50 Cough Chronic Results fo r this MITES/DERMATOPHAGOIDES AM MANAGER SUSTAINABILITY proce dure are in FARINAE, IGE, S the results section. CAT EPITHELIUM, IGE, S Routine 10/30/2020 11:50 Cough Chronic Results for this AM MANAGER SUSTAINABILITY procedure are i n the results section. DOG DANDER, IGE, S Routine 10/30/2020 11:50 Cough Chronic Resu lts for this AM MANAGER SUSTAINABILITY procedure are i n the results section. ROUGH NICOLE ELDER, Routine 10/30/2020 11:50 Cough Chronic Resu lts for this IGE, S AM MANAGER SUSTAINABILITY procedure are i n the results section. COCKROACH, IGE, S Routine 10/30/2020 11:50 Cough Chronic Resul ts for this AM MANAGER SUSTAINABILITY procedure are i n the results section. KENYAN THISTLE, IGE, Routine 10/30/2020 11:50 Cough Chronic R esults for this S AM MANAGER SUSTAINABILITY procedure are i n the results section. SHORT RAGWEED, IGE, S Routine 10/30/2020 11:50 Cough Chronic R esults for this AM MANAGER SUSTAINABILITY procedure are i n the results section. ROUGH PIGWEED, IGE, S Routine 10/30/2020 11:50 Cough Chronic R esults for this AM MANAGER SUSTAINABILITY procedure are i n the results section. MUGWORT, IGE, S Routine 10/30/2020 11:50 Cough Chronic Results for this AM MANAGER SUSTAINABILITY procedure are i n the results section. CLINTON'S QUARTER, IGE, S Routine 10/30/2020 11:50 Cough Chronic Results for this AM MANAGER SUSTAINABILITY procedure are i n the results section. FIREBUSH (KOCHIA), Routine 10/30/2020 11:50 Cough Chronic Resu lts for this IGE, S AM MANAGER SUSTAINABILITY procedure are i n the results section. HAROON GRASS, IGE, S Routine 10/30/2020 11:50 Cough Chronic R esults for this AM MANAGER SUSTAINABILITY procedure are i n the results section. OAK, IGE, S Routine 10/30/2020 11:50 Cough Chronic Results fo r this AM MANAGER SUSTAINABILITY procedure are i n the results section. COTTONWOOD, IGE, S Routine 10/30/2020 11:50 Cough Chronic Resu lts for this AM MANAGER SUSTAINABILITY procedure are i n the results section. BOX ELDER/MAPLE, IGE, Routine 10/30/2020 11:50 Cough Chronic R esults for this S AM MANAGER SUSTAINABILITY procedure are i n the results section. WHITE CESAR, IGE, S Routine 10/30/2020 11:50 Cough Chronic Resul ts for this AM MANAGER SUSTAINABILITY procedure are i n the results section. CLADOSPORIUM, IGE, S Routine 10/30/2020 11:50 Cough Chronic Re sults for this AM MANAGER SUSTAINABILITY procedure are i n the results section. PHOMA BETAE, IGE, S Routine 10/30/2020 11:50 Cough Chronic Res ults for this AM MANAGER SUSTAINABILITY procedure are i n the results section. AUREOBASIDIUM Routine 10/30/2020 11:50 Cough Chronic Results f or this PULLULANS, IGE, S AM MANAGER SUSTAINABILITY procedure are in the results section. WHITE PINE, IGE, S Routine 10/30/2020 11:50 Cough Chronic Resu lts for this AM MANAGER SUSTAINABILITY procedure are i n the results section. MARMOLEJO PRANAY, IGE, S Routine 10/30/2020 11:50 Cough Chronic Resu lts for this AM MANAGER SUSTAINABILITY procedure are i n the results section. documented in this encounter Results Stemphyllium, IgE (10/30/2020 11:50 AM MANAGER SUSTAINABILITY) P athologist Signature Stemphyllium, <0.35 kU/L 10/30/2020 [facility] IgE 7:57 PM MANAGER SUSTAINABILITY Comment: Class 0 (Negative <0.35) Specimen Anatomical Collection Method Collection Time Receive d Time (Source) Location / / Volume Laterality Blood (Blood, 10/30/2020 11:50 10/30/2020 5:26 Venous) AM MANAGER SUSTAINABILITY PM MANAGER SUSTAINABILITY Ranjeet WestonB.SGaudencio, Ph.D. LAB BLOOD ADD-ON Performing Organization Address City/[facility] Phon e Number [facility] [address] [place] [address] SUPPORT CENTER [facility] [place] [address] Laboratory Medicine and Pathology [address] [place] [address] Dr. [place] Aureobasidium pullulans, IgE (10/30/2020 11:50 AM MANAGER SUSTAINABILITY) Analysis Performed At Patho logist Time Signature Aureobasidium <0.35 kU/L 10/30/2020 [facility] Pullulans, IgE 7:57 PM MANAGER SUSTAINABILITY Comment: Class 0 (Negative <0.35) Specimen Anatomical Collection Method Collection Time Receive d Time (Source) Location / / Volume Laterality Blood (Blood, 10/30/2020 11:50 10/30/2020 5:26 Venous) AM MANAGER SUSTAINABILITY PM MANAGER SUSTAINABILITY Ranjeet WestonB.SGaudencio, Ph.D. LAB BLOOD ADD-ON Performing Organization Address City/[facility]/ZIP Code Phon e Number [facility] [address] [place], [place] [address] [facility] [place] [place] [address] Laboratory Medicine and Pathology [address] [place] [address] Dr. [place] Phoma betae, IgE (10/30/2020 11:50 AM MANAGER SUSTAINABILITY) athologist Signature Phoma Betae, <0.35 kU/L 10/30/2020 [facility] IgE 7:57 PM MANAGER SUSTAINABILITY Comment: Class 0 (Negative <0.35) Specimen Anatomical Collection Method Collection Time Receive d Time (Source) Location / / Volume Laterality Blood (Blood, 10/30/2020 11:50 10/30/2020 5:26 Venous) AM MANAGER SUSTAINABILITY PM MANAGER SUSTAINABILITY Ranjeet Cutler, Ph.D. LAB BLOOD ADD-ON Performing Organization Address City/[facility] Phon e Number [facility] [address] [place] [address] [address] [facility] [place] [address] Laboratory Medicine and Pathology [address] [place] [address] Dr. [place] Penicillium chrysogenum, IgE (10/30/2020 11:50 AM MANAGER SUSTAINABILITY) athologist Signature Penicillium, <0.35 kU/L 10/30/2020 [facility] IgE 7:57 PM MANAGER SUSTAINABILITY Comment: Class 0 (Negative <0.35) Specimen Anatomical Collection Method Collection Time Receive d Time (Source) Location / / Volume Laterality Blood (Blood, 10/30/2020 11:50 10/30/2020 5:26 Venous) AM MANAGER SUSTAINABILITY PM MANAGER SUSTAINABILITY Ranjeet Cutler, Ph.D. LAB BLOOD ADD-ON Performing Organization Address City/State/[facility] Code Phon e Number [facility] [address] [place], [place] [address] [facility] [place] [place] [address] Laboratory Medicine and Pathology [address] [place] [address] Dr. KYMBERLY Mittal, IgE (10/30/2020 11:50 AM MANAGER SUSTAINABILITY) athologist Signature Mucor, IgE <0.35 kU/L 10/30/2020 7:57 SDSC PM MANAGER SUSTAINABILITY Comment: Class 0 (Negative <0.35) Specimen Anatomical Collection Method Collection Time Receive d Time (Source) Location / / Volume Laterality Blood (Blood, 10/30/2020 11:50 10/30/2020 5:26 Venous) AM MANAGER SUSTAINABILITY PM MANAGER SUSTAINABILITY Ranjeet Cutler, Ph.D. LAB BLOOD ADD-ON Performing Organization Address City/State/ZIP Code Phon e Number [facility] [address] [place], [place] [address] [facility] [place] [address] Laboratory Medicine and Pathology [address] [place] [address] Dr. [place] Cladosporium, IgE (10/30/2020 11:50 AM MANAGER SUSTAINABILITY) P athologist Signature Cladosporium, <0.35 kU/L 10/30/2020 [facility] IgE 7:57 PM MANAGER SUSTAINABILITY Comment: Class 0 (Negative <0.35) Specimen Anatomical Collection Method Collection Time Receive d Time (Source) Location / / Volume Laterality Blood (Blood, 10/30/2020 11:50 10/30/2020 5:26 Venous) AM MANAGER SUSTAINABILITY PM MANAGER SUSTAINABILITY Ranjeet Cutler, Ph.D. LAB BLOOD ADD-ON Performing Organization Address City/[facility] Phon e Number [facility] [address] [place], [place] [address] [facility] [place] [address] Laboratory Medicine and Pathology [address] [place] [address] Dr. [place] Epicoccum purpurascens, IgE (10/30/2020 11:50 AM MANAGER SUSTAINABILITY) P athologist Signature Epicoccum <0.35 kU/L 10/30/2020 [facility] Purpurascens, 7:57 PM MANAGER SUSTAINABILITY IgE Comment: Class 0 (Negative <0.35) Specimen Anatomical Collection Method Collection Time Receive d Time (Source) Location / / Volume Laterality Blood (Blood, 10/30/2020 11:50 10/30/2020 5:26 Venous) AM MANAGER SUSTAINABILITY PM MANAGER SUSTAINABILITY Ranjeet Cutler, Ph.D. LAB BLOOD ADD-ON Performing Organization Address City/[facility]/ZIP Code Phon e Number [facility] [address] [place], [place] [address] SUPPORT CENTER [facility] [place] [address] Laboratory Medicine and Pathology [address] [place] [address] Dr. [place] Aspergillus fumigatus, IgE (10/30/2020 11:50 AM MANAGER SUSTAINABILITY) P athologist Signature Aspergillus <0.35 kU/L 10/30/2020 [facility] Fumigatus, IgE 7:57 PM MANAGER SUSTAINABILITY Comment: Class 0 (Negative <0.35) Specimen Anatomical Collection Method Collection Time Receive d Time (Source) Location / / Volume Laterality Blood (Blood, 10/30/2020 11:50 10/30/2020 5:26 Venous) AM MANAGER SUSTAINABILITY PM MANAGER SUSTAINABILITY Ranjeet Cutler, Ph.D. LAB BLOOD ADD-ON Performing Organization Address City/[facility] Phon e Number [facility] [address] [place] [address] SUPPORT [facility] [place] [address] Laboratory Medicine and Pathology [address] [place] [address] Dr. [place] Alternaria tenuis, IgE (10/30/2020 11:50 AM MANAGER SUSTAINABILITY) athologist Signature Alternaria <0.35 kU/L 10/30/2020 [facility] Tenuis, IgE 7:57 PM MANAGER SUSTAINABILITY Comment: Class 0 (Negative <0.35) Specimen Anatomical Collection Method Collection Time Receive d Time (Source) Location / / Volume Laterality Blood (Blood, 10/30/2020 11:50 10/30/2020 5:26 Venous) AM MANAGER SUSTAINABILITY PM MANAGER SUSTAINABILITY Ranjeet Cutler, Ph.D. LAB BLOOD ADD-ON Performing Organization Address City/[facility]/ZIP [facility] Phon e Number [facility] [address] [place] [address] SUPPORT [facility] [place] [address] Laboratory Medicine and Pathology [address] [place] [address] Dr. [place] Horse Dander, IgE (10/30/2020 11:50 AM MANAGER SUSTAINABILITY) P athologist Signature Horse Dander, <0.35 kU/L 10/30/2020 [facility] IgE 7:57 PM MANAGER SUSTAINABILITY Comment: Class 0 (Negative <0.35) Specimen Anatomical Collection Method Collection Time Receive d Time (Source) Location / / Volume Laterality Blood (Blood, 10/30/2020 11:50 10/30/2020 5:26 Venous) AM MANAGER SUSTAINABILITY PM MANAGER SUSTAINABILITY Ranjeet Cutler, Ph.D. LAB BLOOD ADD-ON Performing Organization Address City/State/ZIP Code Phon e Number [facility] [address] [place], [place] [address] [facility] [place] [address] Laboratory Medicine and Pathology [address] [place] [address] Dr. [place] House Dust Mites/Dermatophagoides pteronyssinus, IgE (10/30/2020 11:50 AM MANAGER SUSTAINABILITY) athologist Signature House Dust <0.35 kU/L 10/30/2020 [facility] Mites/D.P., IgE 7:57 PM MANAGER SUSTAINABILITY Comment: Class 0 (Negative <0.35) Specimen Anatomical Collection Method Collection Time Receive d Time (Source) Location / / Volume Laterality Blood (Blood, 10/30/2020 11:50 10/30/2020 5:26 Venous) AM MANAGER SUSTAINABILITY PM MANAGER SUSTAINABILITY Ranjeet Cutler, Ph.D. LAB BLOOD ADD-ON Performing Organization Address City/[facility]/ZIP Code Phon e Number [facility] [address] [place], [place] [address] [address] [facility] [place] [place] [address] Laboratory Medicine and Pathology [address] [place] [address] Dr. [place] House Dust Mites/Dermatophagoides farinae, IgE (10/30/2020 11:50 AM MANAGER SUSTAINABILITY) athologist Signature House Dust <0.35 kU/L 10/30/2020 [facility] Mites/D.F., IgE 7:57 PM MANAGER SUSTAINABILITY Comment: Class 0 (Negative <0.35) Specimen Anatomical Collection Method Collection Time Receive d Time (Source) Location / / Volume Laterality Blood (Blood, 10/30/2020 11:50 10/30/2020 5:26 Venous) AM MANAGER SUSTAINABILITY PM MANAGER SUSTAINABILITY Ranjeet Cutler, Ph.D. LAB BLOOD ADD-ON Performing Organization Address City/State/ZIP Code Phon e Number [facility] [address] [place], [place] [address] SUPPORT CENTER [facility] [place] [address] Laboratory Medicine and Pathology [address] [place] [address] Dr. [place] Dog Dander, IgE (10/30/2020 11:50 AM MANAGER SUSTAINABILITY) athologist Signature Dog Dander, IgE <0.35 kU/L 10/30/2020 [facility] 8:49 PM MANAGER SUSTAINABILITY Comment: Class 0 (Negative <0.35) Specimen Anatomical Collection Method Collection Time Receive d Time (Source) Location / / Volume Laterality Blood (Blood, 10/30/2020 11:50 10/30/2020 5:26 Venous) AM MANAGER SUSTAINABILITY PM MANAGER SUSTAINABILITY Ranjeet Cutler, Ph.D. LAB BLOOD ADD-ON Performing Organization Address City/[facility] Phon e Number [facility] [address] [place] [address] SUPPORT [facility] [place] [address] Laboratory Medicine and Pathology [address] [place] [address] Dr. KYMBERLY Green, IgE (10/30/2020 11:50 AM MANAGER SUSTAINABILITY) athologist Signature Cockroach, IgE <0.35 kU/L 10/30/2020 [facility] 8:19 PM MANAGER SUSTAINABILITY Comment: Class 0 (Negative <0.35) Specimen Anatomical Collection Method Collection Time Receive d Time (Source) Location / / Volume Laterality Blood (Blood, 10/30/2020 11:50 10/30/2020 5:26 Venous) AM MANAGER SUSTAINABILITY PM MANAGER SUSTAINABILITY Ranjeet Cutler, Ph.D. LAB BLOOD ADD-ON Performing Organization Address City/[facility] Phon e Number [facility] [address] [place] [address] SUPPORT CENTER [facility] [place] [address] Laboratory Medicine and Pathology [address] [place] [address] Dr. [place] Cat Epithelium, IgE (10/30/2020 11:50 AM MANAGER SUSTAINABILITY) athologist Signature Cat Epithelium, <0.35 kU/L 10/30/2020 [facility] IgE 8:19 PM MANAGER SUSTAINABILITY Comment: Class 0 (Negative <0.35) Specimen Anatomical Collection Method Collection Time Receive d Time (Source) Location / / Volume Laterality Blood (Blood, 10/30/2020 11:50 10/30/2020 5:26 Venous) AM MANAGER SUSTAINABILITY PM MANAGER SUSTAINABILITY Ranjeet Cutler, Ph.D. LAB BLOOD ADD-ON Performing Organization Address City/[facility]/ZIP Code Phon e Number [facility] [address] [place] [address] [address] [facility] [place] [place] [address] Laboratory Medicine and Pathology [address] [place] [address] Dr. [place] Short Ragweed, IgE (10/30/2020 11:50 AM MANAGER SUSTAINABILITY) athologist Signature Short Ragweed, 0.72 kU/L 10/30/2020 [facility] IgE 8:19 PM MANAGER SUSTAINABILITY Comment: Class 2 (Positive 0.70-3.49) Specimen Anatomical Collection Method Collection Time Receive d Time (Source) Location / / Volume Laterality Blood (Blood, 10/30/2020 11:50 10/30/2020 5:26 Venous) AM MANAGER SUSTAINABILITY PM MANAGER SUSTAINABILITY Ranjeet Cutler, Ph.D. LAB BLOOD ADD-ON Performing Organization Address City/[facility] Phon e Number [address] [place] [address] [address] [facility] [place] [place] [address] Laboratory Medicine and Pathology [address] [place] [address] Dr. [place] Red Hartly, IgE (10/30/2020 11:50 AM MANAGER SUSTAINABILITY) athologist Signature Red Hartly, IgE <0.35 kU/L 10/30/2020 [facility] 8:49 PM MANAGER SUSTAINABILITY Comment: Class 0 (Negative <0.35) Specimen Anatomical Collection Method Collection Time Receive d Time (Source) Location / / Volume Laterality Blood (Blood, 10/30/2020 11:50 10/30/2020 5:26 Venous) AM MANAGER SUSTAINABILITY PM MANAGER SUSTAINABILITY Ranjeet Cutler, Ph.D. LAB BLOOD ADD-ON Performing Organization Address City/[facility]/ZIP Code Phon e Number [address] [place] [address] [address] [facility] [place] [place] [address] Laboratory Medicine and Pathology [address] [place] [address] Dr. [place] Finnish Thistle, IgE (10/30/2020 11:50 AM MANAGER SUSTAINABILITY) athologist Signature Finnish <0.35 kU/L 10/30/2020 [facility] Thistle, IgE 8:19 PM MANAGER SUSTAINABILITY Comment: Class 0 (Negative <0.35) Specimen Anatomical Collection Method Collection Time Receive d Time (Source) Location / / Volume Laterality Blood (Blood, 10/30/2020 11:50 10/30/2020 5:26 Venous) AM MANAGER SUSTAINABILITY PM MANAGER SUSTAINABILITY Ranjeet Cutler, Ph.D. LAB BLOOD ADD-ON Performing Organization Address City/[facility] Phon e Number [facility] [address] [place] [address] SUPPORT [facility] [place] [address] Laboratory Medicine and Pathology [address] [place] [address] Dr. [place] Rough Pigweed, IgE (10/30/2020 11:50 AM MANAGER SUSTAINABILITY) P athologist Signature Rough Pigweed, <0.35 kU/L 10/30/2020 [facility] IgE 8:49 PM MANAGER SUSTAINABILITY Comment: Class 0 (Negative <0.35) Specimen Anatomical Collection Method Collection Time Receive d Time (Source) Location / / Volume Laterality Blood (Blood, 10/30/2020 11:50 10/30/2020 5:26 Venous) AM MANAGER SUSTAINABILITY PM MANAGER SUSTAINABILITY Ranjeet Cutler, Ph.D. LAB BLOOD ADD-ON Performing Organization Address [facility] Phon e Number [address] [place] [address] [facility] [place] [place] [address] Laboratory Medicine and Pathology [address] [place] [address] Dr. [place] Nina Plantain, IgE (10/30/2020 11:50 AM MANAGER SUSTAINABILITY) P athologist Signature Scottish <0.35 kU/L 10/30/2020 [facility] Plantain, IgE 8:19 PM MANAGER SUSTAINABILITY Comment: Class 0 (Negative <0.35) Specimen Anatomical Collection Method Collection Time Receive d Time (Source) Location / / Volume Laterality Blood (Blood, 10/30/2020 11:50 10/30/2020 5:26 Venous) AM MANAGER SUSTAINABILITY PM MANAGER SUSTAINABILITY Ranjeet Cutler, Ph.D. LAB BLOOD ADD-ON Performing Organization Address City/[facility]/ZIP Code Phon e Number [facility] [address] [place], [place] [address] [facility] [place] [address] Laboratory Medicine and Pathology [address] [place] [address] Dr. KYMBERLY Chávez, IgE (10/30/2020 11:50 AM MANAGER SUSTAINABILITY) athologist Signature Angiewort, IgE <0.35 kU/L 10/30/2020 [facility] 8:19 PM MANAGER SUSTAINABILITY Comment: Class 0 (Negative <0.35) Specimen Anatomical Collection Method Collection Time Receive d Time (Source) Location / / Volume Laterality Blood (Blood, 10/30/2020 11:50 10/30/2020 5:26 Venous) AM MANAGER SUSTAINABILITY PM MANAGER SUSTAINABILITY Ranjeet Cutler, Ph.D. LAB BLOOD ADD-ON Performing Organization Address City/[facility]/ZIP Code Phon e Number [facility] [address] [place], [place] [address] SUPPORT CENTER [facility] [place] [address] Laboratory Medicine and Pathology [address] [place] [address] Dr. KYMBERLY Sterling, IgE (10/30/2020 11:50 AM MANAGER SUSTAINABILITY) athologist [facility] Kaelyn Nicole <0.35 kU/L 10/30/2020 [facility], IgE 8:49 PM MANAGER SUSTAINABILITY Comment: Class 0 (Negative <0.35) Specimen Anatomical Collection Method Collection Time Receive d Time (Source) Location / / Volume Laterality Blood (Blood, 10/30/2020 11:50 10/30/2020 5:26 Venous) AM MANAGER SUSTAINABILITY PM MANAGER SUSTAINABILITY Ranjeet WestonBStefany, Ph.D. LAB BLOOD ADD-ON Performing Organization Address City/State/ZIP Code Phon e Number [facility] [address] [place], [place] [address] SUPPORT CENTER [facility] [place] [address] Laboratory Medicine and Pathology [address] [place] [address] Dr. KYMBER[place], IgE (10/30/2020 11:50 AM MANAGER SUSTAINABILITY) athologist Signature [place], <0.35 kU/L 10/30/2020 [facility] IgE 8:19 PM MANAGER SUSTAINABILITY Comment: Class 0 (Negative <0.35) Specimen Anatomical Collection Method Collection Time Receive d Time (Source) Location / / Volume Laterality Blood (Blood, 10/30/2020 11:50 10/30/2020 5:26 Venous) AM MANAGER SUSTAINABILITY PM MANAGER SUSTAINABILITY Ranjeet Cutler, Ph.D. LAB BLOOD ADD-ON Performing Organization Address City/State/ZIP Code Phon e Number [facility] [address] [place], [place] [address] SUPPORT CENTER [facility] [place] [address] Laboratory Medicine and Pathology [address] [place] [address] Dr. KYMBERLY Elizabeth ([facility]), IgE (10/30/2020 11:50 AM MANAGER SUSTAINABILITY) P athologist Signature [place] <0.35 kU/L 10/30/2020 [facility] ([facility]), IgE 8:49 PM MANAGER SUSTAINABILITY Comment: Class 0 (Negative <0.35) Specimen Anatomical Collection Method Collection Time Receive d Time (Source) Location / / Volume Laterality Blood (Blood, 10/30/2020 11:50 10/30/2020 5:26 Venous) AM MANAGER SUSTAINABILITY PM MANAGER SUSTAINABILITY Ranjeet Cutler, Ph.D. LAB BLOOD ADD-ON Performing Organization Address City/[facility]/ZIP Code Phon e Number [facility] [address] [place], [place] [address] SUPPORT [facility] [place] [address] Laboratory Medicine and Pathology [address] [place] [address] Dr. KYMBERLY Garcia, IgE (10/30/2020 11:50 AM MANAGER SUSTAINABILITY) P athologist Signature Haroon Garcia, <0.35 kU/L 10/30/2020 [facility] IgE 8:19 PM MANAGER SUSTAINABILITY Comment: Class 0 (Negative <0.35) Specimen Anatomical Collection Method Collection Time Receive d Time (Source) Location / / Volume Laterality Blood (Blood, 10/30/2020 11:50 10/30/2020 5:26 Venous) AM MANAGER SUSTAINABILITY PM MANAGER SUSTAINABILITY Ranjeet Cutler, Ph.D. LAB BLOOD ADD-ON Performing Organization Address City/State/ZIP Code Phon e Number [facility] [address] [place], [place] [address] [facility] [place] [address] Laboratory Medicine and Pathology [address] [place] Garcia, IgE (10/30/2020 11:50 AM MANAGER SUSTAINABILITY) athologist Signature Hamrony Garcia, <0.35 kU/L 10/30/2020 [facility] IgE 8:19 PM MANAGER SUSTAINABILITY Comment: Class 0 (Negative <0.35) Specimen Anatomical Collection Method Collection Time Receive d Time (Source) Location / / Volume Laterality Blood (Blood, 10/30/2020 11:50 10/30/2020 5:26 Venous) AM MANAGER SUSTAINABILITY PM MANAGER SUSTAINABILITY Ranjeet Cutler, Ph.D. LAB BLOOD ADD-ON Performing Organization Address City/[facility] Phon e Number [facility] [address] [place] [address] [facility] [address] [facility] [place] [address] Laboratory Medicine and Pathology [address] [place] [address] Dr. KYMBERLY Garcia IgE (10/30/2020 11:50 AM MANAGER SUSTAINABILITY) athologist Signature Jenny Garcia, IgE <0.35 kU/L 10/30/2020 [facility] 8:19 PM MANAGER SUSTAINABILITY Comment: Class 0 (Negative <0.35) Specimen Anatomical Collection Method Collection Time Receive d Time (Source) Location / / Volume Laterality Blood (Blood, 10/30/2020 11:50 10/30/2020 5:26 Venous) AM MANAGER SUSTAINABILITY PM MANAGER SUSTAINABILITY Ranjeet WestonBStefany, Ph.D. LAB BLOOD ADD-ON Performing Organization Address City/State/[facility] Phon e Number [facility] [address] [place] [address] [address] [facility] [address] [facility] [place] [address] Laboratory Medicine and Pathology [address] [place] [address] Dr. KYMBERLY Garcia IgE (10/30/2020 11:50 AM MANAGER SUSTAINABILITY) athologist Eliseo Garcia, <0.35 kU/L 10/30/2020 [facility] IgE 8:19 PM MANAGER SUSTAINABILITY Comment: Class 0 (Negative <0.35) Specimen Anatomical Collection Method Collection Time Receive d Time (Source) Location / / Volume Laterality Blood (Blood, 10/30/2020 11:50 10/30/2020 5:26 Venous) AM MANAGER SUSTAINABILITY PM MANAGER SUSTAINABILITY Ranjeet Cutler, Ph.D. LAB BLOOD ADD-ON Performing Organization Address City/[facility]/ZIP Code Phon e Number [facility] [address] [place], [place] [address] SUPPORT CENTER [facility] [place] [address] Laboratory Medicine and Pathology [address] [place] [address] Dr. KYMBERLY Bess IgE (10/30/2020 11:50 AM MANAGER SUSTAINABILITY) P athologist Signature [place] <0.35 kU/L 10/30/2020 [facility] [place], IgE 8:49 PM MANAGER SUSTAINABILITY Comment: Class 0 (Negative <0.35) Specimen Anatomical Collection Method Collection Time Receive d Time (Source) Location / / Volume Laterality Blood (Blood, 10/30/2020 11:50 10/30/2020 5:26 Venous) AM MANAGER SUSTAINABILITY PM MANAGER SUSTAINABILITY Ranjeet Cutler, Ph.D. LAB BLOOD ADD-ON Performing Organization Address City/[facility]/ZIP Code Phon e Number [facility] [address] [place] [address] Dr [place], [place] [address] SUPPORT CENTER [facility] [place] [address] Laboratory Medicine and Pathology [address] [place] [address] Dr. KYMBERLY Espinoza IgE (10/30/2020 11:50 AM MANAGER SUSTAINABILITY) P athologist Signature Romario Espinoza IgE <0.35 kU/L 10/30/2020 [facility] 8:49 PM MANAGER SUSTAINABILITY Comment: Class 0 (Negative <0.35) Specimen Anatomical Collection Method Collection Time Receive d Time (Source) Location / / Volume Laterality Blood (Blood, 10/30/2020 11:50 10/30/2020 5:26 Venous) AM MANAGER SUSTAINABILITY PM MANAGER SUSTAINABILITY Ranjeet Cutler, Ph.D. LAB BLOOD ADD-ON Performing Organization Address City/State/ZIP Code Phon e Number [facility] [address] [place], [place] [address] SUPPORT CENTER [facility] [place] [address] Laboratory Medicine and Pathology [address] [place] [address] Dr. KYMBERLY Mehta IgE (10/30/2020 11:50 AM MANAGER SUSTAINABILITY) athologist Signature [place], IgE <0.35 kU/L 10/30/2020 8:19 [facility] PM MANAGER SUSTAINABILITY Comment: Class 0 (Negative <0.35) Specimen Anatomical Collection Method Collection Time Receive d Time (Source) Location / / Volume Laterality Blood (Blood, 10/30/2020 11:50 10/30/2020 5:26 Venous) AM MANAGER SUSTAINABILITY PM MANAGER SUSTAINABILITY Ranjeet Cutler, Ph.D. LAB BLOOD ADD-ON Performing Organization Address City/[facility] Phon e Number [facility] [address] [place], [place] [address] SUPPORT CENTER [facility] [place] [address] Laboratory Medicine and Pathology [address] [place] [address] Dr. KYMBERLY Garcia, IgE (10/30/2020 11:50 AM MANAGER SUSTAINABILITY) athologist Signature [place], <0.35 kU/L 10/30/2020 [facility] IgE 8:49 PM MANAGER SUSTAINABILITY Comment: Class 0 (Negative <0.35) Specimen Anatomical Collection Method Collection Time Receive d Time (Source) Location / / Volume Laterality Blood (Blood, 10/30/2020 11:50 10/30/2020 5:26 Venous) AM MANAGER SUSTAINABILITY PM MANAGER SUSTAINABILITY Ranjeet Cutler, Ph.D. LAB BLOOD ADD-ON Performing Organization Address City/[facility] Phon e Number [facility] [address] [place], [place] [address] SUPPORT CENTER [facility] [place] [address] Laboratory Medicine and Pathology [address] [place] [address] Dr. KYMBERLY Elizondo Elder/[place], IgE (10/30/2020 11:50 AM MANAGER SUSTAINABILITY) athologist Signature [place], <0.35 kU/L 10/30/2020 [facility] S, IgE 8:19 PM MANAGER SUSTAINABILITY Comment: Class 0 (Negative <0.35) Specimen Anatomical Collection Method Collection Time Receive d Time (Source) Location / / Volume Laterality Blood (Blood, 10/30/2020 11:50 10/30/2020 5:26 Venous) AM MANAGER SUSTAINABILITY PM MANAGER SUSTAINABILITY Ranjeet Cutler, Ph.D. LAB BLOOD ADD-ON Performing Organization Address City/[facility]/ZIP Code Phon e Number [facility] [address] [place] [address] 05 [place] [address] Laboratory Medicine and Pathology [address] [place] [address] Dr. KYMBERLY [place], IgE (10/30/2020 11:50 AM MANAGER SUSTAINABILITY) P athologist Signature [place], IgE <0.35 kU/L 10/30/2020 8:19 SDS PM MANAGER SUSTAINABILITY Comment: Class 0 (Negative <0.35) Specimen Anatomical Collection Method Collection Time Receive d Time (Source) Location / / Volume Laterality Blood (Blood, 10/30/2020 11:50 10/30/2020 5:26 Venous) AM MANAGER SUSTAINABILITY PM MANAGER SUSTAINABILITY Ranjeet Cutler, Ph.D. LAB BLOOD ADD-ON Performing Organization Address City/[facility] Phon e Number [address] [place] [address] [address] [facility] [place] [address] Laboratory Medicine and Pathology [address] [place] [address] Dr. KYMBERLY [place], IgE (10/30/2020 11:50 AM MANAGER SUSTAINABILITY) athologist Signature [place], IgE <0.35 kU/L 10/30/2020 [facility] 8:49 PM MANAGER SUSTAINABILITY Comment: Class 0 (Negative <0.35) Specimen Anatomical Collection Method Collection Time Receive d Time (Source) Location / / Volume Laterality Blood (Blood, 10/30/2020 11:50 10/30/2020 5:26 Venous) AM MANAGER SUSTAINABILITY PM MANAGER SUSTAINABILITY Ranjeet Cutler, Ph.D. LAB BLOOD ADD-ON Performing Organization Address City/[facility]/ZIP Code Phon e Number [place] [address] [place] [address] [address] [facility] [address] [place] [address] Laboratory Medicine and Pathology [address] [place] [address] Dr. KYMBERLY Hogan, IgE (10/30/2020 11:50 AM MANAGER SUSTAINABILITY) P athologist Signature Jordan Hogan, <0.35 kU/L 10/30/2020 [facility] IgE 8:19 PM MANAGER SUSTAINABILITY Comment: Class 0 (Negative <0.35) Specimen Anatomical Collection Method Collection Time Receive d Time (Source) Location / / Volume Laterality Blood (Blood, 10/30/2020 11:50 10/30/2020 5:26 Venous) AM MANAGER SUSTAINABILITY PM MANAGER SUSTAINABILITY Ranjeet Cutler, Ph.D. LAB BLOOD ADD-ON Performing Organization Address City/[facility] Phon e Number [facility] [address] [place], [place] [address] SUPPORT CENTER [facility] [place] [address] Laboratory Medicine and Pathology [address] [place] [address] Dr. KYMBERLY Banks, IgE (10/30/2020 11:50 AM MANAGER SUSTAINABILITY) P athologist Signature Romario Banks, IgE <0.35 kU/L 10/30/2020 [facility] 8:49 PM MANAGER SUSTAINABILITY Comment: Class 0 (Negative <0.35) Specimen Anatomical Collection Method Collection Time Receive d Time (Source) Location / / Volume Laterality Blood (Blood, 10/30/2020 11:50 10/30/2020 5:26 Venous) AM MANAGER SUSTAINABILITY PM MANAGER SUSTAINABILITY Ranjeet Cutler, Ph.D. LAB BLOOD ADD-ON Performing Organization Address City/[facility] Phon e Number [facility] [address] [place], [place] [address] [facility] [address] [place] [address] Laboratory Medicine and Pathology [address] [place] [address] Dr. KYMBERLY Mckeon, IgE (10/30/2020 11:50 AM MANAGER SUSTAINABILITY) P athologist Signature Price Mckeon, IgE <0.35 kU/L 10/30/2020 [facility] 8:19 PM MANAGER SUSTAINABILITY Comment: Class 0 (Negative <0.35) Specimen Anatomical Collection Method Collection Time Receive d Time (Source) Location / / Volume Laterality Blood (Blood, 10/30/2020 11:50 10/30/2020 5:26 Venous) AM MANAGER SUSTAINABILITY PM MANAGER SUSTAINABILITY Ranjeet Cutler, Ph.D. LAB BLOOD ADD-ON Performing Organization Address City/[facility]/ZIP Code Phon e Number [facility] [address] [place] [address] SUPPORT CENTER [facility] [place] [address] Laboratory Medicine and Pathology [address] [place] documented in this encounter Visit Diagnoses Diagnosis Chronic Cough documented in this encounter
--- OUTSIDE RECORDS SUMMARY | 2022-08-30 07:43 | XMS_ITS | Encounter Summary ---
:1980 Author Organization [facility] Address [address] [place] [address] Care Team Providers Name Role Phone Unavailable Primary Care Provider Unavailable Encounter Details Date Type Department Care Team Description 10/12/2020 Clinical Communication Division of [facility]inder [facility] [address] [place] [address] [place] [id number] [place], [place] [phone] (Work) [phone] Social History Tobacco Use Types Packs/Day Years [...] er 10/21/2021 How often do you attend yarsanism or rastafarian services? 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 Allergy dept says if it's more than 5 years, then the provider needs to order PRO 531 (Basic) and 810 (Basic [employer]).Let me know. Thanks Sincerely, Goldy ONAL SALES ASSOCIATE Telephone Encounter - Goldy Calderon - 10/12/2020 11:50 AM CST According to Allergy dept, please order PRO 531 and 810 in order for us to schedule the Allergy consultation. Please let me know. Thank you. Sincerely, Goldy ONAL SALES ASSOCIATE documented in this encounter Plan of Treatment Upcoming Encounters Date Type Specialty Care Team Description 10/31/2022 Appointment Neurology Krishan Almendarez M.D . [address] [place], [place] [phone] (Wo rk) documented as of this encounter Visit Diagnoses Not on filedocumented in this encounter
--- OUTSIDE RECORDS SUMMARY | 2022-08-30 07:43 | XMS_ITS | Encounter Summary ---
:1980 Author Organization [facility] Address [address] [place] [address] Care Team Providers Name Role Phone Unavailable Primary Care Provider Unavailable Encounter Details Date Type Department Care Team Description 10/15/2020 Orders Only Division of Pulmonary Bao Mukherjee M.D. Medicine in [place] [place] [address] [place], [place] [address] [facility] [address] [place] [address] [phone] Social History Tobacco Use Types Packs/Day Years [...] How often do you attend bahai or spiritism services? 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 [address] [place] [phone] (Wo rk) documented as of this encounter Visit Diagnoses Not on filedocumented in this encounter
--- OUTSIDE RECORDS SUMMARY | 2022-08-30 07:43 | XMS_ITS | Encounter Summary ---
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 [address] [place] [address] Referral ID Status Reason Start Date Expiration Date Visits Requ ested Visits Authorized [id number] Closed 08/06/2020 08/06/2021 1 1 Encounter Details Date Type Department Care Team Description 10/22/2020 Comprehensive Visit Department of [facility] in [place], GutierrezDGaudencio (Primary Dx) [place], [address] [place] [address] [place] [phone] [place], [place] [phone] (Work) [phone] Social History Tobacco Use Types Packs/Day Years [...] How often do you attend scientology or amish services? 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 - 10/22/2020 10:30 AM CST SUBJECTIVE CHIEF COMPLAINT / REASON FOR CONSULT Joshua Peters is a 40 y.o. female referred today by Coral Douglas N.P. for evaluation of hypermobility. Ms. Peters attended today???s consultation with her mother. HISTORY OF PRESENT ILLNESS MsGaudencio and patient last name states that she has a history of joint pain and joint laxity. 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 Ms. Peters states she is quite flexible. She has dislocated her right shoulder and can sublux her shoulder and patellas. She has chronic pain in her right shoulder, right elbow, and right wrist. She also has spinal pain. She states her pain been going on for 20 years and only has mildly improved with physical therapy. She states what makes her pain better is cortisone shots and is worse with movement. She describes her skin as stretchy with easy bruising, poor wound healing, and stretch mackenzie on her abdomen after but denies any soft skin, unusual scars, or wound dehiscence. She does have history of GERD and IBS with diarrhea but denies any nausea, vomiting, or pelvic floor prolapse. She has had myopia since age 10 but no history of lens dislocation retinal detachment. She has neverhad braces on her teeth told she has tooth over crowding. She she states she does have flat feet butdenies any history of pectus excavatum or carinatum, pneumothorax, or hernia. She does have a history of depression anxiety. MEDICAL HISTORY 1. HTN 2. GERD 3. IBS 4. Migraine headaches 5. Anxiety 6. Depression SURGICAL HISTORY 1. Tonsillectomy 2. Bilateral ankle surgery Allergies Allergen Reactions ??? Cefprozil Hives and Rash has tolerated omnicef has tolerated omnicef ??? Erythromycin Nausea Only, Nausea And Vomiting, Other (see comments) and GI intolerance ??? Fish Containing Products Hives, Itching, Nausea Only and Nausea And Vomiting ??? Eason Anaphylaxis, Hives, Shortness of breath, Itching, Rash and Wheezing Lillies ??? [place] Anaphylaxis ??? Metoprolol Cough, Hives, Itching and Rash ??? Shellfish Containing Products Hives ??? Sulfa (Sulfonamide Antibiotics) GI intolerance ??? Sulfamethoxazole-Trimethoprim Nausea And Vomiting ??? Penicillins GI intolerance, Hives, Nausea And Vomiting and Rash Current Outpatient Medications: ??? albuterol (ACCUNEB) 2.5 mg /3 mL nebulizer solution, albuterol sulfate 2.5 mg/3 mL (0.083 %) solution for nebulization, Disp: , Rfl: ??? albuterol sulfate 90 mcg/actuation aero powdr breath act w/sensor, , Disp: , Rfl: ??? amitriptyline (ELAVIL) 10 mg tablet, Take 1 tablet (10 mg total) by mouth at bedtime., Disp: 30 tablet, Rfl: 3 ??? amLODIPine (NORVASC) 10 mg tablet, Take 10 mg by mouth., Disp: , Rfl: ??? azelastine (ASTELIN) 137 mcg/spray (0.1 %) nasal spray, azelastine 137 mcg (0.1 %) nasal spray aerosol, Disp: , Rfl: ??? azelastine (ASTELIN) 137 mcg/spray (0.1 %) nasal spray, Administer 2 sprays into each nostril 2 (two) times a day. Use in each nostril as directed, Disp: 25 mL, Rfl: 11 ??? benralizumab (Fasenra Pen) 30 mg/mL injection, Inject 30 mg under the skin every 8 (eight) weeks., Disp: , Rfl: ??? benzonatate (TESSALON) 200 mg capsule, benzonatate 200 mg capsule, Disp: , Rfl: ??? budesonide (PULMICORT) 0.5 mg/2 mL nebulizer solution, budesonide 0.5 mg/2 mL suspension for nebulization, Disp: , Rfl: ??? cetirizine 10 mg capsule, , Disp: , Rfl: ??? cholecalciferol (VITAMIN D3) 50 mcg (2,000 Unit) capsule, Take 2,000 Units by mouth., Disp: , Rfl: ??? cyclobenzaprine (FLEXERIL) 5 mg tablet, , Disp: , Rfl: ??? dextromethorphan-guaiFENesin 60-1,200 mg tablet extended release 12 hr, Take 1 tablet by mouth.,Disp: , Rfl: ??? DULoxetine (CYMBALTA) [address] capsule, Take 30 mg by mouth., Disp: , Rfl: ??? EPINEPHrine 0.3 mg/0.3 mL injection syringe, epinephrine 0.3 mg/0.3 mL injection, auto-injector,Disp: , Rfl: ??? fluticasone propionate (FLONASE) 50 mcg/actuation nasal spray, fluticasone propionate 50 mcg/actuation nasal spray,suspension, Disp: , Rfl: ??? fluticasone propionate (FLONASE) 50 mcg/actuation nasal spray, Administer 2 sprays into each nostril 2 (two) times a day., Disp: 16 g, Rfl: 6 ??? hydroCHLOROthiazide (HYDRODIURIL) 25 mg tablet, hydrochlorothiazide 25 mg tablet, Disp: , Rfl: ??? magnesium oxide 500 mg tablet tablet, Take by mouth., Disp: , Rfl: ??? NaCl 0.9 % irrigation, Use with clindamycin 150mg capsule opened into 1000ml of saline/rinse each nostril with 20cc of soln bid, Disp: , Rfl: ??? omeprazole (PriLOSEC) [address] capsule, omeprazole 20 mg capsule,delayed release, Disp: , Rfl: SOCIAL HISTORY Lives in [place], [place] with son and parents and is unemployed. FAMILY HISTORY Pedigree reviewed and available on the computerized medical record. Pedigree reviewed as documented by the Genetic Counselor. Relevant history: No family history of Sharri-Danlos syndrome other connective tissue disorders. History provided by: patient and mother. Additional reports reviewed: historical medical records The following portions of the patient's history were reviewed and updated as appropriate: allergies,current medications, family history, medical history, social history, surgical history, developmental history, history and problem list REVIEW OF SYSTEMS Constitutional: fatigue Skin: stretch mackenzie and stretchy skin Eyes: corrective lenses Eye exam: last eye exam 2018. There is no evidence of blue sclerae. ENT: no hearing problems, teeth crowding, or TMJ pain reported Respiratory: asthma Cardiovascular: palpitations long standing. With regard to the patient's cardiovascular history, shedoes not have aortic enlargement GI: heartburn and diarrhea : no urgency or blood in urine Neuro: dizziness long standing Hemotology: easy bruising Musculoskeletal: muscle or joint pain and joint hypermobility Endocrine: no report of easy heat or cold intolerance, sweating, frequent urinations, thirst, or changes in appetite Neck: no lumps, swollen glands, pain, or stiffness Psychiatric: depression and anxiety OBJECTIVE PHYSICAL EXAM Height: 177.7 cm Arm-span: 176 cm Arm-span to height ratio: 0.99 General: patient in no acute distress. Head: no dolichocephaly, no enophthalmos, no malar hypoplasia, no retrognathia, no down-slanting palpebral fissures, sclerae are white Ears: well formed, normally set Mouth: no dental crowding, no high-arched palate, no narrow palate, no bifid uvula Heart: regular rate and rhythm and no murmurs, rubs, or gallops Chest: no pectus carinatum, no pectus excavatum, no chest asymmetry Respiratory: clear to auscultation bilaterally Abdomen: no organomegaly, positive bowel sounds, soft nontender and nondistended Back: no scoliosis, no kyphosis Extremities: negative wrist signs, negative thumb signs, no limitation of elbow extension, positive pes planus, no hindfoot valgus, Beighton score for hypermobility: passive dorsiflexion of the right fifh finger >90 degrees = 1, passive dorsiflexion of the left fifh finger >90 degrees = 1, passive flexion of right thumb to the forearm = 1, passive flexion of left thumb to the forearm = 1, hyperextension of the right elbow beyond 10 degrees = 1, hyperextension of the left elbow beyond 10 degrees = 1, hyperextension of the right knee beyond 10 degrees = 1, hyperextension of the left knee [id number] degrees = 1, forward flexion of the trunk with knees fully extended and palms resting on the floor = absent. Beighton score of 8. Skin: no bruising, no prominent veins visible, no atrophic scars, skin is mildly stretchy but not overly soft. There are stretch mackenzie on the abdomen. There are bilateral piezogenic papules noted. Neuro: deep tendon reflexes equal and symmetric bilaterally, gross motor sensation intact ASSESSMENT / PLAN #1 Hypermobility Joint #2 Asthma Chronic Mild (HCC) #3 Hypertension Essential Benign #4 Morbid Obesity Body Mass Index Greater Than Or Equal To 40 Adult (HCC) I discussed with Ms. Peters that we evaluate individuals for hypermobile Sharri-Danlos syndromewas first determine whether have generalized joint hypermobility. To evaluate individuals for generalized joint hypermobility we use the Beighton scoring system and individuals who have a Beighton score of >5/9 are considered to be hypermobile. Today Ms. 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 I stated that to make the diagnosis of Sharri-Danlos syndrome individuals also need to meet criteriain 2/3 features. Feature A is evidence of a connective tissue disorder. Feature B is a positive family history for Sharri-Danlos syndrome. And feature C is evidence of chronic pain or maggie joint instability. Joshua Peters meets criteria for feature C as she does have history of chronic pain. she does not meet criteria for feature B as there is no family history of Sharri-Danlos syndrome diagnosed using this criteria. she does have mildly extensible skin and piezogenic papules but does not meet criteria for Feature A as she only has 2/12 findings. As such, Joshua Peters does not meet criteria for Sharri-Danlos syndrome hypermobility type. I also stated that based on her physical findings and family history the likelihood of other forms of Sharri-Danlos syndrome is extremely unlikely. I discussed that individuals who have generalized joint hypermobility can benefit from physical therapy and did recommend core muscle strengthening. Discussed in detail with the patient/family the diagnosis and treatment plan and answered their questions. Patient/family expressed understanding of the content. Educational materials were provided as appropriate. OOD PROCESSOR documented in this encounter Plan of Treatment Upcoming Encounters Date Type Specialty Care Team Description 10/31/2022 Appointment Neurology Krishan Almendarez M.D . [address] [place], [place] [phone] (Wo rk) documented as of this encounter Visit Diagnoses Diagnosis Hypermobility Joint - Primary documented in this encounter
--- OUTSIDE RECORDS SUMMARY | 2022-08-30 07:44 | XMS_ITS | Encounter Summary ---
:1980 Author Organization [facility] Address [address] [place] [address] Care Team Providers Name Role Phone Unavailable Primary Care Provider Unavailable Encounter Details Date Type Department Care Team Description 10/12/2020 Diagnostic Division of Pulmonary Iman Díaz, Asthma ([facility]) Medicine in [place], [facility]ias[facility]audencioS., [facility] [address] [place] [phone] Social History Tobacco Use Types Packs/Day [...] er 10/21/2021 How often do you attend baptist or anabaptist services? 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 [address] [place] [phone] (Wo rk) documented as of this encounter Procedures Procedure Name Priority Date/Time Associated Diagnosis Comme nts EXHALED NITRIC Routine 10/12/2020 7:17 AM Asthma (HCC) Results for this OXIDE PRODUCTION CELL LEADER procedure are i n the results section. documented in this encounter Results PUL Exhaled Nitric Oxide (10/12/2020 7:17 AM PRODUCTION CELL LEADER) [facility] gist Method Time Signature Exhaled NO 7 MMODAL Oral Parts per 39 MMODAL billion (ULN) ENOComment Patient takes MMODAL Albuterol, Budesonide, Dulera, Singulair, and Prednisone, and had a Fasenra injection 2 months ago Specimen (Source) Anatomical Location Collection Method / Collectio n Time Received Time / Laterality Volume Iman Landa., M.P.H. PFT ORDERABLES Performing Organization Address City/State/ZIP Code Phon e Number MMODAL MMODAL NA documented in this encounter Visit Diagnoses Diagnosis Asthma (HCC) documented in this encounter
--- OUTSIDE RECORDS SUMMARY | 2022-08-30 07:44 | XMS_ITS | Encounter Summary ---
:1980 Author Organization [facility] Address [address] [place] [address] Care Team Providers Name Role Phone Unavailable Primary Care Provider Unavailable Encounter Details Date Type Department Care Team Description 06/06/2002 Hospital Encounter HX [facility] Kulwant Machado M.D. Social History Tobacco Use Types Packs/Day Years Used Date Smoking Tobacco: Never Assessed Alcohol Habits Answer Date Recorded How often [...] er 10/21/2021 How often do you attend pentecostal or alevism services? Never 10/21/2021 Do you belong to any clubs or organizations such as pentecostal N o 10/21/2021 groups, unions, fraternal or [...] or slept in a custodial (including now)? 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 [address] [place], [place] [phone] (Wo rk) documented as of this encounter Visit Diagnoses Not on filedocumented in this encounter
--- OUTSIDE RECORDS SUMMARY | 2022-08-30 07:44 | XMS_ITS | Encounter Summary ---
:1980 Author Organization [facility] Address [address] [place] [address] Care Team Providers Name Role Phone Unavailable Primary Care Provider Unavailable Reason for Visit Reason Comments COVID Inquiry Encounter Details Date Type Department Care Team Description 09/28/2020 Clinical Communication Division of Pulmonary Iman Díaz COVID Inquiry Medicine in [place] M[facility]. [address] [place] [phone] Social History Tobacco Use Types Packs/Day Years Used Date Smoking Tobacco: Never Alcohol Habits Answer Date Recorded How often [...] How often do you attend yazidi or baptism services? Never 10/21/2021 Do you belong to [...] slept in a care home (including now)? 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 documented as of this encounter Miscellaneous Notes Telephone Encounter - Kemi Crisostomo - 09/28/2020 8:20 AM CST What is the purpose of the call?: Standard Appointment Process Standard Appointment Process Have you tested positive for COVID-19 in the last 20 days OR do you have a pending COVID-19 test because you had symptoms?: No, neither apply What region is the appointment being requested?: More than 20 days [facility], [facility] or [facility] In the past 14 days have you had close contact* with a person who has a LABORATORY CONFIRMED case ofCOVID-19?: No exposure noted, follow appt process (End Screening) Are you having NEW trouble breathing or is your breathing worsening? Are you currently feeling as Ifyou're going to collapse when you stand or sit up?: No (Continue Screening) In the past 14 days have you had close contact* with a person who has a LABORATORY CONFIRMED case ofCOVID-19?: No exposure noted (Continue Screening) Have you received a COVID-19 vaccine in the last 72 hours? : No vaccine received. COVID+ FLU Testingrecommended. Follow local appt process (End Screening) In the past 14 days have you had close contact* with a person who has a LABORATORY CONFIRMED case ofCOVID-19?: No exposure noted. Follow local process (End Screening) Testing Recommendation Endpoint Is testing recommended? : Not recommended to test Plan: Endpoint recommendation: Followed regional OTG *Reminder if sending patient for testing in [facility] or [facility], route encounter to the correct testing pool. 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 [address] [place], [place] [phone] (Wo rk) documented as of this encounter Visit Diagnoses Not on filedocumented in this encounter
--- OUTSIDE RECORDS SUMMARY | 2022-08-30 07:44 | XMS_ITS | Encounter Summary ---
:1980 Author Organization [facility] Address [address] [place] [address] Care Team Providers Name Role Phone Unavailable Primary Care Provider Unavailable Encounter Details Date Type Department Care Team Description 03/11/2004 Hospital Encounter HX NO MAPPING Provider, Historical Social History Tobacco Use Types Packs/Day Years [...] How often do you attend bahai or christian services? Never 10/21/2021 Do you [...] slept in a long term (including now)? Sex Assigned at Date Recorded Female 10/21/2021 4:05 AM [employer] documented as of this encounter Plan of Treatment Upcoming Encounters Date Type Specialty Care Team Description 10/31/2022 Appointment Neurology Krishan Almendarez M.D . [address] [place], [place] [phone] (Wo rk) documented as of this encounter Visit Diagnoses Not on filedocumented in this encounter
--- OUTSIDE RECORDS SUMMARY | 2022-08-30 07:44 | XMS_ITS | Encounter Summary ---
:1980 Author Organization [facility] Address [address] [place] [address] Care Team Providers Name Role Phone Unavailable Primary Care Provider Unavailable Encounter Details Date Type Department Care Team Description 12/15/2005 Hospital Encounter HX [facility] Last Rucker i, M.D. Social History Tobacco Use Types Packs/Day [...] er 10/21/2021 How often do you attend evangelical or cheondoism services? Never 10/21/2021 Do you belong to any clubs or organizations such as evangelical N o 10/21/2021 groups, unions, fraternal or [...] place to sleep or slept in a fpc (including now)? 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 [address] [place], [place] [phone] (Wo rk) documented as of this encounter Visit Diagnoses Not on filedocumented in this encounter
--- OUTSIDE RECORDS SUMMARY | 2022-08-30 07:44 | XMS_ITS | Encounter Summary ---
:1980 Author Organization [facility] Address [address] [place] [address] Care Team Providers Name Role Phone Unavailable Primary Care Provider Unavailable Encounter Details Date Type Department Care Team Description 12/17/2015 Hospital Encounter HX [facility] Millie Urias M .D. Social History Tobacco Use Types Packs/Day Years [...] er 10/21/2021 How often do you attend hoahaoism or lutheran services? Never 10/21/2021 Do you belong to any clubs or organizations such as hoahaoism N o 10/21/2021 groups, unions, fraternal or [...] or slept in a retirement (including now)? 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 documented as of this encounter Last Filed Vital Signs Vital Sign Reading Time Taken Comments Blood Pressure 116/82 12/17/2015 11:19 AM CDT Pulse - - Temperature - - Respiratory Rate - - Oxygen Saturation - - Inhaled Oxygen Concentration - - Weight 124 kg (273 lb 9.5 oz) 12/17/2015 11:19 AM CDT Height 183 cm (6' 0.05) 12/17/2015 11:19 AM CDT Body Mass Index 37.06 12/17/2015 11:19 AM CDT documented in this encounter Medications at Time of Discharge Medication Sig Dispensed Refills Start Date End Date hydroCHLOROthiazide hydrochlorothiazide 25 0 11/24 (HYDRODIURIL) 25 mg mg tablet tablet montelukast (SINGULAIR) montelukast 10 mg tablet 0 12/17/2015 10 mg tablet 1 documented as of this encounter Consult Notes Millie Lizama M.D. - 12/17/2015 11:07 AM CDT [id number] CHIEF COMPLAINT/REASON FOR VISIT Contraception counseling. 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 This is her first visit to [facility]. She is a 35-year-old G1, Z2-3-4-1female who is amenorrheic on Depo-Provera. The patient's last Depo-Provera injection was on 11/09/2015. She presents to discuss contraception management options. The patient has been on Depo-Provera for the last 10 years. She has been very happy with Depo-Provera. She is having no menstrual periods. She is having no pelvic pain, cramping, or discomfort. She is having no ovarian cysts. The patient reports her primary provider is not comfortable with the patient continuing on Depo-Provera as she has been on it for 10 years. She is having no complaints. ALLERGIES 1. Amoxicillin. 2. Bactrim. 3. Erythromycin. MEDICATIONS 1. Depo-Provera, given on 11/09/2015. 2. Albuterol inhaler. 3. Vitamin D3. 4. EpiPen. 5. Liliya. 6. Hydrochlorothiazide. 7. Dulera. 8. Singulair. 9. Naprosyn. 10. Nasacort. 11. Ventolin inhaler. PAST MEDICAL/SURGICAL HISTORY PAST MEDICAL HISTORY: 1. Asthma. 2. Hypertension. 3. Obesity. 4. Depression. 5. Anxiety. 6. Seasonal allergic rhinitis. PAST SURGICAL HISTORY: Tonsils and adenoids removed at age 22. PAST OBSTETRICAL HISTORY: Vaginal delivery 02/24/2003. SOCIAL HISTORY The patient denies tobacco, alcohol or drug use. She denies history of STD or PID. She denies history of cervical dysplasia. She denies history of abuse. VITAL SIGNS Weight 124.1 kg, height 183 cm. Blood pressure 116/82, pulse 72. PHYSICAL EXAMINATION GENERAL: Well-developed, well-nourished, obese female, in no apparent distress. Alert and oriented x3. LUNGS: Clear to auscultation bilaterally. HEART: Regular rate and rhythm without murmur. ABDOMEN: Soft, obese, nontender, nondistended. Positive bowel sounds. No hepatomegaly. No rebound. No guarding. EXTREMITIES: No clubbing, cyanosis, or edema. Nontender bilaterally. GENITALIA: Deferred. IMPRESSION/REPORT/PLAN 1. Contraception counseling. 2. Medical problems including obesity, hypertension, asthma, depression, anxiety. PLAN: 1. I discussed contraception options available to the patient. I reviewed the risks, benefits, alternatives, and indication of control pills, both continuous and cyclic, Ortho Evra patch, NuvaRing, Nexplanon, Depo-Provera, Mirena IUD, ParaGard IUD, and condoms. I reviewed the risks, benefits, alt ernatives, and indication of each with the patient and gave the patient literature to review. 2. Due to the patient's hypertension, I do not recommend estrogen-containing products such as control pills. 3. I discussed the risks, benefits, alternatives, and indication of Depo-Provera with the patient. Ireviewed with the patient the risk of decreased bone mineralization with long-term use. The patient started Depo-Provera use in her 20s, not as a teenager. I reviewed with the patient that she has already achieved maximum bone density and growth. The patient is a larger lady and, because of that, she will have larger bones. 4. I reviewed the risks, benefits, alternatives, and indication of Mirena IUD with the patient. I reviewed with the patient this is effective for contraception for 5 years. I discussed the risk for amenorrhea. I discussed the increased risk for infection and sexually transmitted disease. 5. After discussing options with the patient, the best 2 options at this point are for her to continue with Depo-Provera, which she is familiar with and very happy with and having no problems, with theunderstanding that there is a small risk for decreased bone mineralization with long-term use. The second option would be to switch to Mirena IUD for long-term contraception. She would most likely continue with amenorrheic state on the Mirena IUD and not have to get injections multiple times a year and there would be no risk for decreased bone mineralization. 6. I reviewed with patient the option of sterilization. I discussed laparoscopic tubal fulguration as well as Essure tubal occlusion with the patient. 7. The patient will review the literature that I gave her and discuss her management options with her family. She will contact me with her management decision. Millie Lizama M.D./debra cc: Coral Douglas [phone] [place] [phone] Electronically Signed By: MILLIE LIZAMA MD On: 12/17/2015 03:48 PM Source: [facility] MHSDOLBEYNONRADSYS Document Id: [id number] documented in this encounter Miscellaneous Notes Miscellaneous - Millie Lizama M.D. - 12/17/2015 12:16 PM CDT Ambulatory Patient Summary [address] [id number] Visit Information Name: AMANDA PETERS [facility] Number: [id number] Current Date: 12/17/2015 12:16:18 Physicians Attending Provider: MILLIE LIZAMA MD Primary Care Provider: PCP, ELSEWHERE AMANDA PETERS has been given the following list of follow-up instructions, medication list, and patient education materials: Follow-up Instructions Your Medications Here is a list of your medications. It is important to take your medications as directed. Use a pillbox or chart to help remind you to take your medications. Please let your doctor or nurse know if you have problems taking your medications. Medication/Strength How to Take Indications/Special Instructions/Comments/Notes for Patient Medication Changes/Routing albuterol (Proventil 2.5 mg/3 mL (0.083%) inhalation solution) 3 Milliliter, Inhalation, every 6 hours albuterol (Ventolin HFA 90 mcg/inh inhalation aerosol) 2 puff(s), Inhalation, four times a day citalopram (CeleXA 20 mg oral tablet) 1 Tablet(s), Oral, once a day EPINEPHrine (EpiPen 2-Addy) 0.3 mg, Intramuscular, once fexofenadine (Liliya 180 mg oral tablet) 1 Tablet(s), Oral, once a day hydrochlorothiazide (hydrochlorothiazide 25 mg oral tablet) 1 Tablet(s), Oral, once a day medroxyPROGESTERone (Depo-Provera Contraceptive) 150 mg, Intramuscular, once mometasone-formoterol (Dulera 100 mcg-5 mcg/inh inhalation aerosol) 2 puff(s), Inhalation, two timesa day montelukast (Singulair 10 mg oral tablet) 1 Tablet(s), Oral, every evening multivitamin with minerals (Vitamin D with Minerals oral tablet) 1 Tablet(s), Oral, once a day naproxen (naproxen 500 mg oral tablet) 1 Tablet(s), Oral, two times a day triamcinolone nasal (Nasacort AQ 55 mcg/inh nasal spray) 2 Leon(s), Nasal, once a day Stop Taking the Following Medications: vitamin A (Vitamin D 400 units/Vit A 700 units) Medication list as of 12-17-15 12:16 Attention: If you have any medications at home that are not on this list, DO NOT take them until youcontact your provider for clarification. Give a copy of your medication list to your primary care provider. Update your medication list any time medications or doses are changed and carry your medication list at all times in case of emergency. Electronically Signed By: MILLIE LIZAMA MD Signed On:17-DEC-2015 12:16:09 Your Allergies & Intolerances Substance Reaction Symptoms Category Comments erythromycin Drug cefprozil Drug amoxicillin Drug Bactrim Drug Your Problem List Problem Status Onset Comments Asthma Chronic Mild Active 12/17/2015 Morbid Obesity Body Mass Index (BMI) >40 Adult Active Hypertension (HTN) Essential Benign Active 12/17/2015 Anxiety NOS Active 12/17/2015 Your Upcoming Appointments Date Time Location Provider No Appointments found Attention: Contact your local Clinic if further appointment detail needed. Consider Using Patient Online Services Patient Online Services is a secure online and Mobile application that lets you: ?? View lab and test results ?? View portions of your medical record including clinical notes, immunizations and discharge summaries ?? Request an appointment or medication refill ?? Review your appointment schedule ?? Send secure messages to your care team Its easy to create an account if you dont have one. Go to [email or web address] and click on Create Your Account. Then, follow the directions to complete the online form. Youll be asked for your [facility] number which you can find at the top of this document. Your Goals/Additional instructions: Source: [facility] POWERCHART Document Id: [id number] Miscellaneous - Millie Lizama M.D. - 12/17/2015 12:16 PM CDT Ambulatory Discharge Medication List [address] [id number] Visit Information Name: AMANDA PETERS [facility] Number: [id number] Visit Date: 12/17/2015 12:16:18 Attending Provider: MILLIE LIZAMA MD Primary Care Provider: PCP, AMANDA JAQUEZ has been given the following list of medications: Your Medications It is important to take your medications as directed. Use a pill box or chart to help remind you to take your medications. Please let your doctor or nurse know if you have problems taking your medications. Medication/Strength How to Take Indications/Special Instructions/Comments/Notes for Patient Medication Changes/Routing albuterol (Proventil 2.5 mg/3 mL (0.083%) inhalation solution) 3 Milliliter, Inhalation, every 6 hours albuterol (Ventolin HFA 90 mcg/inh inhalation aerosol) 2 puff(s), Inhalation, four times a day citalopram (CeleXA 20 mg oral tablet) 1 Tablet(s), Oral, once a day EPINEPHrine (EpiPen 2-Addy) 0.3 mg, Intramuscular, once fexofenadine (Liliya 180 mg oral tablet) 1 Tablet(s), Oral, once a day hydrochlorothiazide (hydrochlorothiazide 25 mg oral tablet) 1 Tablet(s), Oral, once a day medroxyPROGESTERone (Depo-Provera Contraceptive) 150 mg, Intramuscular, once mometasone-formoterol (Dulera 100 mcg-5 mcg/inh inhalation aerosol) 2 puff(s), Inhalation, two timesa day montelukast (Singulair 10 mg oral tablet) 1 Tablet(s), Oral, every evening multivitamin with minerals (Vitamin D with Minerals oral tablet) 1 Tablet(s), Oral, once a day naproxen (naproxen 500 mg oral tablet) 1 Tablet(s), Oral, two times a day triamcinolone nasal (Nasacort AQ 55 mcg/inh nasal spray) 2 Leon(s), Nasal, once a day Stop Taking the Following Medications: vitamin A (Vitamin D 400 units/Vit A 700 units) Medication list as of 12-17-15 12:16 Attention: If you have any medications at home that are not on this list, DO NOT take them until youcontact your provider for clarification. Give a copy of your medication list to your primary care provider. Update your medication list any time medications or doses are changed and carry your medication list at all times in case of emergency. Electronically Signed By: MILLIE LIZAMA MD Signed On:17-DEC-2015 12:16:09 Additional Information: Source: [facility] POWERCHART Document Id: [id number] Miscellaneous - Fidencio Maradiaga L.P.N. - 12/17/2015 11:19 AM CDT Adult Forestry Technical Officer Intake/History Adult Forestry Technical Officer Intake/History Entered On: 12/17/2015 11:22 CDT Performed On: 12/17/2015 11:19 CDT by FIDENCIO MARADIAGA LPN Intake Chief Complaint : Discuss control Systolic Blood Pressure : 116 mmHg Diastolic Blood Pressure : 82 mmHg NIBP Mean : 93 mmHg BP Location : Right upper extremity Blood Pressure Cuff Size : Regular Height : 183 cm(Converted to: 6 ft 0 inch(es), 72 inch(es)) Actual Weight : 124.1 kg(Converted to: 273 lb 9 oz) Weight Source : Standing scale Dosing Weight Clinic : 124.1 kg Clinic BSA : 2.51 Body Mass Index : 37.06 kg/m2 FIDENCIO MARADIAGA LPN - 12/17/2015 11:19 CDT General Info Information Given By : Patient Languages : Cymro Is Patient Female and 13-50 no hysterectomy : Yes Status : Patient denies Are you ? : No FIDENCIO MARADIAGA LPN - 12/17/2015 11:19 CDT Subjective Pain Symptoms : No FIDENCIO MARADIAGA LPN - 12/17/2015 11:19 CDT Dependent Habits Exposure to Tobacco Smoke : Other: Never Smoking Status : Never smoker Tobacco 2A : No Tobacco Use/Currently Using : No Tobacco Use/Last 30 Days : No Tobacco Use/Last 12 months : No FIDENCIO MARADIAGA LPN - 12/17/2015 11:19 CDT Source: [employer] POWERCHART Document Id: [id number] CDT!29 documented in this encounter Plan of Treatment Upcoming Encounters Date Type Specialty Care Team Description 10/31/2022 Appointment Neurology Krishan Almendarez M.D . [address] [place] [phone] (Wo rk) documented as of this encounter Visit Diagnoses Not on filedocumented in this encounter
--- OUTSIDE RECORDS SUMMARY | 2022-08-30 07:44 | XMS_ITS | Encounter Summary ---
:1980 Author Organization [facility] Address [address] [place] [address] Care Team Providers Name Role Phone Unavailable Primary Care Provider Unavailable Encounter Details Date Type Department Care Team Description 08/15/2008 Hospital Encounter HX NO MAPPING Inga Fletcher M.D. [address] [place] [phone] (Wo rk) Social History Tobacco Use Types [...] How often do you attend sikh or zoroastrian services? Never 10/21/2021 Do you [...] at Date Recorded Female 10/21/2021 4:05 AM CUT OFF [employer] documented as of this encounter Plan of Treatment Upcoming Encounters Date Type Specialty Care Team Description 10/31/2022 Appointment Neurology Krishan Almendarez M.D . [address] [place], [place] [phone] (Wo rk) documented as of this encounter Procedures Procedure Name Priority Date/Time Associated Diagnosis Comme nts DX FOOT RIGHT 3+ Routine 08/15/2008 10:10 AM Resu lts for this VIEWS CUT OFF [employer] procedure are i n the results section. documented in this encounter Results DX Foot Right 3+ Views (08/15/2008 10:10 AM CUT OFF [employer]) Anatomical Region Laterality Modality Lower Extremity, Foot Right Radiographic Imagi ng Specimen (Source) Anatomical Collection Method Collection Time Re ceived Time Location / / Volume Laterality 08/15/2008 10:10 AM CUT OFF [employer] Impressions 08/15/2008 10:10 AM CUT OFF [employer] Probable avulsion fracture at the dorsal aspect the articulation of the navicular with the c uneiforms, recommend clinical correlation. Narrative 08/15/2008 10:10 AM CUT OFF [employer] Originally Signed By UNKNOWN, PERSONNEL Reason for exam: SPRAIN RT FOOT HISTORY: Right foot strain. ?? COMPARISON: None. ?? FINDINGS: There is some mild soft tissue swelling over the dorsal aspect of the midfoot and the anterior a spect of the ankle. On the lateral film there is a small ossific de nsity at the superior aspect of the articulation of the navicular wit h the cuneiforms suspicious for a small avulsion fracture with overl abdi dorsal soft tissue swelling. No additional areas suspicious for fracture identified. Remaining joint spaces are preserved. Th ere is a small calcaneal spur. ? Procedure Note ProviderFelice M.D. - 02/28/2017F ormatting of this note might be different from the original. Originally Signed By UNKNOWN, PERSONNEL Reason for exam: SPRAIN RT FOOT HISTORY: Right foot strain. COMPARISON: None. FINDINGS: There is some mild soft tissue swelling over the dorsal aspect of the midfoot and the anterior a spect of the ankle. On the lateral film there is a small ossific de nsity at the superior aspect of the articulation of the navicular wit h the cuneiforms suspicious for a small avulsion fracture with overl abdi dorsal soft tissue swelling. No additional areas suspicious for fracture identified. Remaining joint spaces are preserved. Th ere is a small calcaneal spur. IMPRESSION: Probable avulsion fracture a t the dorsal aspect the articulation of the navicular with the c uneiforms, recommend clinical correlation. Historical Provider IMG DIAGNOSTIC IMAGING PROCE DURES documented in this encounter Visit Diagnoses Not on filedocumented in this encounter
--- OUTSIDE RECORDS SUMMARY | 2022-08-30 07:44 | XMS_ITS | Encounter Summary ---
:1980 Author Organization [facility] Address [address] [place] [address] Care Team Providers Name Role Phone Unavailable Primary Care Provider Unavailable Encounter Details Date Type Department Care Team Description 06/07/2002 Hospital Encounter [facility]X [facility] Manolo Borja D.O. [address], [place] [address] (Wo rk) Social History Tobacco Use Types [...] er 10/21/2021 How often do you attend synagogue or hindu services? Never 10/21/2021 Do you belong to any clubs or organizations such as synagogue N o 10/21/2021 groups, unions, fraternal or [...] or slept in a usp (including now)? 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 [address] [place], [place] [phone] (Wo rk) documented as of this encounter Visit Diagnoses Not on filedocumented in this encounter
--- OUTSIDE RECORDS SUMMARY | 2022-08-30 07:44 | XMS_ITS | Encounter Summary ---
:1980 Author Organization [facility] Address [address] [place] [address] Care Team Providers Name Role Phone Unavailable Primary Care Provider Unavailable Reason for Visit Reason Comments Triage Encounter Details Date Type Department Care Team Description 08/27/2020 Clinical Communication Division of Allergic Preschedul ing, Triage Diseases in Provider [place], [place] [address] [place] [address] Social History Tobacco Use Types Packs/Day Years [...] How often do you attend tenriism or zoroastrian services? Never 10/21/2021 Do you [...] or slept in a assisted (including now)? 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 No Allergy Model of Care I have read the Medical Emergency directions as noted above. Yes I have read the Division of Allergic Diseases at [facility] Model of Care as noted above and agree to the process outlined. Yes Demographics Legal First Name: Joshua Preferred First Name: Joshua [facility] Initial: L Last Name: Rad Date: 1980 Who is completing this form? Patient Who is referring you to [facility] (provide name, phone number and address)? Dr Do Barlow, [address] [address] [phone] Is this an International Exchange Coordinator? No Is this your local provider that you would like us to communicate with? Yes Reasons for Requesting Appointment / Medical Concern What are your goals for your visit to Division of Allergic Diseases at [facility]? Chronic rhinosinusiti How many providers have you seen for the primary condition? 2 Are there any non-allergy concerns that you want addressed at [facility]? Yes Please identify what your non-allergy concerns are. 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 I have always been prone to sinus infections and now they are very frequent. I have seen an director of trauma at [facility], Dr. Deni Esquivel, and triedallergy shots to no avail. I have recently started the Fasenra shot and so far it isn't really helping yet either. Primary Symptom/Concern: What is the duration these symptoms/concerns have been present? Over a year Primary Symptom/Concern: Have you previously been evaluated for this symptom/concern? Yes Primary symptom/Concern: What is the outcome or diagnosis of this evaluation? I would like to see what I can do to get fewer or no sinus infections Are there secondary medical symptoms/concerns? Yes Secondary Symptom/Concern: Describe your secondary medical symptom/concern: Asthma, chronic bronchitis, chronic asthmatic bronchitis Secondary Symptom/Concern: What is the duration these secondary symptoms/concerns have been present?Since I was 5 Secondary Symptom/Concern: Have you previously been evaluated for this secondary symptom/concern? Yes Secondary Symptom/Concern: What is the outcome or diagnosis of this evaluation? I saw the same director of trauma at [facility] and got the same treatment. Ibhave a referral from Dr. Barlow to see a pulmonogist at [facility] Are there additional symptoms/concerns? No Review of Symptoms Do you have any general concerns? Yes General: Please select all that apply. Excessive daytime sleepiness/tiredness (0-17 Years) Do you have eye concerns? No Do you have ear, nose and throat concerns? Yes Ear, nose, and throat: Please select all that apply. Persistent hoarse voice (All Patients) Nasal congestion (0-3 years) Coughing with feeding (0-3 years) Sinus congestion (All patients) Do you have heart concerns? No Do you have any respiratory concerns? Yes Lungs or breathing: Please select all that apply. Shortness of breath (4 years +) Dry cough (18 years +) Wheezing (All patients) Coughing (0-17 years) Coughing up mucus (phlegm) (18 years +) Do you have any GI concerns? No Do you have any endocrine concerns? No Do you have any muscle / bone concerns? Yes Muscle or bone: Please select all that apply. Pain or stiffness in the joints (4 years +) Muscle pain/stiffness (4 years +) Joint swelling (4 years+) Do you have any skin concerns? No Do you have any neurological concerns? No Do you have any mental health concerns? No Do you have any blood and lymph concerns? No Do you have any allergy concerns? Yes Allergy: Please select all that apply. Hives (0-17 years) Do you have any urinary, reproductive or genital concerns? No Specialist Do you or your local provider feel you should see any other specialists while at [facility]? Yes Please list any specialists that you or your local provider feel you should see while you are at [facility] and explain. Pulmonolgy as stated above and I [facility] Please list below any specific dates we should not use for scheduling within the next 12 weeks. Please be mindful of your availability, rescheduling appointments will not guarantee a consolidated itinerary. I am available any time ND PRODUCTS DIRECTOR documented in this encounter Plan of Treatment Upcoming Encounters Date Type Specialty Care Team Description 10/31/2022 Appointment Neurology Krishan Almendarez M.D . [address] [place], [place] [phone] (Wo rk) documented as of this encounter Visit Diagnoses Not on filedocumented in this encounter
--- OUTSIDE RECORDS SUMMARY | 2022-08-30 07:44 | XMS_ITS | Encounter Summary ---
:1980 Author Organization [facility] Address [address] [place] [address] Care Team Providers Name Role Phone Unavailable Primary Care Provider Unavailable Encounter Details Date Type Department Care Team Description 08/09/2004 Hospital Encounter HX [facility] Lazaro Tobar M.D. [address] [place] [address] (Wo rk) Social History Tobacco Use Types [...] How often do you attend sikh or religion services? Never 10/21/2021 Do you belong to [...] place to sleep or slept in a penitentiary (including now)? 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 [address] [place], [place] [phone] (Wo rk) documented as of this encounter Visit Diagnoses Not on filedocumented in this encounter
--- OUTSIDE RECORDS SUMMARY | 2022-08-30 07:44 | XMS_ITS | Encounter Summary ---
:1980 Author Organization [facility] Address [address] [place] [address] Care Team Providers Name Role Phone Unavailable Primary Care Provider Unavailable Reason for Visit Reason Comments COVID Inquiry Encounter Details Date Type Department Care Team Description 08/28/2020 Clinical Communication Division of Pulmonary Iman Díaz COVID Inquiry Medicine in [facility], [place] [facility] [address] [place] [address] Social History Tobacco Use Types Packs/Day Years [...] How often do you attend confucianist or yarsanism services? Never 10/21/2021 Do you belong to [...] or slept in a detention (including now)? Sex Assigned at Date Recorded Female 10/21/2021 4:05 AM HAND GRINDER documented as of this encounter Miscellaneous Notes Telephone Encounter - Mira Yoder - 08/28/2020 1:04 PM CST COVID DOS/PASS Screening What is the patient requesting?: Additional Appointments (Continue with screening) Have you tested positive for COVID-19 in the last 30 days (20 days for ARZ) or do you have a pendingCOVID-19 test because you had symptoms?: No (Continue with screening) Have you had close contact* with a person who has a LABORATORY CONFIRMED case of COVID-19 in the past 14 days?: No (Continue with screening) When is the patient asking to be scheduled F2F?: Less than 30 days in RST, SWWI, SEMN (Continue screening) In the past 14 days are any of the following symptoms new to you and not related to an existing health condition?: No symptoms noted (End screening - schedule as appropriate) Plan: Endpoint recommendation: Followed regional OTG *Reminder if sending patient for testing in RST or [facility], an email notification is required. GRINDER documented in this encounter Plan of Treatment Upcoming Encounters Date Type Specialty Care Team Description 10/31/2022 Appointment Neurology Krishan Almendarez M.D . [address] [place] [phone] (Wo rk) documented as of this encounter Visit Diagnoses Not on filedocumented in this encounter
--- OUTSIDE RECORDS SUMMARY | 2022-08-30 07:44 | XMS_ITS | Encounter Summary ---
:1980 Author Organization [facility] Address [address] [place] [address] Care Team Providers Name Role Phone Unavailable Primary Care Provider Unavailable Encounter Details Date Type Department Care Team Description 08/15/2008 Hospital Encounter HX NO MAPPING Inga Fletcher M.D. [address] [place] [phone] (Wo rk) Social History Tobacco [...] er 10/21/2021 How often do you attend catholic or lutheran services? Never 10/21/2021 Do you belong to any clubs or organizations such as catholic N o 10/21/2021 groups, unions, fraternal or [...] or slept in a fdc (including now)? 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 [address] [place], [place] [phone] (Wo rk) documented as of this encounter Visit Diagnoses Not on filedocumented in this encounter
--- OUTSIDE RECORDS SUMMARY | 2022-08-30 07:44 | XMS_ITS | Encounter Summary ---
:1980 Author Organization [facility] Address [address] [place] [address] Care Team Providers Name Role Phone Unavailable Primary Care Provider Unavailable Reason for Visit Reason Comments COVID Inquiry Encounter Details Date Type Department Care Team Description 08/06/2020 Clinical Communication Department of Medical Davon Martinez, COVID Inquiry Genetics in M.D. [place], [place] [address] [facility] [address] [place] [phone] Social History Tobacco Use Types Packs/Day Years [...] How often do you attend pentecostal or anabaptism services? Never 10/21/2021 Do you [...] or slept in a fci (including now)? 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 [address] [place], [place] [phone] (Wo rk) documented as of this encounter Visit Diagnoses Not on filedocumented in this encounter
--- OUTSIDE RECORDS SUMMARY | 2022-08-30 07:44 | XMS_ITS | Encounter Summary ---
:1980 Author Organization [facility] Address [address] [place] [address] Care Team Providers Name Role Phone Unavailable Primary Care Provider Unavailable Encounter Details Date Type Department Care Team Description 10/12/2020 Hospital Encounter Department of Mohinder Mukherjee ness Of Breath; Laboratory Medicine Parminder Coe Cough Chronic; and Pathology, [address] [place] [address] [facility] in [place], [place] [address] [place] [address] [place], [place] (Work) [phone] [phone] Social History Tobacco Use Types Packs/Day Years [...] How often do you attend orthodox or druze services? Never 10/21/2021 Do you belong to [...] at Date Recorded Female 10/21/2021 4:05 AM CERTIFIED COATINGS INSPECTOR documented as of this encounter Medications at [...] Neurology Krishan Almendarez M.D . [address] [place] [phone] (Wo rk) documented as of this encounter Procedures Procedure Name Priority Date/Time Associated Comments Diagnosis IGG SUBCLASSES, S Routine 10/12/2020 12:10 Shortness Of Result s for this PM CERTIFIED COATINGS INSPECTOR Breath procedure are in Cough Chronic the results Sinusitis section. Recurrent ANCA VASCULITIS PANEL, Routine 10/12/2020 12:10 Shortness Of R esults for this S PM CERTIFIED COATINGS INSPECTOR Breath procedure are in Cough Chronic the results Sinusitis section. Recurrent [id number] Routine 10/12/2020 12:10 Shortness Of Resu lts for this PROTEOTYPE S/Z BY PM CERTIFIED COATINGS INSPECTOR Breath procedure are in LC-MS/MS, S Cough Chronic the results Sinusitis section. Recurrent IMMUNOGLOBULIN A (IGA), Routine 10/12/2020 12:10 Results for this S PM CERTIFIED COATINGS INSPECTOR procedure are i n the results section. IMMUNOGLOBULIN M (IGM), Routine 10/12/2020 12:10 Results for this S PM CERTIFIED COATINGS INSPECTOR procedure are i n the results section. documented in this encounter Results Immunoglobulin M (IgM) (10/12/2020 12:10 PM CERTIFIED COATINGS INSPECTOR) [facility] Method Time Signature Immunoglobulin M 85 37 - 286 10/12/2020 [facility] (IgM), S mg/dL 6:46 PM CERTIFIED COATINGS INSPECTOR Specimen Anatomical Collection Method Collection Time Receive d Time (Source) Location / / Volume Laterality Blood 10/12/2020 12:10 10/12/2020 3:50 PM CERTIFIED COATINGS INSPECTOR PM CERTIFIED COATINGS INSPECTOR Mohinder Mukherjee M.D. LAB BLOOD ADD-ON Performing Organization Address City/State/ZIP Code Phon e Number [facility] [address] [place] [address] SUPPORT CENTER [facility] [place] [address] Laboratory Medicine and Pathology [address] [place] [address] Dr. [place] Immunoglobulin A (IgA) (10/12/2020 12:10 PM CERTIFIED COATINGS INSPECTOR) [facility] Method Time Signature Immunoglobulin A 142 61 - 356 10/12/2020 [facility] (IgA), S mg/dL 6:46 PM CERTIFIED COATINGS INSPECTOR Specimen Anatomical Collection Method Collection Time Receive d Time (Source) Location / / Volume Laterality Blood 10/12/2020 12:10 10/12/2020 3:50 PM CERTIFIED COATINGS INSPECTOR PM CERTIFIED COATINGS INSPECTOR Mohinder Mukherjee M.D. LAB BLOOD ADD-ON Performing Organization Address City/State/ZIP Code Phon e Number [facility] [address] [place], [place] [address] SU[facility] CENTER [facility] [place] [address] Laboratory Medicine and Pathology [address] [place] [address] Dr. 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 * This is an abnormal result. Comment: ----ADDITIONAL INFORMATION---- This test was developed and its performa nce characteristics determined by [facility] in a manner consistent with CLIA requirements. This test has not been cleared or approved by the U.[place]. Axel d and Drug Administration. Specimen Anatomical Collection Method Collection Time Receive d Time (Source) Location / / Volume Laterality Blood (Blood, 10/12/2020 12:10 10/13/2020 6:12 Venous) PM CERTIFIED COATINGS INSPECTOR AM CERTIFIED COATINGS INSPECTOR Mohinder Mukherjee M.D. LAB BLOOD NON ADD-ON Performing Organization Address City/State/ZIP Code Phon e Number [facility] [address] [place] [address] CENTER [facility] [place] [address] Laboratory Medicine and Pathology [address] [place] (ABNORMAL) IgG Subclasses (10/12/2020 12:10 PM CERTIFIED COATINGS INSPECTOR) athologist Signature Total IgG 681 (L) 767 - 1590 10/12/2020 [facility] mg/dL 10:33 PM CERTIFIED COATINGS INSPECTOR IgG 1 322 (L) 341 - 894 10/12/2020 [facility] mg/dL 10:33 PM CERTIFIED COATINGS INSPECTOR IgG 2 257 171 - 632 10/12/2020 [facility] mg/dL 10:33 PM CERTIFIED COATINGS INSPECTOR IgG 3 32.9 18.4 - 10/12/2020 [facility] 106.0 mg/dL 10:33 PM CERTIFIED COATINGS INSPECTOR IgG 4 25.3 2.4 - 121.0 10/12/2020 [facility] mg/dL 10:34 PM CERTIFIED COATINGS INSPECTOR Specimen Anatomical Collection Method Collection Time Receive d Time (Source) Location / / Volume Laterality Blood (Blood, 10/12/2020 12:10 10/12/2020 6:09 Venous) PM CERTIFIED COATINGS INSPECTOR PM CERTIFIED COATINGS INSPECTOR Mohinder Mukherjee M.D. LAB BLOOD ADD-ON Performing Organization Address City/[facility]/ZIP [facility] Phon e Number [facility] [address] [place] [address] SU[facility] CENTER [facility] [place] [address] Laboratory Medicine and Pathology [address] [place] [address] Dr. [place] ANCA (Antineutrophil Cytoplasmic Antibodies) Vasculitis Panel (10/12/2020 12:10 PM CERTIFIED COATINGS INSPECTOR) Patholo gist Method Time Signature Myeloperoxidase Ab, <0.2 <0.4 10/12/2020 [facility] S (Negative 4:40 PM CERTIFIED COATINGS INSPECTOR ) U Proteinase 3 Ab <0.2 <0.4 10/12/2020 [facility] (PR3), S (Negative 4:40 PM CERTIFIED COATINGS INSPECTOR ) U Specimen Anatomical Collection Method Collection Time Receive d Time (Source) Location / / Volume Laterality Blood (Blood, 10/12/2020 12:10 10/12/2020 3:50 Venous) PM CERTIFIED COATINGS INSPECTOR PM CERTIFIED COATINGS INSPECTOR Mohinder Mukherjee M.D. LAB BLOOD ADD-ON Performing Organization Address City/[facility]/ZIP Code Phon e Number [facility] [address] [place] [address] SU[facility] CENTER [facility] [place] [address] Laboratory Medicine and Pathology [address] [place] [address] Dr. [place] documented in this encounter Visit Diagnoses Diagnosis Shortness Of Breath Chronic Cough Sinusitis Recurrent documented in this encounter
--- OUTSIDE RECORDS SUMMARY | 2022-08-30 07:44 | XMS_ITS | Encounter Summary ---
:1980 Author Organization [facility] Address [address] [place] [address] Care Team Providers Name Role Phone Unavailable Primary Care Provider Unavailable Reason for Visit Reason Comments Triage Pansinusitis Chronic [J32.4] Encounter Details Date Type Department Care Team Description 08/28/2020 Clinical Communication Division of Debbie Shea Allergic Diseases Elian Moyer M.D. (Pansinusitis in [place] [address] [address] [facility] Chronic [J32.4]) [place], [place] [address] [facility] [address] [place], [place] [phone] [address] (Work) [phone] Social History Tobacco Use Types Packs/Day Years [...] er 10/21/2021 How often do you attend samaritan or jain services? Never 10/21/2021 Do you belong to any clubs or organizations such as samaritan N o 10/21/2021 groups, unions, fraternal or [...] or slept in a residential (including now)? Sex Assigned at Date Recorded Female 10/21/2021 4:05 AM MEDICAL RECORD TECHNICIAN documented as of this encounter Miscellaneous Notes Telephone Encounter - Elian Shea M.D. - 08/28/2020 1:57 PM MEDICAL RECORD TECHNICIAN Triage Decision: 1. __ Approved: A. ___ Schedule on NEWX clinic with RXN i. Any specific provider? B. ___ Schedule on RSX clinic with RXN ii. Any specific provider? C. ___ Schedule as video visit in NEWX/RSX clinic per patient request D. ___ Schedule as video visit with me 2. __ Deferral: A. ___ Obtain outside records for review B. ___ Obtain additional outside records for review: Specify what type: C. ___ Need a referral letter from local editor at large or primary care doctor D. ___ Please send patient an ARF 3. __ Transfer to appropriate specialty: Patient requests evaluation for non- allergy symptoms/specialists. Recommend referral outside of Division of Allergic Diseases for coordination of care. A. Specify specialty: ___ GIM ___ Pulmonary ___ ENT ___ GI ___ Neurology ___ Dermatology ___ Hematology ___ Rheumatology ___ Other: 4. _x_ Denial: Patient has an allergic disease but the patient has had an adequate testing/consultation locally and evaluation in the division of Allergic Diseases will unlikely add value to the patient's care. 5. __ Denial: Patient symptoms/diagnoses are unlikely consistent with a diagnosis seen in the field of allergic diseases. Consults to be considered if clinically indicated: None Tests to be considered if clinically indicated: None If you have additional comments for our scheduling professionals, please type in responses below: No CAL RECORD TECHNICIAN Telephone Encounter - Collette Glover - 08/28/2020 8:[address] Elian Shea, Please review the outside records, Epic (EMR, document viewer and Care Everywhere, if available) andthe ARF (automated response form), which is attached to this communication/encounter below, generated by the patient to determine the patient's disposition. Indications ([facility] to fill in): Pansinusitis Chronic [J32.4] Asthma Severe Persistent (HCC) [J45.50] Bronchitis Chronic (HCC) [J42] [facility] Care Everywhere/Referral in Chart Completed ARF/Uploaded Referral source (check one): 1. Self ___ 2. Provider _x__ Insurance: 1. Green _x__ 2. Yellow ___ Review instructions: 1. You can find the ARF under the encounter tab in Chart Review 2. You can find the outside records under documents review in Chart Review 3. Additional information can be found in care everywhere After your review, please use the smart phrase: alitriageprovider to document your decision and the quicknote button to inform Jenny Glover OR [facility] office once completed. CAL RECORD TECHNICIAN documented in this encounter Plan of Treatment Upcoming Encounters Date Type Specialty Care Team Description 10/31/2022 Appointment Neurology Krishan Almendarez M.D . [address] [place] [phone] (Wo rk) documented as of this encounter Visit Diagnoses Not on filedocumented in this encounter
--- OUTSIDE RECORDS SUMMARY | 2022-08-30 07:44 | XMS_ITS | Encounter Summary ---
:1980 Author Organization [facility] Address [address] [place] [address] Care Team Providers Name Role Phone Unavailable Primary Care Provider Unavailable Reason for Visit Reason Comments Pre-visit Testing Orders Encounter Details Date Type Department Care Team Description 08/28/2020 Clinical Communication Division of Bre Pre-v isit Testing Pulmonary Medicine Iman Ruvalcaba, Orders in [place], [place] M.P.H [address] [place] [address] Social History Tobacco Use Types Packs/Day Years [...] er 10/21/2021 How often do you attend faith or buddhism services? Never 10/21/2021 Do you belong to any clubs or organizations such as faith N o 10/21/2021 groups, unions, fraternal or [...] at Date Recorded Female 10/21/2021 4:05 AM SALESFORCE BUSINESS ANALYST documented as of this encounter Miscellaneous Notes Telephone Encounter - Mira Yoder - 08/28/2020 1:05 PM CST Hello, Patient is coming for a new consult. Date: 09/16 Please sign pending orders for previsit testing. Thank you! SFORCE BUSINESS ANALYST documented in this encounter Plan of Treatment Upcoming Encounters Date Type Specialty Care Team Description 10/31/2022 Appointment Neurology Krishan Almendarez M.D . [address] [place], [place] [phone] (Wo rk) documented as of this encounter Results PUL RHINOLARYNGOSCOPY (10/12/2020 2:15 PM SALESFORCE BUSINESS ANALYST) Specimen (Source) Anatomical Location Collection Method / Collectio n Time Received Time / Laterality Volume Narrative MMODAL - 10/12/2020 2:15 PM SALESFORCE BUSINESS ANALYST Levar Lindo M.D. ? 10/12/2020 12:04 PM Rhinolaryngoscopy Date/Time: 10/12/2020 11:59 AM Performed by: Levar Lindo M.D. Authorized by: Iman Díaz M.BGaudencioBGaudencio SGaudencio, M.P.H. PROCEDURE DETAILS ?? Indications: evaluation of larynx and im mediate subglottis and sino-nasal symptoms ?? Medication: ??Afrin Instrument: flexible fiberoptic laryngos cope Scope location: bilateral nare ?? Nasal cavity: comment: ??Evidence of recent epistaxis in the right little's area edema and crusting ?? edema and crusting ?? Sinus: obstruction ?? obstruction ?? Normal: Excessive posterior rhinorrhea. ?? Mouth: Vallecula: normal ?? Base of tongue: normal ?? Epiglottis: normal ?? Throat: Right hypopharynx: normal ?? Left hypopharynx: normal ?? Pyriform sinus: normal ?? False vocal cords: normal ?? True vocal cords: normal (Nothing to sug gest laryngopharynx reflux.) ?? CONSENT Consent obtained: verbal Consent given by: patient The benefits, risks and alternatives to the procedure and the potential need for sedation or anesthesia as well as the names, roles, and responsibilities of healthcare team memb ers performing significant interventional tasks were discussed with the patient and/or decision maker. SEDATION / ANESTHESIA Anesthesia method: topical application Topical application type: lidocaine POST-PROCEDURE DETAILS ?? Patient tolerance of procedure: ??Tolera leno well, no immediate complications Comments: #1 Rhinitis and excessive posterior rhin orrhea #2 History of epistaxis #3 No evidence of fungal laryngitis whil e on nebulized budesonide #4 No evidence of laryngopharyngeal refl ux. 1. Cough severity (How bad is it now?) ? ? 02/01 2. Cough frequency (How often is it now? ) ?? 02/01 3. Night-time cough (How often is your s leep disrupted by cough?) ??03/04 4. Disabling cough (Interferes with day- to-day activities now.) ?? 04/03 5. [id number]-yu-xpmna (Rate the strength of t he sensation you need to cough.) ?? /10 6. Visual Analogue Scale is 7 in the/100 mm. 7. Punum Cough Quality of Life is 8 ??/1 0. The latter was discontinued 6 months ago . ??She has been on budesonide nebulization for the last 2 months. ??Richard diana complains of wheeze dyspnea and cough. ??Her urge to cough is quite high. ??She denies heartburn or volumetric regurgitation in the last 14 days. ??She admits to postnasal drip and constant throat clearing. Iman Cutler, M.P.H. PFT ORDERABLES Performing Organization Address City/State/ZIP Code Phon e Number MMODAL MMODAL NA PUL Exhaled Nitric Oxide (10/12/2020 7:17 AM SALESFORCE BUSINESS ANALYST) [facility] Method Time Signature Exhaled NO 7 MMODAL Oral Parts per 39 MMODAL billion (ULN) ENOComment Patient takes MMODAL Albuterol, Budesonide, Dulera, Singulair, and Prednisone, and had a Fasenra injection 2 months ago Specimen (Source) Anatomical Location Collection Method / Collectio n Time Received Time / Laterality Volume Iman Cutler, M.P.H. PFT ORDERABLES Performing Organization Address City/State/ZIP Code Phon e Number MMODAL MMODAL NA Pulmonary Function Tests (10/12/2020 7:17 AM SALESFORCE BUSINESS ANALYST) Analysis Performed At Patho logist Time Signature VC MAX POST 4.92 L 10/12/2020 [facility] 3:57 PM SALESFORCE BUSINESS ANALYST SUITE PostFVC 4.85 L 10/12/2020 [facility] 3:57 PM SALESFORCE BUSINESS ANALYST SUITE PostFEV1 4.02 L 10/12/2020 [facility] 3:57 PM SALESFORCE BUSINESS ANALYST SUITE FEV1/FVC POST 82.85 % 10/12/2020 [facility] 3:57 PM SALESFORCE BUSINESS ANALYST SUITE FEF 25-75 % 4.33 L/s 10/12/2020 [facility] POST 3:57 PM SALESFORCE BUSINESS ANALYST SUITE PEF POST 9.71 L/s 10/12/2020 [facility] 3:57 PM SALESFORCE BUSINESS ANALYST SUITE FET POST 11.84 sec 10/12/2020 [facility] 3:57 PM SALESFORCE BUSINESS ANALYST SUITE DLCO SINGLE 27.74 ml/(min*mm 10/12/2020 [facility] BREATH POST Hg) 3:57 PM SALESFORCE BUSINESS ANALYST SUITE DLCOC SINGLE 27.33 ml/(min*mm 10/12/2020 [facility] BREATH POST Hg) 3:57 PM SALESFORCE BUSINESS ANALYST SUITE HB 13.90 g(Hb)/dL 10/12/2020 [facility] 3:57 PM SALESFORCE BUSINESS ANALYST SUITE VA SINGLE 5.85 L 10/12/2020 [facility] BREATH POST 3:57 PM SALESFORCE BUSINESS ANALYST SUITE VC MAX PRE 4.82 L 10/12/2020 [facility] 3:57 PM SALESFORCE BUSINESS ANALYST SUITE FVC 4.73 L 10/12/2020 [facility] 3:57 PM SALESFORCE BUSINESS ANALYST SUITE FEV1 4.04 L 10/12/2020 [facility] 3:57 PM SALESFORCE BUSINESS ANALYST SUITE FEV1/FVC 85.38 % 10/12/2020 [facility] 3:57 PM SALESFORCE BUSINESS ANALYST SUITE [id number]% 4.70 L/s 10/12/2020 [facility] 3:57 PM SALESFORCE BUSINESS ANALYST SUITE PEF PRE 9.97 L/s 10/12/2020 [facility] 3:57 PM SALESFORCE BUSINESS ANALYST SUITE PIF PRE 7.91 L/s 10/12/2020 [facility] 3:57 PM SALESFORCE BUSINESS ANALYST SUITE FEF 50 % FIF 93.03 % 10/12/2020 [facility] 50 PRE 3:57 PM SALESFORCE BUSINESS ANALYST SUITE FET PRE 10.38 sec 10/12/2020 [facility] 3:57 PM SALESFORCE BUSINESS ANALYST SUITE SUBSTANCE POST Albuterol 10/12/2020 [facility] 3:57 PM SALESFORCE BUSINESS ANALYST SUITE DOSE POST 2 Puff 10/12/2020 [facility] 3:57 PM SALESFORCE BUSINESS ANALYST SUITE % PRED VC MAX 107 % % 10/12/2020 [facility] 3:57 PM SALESFORCE BUSINESS ANALYST SUITE FVC% 105 % % 10/12/2020 [facility] 3:57 PM SALESFORCE BUSINESS ANALYST SUITE FEV1% 111 % % 10/12/2020 [facility] 3:57 PM SALESFORCE BUSINESS ANALYST SUITE % PRED 105 % % 10/12/2020 [facility] FEV1/FVC 3:57 PM SALESFORCE BUSINESS ANALYST SUITE % PRED FEF 131 % % 10/12/2020 [facility] 25-75% 3:57 PM SALESFORCE BUSINESS ANALYST SUITE % PRED PEF 143 % % 10/12/2020 [facility] 3:57 PM SALESFORCE BUSINESS ANALYST SUITE PRED VC MAX 4.50 10/12/2020 [facility] 3:57 PM SALESFORCE BUSINESS ANALYST SUITE PRED FVC 4.50 10/12/2020 [facility] 3:57 PM SALESFORCE BUSINESS ANALYST SUITE PRED FEV 1 3.64 10/12/2020 [facility] 3:57 PM SALESFORCE BUSINESS ANALYST SUITE PRED FEV1/FVC 81.5 10/12/2020 [facility] 3:57 PM SALESFORCE BUSINESS ANALYST SUITE PRED FEF 3.60 10/12/2020 [facility] 25-75% 3:57 PM SALESFORCE BUSINESS ANALYST SUITE PRED PEF 7.0 10/12/2020 [facility] 3:57 PM SALESFORCE BUSINESS ANALYST SUITE PRED DLCO 26.5 10/12/2020 [facility] 3:57 PM SALESFORCE BUSINESS ANALYST SUITE PRED DLCOc 26.5 10/12/2020 [facility] 3:57 PM SALESFORCE BUSINESS ANALYST SUITE Specimen (Source) Anatomical Collection Method Collection Time Re ceived Time Location / / Volume Laterality 10/12/2020 7:17 AM SALESFORCE BUSINESS ANALYST Narrative This result has an attachment that is no t available. Iman Landa., M.P.H. PFT ORDERABLES Performing Organization Address City/State/[facility] Phon e Number [facility] [address] [facility] SU[address] NA CBC with Differential, Blood (10/12/2020 6:49 AM SALESFORCE BUSINESS ANALYST) P athologist Signature Hemoglobin 13.9 11.6 - 10/12/2020 DTL 15.0 g/dL 7:13 AM SALESFORCE BUSINESS ANALYST Hematocrit 42.3 35.5 - 10/12/2020 DTL 44.9 % 7:13 AM SALESFORCE BUSINESS ANALYST Erythrocytes 4.68 3.92 - 10/12/2020 DTL 5.13 7:13 AM SALESFORCE BUSINESS ANALYST x10(12)/L MCV 90.4 78.2 - 10/12/2020 DTL 97.9 fL 7:13 AM SALESFORCE BUSINESS ANALYST RBC Distrib Width 12.8 12.2 - 10/12/2020 DTL 16.1 % 7:13 AM SALESFORCE BUSINESS ANALYST Platelet Count 185 157 - 371 10/12/2020 DTL x10(9)/L 7:13 AM SALESFORCE BUSINESS ANALYST Leukocytes 5.8 3.4 - 9.6 10/12/2020 DTL x10(9)/L 7:13 AM SALESFORCE BUSINESS ANALYST Neutrophils 2.89 1.56 - 10/12/2020 DTL 6.45 7:13 AM SALESFORCE BUSINESS ANALYST x10(9)/L Lymphocytes 2.15 0.95 - 10/12/2020 DTL 3.07 7:13 AM SALESFORCE BUSINESS ANALYST x10(9)/L Monocytes 0.58 0.26 - 10/12/2020 DTL 0.81 7:13 AM SALESFORCE BUSINESS ANALYST x10(9)/L Eosinophils 0.11 0.03 - 10/12/2020 DTL 0.48 7:13 AM SALESFORCE BUSINESS ANALYST x10(9)/L Basophils <0.03 0.01 - 10/12/2020 DTL 0.08 7:13 AM SALESFORCE BUSINESS ANALYST x10(9)/L Specimen Anatomical Collection Method Collection Time Receive d Time (Source) Location / / Volume Laterality Blood (Blood, 10/12/2020 6:49 AM 10/12/19 21 7:02 Venous) SALESFORCE BUSINESS ANALYST AM SALESFORCE BUSINESS ANALYST Iman Cutler, M.P.H. LAB BLOOD ADD-ON Performing Organization Address City/State/ZIP Code Phon e Number [facility] - [address] [place], [place] [address] [place] [address] Laboratories-[facility] [address] Immunoglobulin E (IgE) (10/12/2020 6:49 AM SALESFORCE BUSINESS ANALYST) [facility] gist Method Time Signature Immunoglobulin E 15.2 <=214 kU/L 10/12/2020 [facility] (IgE), S 1:07 PM SALESFORCE BUSINESS ANALYST Specimen Anatomical Collection Method Collection Time Receive d Time (Source) Location / / Volume Laterality Blood (Blood, 10/12/2020 6:49 AM 10/12/19 21 Venous) SALESFORCE BUSINESS ANALYST 10:06 AM SALESFORCE BUSINESS ANALYST Iman Landa., M.P.H. LAB BLOOD ADD-ON Performing Organization Address City/State/ZIP Code Phon e Number [facility] [address] [place], [place] [address] [facility] [place] [address] Laboratory Medicine and Pathology [address] [place] documented in this encounter Visit Diagnoses Diagnosis Asthma (HCC) - Primary Chronic Cough - Primary Asthma (HCC) Rhinitis documented in this encounter
--- OUTSIDE RECORDS SUMMARY | 2022-08-30 07:44 | XMS_ITS | Encounter Summary ---
:1980 Author Organization [facility] Address [address] [place] [address] Care Team Providers Name Role Phone Unavailable Primary Care Provider Unavailable Encounter Details Date Type Department Care Team Description 04/08/2002 Hospital Encounter HX [facility] Kulwant [...] er 10/21/2021 How often do you attend denominational or adventism services? Never 10/21/2021 Do you belong to any clubs or organizations such as denominational N o 10/21/2021 groups, unions, fraternal or [...] slept in a skilled nursing (including now)? Sex Assigned at Date Recorded Female 10/21/2021 4:05 AM GOVERNMENT AFFAIRS FELLOW documented as of this encounter Plan of Treatment Upcoming Encounters Date Type Specialty Care Team Description 10/31/2022 Appointment Neurology Krishan Almendarez M.D . [address] [place], [place] [phone] (Wo rk) documented as of this encounter Visit Diagnoses Not on filedocumented in this encounter
--- OUTSIDE RECORDS SUMMARY | 2022-08-30 07:44 | XMS_ITS | Encounter Summary ---
:1980 Author Organization [facility] Address [address] [place] [address] Care Team Providers Name Role Phone Unavailable Primary Care Provider Unavailable Encounter Details Date Type Department Care Team Description 10/09/2020 Lab Department of Family Iman Díaz S [facility] TristaBStefany, M.P.H. [facility] Disease [facility], in [address] [address] [facility] [phone] Social History Tobacco Use Types Packs/Day Years [...] How often do you attend religion or jain services? Never 10/21/2021 Do you [...] place to sleep or slept in a mcc (including now)? Education Answer Date Recorded What is the highest level of school you have completed or 12 th grade 10/06/2020 the highest degree you have received? Sex Assigned at Date Recorded Female 10/21/2021 4:05 AM CLASSROOM TECHNOLOGY COACH documented as of this encounter Plan of Treatment Upcoming Encounters Date Type Specialty Care Team Description 10/31/2022 Appointment Neurology Krishan Almendarez M.D . [address] [place], [place] [phone] (Wo rk) documented as of this encounter Procedures Procedure Name Priority Date/Time Associated Diagnosis Comme nts SARS CORONAVIRUS-2 Routine 10/09/2020 9:06 AM Screening Res ults for this RNA, V CLASSROOM TECHNOLOGY COACH Examination For procedure ar e in Viral Disease the results section. documented in this encounter Results SARS Coronavirus-2 RNA, V Asymptomatic (10/09/2020 9:06 AM CLASSROOM TECHNOLOGY COACH) [facility] Method Time Signature SARS-CoV-2 Swab, 10/10/2020 [facility] Specimen Nasopharynx 1:20 AM CLASSROOM TECHNOLOGY COACH Source SARS CoV-2 Undetected Undetected 10/10/2020 [facility] RNA, TMA 1:20 AM CLASSROOM TECHNOLOGY COACH Comment: SARS-CoV-2 RNA absent. This result does not rule out COVID-19 in the patient, as the sensitivity of the test depends o n the timing of the specimen collection and the quality of the specim en. Result should be correlated with patient's history and clinical presentat ion. ----ADDITIONAL INFORMATION---- This molecular amplification test was pe rformed using the Aptima SARS-CoV-2 assay ([employer] on the Working Equitys tem under emergency use authorization (EUA) by the U.S. Food and Drug Administ ration. Fact sheets for this EUA assay can be fo und at the following links: For Healthcare Providers: https://www.fd a.gov/media/058026/download For Patients: https://www.fda.gov/media/ 528583/download Specimen Anatomical Collection Method Collection Time Receive d Time (Source) Location / / Volume Laterality Varies 10/09/2020 9:06 AM 7:57 (Nasopharynx) CLASSROOM TECHNOLOGY COACH PM CLASSROOM TECHNOLOGY COACH Iman Landa., M.P.H. LAB MICROBIOLOGY - G ENERAL ORDERABLES Performing Organization Address City/State/ZIP Code Phon e Number [facility]- [address] [place] [address] [place] [address] System in [place] [address] [place] [address] documented in this encounter Visit Diagnoses Diagnosis Screening Examination For Viral Disease documented in this encounter Additional Health Concerns Infection Onset Date Last Indicated Resolved Time COVID19 Pending 10/08/2020 10/09/2020 10/10/2020 1:21 AM CLASSROOM TECHNOLOGY COACH documented as of this encounter
--- OUTSIDE RECORDS SUMMARY | 2022-08-30 07:44 | XMS_ITS | Encounter Summary ---
:1980 Author Organization [facility] Address [address] [place] [address] Care Team Providers Name Role Phone Unavailable Primary Care Provider Unavailable Reason for Visit Reason Comments Pre-visit Testing Orders 1.18 order to sign Encounter Details Date Type Department Care Team Description 09/28/2020 Clinical Communication Division of Bre Pre-v isit Testing Pulmonary Medicine Iman P, Orders (1 .18 order in [facility].B.., to sign) [facility].P. [address] [place] [address] Social History Tobacco Use Types Packs/Day Years [...] er 10/21/2021 How often do you attend moravian or baptism services? Never 10/21/2021 Do you belong to any clubs or organizations such as moravian N o 10/21/2021 groups, unions, fraternal or [...] at Date Recorded Female 10/21/2021 4:05 AM LUMBER SORTER documented as of this encounter Miscellaneous Notes Telephone Encounter - Kemi Crisostomo - 09/28/2020 8:18 AM CST Niranjanlo, Patient is coming for a newasthma consult. Date: 10/12/20 Please sign pending orders for previsit testing. Thank you! ER SORTER documented in this encounter Plan of Treatment Upcoming Encounters Date Type Specialty Care Team Description 10/31/2022 Appointment Neurology Krishan Almendarez M.D . [address] [place] [phone] (Wo rk) documented as of this encounter Results DX Chest AP or PA and Lateral 2 Views (10/09/2020 8:05 AM LUMBER SORTER) Anatomical Region Laterality Modality Chest, Thoracic RST LOS, Thoracic ARZ LOS, Thoracic N/A Digital Radiography FLA LOS Specimen (Source) Anatomical Collection Method Collection Time Re ceived Time Location / / Volume Laterality 10/09/2020 8:33 AM LUMBER SORTER Impressions 10/09/2020 8:34 AM LUMBER SORTER Calcified nodule versus 10 mm pulmonary nodule right midlung. Recommend further evaluation with chest CT if indicated. No consolidations. Normal cardiac silhou ette and pulmonary vascularity. No pneumothorax or pleural effusion. Narrative 10/09/2020 8:34 AM LUMBER SORTER EXAM: DX CHEST AP OR PA AND LATERAL 2 VIEWS Procedure Note Gage Payne M.D. - 10/09/2020For matting of this note might be different from the original. EXAM: DX CHEST AP OR PA AND LATERAL 2 EWS IMPRESSION: Calcified nodule versus 10 mm pulmonary nodule right midlung. Recommend further evaluation with chest CT if indicated. No consolidations. Normal cardiac silhou ette and pulmonary vascularity. No pneumothorax or pleural effusion. Iman Cutler, M.P.H. IMG DIAGNOSTIC IMAGI NG PROCEDURES documented in this encounter Visit Diagnoses Diagnosis Shortness Of Breath - Primary Shortness Of Breath documented in this encounter
--- OUTSIDE RECORDS SUMMARY | 2022-08-30 07:44 | XMS_ITS | Encounter Summary ---
:1980 Author Organization [facility] Address [address] [place] [address] Care Team Providers Name Role Phone Unavailable Primary Care Provider Unavailable Reason for Referral Outpatient (Routine) - Closed Specialty Diagnoses / Procedures Referred By Contact Refer red To Contact Diagnoses Chronic Cough Sinusitis Recurrent Mohinder Enamorado M.D. [facility] Procedures Northern Skin Test [address] [place] [address] Referral ID Status Reason Start Date Expiration Date Visits Requ ested Visits Authorized [id number] Closed 10/13/2020 10/13/2021 1 1 INE WIPER Outpatient (Routine) - Closed Specialty Diagnoses / Procedures Referred By Contact Refer red To Contact Diagnoses Chronic Cough Sinusitis Recurrent Mohinder Enamorado M.D. [facility] Procedures Basic Skin Test [address] [place], [place] [phone] Referral ID Status Reason Start Date Expiration Date Visits Requ ested Visits Authorized [id number] Closed 10/13/2020 10/13/2021 1 1 INE WIPER MRI/CAT/PET Scan (Routine) - Closed Specialty Diagnoses / Procedures Referred By Contact Refer red To Contact Radiology Diagnoses Shortness Of Breath Chronic Cough Sinusitis Recurrent Mohinder Enamorado M.D. [facility] Procedures CT Sinuses without IV Contrast [address] [place] [address] Referral ID Status Reason Start Date Expiration Date Visits Requ ested Visits Authorized [id number] Closed 10/12/2020 10/12/2021 1 1 INE WIPER Outpatient (Routine) - Closed Specialty Diagnoses / Procedures Referred By Contact Refer red To Contact Allergy and Immunology Diagnoses Shortness Of Breath Chronic Cough Sinusitis Recurrent Mohinder Enamorado [facility] Parminder [address] [place] [address] Referral ID Status Reason Start Date Expiration Date Visits Requ ested Visits Authorized [id number] Closed 10/12/2020 10/12/2021 1 1 peech Pathology (Routine) - Closed Specialty Diagnoses / Procedures Referred By Contact Refer red To Contact Diagnoses Shortness Of Breath Chronic Cough Sinusitis Recurrent Mohinder Enamorado M.D. [facility] Procedures DESIGN MANAGER Voice evaluation [address] [place] [address] Referral ID Status Reason Start Date Expiration Date Visits Requ ested Visits Authorized [id number] Closed 10/12/2020 10/12/2021 1 1 INE WIPER MRI/CAT/PET Scan (Routine) - Closed Specialty Diagnoses / Procedures Referred By Contact Refer red To Contact Radiology Diagnoses Shortness Of Breath Chronic Cough Sinusitis Recurrent Mohinder Enamorado M.D. [facility] Procedures CT Chest without IV Contrast [address] [place] [phone] Referral ID Status Reason Start Date Expiration Date Visits Requ ested Visits Authorized [id number] Closed 10/12/2020 10/12/2021 1 1 INE WIPER Reason for Visit Appointment Request (Routine) - Closed Specialty Diagnoses / Procedures Referred By Contact Refer red To Contact Pulmonary Medicine Diagnoses Asthma Severe (HCC) Pansinusitis Chronic Bronchitis Chronic (HCC) Do Barlow [address] [place] [address] Referral ID Status Reason Start Date Expiration Date Visits Requ ested Visits Authorized [id number] Closed 08/27/2020 08/27/2021 1 1 Encounter Details Date Type Department Care Team Description 10/12/2020 Comprehensive Visit Division of Mohinder Enamorado Cough Chronic (Primary Dx); Pulmonary Medicine RParminder Shortness Of Breath; in [place] [address] [facility] Sinusitis Recurrent [place], [place] [address] [facility] [address] [place], [place] [phone] (Work) [phone] Social History Tobacco Use Types Packs/Day Years [...] How often do you attend scientologist or orthodoxy services? Never 10/21/2021 Do you belong to [...] at Date Recorded Female 10/21/2021 4:05 AM MACHINE WIPER documented as of this encounter Last Filed Vital Signs Vital Sign Reading Time Taken Comments Blood Pressure 152/110 10/12/2020 8:55 AM MACHINE WIPER Pulse 122 10/12/2020 8:55 AM MACHINE WIPER Temperature 36.5 ??C (97.7 ??F) 10/12/2020 8:55 AM MACHINE WIPER Respiratory Rate - - Oxygen Saturation 97% 10/12/2020 8:55 AM MACHINE WIPER Inhaled Oxygen Concentration - - Weight 163 kg (359 lb 2.1 oz) 10/12/2020 8:55 AM MACHINE WIPER Height 177.7 cm (5' 9.96) 10/12/2020 8:55 AM MACHINE WIPER Body Mass Index 51.59 10/12/2020 8:55 AM MACHINE WIPER documented in this encounter Consult Notes Roscoe Roger Jr., M.D. - 10/12/2020 9:30 AM CST CHIEF COMPLAINT / REASON FOR VISIT I reviewed the evaluation and recommendations documented in today's note from Dr. Mohinder Enamorado M.D. and agree and discussed this in detail with the patient and family. ASSESSMENT / PLAN #1 Multiple environmental allergies #2 Chronic rhinosinusitis requiring recurrent courses of antibiotics and steroids #3 Episodic epistaxis #4 Question of asthma with normal pulmonary function testing #5 Morbid obesity with BMI 52 #6 GERD #7 Possible EH Complex situation. All of her pulmonary function tests in the past and those done here currently arenormal with a normal exhaled nitric oxide. I do not believe that she has asthma. She could have vocal cord dysfunction or perhaps tracheobronchomalacia. She could have GERD causing upper airway irritation contributing to her symptoms. We have recommended consultation with Allergy. She is scheduled forrhinolaryngoscopy today and we will also get a CT sinus. We will ask ENT for evaluation of vocal cord dysfunction. We will check some additional blood work to look for hypogammaglobulinemia and ANCA panel for vasculitis and alpha-1 antitrypsin given family history of recurrent pneumothorax. We will yomi ck a CT chest with inspiratory and expiratory views to look for underlying lung disease and tracheobronchomalacia. We will contact her with test results when they are available and plan next steps. PATIENT EDUCATION Ready to learn, no apparent learning barriers were identified; learning preferences include listening. Explained diagnosis and treatment plan; patient expressed understanding of the content. INE WIPER Mohinder Enamorado M.D. - 10/12/2020 9:30 AM CST SUBJECTIVE CHIEF COMPLAINT / REASON FOR CONSULT Asthma Referred by: Self HISTORY OF PRESENT ILLNESS Joshua Peters is a 40 y.o. female with medical comorbidities including but not limited to morbid obesity, and outside diagnosis' severe persistent asthma without abnormal pulmonary function testing, chronic mucopurulent sinusitis/bronchitis without abnormal CT scan previously normal ENT evaluation, GERD on p.r.n. omeprazole, multiple environmental allergies with reported positive skin testing and previous injection therapy, and hypertension. Her mother accompanies her reports a diagnosis of childhood bronchitis which she never required hospitalization for and improved as she got older. The patient then reports that she received her 1st albuterol p.r.n. inhaler in high school after she had an asthma attack after exposure to ongoing construction at her school. She was diagnosed at that point time with asthma based on symptoms and not objective pulmonary function test. She was well managed with p.r.n. albuterol until approximately age 30 when she began having frequent episodes of sinusitis. She denies any changes to her environment, but said that she began getting sinus pressure, mucopurulent nasal discharge, sore throats, productive cough, and chest tightness/wheezing in the fall and in the spring. This progressed to become more frequent approximately 5 years ago and she saw an steam clean machine operator who did skin allergen testing. The patient tells me that she was positive to molds, and essentially all tree pollens, weeds, and grasses. She tried to get injection therapy for her allergies but they were frequently interrupted with prednisone bursts for sinusitis/asthma and she was not able to complete any of the immunization therapies. She is currently on cetirizine 10 mg b.i.d., and Benralizumab since 01/2020 without any benefit. Over the last 2 years she has required prednisone bursts/tapers 1 to 2 times a month. Her symptoms usually start with nasal discharge, sinus tenderness and progress to involve cough sometimes to the point of emesis, wheezing, and breathlessness. Her symptoms always improve with prednisone. She last saw an ENT physician in the spring where she had a normal CT scan of the sinuses, anterior rhinoscopy, flexible laryngoscopy, otoscopy, and audiometry. She was previously on a nasal regimen azelastine, and fluticasone which she said did not help and was discontinued 2 weeks ago. For asthma she takes albuterol nebulizers every 4 hours, a budesonide nebulizer twice a day, and montelukast nightly. She finished prednisone taper approximately 1 week ago. She says that on top of this she takes her albuterol inhaler about once a day from control symptoms. Her primary symptoms being chest discomfort, wheeziness/chest rattling, and breathlessness. Her symptoms do improve with her p.r.n. albuterol. She has not woken up with an asthma attack, but does wake up 3-4 times a night from cough. Her symptoms have made it difficult for her to work and she is unable to do all of her cleaning.This is partly the reason why she is filing for disability and currently collecting unemployment. She denies having any pets or smoke exposure, [place] She takes Tylenol and Aleve daily for joint pain. She takes p.r.n. omeprazole for GERD. She does not havean exercise regimen. The following portions of the patient's history were reviewed and updated as appropriate: allergies,current medications, family history, medical history, social history, surgical history and problem list. REVIEW OF SYSTEMS Answers for HPI/ROS submitted by the patient on 10/06/2020 Fatigue: Yes Loss of appetite: Yes No eye issues: Yes Difficulty hearing: Yes Persistent hoarse voice: Yes Sinus congestion: Yes No heart issues: Yes Shortness of breath: Yes Coughing up mucus (phlegm): Yes Dry cough: Yes Wheezing: Yes Difficulty swallowing: Yes Heartburn: Yes Nausea: Yes Pain or stiffness in the joints: Yes Joint swelling: Yes Back pain/stiffness: Yes No skin issues: Yes Headache: Yes Light-headedness: Yes Excessive daytime sleepiness/tiredness: Yes Bruises/bleeds easily: Yes No urinary/reproductive issues: Yes OBJECTIVE PHYSICAL EXAM Wt Readings from Last 3 Encounters: 10/12/20 (!) 163 kg Temp Readings from Last 3 Encounters: 10/12/20 36.5 ??C (Temporal) BP Readings from Last 3 Encounters: 10/12/20 (!) 152/110 Pulse Readings from Last 3 Encounters: 10/12/20 (!) 122 General: Alert, interactive, not acutely ill, obese appearing Skin: No rashes or lesions. No obvious ecchymosis Eyes: Pupils round. Sclera anicteric. ENT: scabbing in the anterior nasal septum, oropharynx poorly visualized Lymph: No cervical adenopathy. Lungs: Normal rate and effort. Infrequent cough, frequent throat clearing. Right lower lobe crackling cleared with cough, no wheezes or stridor noted Heart: JVP unable to be visualized. Tachycardia and regular rhythm. No murmurs appreciated. +1 to 2 lower extremity edema. Pulses 2+ and symmetric. Abdomen: Soft , central adiposity Neuro:No gross focal defecits. Mental: Mood and affect congruent. Alert and oriented. Attention intact. No evidence of disorganizedthinking. 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 DIAGNOSTIC REVIEW 07/30: Outside echocardiogram with normal report CXR 10/09: 1 cm calcification, appears unchanged from previous imaging reports. Otherwise normal 10/12: Normal pulmonary function testing without bronchodilator response ASSESSMENT / PLAN Joshua Peters is a 40 y.o. female with medical comorbidities including but not limited to morbid obesity, and outside diagnosis' severe persistent asthma without abnormal pulmonary function testing, chronic mucopurulent sinusitis/bronchitis without abnormal CT scan previously normal ENT evaluation, GERD on p.r.n. omeprazole, multiple environmental allergies with reported positive skin testing and previous injection therapy. She presents today for evaluation of recurrent sinusitis causing difficulty breathing requiring frequently prednisone courses. Her normal pulmonary function tests and inhaled nitric oxide argues against her having persistent severe asthma. This is probably why escalations of her asthma therapy has not been helpful in controlling her symptoms. Her breathlessness is more likely multifactorial and we will institute a broad evaluation to assess for all possible contributors. Since she has a history of allergies and sinusitis with previous positive skin test unable to complete a course of injection therapy, will ask our Allergy colleagues see her. In addition she has frequent throat clearing/cough and we wonder if vocal cord dysfunction could be mimicking asthma so will ask our ENT colleagues to see her as well. To evaluate for tracheobronchial or bronchiectasis will get a CT scan of the lungs without IV contrast with inspiratory and expiratory views. Since she has recurrent infections will get serologies to look for hypogammaglobulinemia, and we will assess for an ANCA vasculitis as a cause for recurrent epistaxis. Given her family history of recurrent pneumothorax we will get an anti trypsin level. After the above has resulted we will get in touch with the patient to make recommendations on next steps. At that point time we can consider recommending daily omeprazole and escalating or deescalating her asthma regimen accordingly. #1 Multiple environmental allergies #2 Chronic rhinosinusitis requiring recurrent courses of antibiotics and steroids #3 Episodic epistaxis #4 Question of asthma with normal pulmonary function testing #5 Morbid obesity with BMI 52 #6 GERD #7 Possible EH PLAN -Allergy / Immunology evaluation for chronic sinusitis -ENT evaluation for vocal cord dysfunction -CT w/o IV contrast w/ inspiratory and expiratory views -ANCA vasculitis panel, Immunoglobulin levels with subclasses, Alpha-1 antitrypsin level -Overnight oximetry -No changes to medication regimen for now, will wait for above evaluation to result Follow-up plans: -Will follow up on the above and discuss next steps with the patient via telephone The impression and plans were explained in detail. We have discussed the risks / benefits / alternatives to all of the above proposed treatment plan. There were no apparent barriers to learning and understanding. Questions were answered. Mohinder Enamorado M.D. INE WIPER documented in this encounter Miscellaneous Notes Addendum Note - Mohinder Enamorado M.D. - 10/12/2020 9:30 AM MACHINE WIPER Addended by: MOHINDER ENAMORADO on: 10/13/2020 07:03 AM Modules accepted: Orders INE WIPER documented in this encounter Plan of Treatment Upcoming Encounters Date Type Specialty Care Team Description 10/31/2022 Appointment Neurology Krishan Almendarez M.D . [address] [place], [place] [phone] (Wo rk) Scheduled Orders Name Type Priority Associated Diagnoses Order S chedule Basic Skin Test Procedures Routine Cough Chronic Expected: 10/13/2020 Sinusitis Recurrent (Approxi mate), Expires: 2023 Northern Skin Test Procedures Routine Cough Chronic Expected: 10/13/2020 Sinusitis Recurrent (Approxi mate), Expires: 2023 Scheduled Referrals Name Type Priority Associated Order Schedule Diagnoses Allergy and Outpatient Referral Routine Shortness Of Breath Expected: Immunology - Cough Chronic 10/12/2020 Rhinitis and Sinusitis Recurrent (Approxi mate), sinusitis consult Expires: (clinic) 10/12/2023 documented as of this encounter Results Home Overnight Oximetry (10/23/2020 8:16 AM MACHINE WIPER) Specimen (Source) Anatomical Location Collection Method / Collectio n Time Received Time / Laterality Volume 10/22/2020 Narrative ONARGA BEVERLEY GUTIERREZ - 10/23/2020 2:45 PM CS T Overnight oximetry was performed on room air. ??Hartley Sleepiness Scale was 11. Baseline oxygen saturation was 95%, with mean overnight saturation ranging between 89 and 95%. ??There were multipl e episodes of oscillatory desaturation, concerning for sleep disor dered breathing. Impression: ??Abnormal. ??Episodes of os cillatory desaturation concerning for sleep disordered breathing. ?? Mohinder Enamorado M.D. PFT ORDERABLES Performing Organization Address City/State/ZIP Code Phon e Number [facility] CT Sinuses without IV Contrast (10/12/2020 1:06 PM MACHINE WIPER) Anatomical Region Laterality Modality Head, Neuroradiology RST LOS, N/A Computed T omography, Computed Neuroradiology ARZ LOS, Neuroradiology T omography FLA LOS Specimen (Source) Anatomical Collection Method Collection Time Re ceived Time Location / / Volume Laterality 10/12/2020 2:25 PM MACHINE WIPER Impressions 10/12/2020 2:31 PM MACHINE WIPER No evidence for acute or chronic sinusit is. Narrative 10/12/2020 2:31 PM MACHINE WIPER EXAM: CT SINUSES WITHOUT IV CONTRAST COMPARISON: [...] for acute or chronic sinusit is. Mohinder Enamorado M.D. IMG CT PROCEDURES CT Chest without IV Contrast (10/12/2020 1:06 PM MACHINE WIPER) Anatomical Region Laterality Modality Chest, Thoracic RST LOS, Thoracic ARZ N/A Co mputed Tomography, Computed LOS, Thoracic FLA LOS Tomography Specimen (Source) Anatomical Collection Method Collection Time Re ceived Time Location / / Volume Laterality 10/12/2020 3:30 PM MACHINE WIPER Impressions 10/12/2020 3:54 PM MACHINE WIPER 1. No evidence of tracheomalacia or bron chiectasis. 2. Few small pulmonary nodules measuring up to 4 mm. Guidelines for follow-up as discussed in the body of the report 3. Sequela of prior granulomatous infect ion. 4. Hepatic steatosis. Narrative 10/12/2020 3:54 PM MACHINE WIPER EXAM: CT CHEST WITHOUT IV CONTRAST COMPARISON: [...] granulomatous infect ion. 4. Hepatic steatosis. Mohinder Enamorado M.D. 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 * This is an abnormal result. Comment: ----ADDITIONAL INFORMATION---- This test was developed and its performa nce characteristics determined by [facility] in a manner consistent with CLIA requirements. This test has not been cleared or approved by the [place] d and Drug Administration. Specimen Anatomical Collection Method Collection Time Receive d Time (Source) Location / / Volume Laterality Blood (Blood, 10/12/2020 12:10 10/13/2020 6:12 Venous) PM MACHINE WIPER AM MACHINE WIPER Mohinder Enamorado M.D. LAB BLOOD NON ADD-ON Performing Organization Address City/State/ZIP Code Phon e Number [facility] [address] [place], [place] [address] [facility] [place] [place] [address] Laboratory Medicine and Pathology [address] [place] (ABNORMAL) IgG Subclasses (10/12/2020 12:10 PM MACHINE WIPER) athologist Signature Total IgG 681 (L) 767 - 1590 10/12/2020 [facility] mg/dL 10:33 PM MACHINE WIPER IgG 1 322 (L) 341 - 894 10/12/2020 [facility] mg/dL 10:33 PM MACHINE WIPER IgG 2 257 171 - 632 10/12/2020 [facility] mg/dL 10:33 PM MACHINE WIPER IgG 3 32.9 18.4 - 10/12/2020 [facility] 106.0 mg/dL 10:33 PM MACHINE WIPER IgG 4 25.3 2.4 - 121.0 10/12/2020 [facility] mg/dL 10:34 PM MACHINE WIPER Specimen Anatomical Collection Method Collection Time Receive d Time (Source) Location / / Volume Laterality Blood (Blood, 10/12/2020 12:10 10/12/2020 6:09 Venous) PM MACHINE WIPER PM MACHINE WIPER Mohinder Enamorado M.D. LAB BLOOD ADD-ON Performing Organization Address City/State/ZIP Code Phon e Number [facility] [address] [place] [id number] [address] [facility] [place] [address] Laboratory Medicine and Pathology [address] [place] [address] Dr. [place] ANCA (Antineutrophil Cytoplasmic Antibodies) Vasculitis Panel (10/12/2020 12:10 PM MACHINE WIPER) Patholo gist Method Time Signature Myeloperoxidase Ab, <0.2 <0.4 10/12/2020 [facility] S (Negative 4:40 PM MACHINE WIPER ) U Proteinase 3 Ab <0.2 <0.4 10/12/2020 [facility] (PR3), S (Negative 4:40 PM MACHINE WIPER ) U Specimen Anatomical Collection Method Collection Time Receive d Time (Source) Location / / Volume Laterality Blood (Blood, 10/12/2020 12:10 10/12/2020 3:50 Venous) PM MACHINE WIPER PM MACHINE WIPER Mohinder Enamorado M.D. LAB BLOOD ADD-ON Performing Organization Address City/State/ZIP Code Phon e Number [facility] [address] [place], [place] [address] [facility] [place] [address] Laboratory Medicine and Pathology [address] [place] [address] Dr. [place] documented in this encounter Visit Diagnoses Diagnosis Chronic Cough - Primary Shortness Of Breath Sinusitis Recurrent Shortness Of Breath Chronic Cough Sinusitis Recurrent Shortness Of Breath Chronic Cough Sinusitis Recurrent documented in this encounter
--- OUTSIDE RECORDS SUMMARY | 2022-08-30 07:44 | XMS_ITS | Encounter Summary ---
:1980 Author Organization [facility] Address [address] [place] [address] Care Team Providers Name Role Phone Unavailable Primary Care Provider Unavailable Reason for Visit Outpatient (Routine) - Closed Specialty Diagnoses / Procedures Referred By Contact Refer red To Contact Pulmonary Medicine Diagnoses Asthma (HCC) Iman Díaz Lim, Kaiser G, M.D. Procedures PUL RHINOLARYNGOSCOPY PUL PROC RHINOSCOPY M.B.B.S., M.P.H. [address] [place] [address] Phone: Fax: Referral ID Status Reason Start Date Expiration Date Visits Requ ested Visits Authorized [id number] Closed 09/16/2020 09/16/2021 1 1 Encounter Details Date Type Department Care Team Description 10/12/2020 Hospital Encounter Division of Levar Lindo Cough C hronic (Primary Dx); Pulmonary Medicine MViraj Asthma (HCC); in [place], [facility] [address] [place], [place] [address] [place] [id number] [place], [place] [phone] (Work) [phone] Social History Tobacco Use Types Packs/Day Years [...] er 10/21/2021 How often do you attend episcopal or tenriism services? 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 - 10/12/2020 2:15 PM CST 1. Nasal rinse to remove crustings 2. Use the astelin & flonase after 3. Remember to tuck your chin when actuating the astelin and flonase 4. Remember to sniff these medications in Further treatment plan will be based on result of sinus CT. HOUSE SUPERVISOR documented in this encounter Medications at Time [...] Take by mouth. 0 0 tablet tablet azelastine (ASTELIN) 137 azelastine 137 mcg (0.1 0 05/12/2020 mcg/spray (0.1 %) nasal %) nasal spray aerosol 1 spray benralizumab (Fasenra Inject 30 mg under the 0 Pen) 30 mg/mL injection skin every 8 (eight) 2 weeks. fluticasone propionate fluticasone propionate 0 0 11/06/2019 (FLONASE) 50 50 mcg/actuation nasal 1 mcg/actuation nasal spray,suspension spray NaCl 0.9 % irrigation Use with clindamycin 0 09/09/2019 150mg capsule opened 2 into 1000ml of saline/rinse each nostril with 20cc of soln bid omeprazole (PriLOSEC) 20 omeprazole 20 mg 0 02/[address] capsule capsule,delayed release 2 documented as of this encounter Procedure Notes Levar Lindo M.D. - 10/12/2020 2:15 PM CSTAssociated Order(s): Rhinolaryngoscopy Pre-Procedure Diagnose(s): Asthma (HCC) Post-Procedure Diagnose(s): Asthma (HCC) Rhinolaryngoscopy Date/Time: 10/12/2020 11:59 AM Performed by: Levar Lindo M.D. Authorized by: Iman Díaz M.B.B.S., M.P.H. PROCEDURE DETAILS Indications: evaluation of larynx and immediate subglottis and sino-nasal symptoms Medication: Afrin Instrument: flexible fiberoptic laryngoscope Scope location: bilateral nare Nasal cavity: comment: Evidence of recent epistaxis in the right little's area edema and crusting edema and crusting Sinus: obstruction obstruction Normal: Excessive posterior rhinorrhea. Mouth: Vallecula: normal Base of tongue: normal Epiglottis: normal Throat: Right hypopharynx: normal Left hypopharynx: normal Pyriform sinus: normal False vocal cords: normal True vocal cords: normal (Nothing to suggest laryngopharynx reflux.) CONSENT Consent obtained: verbal Consent given by: patient The benefits, risks and alternatives to the procedure and the potential need for sedation or anesthesia as well as the names, roles, and responsibilities of healthcare team members performing significant interventional tasks were discussed with the patient and/or decision maker. SEDATION / ANESTHESIA Anesthesia method: topical application Topical application type: lidocaine POST-PROCEDURE DETAILS Patient tolerance of procedure: Tolerated well, no immediate complications Comments: #1 Rhinitis and excessive posterior rhinorrhea #2 History of epistaxis #3 No evidence of fungal laryngitis while on nebulized budesonide #4 No evidence of laryngopharyngeal reflux. 1. Cough severity (How bad is it now?) 10 2. Cough frequency (How often is it now?) 10 3. Night-time cough (How often is your sleep disrupted by cough?) 10 4. Disabling cough (Interferes with day-to-day activities now.) 10 5. Sygu-yn-arght (Rate the strength of the sensation you need to cough.) 10 6. Visual Analogue Scale is 7 in the/100 mm. 7. Punum Cough Quality of Life is 8 /10. The latter was discontinued 6 months ago. She has been on budesonide nebulization for the last 2 months. Patient complains of wheeze dyspnea and cough. Her urge to cough is quite high. She denies heartburn or volumetric regurgitation in the last 14 days. She admits to postnasal drip and constant throat clearing. HOUSE SUPERVISOR documented in this encounter Plan of Treatment Upcoming Encounters Date Type Specialty Care Team Description 10/31/2022 Appointment Neurology Krishan Almendarez M.D . [address] [place] [phone] (Wo rk) documented as of this encounter Procedures Procedure Name Priority Date/Time Associated Comments Diagnosis PUL RHINOLARYNGOSCOPY Routine 10/12/2020 2:15 PM Asthma (HCC) Results for this ICE HOUSE SUPERVISOR procedure are i n the results section. documented in this encounter Results PUL RHINOLARYNGOSCOPY (10/12/2020 2:15 PM ICE HOUSE SUPERVISOR) Specimen (Source) Anatomical Location Collection Method / Collectio n Time Received Time / Laterality Volume Narrative MMODAL - 10/12/2020 2:15 PM ICE HOUSE SUPERVISOR Levar Lindo M.D. ? 10/12/2020 12:04 PM Rhinolaryngoscopy Date/Time: 10/12/2020 11:59 AM Performed by: Levar Lindo M.D. Authorized by: Iman Díaz M.B.B. SGaudencio, M.P.H. PROCEDURE DETAILS ?? Indications: evaluation [...] (Interferes with day- to-day activities now.) ?? 10 5. Zmyy-ix-yqsni (Rate the strength of t he sensation you need to cough.) ?? 06/04 6. Visual Analogue Scale is 7 in the/100 mm. 7. Punum Cough Quality of Life is 8 ??/1 0. The latter was discontinued 6 months ago . ??She has been on budesonide nebulization for the last 2 months. ??Richard ortiz complains of wheeze dyspnea and cough. ??Her urge to cough is quite high. ??She denies heartburn or volumetric regurgitation in the last 14 days. ??She admits to postnasal drip and constant throat clearing. Iman Cutler, M.P.H. PFT ORDERABLES Performing Organization Address City/State/ZIP Code Phon e Number MMODAL MMODAL NA documented in this encounter Visit Diagnoses Diagnosis Chronic Cough - Primary Asthma (HCC) Rhinitis documented in this encounter
--- OUTSIDE RECORDS SUMMARY | 2022-08-30 07:44 | XMS_ITS | Encounter Summary ---
:1980 Author Organization [facility] Address [address] [place] [address] Care Team Providers Name Role Phone Unavailable Primary Care Provider Unavailable Encounter Details Date Type Department Care Team Description 10/09/2020 Hospital Encounter Department of Iman Díaz ness Of Breath Radiology [place] M.P.H. [address] [place] [address] Social History Tobacco Use Types Packs/Day Years [...] How often do you attend mormon or sikhism services? 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 0 mg tablet benzonatate (TESSALON) benzonatate 200 mg 0 08/26 200 mg capsule capsule budesonide (PULMICORT) budesonide 0.5 mg/2 mL 0 0 02/19/2020 0.5 mg/2 mL nebulizer suspension for solution nebulization cholecalciferol (VITAMIN Take 2,000 Units by 0 D3) 50 mcg (2,000 Unit) mouth. capsule dextromethorphan-guaiFEN Take 1 tablet by mouth. 0 [...] nasal %) nasal spray aerosol 1 spray clindamycin (CLEOCIN) CLINDAMYCIN 150 MG 0 2019 150 mg capsule CAPSULE OPENED INTO 1 1000ML OF SALINE. RINSE EACH NOSTRIL WITH 20 ML OF SOLUTION TWICE DAILY. fluticasone propionate fluticasone propionate 0 0 11/06/2019 (FLONASE) 50 50 mcg/actuation nasal 1 mcg/actuation nasal spray,suspension spray guaiFENesin (MUCINEX) Take 600 mg by mouth. 0 600 mg 12 hr tablet 1 mometasone-formoterol Inhale 2 puffs. 0 0 (DULERA 200) 200-5 1 mcg/actuation inhaler montelukast (SINGULAIR) montelukast 10 mg tablet 0 12/17/2015 10 mg tablet 1 NaCl 0.9 % irrigation Use with clindamycin 0 /09/2019 150mg capsule opened 2 into 1000ml of saline/rinse each nostril with 20cc of soln bid omeprazole (PriLOSEC) 20 omeprazole 20 mg 0 02/[address] capsule capsule,delayed release 2 documented as of this encounter Plan of Treatment Upcoming Encounters Date Type Specialty Care Team Description 10/31/2022 Appointment Neurology Krishan Almendarez M.D . [address] [place], [place] [phone] (Wo rk) documented as of this encounter Procedures Procedure Name Priority Date/Time Associated Comments Diagnosis DX CHEST AP OR PA RAD - Routine 10/09/2020 8:05 Shortness Of Result s for this AND LATERAL 2 (most inpatients AM POULTRY HATCHERY MANAGER Breath procedure are in VIEWS and all the results outpatients) section. documented in this encounter Results DX Chest AP or PA and Lateral 2 Views (10/09/2020 8:05 AM POULTRY HATCHERY MANAGER) Anatomical Region Laterality Modality Chest, Thoracic RST LOS, Thoracic ARZ LOS, Thoracic N/A Digital Radiography FLA LOS Specimen (Source) Anatomical Collection Method Collection Time Re ceived Time Location / / Volume Laterality 10/09/2020 8:33 AM POULTRY HATCHERY MANAGER Impressions 10/09/2020 8:34 AM POULTRY HATCHERY MANAGER Calcified nodule versus 10 mm pulmonary nodule right midlung. Recommend further evaluation with chest CT if indicated. No consolidations. Normal cardiac silhou ette and pulmonary vascularity. No pneumothorax or pleural effusion. Narrative 10/09/2020 8:34 AM POULTRY HATCHERY MANAGER EXAM: DX CHEST AP OR PA AND [...] Shortness Of Breath documented in this encounter Additional Health Concerns Infection Onset Date Last Indicated Resolved Time COVID19 Pending 10/08/2020 10/09/2020 10/10/2020 1:21 AM POULTRY HATCHERY MANAGER documented as of this encounter
--- OUTSIDE RECORDS SUMMARY | 2022-08-30 07:44 | XMS_ITS | Encounter Summary ---
:1980 Author Organization [facility] Address [address] [place] [address] Care Team Providers Name Role Phone Unavailable Primary Care Provider Unavailable Encounter Details Date Type Department Care Team Description 01/07/2004 Hospital Encounter HX [facility] Lazaro Tobar M.D. [address] [place] [address] (Wo rk) Social History Tobacco [...] How often do you attend yarsanism or mormonism services? 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 [address] [place], [place] [phone] (Wo rk) documented as of this encounter Visit Diagnoses Not on filedocumented in this encounter
--- OUTSIDE RECORDS SUMMARY | 2022-08-30 07:45 | XMS_ITS ---
:1980 Author Care Team Providers Name Role Phone MIGUEL MILAN Primary Care Provider [phone] MIGUEL YATES Referring Provider [phone] [facility] Physical Therapist [phone] Allergies Code Code System Name Reaction Severity Status Onset RxNorm Cefprozil Rash Severe Active ? RxNorm Erythromycin Nausea Moderate Active ? Vomiting Moderate to Active ? Severe Fish Containing Hives Moderate to Active ? Products Severe ? Itching Moderate to Active ? Severe ? Nausea Moderate Active ? ? Vomiting Moderate to Active ? Severe [place] Anaphylaxis Severe Active ? Penicillins ? ? Active ? Sulfa (Sulfonamide ? ? Active ? Antibiotics) Medications Name Status Start Date Stop Date ? ? albuterol sulfate 2.5 mg/3 mL (0.083 %) solution for Active ? Not available nebulization albuterol sulfate HFA 90 mcg/actuation aerosol inhaler Active ? Not available azelastine 137 mcg (0.1 %) nasal spray aerosol Active ? Not available azithromycin 250 mg tablet Active ? Not a vailable azithromycin 500 mg tablet Active ? Not a vailable benzonatate 100 mg capsule Active ? Not a vailable benzonatate 200 mg capsule Active ? Not a vailable budesonide 0.5 mg/2 mL suspension for nebulization Active ? Not available cefdinir 300 mg capsule Active ? Not avai lable cetirizine 10 mg tablet Active ? Not avai lable citalopram 40 mg tablet Active ? Not avai lable cyclobenzaprine 10 mg tablet Active ? Not available cyclobenzaprine 5 mg tablet Active ? Not available doxycycline monohydrate 100 mg capsule Active ? Not available Dulera 100 mcg-5 mcg/actuation HFA aerosol inhaler Active ? Not available Dulera 200 mcg-5 mcg/actuation HFA aerosol inhaler Active ? Not available epinephrine 0.3 mg/0.3 mL injection, auto-injector Active ? Not available Fasenra Pen 30 mg/mL subcutaneous auto-injector Active ? Not available Inject by subcutaneous route. Fluarix Quad (PF) 60 mcg (15 mcg x 4)/0.5 mL Completed ? 12/10/2019 IM syringe fluticasone propionate 50 mcg/actuation nasal Active ? Not available spray,suspension gabapentin 100 mg capsule Active ? Not av ailable hydrochlorothiazide 25 mg tablet Active ? Not available hydroxyzine pamoate 25 mg capsule Completed ? 12/10/2019 montelukast 10 mg tablet Active ? Not angela ilable naproxen 500 mg tablet Active ? Not avail able omeprazole 20 mg capsule,delayed release Active ? Not available oxycodone 5 mg tablet Active ? Not availa ble prednisone 10 mg tablet Active ? Not avai lable prednisone 20 mg tablet Active ? Not avai lable Virtussin AC 10 mg-100 mg/5 mL oral liquid Completed ? 12/10/2019 Problems Name Status Onset Date Source ? 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 Otalgia Active 12/10/2019 ? Tinnitus of Right Ear Active 12/10/2019 ? Limited Opening of Mandible Active 12/10/2019 ? Procedures Date Name Performed by ? 06/17/2019 Other Information not avai lable 07/17/2016 Other Information not avai lable 02/27/2001 Tonsillectomy Information not avai lable ? [place] Teeth Extraction Information not available Results Lab Results Date Name Specimen Result Interpretation Description Value Range Status Address ? ? Oral Appliance ? Type of maxillary ? ? [place]: [address]* Appliance stabilization [address] appliance [address] , [place] Past Encounters None recorded. Social History Tobacco Smoking Status Never Smoker Vaccine List Vaccine Type influenza, seasonal, injectable 06/11/2019 pneumococcal, unspecified formulation 11/08/2019 Plan of Care Reminders Provider Appointments None recorded. ? ? Lab None recorded. ? ? Referral None recorded. ? ? Procedures None recorded. ? ? Surgeries None recorded. ? ? Imaging None recorded. ? ? Vitals 03/12/2020 08:30AM SPLINT INSERT Height Weight BMI Blood Pressure 6 ft 347 lbs 47.1 kg/m2 155/118 mm[Hg] 12/10/2019 09:00AM RE-EVALUATION Height Weight BMI Blood Pressure 6 ft 347 lbs 47.1 kg/m2 08/22/2012 Weight BMI Blood Pressure 323 lbs 44.00 kg/m2 144/104 mm[Hg] 07/11/2012 Height Weight BMI Blood Pressure 6 ft 323 lbs 44.00 kg/m2 123/90 mm[Hg]
--- OUTSIDE RECORDS SUMMARY | 2022-08-30 07:45 | XMS_ITS | Encounter Summary ---
:1980 Author Organization [facility] Address [address] [place] [address] Care Team Providers Name Role Phone Unavailable Primary Care Provider Unavailable Encounter Details Date Type Department Care Team Description 10/23/2000 Hospital Encounter [facility]X [facility] Provider, Arron cortez Social History Tobacco Use Types Packs/Day Years [...] er 10/21/2021 How often do you attend sikhism or episcopal services? Never 10/21/2021 Do you belong to any clubs or organizations such as sikhism N o 10/21/2021 groups, unions, fraternal or [...] slept in a group home (including now)? 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 [address] [place], [place] [phone] (Wo rk) documented as of this encounter Visit Diagnoses Not on filedocumented in this encounter
--- OUTSIDE RECORDS SUMMARY | 2022-08-30 07:45 | XMS_ITS | Encounter Summary ---
:1980 Author Organization [facility] Address [address] [place] [address] Care Team Providers Name Role Phone Unavailable Primary Care Provider Unavailable Encounter Details Date Type Department Care Team Description 03/06/2002 Hospital Encounter [facility]X [facility] Provider, [...] er 10/21/2021 How often do you attend mormonism or jain services? 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 [address] [place], [place] [phone] (Wo rk) documented as of this encounter Visit Diagnoses Not on filedocumented in this encounter
== END 2022-08-30 07:38 | disposition home or self-care (01) ==
PROVIDERS: PCP Internal Medicine; Visit Provider Family Medicine
DX: M54.16 Radiculopathy, lumbar region (principal); M51.36 Other intervertebral disc degeneration, lumbar region
CPT/HCPCS: 64483; J1100; Q9966

== ENCOUNTER 2022-11-01 07:34 | Outpatient (CLI) | payer BC, SELFPAY ==
--- NOTE | 2022-11-01 08:00 | CRLHL7_ITS ---
For Patients: As a result of the Century Cures Act, medical imaging exams and procedure reports are released immediately into your electronic medical record. You may view this report before your referring provider. If you have questions, please contact your health care provider. Indication: sinusitis Technique: Performed without IV contrast Comparison: None available Findings: Frontal sinuses: Clear. Ethmoid sinuses: Clear. Maxillary sinuses: Clear. The maxillary sinus drainage pathways are patent on both sides. Sphenoid sinuses: Clear, including both sphenoethmoidal recesses. Nasal Cavity: Slight paradoxical turn of the right middle turbinate. Mild mucus within the right nasal cavity. Nasal septum is relatively midline with slight leftward curvature. No TMJ abnormalities identified. The visualized portions of the orbits, intracranial contents and upper soft tissue neck are grossly negative. Impression: 1. Clear sinuses. 2. Patent sinus drainage pathways. Please note that all CT scans at this facility use dose modulation, iterative reconstruction, and/or weight-based dosing when appropriate to reduce radiation dose to as low as reasonably achievable. Dictated by Rishi Copeland MD @ 11/01/2022 12:27:47 PM (Electronically Signed)
== END 2022-11-01 07:35 | disposition home or self-care (01) ==
LOC: CT 07:34
PROVIDERS: PCP Internal Medicine; Visit Provider Otolaryngology
DX: J32.9 Chronic sinusitis, unspecified (principal)
CPT/HCPCS: 70486

== ENCOUNTER 2022-11-22 07:26 | Outpatient (CLI) | payer BC, SELFPAY | END 2022-11-22 07:27 | disposition home or self-care (01) | LOC: INJ CL 07:27 | PROVIDERS: PCP Internal Medicine; Visit Provider Family Medicine | DX: M54.16 Radiculopathy, lumbar region (principal); M51.36 Other intervertebral disc degeneration, lumbar region | CPT/HCPCS: 64483; J1100; Q9966 ==

== ENCOUNTER 2023-08-22 12:16 | Outpatient (CLI) | payer BC, SELFPAY ==
--- OUTSIDE RECORDS SUMMARY | 2023-08-22 12:19 | XMS_ITS | Continuity of Care Document ---
Author Name Unknown Organization [facility] Address [address] [place] [address] Phone Care Team Providers Care Grain Drier Operator Name Role Phone Irena RUSS, PhD, Pankaj Unavailable Unavai lable Allergies, Adverse Reactions, Alerts Substance Reaction Status Criticality No Known Allergies Active No Inform ation Medications Medication Instructions Dosage Effective Dates (start - stop) Status Comments GABAPENTIN 300MG CAPS TAKE THREE CAPSULES BY MOUTH THREE TIMES A DAY 900 MG - Active CYCLOBENZAPRINE HCL (unknown strength) Not Available - Active GABAPENTIN (unknown strength) Not Available - Active Procedures Procedure Date Office/Outpatient Visit,Est, Mod 2022 X-Ray Exam Lower Spine 2-3 Views 2022 X-Ray Exam Lwr Spine, Min 4 Views OFFICE/OUTPATIENT VISIT EST Video OFFICE/OUTPATIENT VISIT EST Phone Office/Outpatient Visit,Est, Mod 2020 Office/Outpatient Visit,Est, Mod 2020 Advance Directives Directive Yes / No Effective Date File Name No Information Encounters Encounter Description Practice Location Reason(s) For Visit Diagnoses Date Provider Providers Copied on Encounter Office/Outpat ient Visit,Est, Mod [facility], [address], [place], [id number], [place] tel:[phone] [facility] Other intervertebral disc displacement, lumbar region 3 Irena Lira. [facility], [address], [place], [address], [place]. tel:[phone] Referring Provider: Dong Ruvalcaba, [address], [address]. tel:[phone] [facility], [address], [place], [place], [id number], [place] tel:[phone] [facility] [place] No Information 3 Vu Samuel. [facility], [address], [place], [place], [id number] , [place]. [phone] OFFICE/OUTPAT IENT VISIT EST Video [facility], [address], [place], [place], [id number], [place] tel:[phone] [facility] No Information 2 Vu Samuel. [facility], [address], [place], [place], [id number] , [place]. [phone] Referring Provider: Dong Ruvalcaba, [address], [address]. tel:[phone] OFFICE/OUTPAT IENT VISIT EST Phone [facility], [address], [place], [id number], [place] tel:[phone] [facility] No Information 2 Vu Samuel. [facility], [address], [place], [place], [id number] , [place]. [phone] Referring Provider: Dong Ruvalcaba, [address], [address]. tel:[phone] Office/Outpat ient Visit,Est, Mod [facility], [address], [place], [place], [id number], [place] tel:[phone] [facility] Other intervertebral disc displacement, lumbar region Jun- 1 Vu Samuel. [facility], [address], [place], [place], [id number] , [place]. tel:[phone] Referring Provider: Dong Ruvalcaba, [facility] [address] [place] [address], [address]. tel:[phone] Office/Outpat ient Visit,Est, Mod [facility], [address], [place], [id number], [place] tel:[phone] [facility] Other intervertebral disc displacement, lumbar region 1 Vu Samuel. [facility], [address], [place], [place], [id number] , [place]. tel:[phone] Referring Provider: Dong Ruvalcaba, [facility] [address] [place] [address], [address]. tel:[phone] Family History Family Member Type Diagnosis Age At Onset No Information Payers Payer name Insurance type Covered republican ID Authoriza denzel(s) [employer] [place] [id number] Social History Type Description Quantity Date Captured Comments Alcohol Use Details Unknown Caffeine Use Details Unknown Tobacco Use Status Current non-smoker Smoking Status Never smoker Non-Smoking Tobacco Use Details : No Details Available : No Details Available Sex Female Vital Signs Date / Time: Height Weight BMI Pulse Rate Blood Pressure Temperature Respiratory Rate Body Surface Area Head Circumference Head Circ. Percentile Wt./Juan. Percentile BMI percentile Pulse Ox Inhaled Ox 10:02 AM 71.00 in 155.129 kg (342.00 lbs) 47.7 0 kg/m eter (2) Chief Complaint And Reason For Visit No Information Reason For Referral Reason For Referral No Information History Of Present Illness Encounter Date Complaint History Of Prese nt Illness No Information Functional Status Date Functional Assessmen t No Information Instructions Date Instruction Additional Infor mation No Information Assessments Type Assessment Date assessment Other intervertebral disc displa cement, lumbar region Patient Care Teams Name Effective Dates (start - stop) Status Members No Information
== END 2023-08-22 12:17 | disposition home or self-care (01) ==
LOC: INJ CL 12:17
PROVIDERS: PCP Internal Medicine; Visit Provider Family Medicine
DX: M54.16 Radiculopathy, lumbar region (principal)
CPT/HCPCS: 64483; J1100; Q9966

== ENCOUNTER 2023-11-21 07:15 | Outpatient (CLI) | payer BC, SELFPAY | END 2023-11-21 07:16 | disposition home or self-care (01) | LOC: INJ CL 07:17 | PROVIDERS: PCP Internal Medicine; Visit Provider Family Medicine | DX: M54.16 Radiculopathy, lumbar region (principal); M51.36 Other intervertebral disc degeneration, lumbar region | CPT/HCPCS: 64483; J1100; Q9966 ==

== ENCOUNTER 2024-03-05 07:34 | Outpatient (CLI) | payer BC, SELFPAY ==
--- OUTSIDE RECORDS SUMMARY | 2024-03-05 07:37 | XMS_ITS | Continuity of Care Document ---
Author Organization [facility] Address [facility] [address] [place] [address]- Encounter 12/19/23 - 12/26/23 [facility] [address] [facility] [place], [facility] [address] [place] [address] Allergies, Adverse Reactions, Alerts Substance Criticality Severity Reaction Reaction Severity Status cefprozil Active amitriptyline Hives Active Bactrim Active penicillin Active sulfa drug Active Medications albuterol 2.5 mg/3 mL (0.083%) inhalation solution = 3 mL ( 2.5 mg ), Inhale, q6 hrs, PRN: for wheezing, # 100 EA, 3 Refill(s), Type: Maintenance, [facility] [place], 3 mL Inhale q6 hrs,PRN:for wheezing, 70, in, 12/12/22 11:36:00 CDT, Height Measured, 342, lb, 12/12/22 11:36:00 CDT, Weight Measured Start Date: 12/20/22 Status: Ordered ALLERGY RELIEF CETIRIZINE 10 TABS ALLERGY RELIEF CETIRIZINE 10 TABS, 1 tab(s), Oral, daily, # 90 tab(s), 3 Refill(s), Type: Maintenance, [facility] [place], TAKE ONE TABLET BY MOUTH EVERY DAY, 70, in, 02/14/23 8:51:00 CDT, Height Measured, 342, lb, 02/14/23 8:51:00 CDT, Weight Measured Start Date: 06/22/23 Status: Ordered amoxicillin 500 mg oral capsule = 1 cap(s) ( 500 mg ), Oral, daily, # 30 cap(s), 1 Refill(s), Type: Soft Stop, [facility] [place], 1 cap(s) Oral daily,x30 day(s), 70, in, 06/26/23 10:52:00 CDT, Height Measured, 364, lb, 06/26/23 10:52:00 CDT, Weight Measured Start Date: 09/28/23 Stop Date: 11/27/23 Status: Ordered azithromycin 250 mg oral tablet = 1 packet(s), Oral, once, Instructions: as directed on package labeling repeat after 5 days off ifneeded, # 12 tab(s), 0 Refill(s), Type: Soft Stop, [facility] [place], 1 packet(s) Oral once,Instr:as directed on package labeling; repeat after 5 days off if needed, 70, in, 02/14/23 8:51:00 CDT, Height Measured, 342, lb, 02/14/23 8:51:00 CDT, Weight Measured Start Date: 03/23/23 Status: Ordered budesonide 0.5 mg/2 mL inhalation suspension = 2 mL, Inhale, bid, # 120 mL, 3 Refill(s), Type: Maintenance, [facility] [place], INHALE 2ML VIA NEBULIZER TWICE A DAY, 70, in, 06/21/22 9:06:00 CDT, Height Measured, 353, lb, 06/21/22 9:06:00 CDT, Weight Measured Start Date: 11/02/22 Status: Ordered cetirizine 10 mg oral tablet = 1 tab(s) ( 10 mg ), Oral, daily, # 90 tab(s), 3 Refill(s), Type: Maintenance, [facility] [place], 1 tab(s) Oral daily, 70, in, 06/21/22 9:06:00 CDT, Height Measured, 353, lb, 06/21/22 9:06:00 CDT, Weight Measured Start Date: 06/21/22 Status: Ordered citalopram 20 mg oral tablet = 1 tab(s) ( 20 mg ), po, daily, 0 Refill(s), Type: Maintenance Start Date: 05/31/17 Status: Ordered cycloSPORINE modified 25 mg oral capsule = 3 cap(s) ( 75 mg ), Oral, q12 hrs, # 180 cap(s), 1 Refill(s), Type: Maintenance, [facility] [place], 3 cap(s) Oral q12 hrs, 70, in, 02/14/23 8:51:00 CDT, Height Measured, 342,lb, 02/14/23 8:51:00 CDT, Weight Measured Start Date: 02/14/23 Status: Ordered Depo-Provera ( 400 mg ), im, 0 Refill(s), Type: Maintenance Start Date: 05/17/16 Status: Ordered Dulera 200 mcg-5 mcg/inh inhalation aerosol 2 puff(s), Inhale, bid, # 13 gm, 3 Refill(s), Type: Maintenance, [facility] [place], INHALE 2 PUFFS BY MOUTH TWO TIMES A DAY, 70, in, 06/26/23 10:52:00 CDT, Height Measured, 364, lb, 06/26/23 10:52:00 CDT, Weight Measured Start Date: 08/28/23 Status: Ordered Emgality Prefilled Pen ( 120 mg ), Subcutaneous, qmonth, 0 Refill(s), Type: Maintenance Start Date: 06/26/23 Status: Ordered EpiPen 2-Addy ( 0.3 mg ), im, once, 0 Refill(s), Type: Maintenance Start Date: 05/17/16 Status: Ordered fluticasone 50 mcg/inh nasal spray Instructions: ADMINISTER 2 SPRAYS INTO EACH NOSTRIL DAILY Start Date: 02/15/23 Status: Ordered gabapentin 300 mg oral capsule Instructions: TAKE THREE CAPSULES BY MOUTH THREE TIMES A DAY Start Date: 02/15/23 Status: Ordered hydrochlorothiazide po, daily, 0 Refill(s), Type: Maintenance Start Date: 05/17/16 Status: Ordered ipratropium 42 mcg/inh (0.06%) nasal spray 2 spray(s), Nasal, qid, # 15 mL, 5 Refill(s), Type: Maintenance, [facility] [place], ADMINISTER 2 SPRAY(S) NASALLY FOUR TIMES A DAY, 70, in, 06/26/23 10:52:00 CDT, Height Measured, 364, lb, 06/26/23 10:52:00 CDT, Weight Measured Start Date: 10/17/23 Status: Ordered montelukast 10 mg oral tablet = 1 tab(s), Oral, qpm, # 90 tab(s), 2 Refill(s), Type: Maintenance, Pharmacy[facility] [place], TAKE ONE TABLET BY MOUTH EVERY EVENING, 70, in, 06/26/23 10:52:00 CDT, Height Measured, 364, lb, 06/26/23 10:52:00 CDT, Weight Measured Start Date: 07/10/23 Status: Ordered Mucus Relief ER 600 mg oral tablet, extended release Instructions: TAKE ONE TABLET BY MOUTH TWICE A DAY Start Date: 02/15/23 Status: Ordered Nasacort 0 Refill(s), Type: Maintenance Start Date: 05/17/16 Status: Ordered omeprazole Oral, daily, 0 Refill(s), Type: Maintenance Start Date: 11/05/19 Status: Ordered Pulmozyme 2.5 mg/2.5 mL inhalation solution ( 2.5 mg ), Inhale, bid, # 150 mL, 5 Refill(s), Type: Maintenance, [facility] INHALE 1 AMPULE (2.5 MG) VIA NEBULIZER TWICE DAILY, 70, in, 06/26/23 10:52:00 CDT, Height Measured, 364, lb, 06/26/23 10:52:00 CDT, Weight Measured Start Date: 08/01/23 Status: Ordered Symbicort 160 mcg-4.5 mcg/inh inhalation aerosol 2 puff(s), Inhale, bid, Instructions: Switch inhaler due to Dulera being out of stock., # 1 EA, 3 Refill(s), Type: Maintenance, [facility] [place], 2 puff(s) Inhale bid,Instr:Switch inhaler due to Dulera being out of stock., 70, in, 06/26/23 10:52:00 CDT, Height Measured, 364,lb, 06/26/23 10:52:00 CDT, Weight Measured Start Date: 06/26/23 Status: Ordered verapamil 80 mg oral tablet Instructions: TAKE ONE TABLET BY MOUTH TWICE A DAY Start Date: 02/15/23 Status: Ordered Problem List Condition Confirmation Course Effective Dates Status Health Status Informant Allergic rhinitis due to pollen Confirmed Active Chronic bronchitis Confirmed Active Chronic cough Confirmed Active Chronic rhinosinusitis Confirmed Active Excessive sputum Confirmed Active Drug allergy Confirmed Active Chronic GERD Confirmed Active Hypermobile joints Confirmed Active Laryngospasms Confirmed Active Obesity Probable Diagnosis Active Reactive airway disease Confirmed Active Procedures Procedure Date Related Diagnosis Body Site Status Tonsillectomy Completed Social History Social History Type Response Smoking Status Never (less than 100 in lifetime) entered on: 06/21/22 Sex Female Family History Name: UnknownRelationship: Mother Condition State Severity Life Cycle Status Age at Onset Migraine POSITIVE Allergic rhinitis.. POSITIVE Recurrent sinus infections.. POSITIVE Obesity.. POSITIVE Name: UnknownRelationship: Father Condition State Severity Life Cycle Status Age at Onset Obesity.. POSITIVE Diabetes.. POSITIVE Migraine POSITIVE Genetic disease POSITIVE Name: UnknownRelationship: Grandmother (M) Condition State Severity Life Cycle Status Age at Onset Migraine POSITIVE
--- OUTSIDE RECORDS SUMMARY | 2024-03-05 07:37 | XMS_ITS | Clinical Summary ---
Author Organization [facility] Address [address] [place] [id number] Care Team Providers Care Material Inspector Name Role Phone Coral Douglas NP Primary Care Provider [phone] Allergies Active Allergy Reactions Criticality Noted Date Comments Amitriptyline Hives Medium 03/31/2021 Cefprozil Rash High 02/16/2010 has tolerated omnicef Erythromycin Nausea,Nausea and Vomiting High 12/20/2006 Fish Oil Hives,Itching,Nausea , Nausea and Vomiting High 01/28/2020 Convallariae Majalis Anaphylaxis High 01/28/2020 Metoprolol Hives 08/19/2020 Penicillins Nausea and Vomiting,Rash Low 12/20/2006 Shellfish Allergy Hives 10/22/2018 Sulfa Antibiotics 03/04/2020 Sulfamethoxazole-Trimet hoprim Nausea and Vomiting 12/20/2006 Medications Medication Sig Dispensed Refills Start Date End Date Status albuterol (PROVENTIL) (2.5 MG/3ML) 0.083% neb solution albuterol sulfate 2.5 mg/3 mL (0.083 %) solution for nebulization 09/19/2019 Ac tive albuterol (PROAIR HFA/PROVENTIL HFA/VENTOLIN HFA) 108 (90 Base) MCG/ACT inhaler albuterol sulfate HFA 90 mcg/actuation aerosol inhaler 02/04/2020 Active budesonide (PULMICORT) 0.5 MG/2ML neb solution 02/19/2020 Active cetirizine (ZYRTEC) 10 MG tablet 02/27/2020 Active cyclobenzaprine (FLEXERIL) 10 MG tablet 12/10/2019 Active EPINEPHrine (ANY BX GENERIC EQUIV) 0.3 MG/0.3ML injection 2-pack epinephrine 0.3 mg/0.3 mL injection, auto-injector 01/31/2019 Act gerhard fluticasone (FLONASE) 50 MCG/ACT nasal spray fluticasone propionate 50 mcg/actuation nasal spray,suspension 11/06/2019 Active hydrochlorothiaz kapil (HYDRODIURIL) 25 MG tablet hydrochlorothiazide 25 mg tablet 04/25/2019 Active DULERA 200-5 MCG/ACT inhaler 01/16/2020 Active montelukast (SINGULAIR) 10 MG tablet montelukast 10 mg tablet 10/28/2019 Active naproxen (NAPROSYN) 500 MG tablet naproxen 500 mg tablet Ac tive omeprazole (PRILOSEC) [address] capsule 02/29/2020 Active DULoxetine (CYMBALTA) 30 MG capsule Take 30 mg by mouth daily Active amLODIPine (NORVASC) 5 MG tablet Take 5 mg by mouth daily Active PREDNISONE PO Take 60 mg by mouth Prednisone traper. 60 mg for 3 days, starting 08/18, then 50 mg for 3 days, then 40 mg for 3 days, 30 mg for 3 days, 20mg for 3 days, 10 mg for 3 day, 5 mg for 2 days, then complete. Active topiramate (TOPAMAX) 25 MG tablet Take 25 mg by mouth 2 times daily Currently taking two tabs daily Active SUMAtriptan (IMITREX) 100 MG tablet Take 100 mg by mouth at onset of headache for migraine Active verapamil (CALAN) 80 MG tablet Take 80 mg by mouth 2 times daily Active Active Problems Problem Noted Date Diagnosed Date Severe persistent asthma, uncomplicated (H28) Chronic rhinosinusitis 02/27/2020 Social History Tobacco Use Types Packs/Day Years Used Date Smoking Tobacco: Never Assessed Adolescent Education Answer Date Record ed Getting School Help Needed Not on file 07/02 Sex and Gender Information Value Date Recorded Sex Assigned at Not on file Gender Identity Not on file Sexual Orientation Not on file Last Filed Vital Signs Vital Sign Reading Time Taken Comments Blood Pressure 150/108 07/21/2021 7:47 AM CDT Pulse 112 07/21/2021 7:47 AM CDT Temperature 36.3 ??C (97.4 ??F) 07/21/2021 7:47 AM CD T Respiratory Rate 16 07/21/2021 7:47 AM CDT Oxygen Saturation 95% 07/21/2021 7:47 AM CDT Inhaled Oxygen Concentration - - Weight - - Height - - Body Mass Index - - Plan of Treatment Health Maintenance Due Date Last Done Comments ADVANCE CARE PLANNING 1980 ANNUAL REVIEW OF HM ORDERS 1980 ASTHMA ACTION PLAN 1980 ASTHMA CONTROL TEST 1980 GLUCOSE 1980 MAMMO SCREENING 1980 YEARLY PREVENTIVE VISIT 1980 HIV SCREENING 1995 HEPATITIS C SCREENING 1998 PAP 2001 HEPATITIS B IMMUNIZATION (3 of 3 - 19+ 3-dose series) 09/01/2006 03/29/2006, 03/02/2006 LIPID 2020 COVID-19 Vaccine (3 - Pfizer risk series) 02/09/2021 01/12/2021, 12/20/2020 PHQ-2 (once per calendar year) 2023 INFLUENZA VACCINE (Season Ended) 2024 07/05/2021, 06/08/2020, 06/11/2019, Additional history exists DTAP/TDAP/TD IMMUNIZATION (3 - Td or Tdap) 05/14/2031 05/14/2021, 05/10/2011 Pneumococcal Vaccine: Pediatrics (0 to 5 Years) and At-Risk Patients (6 to 64 Years) (3 of 3 - PPSV23 or PCV20) 2045 11/08/2019, 10/28/2019 HPV IMMUNIZATION Aged Out No longer e ligible based on patient's age to complete this topic IPV IMMUNIZATION Aged Out No longer e ligible based on patient's age to complete this topic MENINGITIS IMMUNIZATION Aged Out No l onger eligible based on patient's age to complete this topic RSV MONOCLONAL ANTIBODY Aged Out No l onger eligible based on patient's age to complete this topic Care Teams Material Inspector Relationship Specialty Start Date End Date Coral Douglas NP PCP - General Nurse Practitioner 09/20/17
--- OUTSIDE RECORDS SUMMARY | 2024-03-05 07:37 | XMS_ITS | Clinical Summary ---
Author Organization [facility] Address [address] [place] [address] Care Team Providers Care Braille Proofreader Name Role Phone Elsewhere, Pcp Primary Care Provider Unavailabl e Source Comments Patient records contain information from all sites at [facility]. For routine questions regarding patient records, call [phone] during business hours, M-F 8:00 AM - 5:00 PM Central Time. Record requests for emergency care only can be directed to [phone] at any time.[facility] Allergies Active Allergy Reactions Criticality Noted Date Comments Amitriptyline Hives (Reselect Reaction),Itching Medium 03/31/2021 Cefprozil Hives (Reselect Reaction),Rash High 02/16/2010 has tolerated omnicef has tolerated omnicef Erythromycin Nausea Only,Nausea And Vomiting,Other (see comments),GI intolerance High 12/20/2006 Fish Containing Products Hives (Reselect Reaction),Itching,[place] Only,Nausea And Vomiting High 01/28/2020 [place] Anaphylaxis,Hives (Reselect Reaction),Shortness of breath (Reselect Reaction),Itching,Edgar h,Wheezing (Reselect Reaction) High 10/12/2020 [place] [place] Anaphylaxis High 01/28/2020 Metoprolol Cough,Hives (Reselec t Reaction),Itching,Edgar h 08/07/2020 Nickel Rash 03/29/2023 Shellfish Containing Products Hives (Reselect Reaction) 10/22/2018 Sulfa (Sulfonamide Antibiotics) GI intolerance 03/04/2020 Sulfamethoxazole-Trimet hoprim Nausea And Vomiting 12/20/2006 Medications Medication Sig Dispensed Refills Start Date End Date Status albuterol sulfate 90 mcg/actuation aero powdr breath act w/sensor Inhale 2 puffs every 4 (four) hours as needed. Active cetirizine 10 mg capsule Take 10 mg by mouth 2 (two) times a day. Active cyclobenzaprine (FLEXERIL) 5 mg tablet 5 mg 3 (three) times a day as needed. Active dextromethorphan-g uaiFENesin 60-1,200 mg tablet extended release 12 hr Take 1 tablet by mouth 2 (two) times a day. 09/29/2020 Active albuterol (ACCUNEB) 2.5 mg /3 mL nebulizer solution as needed. 09/19/2019 Active amLODIPine (NORVASC) 10 mg tablet Take 10 mg by mouth daily. 08/31/2020 Active benzonatate (TESSALON) 200 mg capsule Take 200 mg by mouth as needed. 08/26/2020 Active budesonide (PULMICORT) 0.5 mg/2 mL nebulizer solution Administer 0.5 mg into nostril(s) 2 (two) times a day. 02/19/2020 Active magnesium oxide 500 mg tablet tablet Take 500 mg by mouth daily. 06/17/2020 Active hydroCHLOROthiazid e (HYDRODIURIL) 25 mg tablet Take 25 mg by mouth daily. 12/17/2015 Active EPINEPHrine 0.3 mg/0.3 mL injection syringe as needed. 01/31/2019 Active cholecalciferol (VITAMIN D3) 50 mcg (2,000 Unit) capsule Take 2,000 Units by mouth daily. 09/29/2016 Active montelukast (SINGULAIR) 10 mg tablet Take 10 mg by mouth daily. 09/28/2021 Active Dulera 200-5 mcg/actuation inhaler 2 puffs 2 (two) times a day as needed. 09/30/2021 Active gabapentin (NEURONTIN) 300 mg capsule Take 900 mg by mouth 3 (three) times a day. 09/28/2021 Active sodium chloride (OCEAN) 0.65 % nasal spray Administer 1 spray into each nostril 2 (two) times a day. 15 mL 12 11/24/2021 Active ipratropium (ATROVENT) 42 mcg (0.06 %) nasal spray Administer 2 sprays into each nostril 3 (three) times a day. 15 mL 01/03/2022 Active esomeprazole (NexIUM) [address] capsule Take 20 mg by mouth every morning before breakfast. Active fluticasone propionate (FLONASE) 50 mcg/actuation nasal sprayIndications:D eficiency Alpha 1 Antitrypsin (HCC) ADMINISTER 2 SPRAYS INTO EACH NOSTRIL DAILY 48 g 3 09/28/2022 Active Additional Information Patient taking differently:2 spray each nostril2 times daily, Informant: Self, Reported on 10/28/2022 Pulmozyme 1 mg/mL nebulizer solution 2 (two) times a day. 10/27/2022 Active loperamide (IMODIUM A-D) 1 mg/7.5 mL liquid Take 2 mg by mouth daily as needed. 11/11/2021 Active prochlorperazine (COMPAZINE) 5 mg tablet Take 5-10 mg by mouth every 6 (six) hours as needed. 02/16/2022 Active cyanocobalamin (VITAMIN B12) 500 mcg SL tablet Dissolve 500 mcg in the mouth daily. Active naratriptan (AMERGE) 2.5 mg tablet Take 1 tablet (2.5 mg total) by mouth every 4 (four) hours as needed for migraine. MAX 5mg/day. MAX 9 days/month. 18 tablet 6 04/25/2023 04/24/2024 Active naproxen sodium (ALEVE/ANAPROX) 550 mg tablet Take 1 tablet (550 mg total) by mouth 2 (two) times a day as needed (for mild headaches). Limit:14 days/month 60 tablet 3 04/25/2023 Active levoFLOXacin (LEVAQUIN) 500 mg tablet Take 500 mg by mouth daily. 07/24/2023 Active guaiFENesin (MUCINEX) 600 mg 12 hr tablet Take 1 tablet by mouth 2 (two) times a day. 07/01/2023 Active predniSONE (DELTASONE) 10 mg tablet Take 1 tablet (10 mg total) by mouth as directed. Take 6 tablets (60mg) by mouth for 3 days, then 5 tablets (50mg) by mouth for 3 days, then 4 tablets (40mg) by mouth for 3 days, then 3 tablets (30mg) by mouth for 3 days, then 2 tablets (20mg) by mouth for 3 days, then 1 tablet (10 mg) by mouth for 3 days. 63 tablet 08/09/2023 Active Additional Information Patient not taking.Reported on 12/12/2023 norethindrone (AYGESTIN) 5 mg tablet Take 0.5 tablets (2.5 mg total) by mouth daily. 45 tablet 3 09/06/2023 09/05/2024 Active fremanezumab-vfrm (Ajovy Autoinjector) 225 mg/1.5 mL auto-injector auto-injector Inject 1.5 mL (225 mg total) under the skin every 28 (twenty-eight) days. 1 each 6 12/19/2023 Active predniSONE (DELTASONE) 10 mg tablet Take 1 tablet (10 mg total) by mouth as directed. Take 6 tablets (60mg) by mouth for 3 days, then 5 tablets (50mg) by mouth for 3 days, then 4 tablets (40mg) by mouth for 3 days, then 3 tablets (30mg) by mouth for 3 days, then 2 tablets (20mg) by mouth for 3 days, then 1 tablet (10 mg) by mouth for 3 days. 63 tablet 01/19/2024 Active divalproex (DEPAKOTE) 250 mg EC tablet Take 1 tablet (250 mg total) by mouth 2 (two) times a day for 5 days. 10 tablet 02/07/2024 Active Active Problems Problem Noted Date Diagnosed Date Chronic Migraine 02/08/2022 Headache Daily 10/30/2020 Asthma Chronic Mild 12/17/2015 Overview: Asthma Chronic Mild Hypertension Essential Benign 12/17/2015 Overview: Hypertension (HTN) Essential Benign Morbid Obesity Body Mass Ind ex Greater Than Or Equal To 40 Adult 12/17/2015 Overview: Morbid Obesity Body Mass Index (BMI) >40 Adult Encounters Date Type Department Care Team Description 12/21/2023 Clinical Communication Pharmacy Prior Auth RO [phone] Sallie Lewis 12/18/2023 11:15 AM CDT Telemedicine Department of Neurology in [place] [address] [place] [address] Diana Price, PEDRO, C.N.P., M.S.N. Chronic Migraine (Primary Dx); Migraine With Aura Not Intractable Without Status Migrainosus 12/18/2023 Orders Only Department of Neurology in [place], [place] [address] [place] [address] Diana Price APRN, C.NNaveen., M.S.N. 12/18/2023 Refill Department of Neurology in [place], [place] [address] [place] [address] Diana Price APRN, C.NNaveen., M.S.N. Med Refill 12/12/2023 9:45 AM CDT Clinical Communication Virtual Review in [place], [place] [address] [place] [address] Pre-visit Intake from Last 3 Months Immunizations Name Administration Dates Next Due H1N1 All Forms 09/08/2009 HepB, Unspecified 03/29/2006,03/02/2006 Influenza, Unspecified 08/20/2008,2006,07/25/2006,08/01/2005, 4,08/23/2002 Family History Medical History Relation Name Comments pneumothorax Brother 1 ADD Brother 2 Pedro Rischmiller ADD Arthritis Father Harman Rischmiller Coronary artery disease Father Harman Rischmicheryler Bypass surgery and heart attack Depression Father Harman Rischmiller Diabetes Father Harman Rischmiller Hypertension Father Harman Rischmiller Migraines Father Harman Rischmiller Sleep apnea Father Harman Rischmiller Tuberculosis Father Harman Rischmiller Diabetes Father's Brother 1 Rischmiller Tuberculosis Father's Sister 1 Giovana Rischmiller Thyroid disease Father's Sister 2 Michelle Nolan Alcohol abuse Maternal Grandfather Augie French Dementia Maternal Grandmother Bee French Skin cancer Maternal Grandmother Bee French Anesthesia problems Mother Ludmila Rischmiller Has problems waking up Coronary artery disease Mother Ludmila Rischmiller Heart attack Depression Mother Ludmila Rischmiller Hypertension Mother Ludmila Rischmiller Migraines Mother Ludmila Rischmiller Stroke Mother's Brother Harvey French Psychiatric Mother's Sister Giovana French Schizophreni a Seizures Mother's Sister Giovana French Hypertension Paternal Grandfather Derek Rischmiller Tuberculosis Paternal Grandfather Derek Rischmiller Arthritis Paternal Grandmother Swathi Crumpdavidxicherylhi Anxiety disorder Son Derek Crumproque Depression Son Derek Lorraine Relation Name Status Comments Brother 1 Brother 2 Pedro Rischmiller Father Harman Rischmiller Father's Brother 1 Rischmiller Father's Brother 2 Rishi Rischmiller Father's Sister 1 Giovana Rischmiller Father's Sister 2 Michelle Nolan Maternal Grandfather Augie French Maternal Grandmother Bee French Mother Ludmila Rischmiller Mother's Brother Harvey French Mother's Sister Giovana French Paternal Grandfather Derek Rischmiller Paternal Grandmother Swathi Peters Son Derek Crumproque Social History Tobacco Use Types Packs/Day Years Used Date Smoking Tobacco: Never Passive Smoke Exposure: Never Smokeless Tobacco: Never Tobacco Cessation:Counseling Given: Not Answered Alcohol Use Standard Drinks/Week Comments Never 0 (1 standard drink = 0.6 oz pur e alcohol) [facility] Utilities Answer Date Recorded In the past 12 months has [facility], gas, oil, or water [employer] threatened to shut off services in your home? No 12/13/2023 Humiliation, Afraid, Rape, and Kick questionnair e Answer Date Recorded Within the last year, have y ou been afraid of your partner or ex-partner? No 04/18/2023 Within the last year, have y ou been humiliated or emotionally abused in other ways by your partner or ex-partner? No Within the last year, have y ou been kicked, hit, slapped, or otherwise physically hurt by your partner or ex-partner? No 04/18/2023 Within the last year, have y ou been raped or forced to have any kind of sexual activity by your partner or ex-partner? No 04/18/2023 Social Connection and Isolat ion Panel [NHANES] Answer Date Recorded In a typical week, how many times do you talk on the phone with family, friends, or neighbors? More than three times a week 10/25/2022 How often do you get togethe r with friends or relatives? Never 10/25/2022 How often do you attend chur ch or temple services? Never 10/25/2022 Do you belong to any clubs o r organizations such as pentecostalism groups, unions, fraternal or athletic groups, or school groups? No 10/25/2022 How often do you attend meet ings of the clubs or organizations you belong to? Never 10/25/2022 Are you , , di vorced, , never , or living with a partner? 10/25/2022 AUDIT-C Answer Date Recorded Q1: How often do you have a drink containing alc ohol? Never 10/25/2022 Average Number of Drinks Not on file 023 Frequency of Binge Drinking Not on file 09/27 Overall Financial Resource Strain (CARDIA) Answe r Date Recorded How hard is it for you to pa y for the very basics like food, housing, medical care, and heating? Very hard 04/18/2023 PHQ-2 Answer Date Recorded PHQ-2 Score 2 12/15/2023 [facility] - Occupational Stress Questionnaire Answer Date Recorded Do you feel stress - tense, restless, nervous, or anxious, or unable to sleep at night because your mind is troubled all the time - these days? To some extent 10/25/2022 Exercise Vital Sign Answer Date Recorde d On average, how many days pe r week do you engage in moderate to strenuous exercise (like a brisk walk)? 0 days 12/13/2023 On average, how many minutes do you engage in exercise at this level? 0 min 12/13/2023 Hunger Vital Sign Answer Date Recorded Within the past 12 months, y ou worried that your food would run out before you got the money to buy more. Sometimes true Within the past 12 months, t he food you bought just didn't last and you didn't have money to get more. Never true PRAPARE - Transportation Answer Date Re corded In the past 12 months, has l ack of transportation kept you from medical appointments or from getting medications? No 11/24 In the past 12 months, has l ack of transportation kept you from meetings, work, or from getting things needed for daily living? No 12/13/2023 Depression Answer Date Recor ded PHQ-9 Total Score (max 27) 11 12/14 Nutrition Answer Date Recorded Nutrition: EVOO Fat Source No 12/12 On average, how many serving s of fruits and vegetables do you eat per day (serving size is equal to 1 cup or approximately the size of a tennis ball)? 3-5 12/13/2023 Dental Answer Date Recorded Dental: Regular Dentist Yes 12/13/19 Employment Answer Date Recorded Employment status Permanently disabled Housing Stability Answer Date Recorded What is your living situation today? I have a [facility] place to live 12/13/2023 Education Answer Date Recorded What is the highest level of school you have completed or the highest degree you have received? 12th grade 10/25/2022 Sex and Gender Information Value Date Recorded Sex Assigned at Female 10/21/2021 4:05 AM FABRIC CUTTER Gender Identity Female 09/26/2020 6:43 AM FABRIC CUTTER Sexual Orientation Straight 09/26/2020 6: 43 AM FABRIC CUTTER Last Filed Vital Signs Vital Sign Reading Time Taken Comments Blood Pressure 168/103 02/08/2022 10:50 AM CDT Pulse 120 02/08/2022 10:50 AM CDT Temperature 36.9 ??C (98.4 ??F) 10/25/2021 3:48 PM CS T Respiratory Rate 18 11/13/2020 11:21 AM FABRIC CUTTER Oxygen Saturation 95% 12/03/2021 8:47 AM FABRIC CUTTER Inhaled Oxygen Concentration - - Weight 167 kg (368 lb 2.7 oz) 02/08/2022 10:50 A M CDT Height 180.5 cm (5' 11.06) 02/08/2022 10:50 AM CDT Body Mass Index 51.26 02/08/2022 10:50 AM CDT Plan of Treatment Upcoming Encounters Date Type Department Care Team (Late st Contact Info) Description 03/19/2024 2:00 PM CDT Telemedicine Department of Neurology in [place], [place] [address] [place] [id number] Diana Price APRN, C.N.P., M.S.N. [address] [place] [address] Health Maintenance Due Date Last Done Comments Hepatitis C Screening 1980 Mammogram 1980 Office Visit for Blood Pressure Check / Re-check 1980 Hepatitis B Vaccines (3 of 3 - 19+ 3-dose series) 09/01/2006 03/29/2006, 03/02/2006 Asthma Action Plan 08/06/2020 Asthma Control Test Questionnaire 08/06/2020 Asthma Management/Exacerbation Questionnaire (AMQ/AEQ) 08/06/2020 Cervical Cancer Screening 10/28/2022 10/28/2019 Creatinine Level (Kidney Function Test) 01/17/2025 01/18/2024, 04/21/2023, 07/04/2022, Additional history exists Potassium Level 01/17/2025 01/18/2024, 03/26, 07/04/2022, Additional history exists Sodium Level 01/17/2025 01/18/2024, 03/26, 07/04/2022, Additional history exists Lipid (Cholesterol) Screening 01/17/2029 01/18/2024, 04/21/2023, 07/04/2022, Additional history exists DTaP,Tdap,and Td Vaccines (3 - Td or Tdap) 05/14/2031 05/14/2021, 05/10/2011 Pneumococcal vaccine (0-64 years) Completed 09/29/2022, 11/08/2019, 10/28/2019 COVID-19 Vaccine Completed 07/17/2023, 06/2022, 08/10/2021, Additional history exists Influenza Vaccine Completed 07/17/2023, , 07/05/2021, Additional history exists Depression Screening (Annual PHQ-2) Completed 12/15/2023 HPV Vaccines Aged Out No longer eligi ble based on patient's age to complete this topic Medical Devices Implanted Type Area Hot Kettle Tender Device Identifier Shelf Expiration Date Model / Serial / Lot Bilateral Ankle Hardware e.g. pins/screws/ rods Bilateral: Ankle Imaging Marker Imaging Marker Breast Description:Unknown which br east Procedures Procedure Name Priority Date/Time Associated Diagnosis Comments EXTI LIPID PANEL W REFLEX MEASURED LDL Routine 01/18/2024 8:50 AM CDT EXTI COMPREHENSIVE METABOLIC PANEL, S/P Routine 01/18/2024 8:50 AM CDT from Last 3 Months or Most Recently Relevant to Health Maintenance Care Teams Braille Proofreader Relationship Specialty Start Date End Date Elsewhere, Pcp PCP - General Internal Medicine 04/24/23
--- OUTSIDE RECORDS SUMMARY | 2024-03-05 07:37 | XMS_ITS | Continuity of Care Document ---
Author Organization [facility] Address [facility] [address] [place] [address]- Encounter 12/18/23 - 12/25/[address] [place], [place] [address] Allergies, Adverse Reactions, Alerts Substance Criticality Severity Reaction Reaction Severity Status cefprozil Active amitriptyline Hives Active Bactrim Active penicillin Active sulfa drug Active Medications albuterol 2.5 mg/3 mL (0.083%) inhalation solution = 3 mL ( 2.5 mg ), Inhale, q6 hrs, PRN: for wheezing, # 100 EA, 3 Refill(s), Type: Maintenance, Pharmacy: [facility], [place], 3 mL Inhale q6 hrs,PRN:for wheezing, 70, in, 12/12/22 11:36:00 CDT, Height Measured, 342, lb, 12/12/22 11:36:00 CDT, Weight Measured Start Date: 12/20/22 Status: Ordered ALLERGY RELIEF CETIRIZINE 10 TABS ALLERGY RELIEF CETIRIZINE 10 TABS, 1 tab(s), Oral, daily, # 90 tab(s), 3 Refill(s), Type: Maintenance, [facility] [place], TAKE ONE TABLET BY MOUTH EVERY DAY, 70, in, 02/14/23 8:51:00 CDT, Height Measured, 342, lb, 02/14/23 8:51:00 CDT, Weight Measured Start Date: 06/22/23 Status: Ordered amoxicillin 500 mg oral capsule = 1 cap(s) ( 500 mg ), Oral, daily, # 30 cap(s), 1 Refill(s), Type: Soft Stop, [facility] [place], 1 cap(s) Oral daily,x30 day(s), 70, in, 06/26/23 10:52:00 CDT, Height Measured, 364, lb, 06/26/23 10:52:00 CDT, Weight Measured Start Date: 09/28/23 Stop Date: 11/27/23 Status: Ordered azithromycin 250 mg oral tablet = 1 packet(s), Oral, once, Instructions: as directed on package labeling repeat after 5 days off ifneeded, # 12 tab(s), 0 Refill(s), Type: Soft Stop, [facility] [place], 1 packet(s) Oral once,Instr:as directed on package labeling; repeat after 5 days off if needed, 70, in, 02/14/23 8:51:00 CDT, Height Measured, 342, lb, 02/14/23 8:51:00 CDT, Weight Measured Start Date: 03/23/23 Status: Ordered budesonide 0.5 mg/2 mL inhalation suspension = 2 mL, Inhale, bid, # 120 mL, 3 Refill(s), Type: Maintenance, [facility] [place], INHALE 2ML VIA NEBULIZER TWICE A DAY, 70, in, 06/21/22 9:06:00 CDT, Height Measured, 353, lb, 06/21/22 9:06:00 CDT, Weight Measured Start Date: 11/02/22 Status: Ordered cetirizine 10 mg oral tablet = 1 tab(s) ( 10 mg ), Oral, daily, # 90 tab(s), 3 Refill(s), Type: Maintenance, [facility] [place], 1 tab(s) Oral daily, 70, in, [...] 180 cap(s), 1 Refill(s), Type: Maintenance, [facility] [place], 3 cap(s) Oral q12 hrs, 70, in, 02/14/23 8:51:00 CDT, Height Measured, 342,lb, 02/14/23 8:51:00 CDT, Weight Measured Start Date: 02/14/23 Status: Ordered Depo-Provera ( 400 mg ), im, 0 Refill(s), Type: Maintenance Start Date: 05/17/16 Status: Ordered Dulera 200 mcg-5 mcg/inh inhalation aerosol 2 puff(s), Inhale, bid, # 13 gm, 3 Refill(s), Type: Maintenance, [facility] [place], INHALE 2 PUFFS BY MOUTH TWO [...] 15 mL, 5 Refill(s), Type: Maintenance, [facility] [place], ADMINISTER 2 SPRAY(S) NASALLY FOUR TIMES A DAY, 70, in, 06/26/23 10:52:00 CDT, Height Measured, 364, lb, 06/26/23 10:52:00 CDT, Weight Measured Start Date: 10/17/23 Status: Ordered montelukast 10 mg oral tablet = 1 tab(s), Oral, qpm, # 90 tab(s), 2 Refill(s), Type: Maintenance, Pharmacy: [facility], [place], TAKE ONE TABLET BY MOUTH EVERY EVENING, [...] 150 mL, 5 Refill(s), Type: Maintenance, [facility], INHALE 1 AMPULE (2.5 MG) VIA NEBULIZER TWICE DAILY, 70, in, 06/26/23 10:52:00 CDT, Height Measured, 364, lb, 06/26/23 10:52:00 CDT, Weight Measured Start Date: 08/01/23 Status: Ordered Symbicort 160 mcg-4.5 mcg/inh inhalation aerosol 2 puff(s), Inhale, bid, Instructions: Switch inhaler due to Dulera being out of stock., # 1 EA, 3 Refill(s), Type: Maintenance, [facility] [place], 2 puff(s) Inhale bid,Instr:Switch inhaler due [...] at Onset Migraine POSITIVE Allergic rhinitis.. POSITIVE Obesity.. POSITIVE Recurrent sinus infections.. POSITIVE Name: UnknownRelationship: Father Condition State Severity Life Cycle Status Age at Onset Diabetes.. POSITIVE Obesity.. POSITIVE Genetic disease POSITIVE Migraine POSITIVE Name: UnknownRelationship: Grandmother (M) Condition State Severity Life Cycle Status Age at Onset Migraine POSITIVE
--- OUTSIDE RECORDS SUMMARY | 2024-03-05 07:37 | XMS_ITS | Continuity of Care Document ---
Author Organization [facility] Address [address] [place] [address] Phone Care Team Providers Care Expander Name Role Phone Irena RUSS, PhD, Pankaj [...] ient Visit,Est, Mod [facility], [address], [place], [id number], [place] tel:[phone] [facility] Other intervertebral disc displacement, lumbar region 3 Irena Lira. [facility], [address], [place], [address], [place]. tel:[phone] Referring Provider: Dong Ruvalcaba, [address], [address]. tel:[phone] [facility], [address], [place], [place], [id number], [place] tel:[phone] [facility] No Information 3 Vu Samuel. [facility], [address], [place], [place], [id number] , [place]. [phone] OFFICE/OUTPAT IENT VISIT EST Video [facility], [address], [place], [place], [id number], [place] tel:[phone] [facility] No Information 2 Vu Samuel. [facility], [address], [place], [place], [id number] , [place]. [phone] Referring Provider: Dong Ruvalcaba, [address], [address]. tel:[phone] OFFICE/OUTPAT IENT VISIT EST Phone [facility], [address], [place], [id number], [place] tel:[phone] [facility] No Information 2 Vu Samuel. [facility], [address], [place], [place], [id number] , [place]. [phone] Referring Provider: Dong Ruvalcaba, [address], [address]. tel:[phone] Office/Outpat ient Visit,Est, Mod [facility], [address], [place], [id number], [place] tel:[phone] [facility] Other intervertebral disc displacement, lumbar region 1 Vu Samuel. [facility], [address], [place], [place], [id number] , [place]. tel:[phone] Referring Provider: Dong Ruvalcaba, [employer] [address] [place] [address], [address]. tel:[phone] Office/Outpat ient Visit,Est, Mod [facility], [address], [place], [id number], [place] tel:[phone] [facility] Other intervertebral disc displacement, lumbar region 1 Vu Samuel. [facility], [address], [place], [place], [id number] , [place]. tel:[phone] Referring Provider: Dong Ruvalcaba, [employer] [address] [place] [address], [address]. tel:[phone] Family History Family Member Type Diagnosis Age At Onset No Information Payers Payer name Insurance type Covered constitution party ID Authoriza tion(s) No Information Social History Type Description Quantity Date Captured [...]
--- OUTSIDE RECORDS SUMMARY | 2024-03-05 07:37 | XMS_ITS | Continuity of Care Document ---
Author Organization [facility] Address [facility] [address] [place] [address]- Encounter 01/12/24 - 01/19/24 [facility] [address] [facility] [address] [place] [address] Allergies, Adverse Reactions, Alerts Substance Criticality Severity Reaction Reaction Severity Status cefprozil Active amitriptyline Hives Active penicillin Active Bactrim Active sulfa drug Active Medications albuterol 2.5 mg/3 mL (0.083%) inhalation solution = 3 mL ( 2.5 mg ), Inhale, q6 hrs, PRN: for wheezing, # 100 EA, 3 Refill(s), Type: Maintenance, [facility] [place], 3 mL Inhale q6 hrs,PRN:for wheezing, 70, in, 12/12/22 11:36:00 CDT, Height Measured, 342, lb, 12/12/22 11:36:00 CDT, Weight Measured Start Date: 12/20/22 Status: Ordered ALLERGY RELIEF CETIRIZINE 10 TABS ALLERGY RELIEF CETIRIZINE 10 TABS, 1 tab(s), Oral, daily, # 90 tab(s), 3 Refill(s), Type: Maintenance, [facility] [place], TAKE ONE TABLET BY MOUTH EVERY DAY, 70, in, 02/14/23 8:51:00 CDT, Height Measured, 342, lb, 02/14/23 8:51:00 CDT, Weight Measured Start Date: 06/22/23 Status: Ordered amoxicillin 500 mg oral capsule = 1 cap(s) ( 500 mg ), Oral, daily, # 30 cap(s), 1 Refill(s), Type: Soft Stop, [facility] [place], 1 cap(s) Oral daily,x30 day(s), 70, in, 06/26/23 10:52:00 CDT, Height Measured, 364, lb, 06/26/23 10:52:00 CDT, Weight Measured Start Date: 09/28/23 Stop Date: 11/27/23 Status: Ordered azithromycin 250 mg oral tablet = 1 packet(s), Oral, once, Instructions: as directed on package labeling repeat after 5 days off ifneeded, # 12 tab(s), 0 Refill(s), Type: Soft Stop, [facility] [place], 1 packet(s) Oral once,Instr:as directed on package labeling; repeat after 5 days off if needed, 70, in, 02/14/23 8:51:00 CDT, Height Measured, 342, lb, 02/14/23 8:51:00 CDT, Weight Measured Start Date: 03/23/23 Status: Ordered budesonide 0.5 mg/2 mL inhalation suspension = 2 mL, Inhale, bid, # 120 mL, 3 Refill(s), Type: Maintenance, [facility] [place], INHALE 2ML VIA NEBULIZER TWICE A DAY, 70, in, 06/21/22 9:06:00 CDT, Height Measured, 353, lb, 06/21/22 9:06:00 CDT, Weight Measured Start Date: 11/02/22 Status: Ordered cetirizine 10 mg oral tablet = 1 tab(s) ( 10 mg ), Oral, daily, # 90 tab(s), 3 Refill(s), Type: Maintenance, [facility] [place], 1 tab(s) Oral daily, 70, [...] 180 cap(s), 1 Refill(s), Type: Maintenance, [facility] [place], 3 cap(s) Oral q12 hrs, 70, in, 02/14/23 8:51:00 CDT, Height Measured, 342,lb, 02/14/23 8:51:00 CDT, Weight Measured Start Date: 02/14/23 Status: Ordered Depo-Provera ( 400 mg ), im, 0 Refill(s), Type: Maintenance Start Date: 05/17/16 Status: Ordered Dulera 200 mcg-5 mcg/inh inhalation aerosol 2 puff(s), Inhale, bid, # 13 gm, 2 Refill(s), Type: Maintenance, [facility] [place], INHALE 2 PUFFS BY MOUTH TWO TIMES A DAY, 70, in, 06/26/23 10:52:00 CDT, Height Measured, 364, lb, 06/26/23 10:52:00 CDT, Weight Measured Start Date: 01/04/24 Status: Ordered Emgality Prefilled Pen ( 120 [...] 15 mL, 5 Refill(s), Type: Maintenance, [facility] [place], ADMINISTER 2 SPRAY(S) NASALLY FOUR TIMES A DAY, 70, in, 06/26/23 10:52:00 CDT, Height Measured, 364, lb, 06/26/23 10:52:00 CDT, Weight Measured Start Date: 10/17/23 Status: Ordered montelukast 10 mg oral tablet = 1 tab(s), Oral, qpm, # 90 tab(s), 2 Refill(s), Type: Maintenance, Pharmacy: [facility] [place], TAKE ONE TABLET BY MOUTH EVERY EVENING, 70, in, 06/26/23 10:52:00 CDT, Height Measured, 364, lb, 06/26/23 10:52:00 CDT, Weight Measured Start Date: 07/10/23 Status: Ordered Mucus Relief ER 600 mg oral tablet, extended release Instructions: TAKE ONE TABLET BY MOUTH TWICE A DAY Start Date: 02/15/23 Status: Ordered Nasacort 0 Refill(s), Type: Maintenance Start Date: 05/17/16 Status: Ordered Nebulizer cup/mouthpiece/tubing Nebulizer cup/mouthpiece/tubing, Neb cup/tubing, Inhale, q4 hrs, Instructions: use with albuterol and pulmozyme solution, Supply, # 1 EA, 2 Refill(s), Type: Maintenance Start Date: 01/12/24 Status: Ordered omeprazole Oral, daily, 0 Refill(s), Type: Maintenance Start Date: 11/05/19 Status: Ordered Pulmozyme 2.5 mg/2.5 mL inhalation solution ( 2.5 mg ), Inhale, bid, # 150 mL, 5 Refill(s), Type: Maintenance, Pharmacy: [facility], 2.5 mg Inhalebid, 70, in, 06/26/23 10:52:00 CDT, Height Measured, 364, lb, 06/26/23 10:52:00 CDT, Weight Measured Start Date: 01/07/24 Status: Ordered Symbicort 160 mcg-4.5 mcg/inh inhalation aerosol 2 puff(s), Inhale, bid, Instructions: Switch inhaler due to Dulera being out of stock., # 1 EA, 3 Refill(s), Type: Maintenance, Pharmacy: [facility] [place], 2 puff(s) Inhale bid,Instr:Switch inhaler due to [...] Severity Life Cycle Status Age at Onset Recurrent sinus infections.. POSITIVE Migraine POSITIVE Allergic rhinitis.. POSITIVE Obesity.. POSITIVE Name: UnknownRelationship: Father Condition State Severity Life Cycle Status Age at Onset Diabetes.. POSITIVE Genetic disease POSITIVE Obesity.. POSITIVE Migraine POSITIVE Name: UnknownRelationship: Grandmother (M) Condition State Severity Life Cycle Status Age at Onset Migraine POSITIVE
--- OUTSIDE RECORDS SUMMARY | 2024-03-05 07:37 | XMS_ITS | Continuity of Care Document ---
Author Organization [facility] Address [facility] [address] [place] [address]- Encounter 01/12/24 - 01/19/24 [facility] [address] [facility] [place] [address] [place] [address] Allergies, Adverse Reactions, Alerts Substance Criticality Severity Reaction Reaction Severity Status cefprozil Active amitriptyline Hives Active penicillin Active sulfa drug Active Bactrim Active Medications albuterol 2.5 mg/3 mL (0.083%) inhalation solution = 3 mL ( 2.5 mg ), Inhale, q6 hrs, PRN: for wheezing, # 100 EA, 3 Refill(s), Type: Maintenance, [facility] [place], 3 mL Inhale q6 hrs,PRN:for wheezing, 70, in, 12/12/22 11:36:00 CDT, Height Measured, 342, lb, 12/12/22 11:36:00 CDT, Weight Measured Start Date: 12/20/22 Status: Ordered ALLERGY RELIEF CETIRIZINE 10 TABS ALLERGY RELIEF CETIRIZINE 10 TABS, 1 tab(s), Oral, daily, # 90 tab(s), 3 Refill(s), Type: Maintenance, Pharm[facility]: [facility] [place], TAKE ONE TABLET BY MOUTH EVERY DAY, 70, in, 02/14/23 8:51:00 CDT, Height Measured, 342, lb, 02/14/23 8:51:00 CDT, Weight Measured Start Date: 06/22/23 Status: Ordered amoxicillin 500 mg oral capsule = 1 cap(s) ( 500 mg ), Oral, daily, # 30 cap(s), 1 Refill(s), Type: Soft Stop, [facility] [place], 1 cap(s) Oral daily,x30 day(s), 70, in, 06/26/23 10:52:00 CDT, Height Measured, 364, lb, 06/26/23 10:52:00 CDT, Weight Measured Start Date: 09/28/23 Stop Date: 11/27/23 Status: Ordered azithromycin 250 mg oral tablet = 1 packet(s), Oral, once, Instructions: as directed on package labeling repeat after 5 days off ifneeded, # 12 tab(s), 0 Refill(s), Type: Soft Stop, [facility] [place], 1 packet(s) Oral once,Instr:as directed on package labeling; repeat after 5 days off if needed, 70, in, 02/14/23 8:51:00 CDT, Height Measured, 342, lb, 02/14/23 8:51:00 CDT, Weight Measured Start Date: 03/23/23 Status: Ordered budesonide 0.5 mg/2 mL inhalation suspension = 2 mL, Inhale, bid, # 120 mL, 3 Refill(s), Type: Maintenance, [facility] [place], INHALE 2ML VIA NEBULIZER TWICE A DAY, 70, in, 06/21/22 9:06:00 CDT, Height Measured, 353, lb, 06/21/22 9:06:00 CDT, Weight Measured Start Date: 11/02/22 Status: Ordered cetirizine 10 mg oral tablet = 1 tab(s) ( 10 mg ), Oral, daily, # 90 tab(s), 3 Refill(s), Type: Maintenance, [facility] [place], 1 tab(s) Oral daily, [...] 180 cap(s), 1 Refill(s), Type: Maintenance, [facility] [place], 3 cap(s) Oral q12 hrs, 70, in, 02/14/23 8:51:00 CDT, Height Measured, 342,lb, 02/14/23 8:51:00 CDT, Weight Measured Start Date: 02/14/23 Status: Ordered Depo-Provera ( 400 mg ), im, 0 Refill(s), Type: Maintenance Start Date: 05/17/16 Status: Ordered Dulera 200 mcg-5 mcg/inh inhalation aerosol 2 puff(s), Inhale, bid, # 13 gm, 2 Refill(s), Type: Maintenance, [facility] [place], INHALE 2 PUFFS BY MOUTH TWO [...] 15 mL, 5 Refill(s), Type: Maintenance, [facility] [place], ADMINISTER 2 SPRAY(S) NASALLY FOUR TIMES A DAY, 70, in, 06/26/23 10:52:00 CDT, Height Measured, 364, lb, 06/26/23 10:52:00 CDT, Weight Measured Start Date: 10/17/23 Status: Ordered montelukast 10 mg oral tablet = 1 tab(s), Oral, qpm, # 90 tab(s), 2 Refill(s), Type: Maintenance, Pharmacy: [facility] [place], TAKE ONE TABLET BY MOUTH EVERY EVENING, [...] 1 EA, 3 Refill(s), Type: Maintenance, Pharmacy: [facility] [place], 2 puff(s) Inhale bid,Instr:Switch inhaler due to [...] at Onset Diabetes.. POSITIVE Genetic disease POSITIVE Migraine POSITIVE Obesity.. POSITIVE Name: UnknownRelationship: Grandmother (M) Condition State Severity Life Cycle Status Age at Onset Migraine POSITIVE
--- OUTSIDE RECORDS SUMMARY | 2024-03-05 07:37 | XMS_ITS | Referral Summary ---
Author Organization [facility] Address [address] [place] [id number] Care Team Providers Care House Repairer Name Role Phone Coral Douglas NP Primary Care Provider [phone] Allergies Active Allergy Reactions Criticality Noted Date [...] Mass Index - - Plan of Treatment Not on file Care Teams House Repairer Relationship Specialty Start Date End Date Coral Douglas NP PCP - General Nurse Practitioner 09/20/17
--- OUTSIDE RECORDS SUMMARY | 2024-03-05 07:37 | XMS_ITS | Continuity of Care Document ---
Author Organization [facility] Address [facility] [address] [place] [address]- Encounter 01/12/24 - 01/19/24 [facility] [address] [facility], [facility] [address] [place] [address] Allergies, Adverse Reactions, Alerts Substance Criticality Severity Reaction Reaction Severity Status cefprozil Active amitriptyline Hives Active penicillin Active Bactrim Active sulfa drug Active Medications albuterol 2.5 mg/3 mL (0.083%) inhalation solution = 3 mL ( 2.5 mg ), Inhale, q6 hrs, PRN: for wheezing, # 100 EA, 3 Refill(s), Type: Maintenance, [facility] [place], 3 mL Inhale q6 hrs,PRN:for wheezing, 70, in, 12/12/22 11:36:00 CDT, Height Measured, 342, lb, 12/12/22 11:36:00 CDT, Weight Measured Start Date: 12/20/22 Status: Ordered ALLERGY RELIEF CETIRIZINE 10 TABS ALLERGY RELIEF CETIRIZINE 10 TABS, 1 tab(s), Oral, daily, # 90 tab(s), 3 Refill(s), Type: Maintenance, [facility] [place], TAKE ONE TABLET BY MOUTH EVERY DAY, 70, in, 02/14/23 8:51:00 CDT, Height Measured, 342, lb, 02/14/23 8:51:00 CDT, Weight Measured Start Date: 06/22/23 Status: Ordered amoxicillin 500 mg oral capsule = 1 cap(s) ( 500 mg ), Oral, daily, # 30 cap(s), 1 Refill(s), Type: Soft Stop, [facility] [place], 1 cap(s) Oral daily,x30 day(s), 70, in, 06/26/23 10:52:00 CDT, Height Measured, 364, lb, 06/26/23 10:52:00 CDT, Weight Measured Start Date: 09/28/23 Stop Date: 11/27/23 Status: Ordered azithromycin 250 mg oral tablet = 1 packet(s), Oral, once, Instructions: as directed on package labeling repeat after 5 days off ifneeded, # 12 tab(s), 0 Refill(s), Type: Soft Stop, [facility] [place], 1 packet(s) Oral once,Instr:as directed on package labeling; repeat after 5 days off if needed, 70, in, 02/14/23 8:51:00 CDT, Height Measured, 342, lb, 02/14/23 8:51:00 CDT, Weight Measured Start Date: 03/23/23 Status: Ordered budesonide 0.5 mg/2 mL inhalation suspension = 2 mL, Inhale, bid, # 120 mL, 3 Refill(s), Type: Maintenance, [facility] [place], INHALE 2ML VIA NEBULIZER TWICE A DAY, 70, in, 06/21/22 9:06:00 CDT, Height Measured, 353, lb, 06/21/22 9:06:00 CDT, Weight Measured Start Date: 11/02/22 Status: Ordered cetirizine 10 mg oral tablet = 1 tab(s) ( 10 mg ), Oral, daily, # 90 tab(s), 3 Refill(s), Type: Maintenance, [facility] [place], 1 tab(s) Oral daily, 70, [...] 180 cap(s), 1 Refill(s), Type: Maintenance, [facility] [place], 3 cap(s) Oral q12 hrs, 70, in, 02/14/23 8:51:00 CDT, Height Measured, 342,lb, 02/14/23 8:51:00 CDT, Weight Measured Start Date: 02/14/23 Status: Ordered Depo-Provera ( 400 mg ), im, 0 Refill(s), Type: Maintenance Start Date: 05/17/16 Status: Ordered Dulera 200 mcg-5 mcg/inh inhalation aerosol 2 puff(s), Inhale, bid, # 13 gm, 2 Refill(s), Type: Maintenance, [facility] [place], INHALE 2 PUFFS BY MOUTH [...] 15 mL, 5 Refill(s), Type: Maintenance, [facility] [place], ADMINISTER 2 SPRAY(S) NASALLY FOUR TIMES A DAY, 70, in, 06/26/23 10:52:00 CDT, Height Measured, 364, lb, 06/26/23 10:52:00 CDT, Weight Measured Start Date: 10/17/23 Status: Ordered montelukast 10 mg oral tablet = 1 tab(s), Oral, qpm, # 90 tab(s), 2 Refill(s), Type: Maintenance, Pharmacy: [facility] [place], TAKE ONE TABLET BY MOUTH EVERY EVENING, [...] 3 Refill(s), Type: Maintenance, Pharmacy: [facility] [place], 2 puff(s) Inhale bid,Instr:Switch inhaler due to [...] Cycle Status Age at Onset Obesity.. POSITIVE Migraine POSITIVE Recurrent sinus infections.. POSITIVE Allergic rhinitis.. POSITIVE Name: UnknownRelationship: Father Condition State Severity Life Cycle Status Age at Onset Genetic disease POSITIVE Obesity.. POSITIVE Diabetes.. POSITIVE Migraine POSITIVE Name: UnknownRelationship: Grandmother (M) Condition State Severity Life Cycle Status Age at Onset Migraine POSITIVE
--- OUTSIDE RECORDS SUMMARY | 2024-03-05 07:37 | XMS_ITS | Continuity of Care Document ---
Author Organization [facility] Address [facility] [address] [place] [address]- Encounter 01/05/24 - 01/12/24 [facility] [address] [facility], [facility] [address] [place] [address] Allergies, Adverse Reactions, Alerts Substance Criticality Severity Reaction Reaction Severity Status cefprozil Active amitriptyline Hives Active Bactrim Active penicillin Active sulfa drug Active Medications albuterol 2.5 mg/3 mL (0.083%) inhalation solution = 3 mL ( 2.5 mg ), Inhale, q6 hrs, PRN: for wheezing, # 100 EA, 3 Refill(s), Type: Maintenance, [facility] [place], 3 mL Inhale q6 hrs,PRN:for wheezing, 70, in, 12/12/22 11:36:00 CDT, Height Measured, 342, lb, 12/12/22 11:36:00 CDT, Weight Measured Start Date: 12/20/22 Status: Ordered ALLERGY RELIEF CETIRIZINE 10 TABS ALLERGY RELIEF CETIRIZINE 10 TABS, 1 tab(s), Oral, daily, # 90 tab(s), 3 Refill(s), Type: Maintenance, Pharm[facility] [place], TAKE ONE TABLET BY MOUTH EVERY DAY, 70, in, 02/14/23 8:51:00 CDT, Height Measured, 342, lb, 02/14/23 8:51:00 CDT, Weight Measured Start Date: 06/22/23 Status: Ordered amoxicillin 500 mg oral capsule = 1 cap(s) ( 500 mg ), Oral, daily, # 30 cap(s), 1 Refill(s), Type: Soft Stop, [facility] [place], 1 cap(s) Oral daily,x30 day(s), 70, in, 06/26/23 10:52:00 CDT, Height Measured, 364, lb, 06/26/23 10:52:00 CDT, Weight Measured Start Date: 09/28/23 Stop Date: 11/27/23 Status: Ordered azithromycin 250 mg oral tablet = 1 packet(s), Oral, once, Instructions: as directed on package labeling repeat after 5 days off ifneeded, # 12 tab(s), 0 Refill(s), Type: Soft Stop, [facility] [place], 1 packet(s) Oral once,Instr:as directed on package labeling; repeat after 5 days off if needed, 70, in, 02/14/23 8:51:00 CDT, Height Measured, 342, lb, 02/14/23 8:51:00 CDT, Weight Measured Start Date: 03/23/23 Status: Ordered budesonide 0.5 mg/2 mL inhalation suspension = 2 mL, Inhale, bid, # 120 mL, 3 Refill(s), Type: Maintenance, [facility] [place], INHALE 2ML VIA NEBULIZER TWICE A DAY, 70, in, 06/21/22 9:06:00 CDT, Height Measured, 353, lb, 06/21/22 9:06:00 CDT, Weight Measured Start Date: 11/02/22 Status: Ordered cetirizine 10 mg oral tablet = 1 tab(s) ( 10 mg ), Oral, daily, # 90 tab(s), 3 Refill(s), Type: Maintenance, [facility] [place], 1 tab(s) Oral daily, 70, [...] 180 cap(s), 1 Refill(s), Type: Maintenance, [facility] [place], 3 cap(s) Oral q12 hrs, 70, in, 02/14/23 8:51:00 CDT, Height Measured, 342,lb, 02/14/23 8:51:00 CDT, Weight Measured Start Date: 02/14/23 Status: Ordered Depo-Provera ( 400 mg ), im, 0 Refill(s), Type: Maintenance Start Date: 05/17/16 Status: Ordered Dulera 200 mcg-5 mcg/inh inhalation aerosol 2 puff(s), Inhale, bid, # 13 gm, 2 Refill(s), Type: Maintenance, [facility] [place], INHALE 2 PUFFS BY [...] 15 mL, 5 Refill(s), Type: Maintenance, [facility] [place], ADMINISTER 2 SPRAY(S) NASALLY FOUR TIMES A DAY, 70, in, 06/26/23 10:52:00 CDT, Height Measured, 364, lb, 06/26/23 10:52:00 CDT, Weight Measured Start Date: 10/17/23 Status: Ordered montelukast 10 mg oral tablet = 1 tab(s), Oral, qpm, # 90 tab(s), 2 Refill(s), Type: Maintenance, Pharmacy: [facility] [place], TAKE ONE TABLET BY MOUTH EVERY EVENING, [...] 1 EA, 3 Refill(s), Type: Maintenance, Pharmacy: [facility] [place], 2 puff(s) Inhale bid,Instr:Switch inhaler due to [...] Cycle Status Age at Onset Migraine POSITIVE Recurrent sinus infections.. POSITIVE Obesity.. POSITIVE Allergic rhinitis.. POSITIVE Name: UnknownRelationship: Father Condition State Severity Life Cycle Status Age at Onset Migraine POSITIVE Obesity.. POSITIVE Diabetes.. POSITIVE Genetic disease POSITIVE Name: UnknownRelationship: Grandmother (M) Condition State Severity Life Cycle Status Age at Onset Migraine POSITIVE
--- OUTSIDE RECORDS SUMMARY | 2024-03-05 07:37 | XMS_ITS | Continuity of Care Document ---
Author Organization [facility] Address [facility] [address] [place] [place] [address]- Encounter 01/05/24 - 01/12/24 [facility] [address] [facility], [facility] [address] [place] [address] Allergies, Adverse Reactions, Alerts Substance Criticality Severity Reaction Reaction Severity Status cefprozil Active amitriptyline Hives Active penicillin Active Bactrim Active sulfa drug Active Medications albuterol 2.5 mg/3 mL (0.083%) inhalation solution = 3 mL ( 2.5 mg ), Inhale, q6 hrs, PRN: for wheezing, # 100 EA, 3 Refill(s), Type: Maintenance, [facility] [place], 3 mL Inhale q6 hrs,PRN:for wheezing, 70, in, 12/12/22 11:36:00 CDT, Height Measured, 342, lb, 12/12/22 11:36:00 CDT, Weight Measured Start Date: 12/20/22 Status: Ordered ALLERGY RELIEF CETIRIZINE 10 TABS ALLERGY RELIEF CETIRIZINE 10 TABS, 1 tab(s), Oral, daily, # 90 tab(s), 3 Refill(s), Type: Maintenance, [facility] [place], TAKE ONE TABLET BY MOUTH EVERY DAY, 70, in, 02/14/23 8:51:00 CDT, Height Measured, 342, lb, 02/14/23 8:51:00 CDT, Weight Measured Start Date: 06/22/23 Status: Ordered amoxicillin 500 mg oral capsule = 1 cap(s) ( 500 mg ), Oral, daily, # 30 cap(s), 1 Refill(s), Type: Soft Stop, [facility] [place], 1 cap(s) Oral daily,x30 day(s), 70, in, 06/26/23 10:52:00 CDT, Height Measured, 364, lb, 06/26/23 10:52:00 CDT, Weight Measured Start Date: 09/28/23 Stop Date: 11/27/23 Status: Ordered azithromycin 250 mg oral tablet = 1 packet(s), Oral, once, Instructions: as directed on package labeling repeat after 5 days off ifneeded, # 12 tab(s), 0 Refill(s), Type: Soft Stop, [facility] [place], 1 packet(s) Oral once,Instr:as directed on package labeling; repeat after 5 days off if needed, 70, in, 02/14/23 8:51:00 CDT, Height Measured, 342, lb, 02/14/23 8:51:00 CDT, Weight Measured Start Date: 03/23/23 Status: Ordered budesonide 0.5 mg/2 mL inhalation suspension = 2 mL, Inhale, bid, # 120 mL, 3 Refill(s), Type: Maintenance, [facility] [place], INHALE 2ML VIA NEBULIZER TWICE A DAY, 70, in, 06/21/22 9:06:00 CDT, Height Measured, 353, lb, 06/21/22 9:06:00 CDT, Weight Measured Start Date: 11/02/22 Status: Ordered cetirizine 10 mg oral tablet = 1 tab(s) ( 10 mg ), Oral, daily, # 90 tab(s), 3 Refill(s), Type: Maintenance, [facility] [place], 1 tab(s) Oral daily, [...] 180 cap(s), 1 Refill(s), Type: Maintenance, [facility] [place], 3 cap(s) Oral q12 hrs, 70, in, 02/14/23 8:51:00 CDT, Height Measured, 342,lb, 02/14/23 8:51:00 CDT, Weight Measured Start Date: 02/14/23 Status: Ordered Depo-Provera ( 400 mg ), im, 0 Refill(s), Type: Maintenance Start Date: 05/17/16 Status: Ordered Dulera 200 mcg-5 mcg/inh inhalation aerosol 2 puff(s), Inhale, bid, # 13 gm, 2 Refill(s), Type: Maintenance, [facility] [place], INHALE 2 PUFFS BY MOUTH [...] 5 Refill(s), Type: Maintenance, [facility] [place], ADMINISTER 2 SPRAY(S) NASALLY FOUR TIMES A DAY, 70, in, 06/26/23 10:52:00 CDT, Height Measured, 364, lb, 06/26/23 10:52:00 CDT, Weight Measured Start Date: 10/17/23 Status: Ordered montelukast 10 mg oral tablet = 1 tab(s), Oral, qpm, # 90 tab(s), 2 Refill(s), Type: Maintenance, Pharmacy: [facility] [place], TAKE ONE TABLET BY [...] 1 EA, 3 Refill(s), Type: Maintenance, Pharmacy: [facility] [place], 2 puff(s) Inhale bid,Instr:Switch [...] Cycle Status Age at Onset Migraine POSITIVE Diabetes.. POSITIVE Obesity.. POSITIVE Genetic disease POSITIVE Name: UnknownRelationship: Grandmother (M) Condition State Severity Life Cycle Status Age at Onset Migraine POSITIVE
--- OUTSIDE RECORDS SUMMARY | 2024-03-05 07:37 | XMS_ITS | Continuity of Care Document ---
Author Organization [facility] Address [facility] [address] [place] [address]- Encounter 01/04/24 - 01/11/24 [facility] [address] [facility], [facility] [address] [place] [address] Allergies, Adverse Reactions, Alerts Substance Criticality Severity Reaction Reaction Severity Status cefprozil Active amitriptyline Hives Active Bactrim Active penicillin Active sulfa drug Active Medications albuterol 2.5 mg/3 mL (0.083%) inhalation solution = 3 mL ( 2.5 mg ), Inhale, q6 hrs, PRN: for wheezing, # 100 EA, 3 Refill(s), Type: Maintenance, [facility] [place], 3 mL Inhale q6 hrs,PRN:for wheezing, 70, in, 12/12/22 11:36:00 CDT, Height Measured, 342, lb, 12/12/22 11:36:00 CDT, Weight Measured Start Date: 12/20/22 Status: Ordered ALLERGY RELIEF CETIRIZINE 10 TABS ALLERGY RELIEF CETIRIZINE 10 TABS, 1 tab(s), Oral, daily, # 90 tab(s), 3 Refill(s), Type: Maintenance, Pharmacy[facility] [place], TAKE ONE TABLET BY MOUTH EVERY DAY, 70, in, 02/14/23 8:51:00 CDT, Height Measured, 342, lb, 02/14/23 8:51:00 CDT, Weight Measured Start Date: 06/22/23 Status: Ordered amoxicillin 500 mg oral capsule = 1 cap(s) ( 500 mg ), Oral, daily, # 30 cap(s), 1 Refill(s), Type: Soft Stop, [facility] [place], 1 cap(s) Oral daily,x30 day(s), 70, in, 06/26/23 10:52:00 CDT, Height Measured, 364, lb, 06/26/23 10:52:00 CDT, Weight Measured Start Date: 09/28/23 Stop Date: 11/27/23 Status: Ordered azithromycin 250 mg oral tablet = 1 packet(s), Oral, once, Instructions: as directed on package labeling repeat after 5 days off ifneeded, # 12 tab(s), 0 Refill(s), Type: Soft Stop, [facility] [place], 1 packet(s) Oral once,Instr:as directed on package labeling; repeat after 5 days off if needed, 70, in, 02/14/23 8:51:00 CDT, Height Measured, 342, lb, 02/14/23 8:51:00 CDT, Weight Measured Start Date: 03/23/23 Status: Ordered budesonide 0.5 mg/2 mL inhalation suspension = 2 mL, Inhale, bid, # 120 mL, 3 Refill(s), Type: Maintenance, [facility] [place], INHALE 2ML VIA NEBULIZER TWICE A DAY, 70, in, 06/21/22 9:06:00 CDT, Height Measured, 353, lb, 06/21/22 9:06:00 CDT, Weight Measured Start Date: 11/02/22 Status: Ordered cetirizine 10 mg oral tablet = 1 tab(s) ( 10 mg ), Oral, daily, # 90 tab(s), 3 Refill(s), Type: Maintenance, [facility] [place], 1 tab(s) Oral daily, 70, in, [...] 180 cap(s), 1 Refill(s), Type: Maintenance, [facility] [place], 3 cap(s) Oral q12 hrs, 70, in, 02/14/23 8:51:00 CDT, Height Measured, 342,lb, 02/14/23 8:51:00 CDT, Weight Measured Start Date: 02/14/23 Status: Ordered Depo-Provera ( 400 mg ), im, 0 Refill(s), Type: Maintenance Start Date: 05/17/16 Status: Ordered Dulera 200 mcg-5 mcg/inh inhalation aerosol 2 puff(s), Inhale, bid, # 13 gm, 2 Refill(s), Type: Maintenance, [facility] [place], INHALE 2 PUFFS BY MOUTH TWO [...] 15 mL, 5 Refill(s), Type: Maintenance, [facility] [place], ADMINISTER 2 SPRAY(S) NASALLY FOUR TIMES A DAY, 70, in, 06/26/23 10:52:00 CDT, Height Measured, 364, lb, 06/26/23 10:52:00 CDT, Weight Measured Start Date: 10/17/23 Status: Ordered montelukast 10 mg oral tablet = 1 tab(s), Oral, qpm, # 90 tab(s), 2 Refill(s), Type: Maintenance, Pharmacy: [facility], [place], [place], TAKE ONE TABLET BY MOUTH EVERY EVENING, [...] 1 EA, 3 Refill(s), Type: Maintenance, Pharmacy: [facility], [place], 2 puff(s) Inhale bid,Instr:Switch inhaler due to [...]
--- OUTSIDE RECORDS SUMMARY | 2024-03-05 07:37 | XMS_ITS | Continuity of Care Document ---
Author Organization [facility] Address [facility] [address] [place] [address]- Encounter 01/12/24 - 01/19/24 [facility] [address] [facility], [facility] [address] [place] [address] Allergies, Adverse Reactions, Alerts Substance Criticality Severity Reaction Reaction Severity Status cefprozil Active amitriptyline Hives Active penicillin Active sulfa drug Active Bactrim Active Medications albuterol 2.5 mg/3 mL (0.083%) inhalation solution = 3 mL ( 2.5 mg ), Inhale, q6 hrs, PRN: for wheezing, # 100 EA, 3 Refill(s), Type: Maintenance, [facility] [place], 3 mL Inhale q6 hrs,PRN:for wheezing, 70, in, 12/12/22 11:36:00 CDT, Height Measured, 342, lb, 12/12/22 11:36:00 CDT, Weight Measured Start Date: 12/20/22 Status: Ordered ALLERGY RELIEF CETIRIZINE 10 TABS ALLERGY RELIEF CETIRIZINE 10 TABS, 1 tab(s), Oral, daily, # 90 tab(s), 3 Refill(s), Type: Maintenance, Pharmacy: [facility] [place], TAKE ONE TABLET BY MOUTH EVERY DAY, 70, in, 02/14/23 8:51:00 CDT, Height Measured, 342, lb, 02/14/23 8:51:00 CDT, Weight Measured Start Date: 06/22/23 Status: Ordered amoxicillin 500 mg oral capsule = 1 cap(s) ( 500 mg ), Oral, daily, # 30 cap(s), 1 Refill(s), Type: Soft Stop, [facility] [place], 1 cap(s) Oral daily,x30 day(s), 70, in, 06/26/23 10:52:00 CDT, Height Measured, 364, lb, 06/26/23 10:52:00 CDT, Weight Measured Start Date: 09/28/23 Stop Date: 11/27/23 Status: Ordered azithromycin 250 mg oral tablet = 1 packet(s), Oral, once, Instructions: as directed on package labeling repeat after 5 days off ifneeded, # 12 tab(s), 0 Refill(s), Type: Soft Stop, [facility] [place], 1 packet(s) Oral once,Instr:as directed on package labeling; repeat after 5 days off if needed, 70, in, 02/14/23 8:51:00 CDT, Height Measured, 342, lb, 02/14/23 8:51:00 CDT, Weight Measured Start Date: 03/23/23 Status: Ordered budesonide 0.5 mg/2 mL inhalation suspension = 2 mL, Inhale, bid, # 120 mL, 3 Refill(s), Type: Maintenance, [facility] [place], INHALE 2ML VIA NEBULIZER TWICE A DAY, 70, in, 06/21/22 9:06:00 CDT, Height Measured, 353, lb, 06/21/22 9:06:00 CDT, Weight Measured Start Date: 11/02/22 Status: Ordered cetirizine 10 mg oral tablet = 1 tab(s) ( 10 mg ), Oral, daily, # 90 tab(s), 3 Refill(s), Type: Maintenance, [facility] [place], 1 tab(s) Oral daily, 70, in, [...] 180 cap(s), 1 Refill(s), Type: Maintenance, [facility] [place], 3 cap(s) Oral q12 [...] 90 tab(s), 2 Refill(s), Type: Maintenance, Pharmacy: [facility] [place], TAKE ONE TABLET BY MOUTH EVERY EVENING, [...] 1 EA, 3 Refill(s), Type: Maintenance, Pharmacy: [facility] [place], 2 puff(s) Inhale bid,Instr:Switch inhaler due to [...] Status Age at Onset Genetic disease POSITIVE Diabetes.. POSITIVE Obesity.. POSITIVE Migraine POSITIVE Name: UnknownRelationship: Grandmother (M) Condition State Severity Life Cycle Status Age at Onset Migraine POSITIVE
--- OUTSIDE RECORDS SUMMARY | 2024-03-05 07:38 | XMS_ITS | Referral Summary ---
Author Organization [facility] Address [address] [place] [address] Care Team Providers Care Fish Header Name Role Phone Elsewhere, Pcp Primary Care Provider Unavailabl e Source Comments Patient records contain information from all sites at [facility]. For routine questions regarding patient records, call [phone] during business hours, M-F 8:00 AM - 5:00 PM Central Time. Record requests for emergency care only can be directed to [phone] at any time.[facility] Encounters Date Type Department Care Team Description 12/21/2023 Clinical Communication Pharmacy Prior Auth [phone] Sallie Lewis 12/18/2023 Orders Only Department of Neurology in [address] [phone] Diana Price APRN, C.N.P., M.S.N. 12/18/2023 Refill Department of Neurology in [address] [phone] Diana Price APRN, C.N.P., M.S.N. Med Refill 12/18/2023 11:15 AM CDT Telemedicine Department of Neurology in [address] [phone] Diana Price APRN, C.N.P., M.S.N. Chronic Migraine (Primary Dx); Migraine With Aura Not Intractable Without Status Migrainosus 12/12/2023 9:45 AM CDT Clinical Communication Virtual Review in [place], [place] [address] [place] [phone] Pre-visit Intake from Last 3 Months Allergies Active Allergy Reactions Criticality Noted Date [...] Obesity Body Mass Index (BMI) >40 Adult Immunizations Name Administration Dates Next Due H1N1 All Forms 09/08/2009 HepB, Unspecified 03/29/2006,03/02/2006 Influenza, Unspecified 08/20/2008,2006,07/25/2006,08/01/2005, 4,08/23/2002 Social History Tobacco Use Types Packs/Day Years Used Date Smoking Tobacco: Never Passive Smoke Exposure: Never Smokeless Tobacco: Never Tobacco Cessation:Counseling Given: Not Answered Alcohol Use Standard Drinks/Week Comments Never 0 (1 standard drink = 0.6 oz pur e alcohol) [facility] Utilities Answer Date Recorded In the past 12 months has e [employer], gas, oil, or water [employer] threatened to shut off services in your [...] often do you attend chur ch or methodist services? Never 10/25/2022 Do you belong to any clubs o r organizations such as jainism groups, unions, fraternal or athletic groups, or [...] Answer Date Recorded PHQ-2 Score 2 12/15/2023 [facility] - Occupational Stress Questionnaire Answer Date Recorded [...] your living situation today? I have a [facility] place to live 12/13/2023 Education Answer Date Recorded What is the highest level of school you have completed or the highest degree you have received? 12th grade 10/25/2022 Sex and Gender Information Value Date Recorded Sex Assigned at Female 10/21/2021 4:05 AM [employer] Gender Identity Female 09/26/2020 6:43 AM [employer] Sexual Orientation Straight 09/26/2020 6: 43 AM [employer] SUPERVIS[employer] Last Filed Vital Signs Vital Sign Reading Time Taken Comments Blood Pressure 168/103 02/08/2022 10:50 AM CDT Pulse 120 02/08/2022 10:50 AM CDT Temperature 36.9 ??C (98.4 ??F) 10/25/2021 3:48 PM CS T Respiratory Rate 18 11/13/2020 11:21 AM [employer] Oxygen Saturation 95% 12/03/2021 8:47 AM [employer] SUPER[employer] Inhaled Oxygen Concentration - - Weight 167 kg (368 lb 2.7 oz) 02/08/2022 10:50 A M CDT Height 180.5 cm (5' 11.06) 02/08/2022 10:50 AM CDT Body Mass Index 51.26 02/08/2022 10:50 AM CDT Plan of Treatment Upcoming Encounters Date Type Department Care Team (Late st Contact Info) Description 03/19/2024 2:00 PM CDT Telemedicine Department of Neurology in [place], [place] [address] [place] [address] Diana Price APRN C.N.P., M.S.N. [address] [place] [address] Medical Devices Implanted Type Area Manager Switch Device Identifier Shelf Expiration Date Model / [...] Recently Relevant to Health Maintenance Care Teams Fish Header Relationship Specialty Start Date End Date Elsewhere, Pcp PCP - General Internal Medicine 04/24/23
--- OUTSIDE RECORDS SUMMARY | 2024-03-05 07:38 | XMS_ITS | Clinical Summary ---
Author Organization [facility] Address [place], [place] [address] Care Team Providers Care Process Control Supervisor Name Role Phone Cain, Do Guallpa DO Primary Care Provider [phone] Ela Waldron MECHANICAL MANAGER Unavailable [phone] Darion Erazo RN Unavailable Kvng Sher Unavailable [phone] Diana Price MECHANICAL MANAGER Unavailable Wesley Wilson MD Unavailable Philip Romano MD Unavailable Allergies Active Allergy Reactions Criticality Noted Date Comments Amitriptyline Hives,Itching Medium 03/31/2021 Sulfamethoxazole-Trimet hoprim Nausea And Vomiting High 12/20/2006 Cefprozil Rash Medium 02/16/2010 has tolerated omnicef Erythromycin Nausea And Vomiting High 12/20/2006 Fish Containing Products Hives,Itching,Nausea Only,Vomiting High 01/28/2020 [facility] [place] Anaphylaxis High 01/28/2020 Nickel Rash 03/29/2023 Unlisted Allergen (Include Detail In Comments) Anaphylaxis High 05/11/2015 [facility] Shellfish Containing Products *Unknown Unknown 10/22/2018 Sulfa (Sulfonamide Antibiotics) Nausea And Vomiting 03/04/2020 Metoprolol Succinate Hives High 08/07/2020 Medications Medication Sig Dispensed Refills Start Date End Date Status cetirizine (ZYRTEC) 10 mg tablet Take 1 tablet by mouth once daily. every morning 0 9 Active albuterol (PROVENTIL) 0.083 % neb solutionIndications :Exacerbation of asthma, unspecified asthma severity, unspecified whether persistent INHALE 3ML (1 AMPULE) VIA A NEBULIZER EVERY 4 HOURS NEEDED 1 box 2 0 Active montelukast (SINGULAIR) 10 mg tabletIndications:I ntrinsic asthma TAKE ONE TABLET BY MOUTH AT BEDTIME 90 tablet 2 1 Active loperamide (IMODIUM) 1 mg/7.5 mL liquidIndications:C hronic diarrhea Take 15 mL (2 mg) by mouth each time if needed for Diarrhea. 236 mL 2 Active Pulmozyme 1 mg/mL neb solution 2 Active ipratropium (ATROVENT NASAL) 42 mcg (0.06 %) nasal spray Inhale 2 Sprays to both nostrils four times daily. 15 mL 2 Active albuterol HFA (PRO-AIR; VENTOLIN; PROVENTIL) 90 mcg/actuation inhalerIndications: Exacerbation of asthma, unspecified asthma severity, unspecified whether persistent Inhale 2 Puffs by mouth every 4 hours if needed for Shortness Of Breath or Wheezing. 1 Each 1 3 Active esomeprazole (NEXIUM) 20 mg capsuleIndications: Gastroesophageal reflux disease, unspecified whether esophagitis present Take 1 Capsule (20 mg) by mouth once daily. 90 Capsule 3 3 Active azelastine 137 mcg/actuation (ASTELIN) nasal spray Inhale 1 Lantry into affected nostril(s) two times daily. Active cyanocobalamin, vitamin B-12, [address] 500 mcg under the tongue. Active Dulera 200-5 mcg/actuation inhaler 3 Active naproxen (ANAPROX DS) 550 mg tablet TAKE ONE TABLET BY MOUTH TWICE A DAY NEEDED FOR MILD HEADACHE MAX 14 DAYS PER MONTH Active naratriptan (AMERGE) 2.5 mg tablet TAKE ONE TABLET BY MOUTH EVERY 4 HOURS NEEDED FOR MIGRAINE. MAX 5MG (2 TABS) PER DAY. MAX 9 DAYS PER MONTH Active gabapentin (NEURONTIN) 300 mg capsuleIndications: Acute bilateral low back pain without sciatica,Chronic midline low back pain with left-sided sciatica TAKE THREE CAPSULES BY MOUTH THREE TIMES A DAY 810 Capsule 2 3 Active verapamiL (VERELAN) 240 mg Controlled-Release capsuleIndications: Chronic migraine with aura without status migrainosus, not intractable Take 1 Capsule (240 mg) by mouth every morning. 90 Capsule 3 3 Active amLODIPine (NORVASC) 10 mg tabletIndications:B enign essential hypertension TAKE ONE TABLET BY MOUTH EVERY DAY 90 Tablet 3 3 Active prochlorperazine (COMPAZINE) 5 mg tabletIndications:N ausea TAKE ONE TO TWO TABLETS BY MOUTH EVERY 6 HOURS NEEDED FOR FOR NAUSEA AND VOMITING 30 Tablet 2 3 Active cyclobenzaprine (FLEXERIL) 5 mg tabletIndications:A cute bilateral low back pain without sciatica TAKE ONE TABLET BY MOUTH THREE TIMES A DAY NEEDED FOR MUSCLE SPASMS 90 Tablet 3 4 Active guaiFENesin (Mucus Relief ER) 600 mg Extended-Release tabletIndications:C hronic rhinosinusitis,Muco purulent chronic bronchitis (HC) TAKE ONE TABLET BY MOUTH TWICE A DAY 180 Tablet 2 4 Active fluticasone (50 mcg per actuation) nasal solution (FLONASE)Indication s:Chronic rhinosinusitis Inhale 1 Lantry to both nostrils two times daily. 16 g 12 4 Active EPINEPHrine (EPIPEN) 0.3 mg/0.3 mL auto-injectorIndica tions:Allergic reaction, sequela Inject 0.3 mg (1 Pen) intramuscular each time if needed for Allergic Reaction. 2 Each 12 4 Active tiotropium (SPIRIVA HANDIHALER) 18 mcg inhalation capsuleIndications: Chronic cough USING HANDIHALER WILDE CAPSULE THEN BREATHE IN POWDER BY MOUTH EVERY DAY INHALE TWICE FROM SAME CAPSULE 90 Capsule 4 Active tiotropium (spiriva) 18 mcg inhalation capsuleIndications: Cough, unspecified type Inhale 1 Capsule (18 mcg) by mouth once daily. Using a SPRIVA HANDIHALER wilde the capsule, then by mouth breathe in the powder. Inhale twice from the same capsule for full dose. 90 Each 4 Active norethindrone (NORLUTATE) 5 mg tablet Take 2.5 mg by mouth once daily. Active fremanezumab-vfrm (Ajovy Autoinjector) 225 mg/1.5 mL atIn Inject 225 mg subcutaneous every 4 weeks. 4 Active naltrexone (REVIA) 50 mg tabletIndications:M orbid obesity with BMI of 45.0-49.9, adult (HC) Take 0.5 Tablets (25 mg) by mouth once daily for 30 days, THEN 1 Tablet (50 mg) once daily. Naltrexone should be stopped 7 days prior to any surgery or with concurrent oral opioids, opioid pain pump, opioid pain patches, opioid buccal films or medical marijuana.. 75 Tablet 4 04/10/20 24 Active mupirocin (BACTROBAN OINTMENT) ointmentIndications :Nasal crusting Add pea size amount to sinus rinse three times a day 30 g 1 4 Active Additional Information Patient taking differently: EACH TIME PRN, Add pea size amount to sinus rinse three times a day, Reported on 02/28/2024 benzonatate (TESSALON) 200 mg capsuleIndications: Vocal cord nodule Take 1 Capsule (200 mg) by mouth 3 times daily if needed for Cough. 30 Capsule 3 4 Active hydroCHLOROthiazide 25 mg tabletIndications:H ypertension, unspecified type TAKE ONE TABLET BY MOUTH EVERY DAY 90 Tablet 3 4 Active DULoxetine (CYMBALTA) 60 mg Delayed-release capsuleIndications: Depression with anxiety TAKE ONE CAPSULE BY MOUTH EVERY DAY 90 Capsule 4 Active predniSONE (DELTASONE) 10 mg tablet Take 10 mg by mouth. On hold 4 Active amoxicillin (AMOXIL) 500 mg tablet Take 500 mg by mouth once daily. 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 Krishan Almendarez at [facility] in Oct 2020. Recommended the following for treatment: A) Topiramate starting at 15-25 mg orally [...] to this, or for severe headaches from onset, [...] the above recommendations with her local providers. Headache 10/30/2020 Severe persistent asthma, uncomplicated 02/27/20 Chronic rhinosinusitis 02/27/2020 Tinnitus of right ear 12/10/2019 Myofascial pain 12/10/2019 Limited opening of mandible 12/10/2019 Instability of right shoulder joint 12/21/2018 Hand pain, left 07/26/2017 Encounter for surveillance of injectable contrac eptive 02/25/2016 Overview: last DepoProvera 11/09/15 Morbid obesity 12/17/2015 Overview: Morbid Obesity Body Mass Index (BMI) >40 Adult Benign essential hypertension 12/17/2015 Overview: Hypertension (HTN) Essential Benign Anaphylactic reaction 05/11/2015 Overview: Celia Vitamin D deficiency 11/04/2014 Otalgia 07/11/2012 Episodic tension-type headache 07/11/2012 Arthralgia of temporomandibular joint 07/11/2012 Overview: resolved Fibromyositis 07/11/2012 Ear pain 07/11/2012 Overview: improved improved GERD (gastroesophageal reflux disease) 1 Allergic rhinitis, cause unspecified 04/02/2008 Dysthymic disorder 06/17/2007 Irritable bowel syndrome 12/20/2006 Neuritis of right sural nerve Resolved Problems Problem Noted Date Diagnosed Date Resolved Date COVID-19 virus infection 09/22/2020 Overview: Positive covid antibody in Aug 2020, likely infection in Jul 2020 Pain 12/21/2018 05/14/2021 Moderate persistent asthma w ith acute exacerbation 02/07/2018 05/14/2021 Overview: heterozygous for alpha 1 antitrypsin Adjustment disorder 01/27/2017 01/28/20 17 HTN (hypertension) 11/09/2015 1 Obesity 11/03/2014 05/14/2021 ALLERGIC RHINITIS 06/17/2007 01/30/2010 Unspecified asthma(493.90) 12/20/2006 0 05/14/2021 Scar tissue 05/14/2021 Encounters Date Type Department Care Team Description 03/01/2024 Travel 02/28/2024 8:15 AM CDT Telemedicine [id number] [place] [address] Giulia Phoenix NP Follow Up; Telehealth 02/24/2024 Travel 02/20/2024 8:30 AM CDT Telemedicine [address] [phone] Medical Nutrition Therapy (MWL.9) 02/15/2024 Travel 01/24/2024 8:35 AM CDT Procedure Only [facility] [address] [place] [address] Lazaro Ramirez MD Procedure (Ultrasound guided injection rig... 01/24/2024 Travel 01/23/[address] [phone] Do Barlow DO Refill Request (Duloxetine) 01/22/[address] [phone] Do Barlow DO Refill Request (Hydrochlorothiazi de) 01/19/2024 1:37 PM CDT - 01/19/2024 11:59 PM CDT Hospital Encounter [facility] [address] [place] [address] Bernardino Hobson MD Nasal crusting; Vocal cord nodule; Chronic cough 01/19/2024 Travel 01/18/2024 8:45 AM CDT Office Visit [address] [phone] Bernardino Hobson MD Recheck (Recheck of vocal.cord lesion) 01/18/2024 7:50 AM CDT Office Visit [address] [phone] Do Barlow, Medication Management 01/17/2024 Travel 01/12/2024 7:48 AM CDT - 01/12/2024 11:59 PM CDT Hospital Encounter [facility] [address] [place] [address] Kvng Sher MBBS Cole, Lauren E, VALENCIA 01/11/2024 8:30 AM CDT Telemedicine [address] [address] Ela Waldron NP Telehealth (No vitals taken); Weight (MWL follow up) 01/09/2024 8:00 AM CDT Telemedicine [address] [phone] Medical Nutrition Therapy (MWL.8) 01/08/2024 Medical Messaging [facility] [address] [place] [address] Lazaro Ramirez MD Shots 01/06/2024 Travel 01/04/2024 Travel 12/21/2023 1:15 PM CDT Telemedicine [facility] and [facility] [address] [place] [address] Giulia Phoenix NP Consult (integrative health, no vitals taken ); Telehealth; Cough 12/16/2023 Travel 12/14/2023 10:30 AM CDT Office Visit [facility] [address] [place] [address] Philip Romano MD Consult (Chronic cough/wheeze/chest tightness) 12/14/2023 Telephone [facility] [address] [facility] [address] [place] [phone] Philip Romano MD Appointment Request (6-month VV f/u per Juan Antonio) 12/14/2023 Travel 12/09/2023 Travel 12/05/2023 8:00 AM CDT Telemedicine [address] [place] [address] Kayla Ortiz, NIKKI Medical Nutrition Therapy (MWL.7) from Last 3 Months Immunizations Name Administration Dates Next Due COVID-19 Vaccine Spikevax (M oderna 50mcg/0.5mL) 12YO+ 8528-8710 Formula PF 07/17/2023 COVID-19 vaccine (Pfizer-Bio NTech 30mcg/0.3mL) 12YO+ BIVALENT PF, MDV 07/04/2022 COVID-19 vaccine (Pfizer-Bio NTech 30mcg/0.3mL) PF, MDV 08/10/2021,01/12/2021,12/20/2020 Hepatitis B (Peds) 09/05/2006,03/29/2006, 006 Influenza A (H1N1), Inactiva leno (Age >=3 Years) 09/08/2009 Influenza, IIV3 (Age >=3 years) 05/31/20 18,06/20/2013,06/26/2012,2010,06/30/2010,08/20/2008,07/19/2007 Influenza, IIV4 07/17/2023,,07/05/2021,2019,05/28/2019,06/01/2017,08/19/2015,0 06/11/2014 Influenza, IIV4 (=>6mos) MDV 05/31/2018 Influenza, RIV3 (Age =>18 Years) 05/19/2016 Pneumococcal Conj 20-valent (Prevnar 20) 09/29/2022 Pneumococcal Poly,23-Valent (Pneumovax) 10/28/2019 Td (Age >=7 Years) 10/20/1997 Tdap 05/14/2021,05/10/2011 Family History Medical History Relation Name Comments Heart Disease Brother 40 hole heart Coronary artery disease Father 57 Depression Father 57 Diabetes Father 57 Genetic Father 57 MS Heart Disease Father 57 Hyperlipidemia Father 57 Hypertension Father 57 Lupus Father 57 Psychiatric illness Maternal Aunt schizop hrenia Seizures Maternal Aunt Allergies Maternal Grandfather 84 Hyperlipidemia Maternal Grandfather 84 Hypertension Maternal Grandfather 84 Kidney failure Maternal Grandfather 84 Cancer Maternal Grandmother 86 skin Hyperlipidemia Maternal Grandmother 86 Hypertension Maternal Grandmother 86 Allergies Maternal Uncle Allergies Mother 64 Depression Mother 64 Hyperlipidemia Mother 64 Hypertension Mother 64 Melanoma Paternal Aunt 1 Allison Coronary artery disease Paternal Grandfather 77 Heart Disease Paternal Grandfather 77 kidney failure after infection Clotting disorder Paternal Grandmother 83 Coronary artery disease Paternal Grandmother 83 Other Paternal Uncle 1 Rishi ms Other Paternal Uncle 2 MS Anxiety disorder Son Depression Son Genetic Son Seizures and Au tism Cancer-breast No Family History Relation Name Status Comments Brother 40 Alive Father 57 Alive Maternal Aunt Maternal Grandfather 84 Maternal Grandmother 86 Alive Maternal Uncle Alive Mother 64 Alive Paternal Aunt 1 Allison Paternal Aunt 2 Alive Paternal Aunt 3 Alive Paternal Aunt 4 Alive Paternal Aunt 5 Alive Paternal Grandfather 77 Paternal Grandmother 83 Paternal Uncle 1 Rishi Paternal Uncle 2 Alive Son Alive Social History Tobacco Use Types Packs/Day Years Used Date Smoking Tobacco: Never Passive Smoke Exposure: Never Smokeless Tobacco: Never Tobacco Cessation:Counseling Given: Yes Alcohol Use Standard Drinks/Week Comments Not Currently 0 (1 standard drink = 0.6 oz pur e alcohol) PHQ-2 Answer Date Recorded PHQ-2 TOTAL SCORE 2 03/03/2023 Social Connections Answer Date Recorded Frequency of Communication with Friends and Fami ly 4 12/16/2023 Financial Resource Strain Answer Date R ecorded Difficulty of Paying Living Expenses 3 12/16/2023 Difficulty of Paying Living Expenses Not on file 12/16/2023 Food Insecurity Answer Date Recorded Worried About Running Out of Food in the Last Ye ar 1 12/16/2023 Transportation Needs Answer Date Record ed Lack of Transportation (Medical) 1 12/16/2023 Housing Stability Answer Date Recorded Unable to Pay for Housing in the Last Year 1 12/16/2023 Sex and Gender Information Value Date Recorded Sex Assigned at Not on file Gender Identity Not on file Sexual Orientation Not on file Obstetrics History Last Filed Vital Signs Vital Sign Reading Time Taken Comments Blood Pressure 132/75 01/24/2024 8:35 AM CDT Pulse 93 01/24/2024 8:35 AM CDT Temperature 36.7 ??C (98.1 ??F) 01/24/2024 8:35 AM CD T Respiratory Rate 16 12/14/2023 10:29 AM CDT Oxygen Saturation 97% 01/24/2024 8:35 AM CDT Inhaled Oxygen Concentration - - Weight 155.1 kg (342 lb) 02/20/2024 8:00 AM CDT Height 177.8 cm (5' 10) 02/20/2024 8:00 AM CDT Body Mass Index 49.07 02/20/2024 8:00 AM CDT Plan of Treatment Upcoming Encounters Date Type Department Care Team (Late st Contact Info) Description 03/05/2024 8:20 AM CDT Office Visit [facility] [address] [place] [address] Lazaro Ramirez MD [address] [place] [address] 04/02/2024 9:30 AM CDT Telemedicine [address] [phone] [place] [address] 04/11/2024 8:30 AM CDT Telemedicine [address] [phone] Ela Waldron NP [address] [place] [address] 04/15/2024 7:30 AM CDT Office Visit [address] [phone] Do Barlow DO [address] [place] [address] 05/16/2024 8:15 AM CDT Telemedicine [address] [place] [phone] Giulia Phoenix ABRAM [address] [facility] [address] [place] [address] 06/18/2024 7:30 AM CDT Telemedicine [facility] [address] [place] [phone] Philip Romano MD [address] [place] [address] Health Maintenance Due Date Last Done Comments Depression screening for age 12+ 03/03/2024 03/03/2023, 03/09/2022, 07/05/2021, Additional history exists Influenza for age 9-49 05/26/2024 3, 07/04/2022, 07/05/2021, Additional history exists Pap test for age 21-65 10/28/2024 0, 10/28/2019, 11/01/2016, Additional history exists BMI (ht and wt on same day) for age 18+ 02/19/2025 02/20/2024, 01/11/2024, 01/09/2024, Additional history exists Tetanus booster 05/14/2031 05/14/2021, 04/25, 10/20/1997 Tdap Completed 05/14/2021, 05/10/2011 Pneumococcal series for age 6-64 Completed 09/29/19, 10/28/2019 COVID-19 vaccine series Completed 07/17/20, 07/04/2022, 08/10/2021, Additional history exists HIV for age 15-65 Completed 07/17/2023 Hepatitis C screening for ag e 18-79 Completed 07/17/2023, 11/08/2004 Medical Devices Implanted Type Area Atmospheric Physicist Device Identifier Shelf Expiration Date Model / Serial / Lot Mar-1688-Cp - [id number] Implanted:Qty: 1 on 07/18/2016 by Marcio Kramer DPM at [facility] Left: Ankle [employer] 04/24/2018 [id number]-[id number] / / [id number] Description:Internal Brace Ancr Soft Tissue 4.75mm X 19mmswivelock - [id number] Implanted:Qty: 1 on 07/18/2016 by Marcio Kramer DPM at [facility] Left: Ankle [employer] 01/22/2018 AR-[id number] # / / [id number] Ancr Sut 2.4x8.5mm Suturetak Micro W/2-0 Fiberwire Ndls Bio - [id number] Implanted:Qty: 2 on 07/18/2016 by Marcio Kramer DPM at [facility] Left: Ankle [employer] 09/25/2016 [id number] F# / / [id number] Description:Suture anchor [facility]8990st - [id number] Implanted:Qty: 2 on 10/22/2018 by Marcio Kramer DPM at [facility] Right: Ankle [employer] 06/24/2023 [facility]8990ST / / [id number] Description:Fiber Jordan DX Sut ure [place] with 1.3mm Fiberwire Suture Tape and [place] [facility]1688- - [id number] Implanted:Qty: 1 on 10/22/2018 by Marcio Kramer DPM at [facility] Right: Ankle [employer] 08/24/2020 [id number] / / [id number] Description:Implant System, Internal brace Ligament Augmentation Repair Flexible Collagen Nerve Cuff- Neuroflex Implanted:Qty: 1 on 06/17/2019 by Marcio Kramer DPM at [facility] Right: Leg [employer] 09/24/2019 [id number] / / [id number] Description:On our shelf, wi th [place] implants Flexible Collagen Nerve Cuff- Neuroflex Implanted:Qty: 1 on 06/17/2019 by Marcio Kramer DPM at [facility] Right: Leg [employer] 11/23/2019 [id number] / / [id number] Description:In our cupboard with Jan implants Collagen Nerve Wrap- Neuromend Implanted:Qty: 1 on 06/17/2019 by Marcio Kramer DPM at [facility] Right: Leg [employer] 09/24/2019 [id number] / / [id number] Description:From our shelf b y [place] implants Explanted Type Area Atmospheric Physicist Device Identifier Shelf Expiration Date Model / Serial / Lot Mar-8990st - [id number] Explanted:Qty: 1 on 10/22/2018 by Marcio Kramer DPM at [facility] Right: Ankle [employer] 06/24/2023 [id number] / / [id number] Description:Fiber Jordan DX Sut ure [place] with 1.3mm FiberWire Suture Tape and [place] Procedures Procedure Name Priority Date/Time Associated Diagnosis Comments BEDSIDE US STUDY ARCHIVE Routine 01/24/2024 10:57 AM CDT Chronic right shoulder pain Instability of right shoulder joint CT HEAD SINUS LANDMARX WO ESTRELLA 01/19/2024 1:48 PM CDT Nasal crusting Vocal cord nodule Chronic cough CBC WITH AUTO DIFFERENTIAL Routine 01/18/2024 8:50 AM CDT Chronic rhinosinusitis Mucopurulent chronic bronchitis (HC) C-REACTIVE PROTEIN Routine 01/18/2024 8: 50 AM CDT Chronic rhinosinusitis Mucopurulent chronic bronchitis (HC) COMP METABOLIC PANEL Routine 01/18/2024 8:50 AM CDT Hyperlipidemia, unspecified hyperlipidemia type CBC WITH AUTO DIFFERENTIAL Routine 01/18/2024 8:50 AM CDT Chronic rhinosinusitis Mucopurulent chronic bronchitis (HC) LIPID PANEL W REFLEX MEASURED LDL Routine 01/18/2024 8:50 AM CDT Hyperlipidemia, unspecified hyperlipidemia type HEMOGLOBIN A1C SCREENING Routine 01/18/2024 8:50 AM CDT Morbid obesity with BMI of 50.0-59.9, adult (HC) Prediabetes ANTI HIV 1/2 Routine 07/17/2023 9:53 AM CDT Chronic rhinosinusitis Allergic rhinitis, unspecified seasonality, unspecified trigger ANTI HCV Routine 07/17/2023 9:53 AM CDT Chronic rhinosinusitis Allergic rhinitis, unspecified seasonality, unspecified trigger KITCHEN 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 Lazaro Ramirez. Ultrasound was not used for diagnostic purposes, but to guide the needle placement and document the position of the injection. ?? See patient's EPIC encounter for the detail of the procedure; see DEJAN for saved images of the injection. Lazaro Ramirez MD PROCEDURE ORD * CT HEAD SINUS LANDMARX WO (01/19/2024 1:48 PM CDT) Anatomical Region Laterality Modality SINUS Computed Tomogra phy 01/19/2024 3:11 PM CDT Impressions 01/19/2024 3:11 PM CDT 1. Minor mucosal thickening/secretions at the bilateral sphenoethmoidal recesses. 2. Otherwise, grossly clear sinonasal cavities. Please note that all CT scans at this facility use dose modulation, iterative reconstruction, and/or weight-based dosing when appropriate to reduce radiation dose to as low as reasonably achievable. Dictated by Gisell Herrera MD @ 01/19/2024 3:11:55 PM (Electronically Signed) Narrative 01/19/2024 3:11 PM CDT For Patients: ??As a result of the Cures Act, medical imaging exams and procedure reports are released immediately into your electronic medical record. ??You may view this report before your referring provider. ??If you have questions, please contact your health care provider. Indication: Nasal crusting, chronic cough, sinusitis Technique: Noncontrast CT of the paranasal sinuses. Coronal and sagittal reformats. Bone and soft tissue algorithms. Comparison: CT sinus 11/01/2022 Findings: Frontal sinuses: The frontal sinuses and frontal recesses are clear. Ethmoid air cells: The ethmoid air cells are clear. Sphenoid sinuses: Minor mucosal thickening/secretions at the bilateral sphenoethmoidal recesses. Maxillary sinuses: The maxillary sinuses are clear. The osteomeatal units are clear. Nasal cavity: The nasal septum is relatively midline. Partially paradoxical right middle turbinate. Other structures: No suspicious osseous lesions. No periapical tooth lucencies. Mastoid air cells are clear. Procedure Note Gisell Herrera, - 01/19/2024 For Patients: As a result of the Cures Act, medical imagingexams and procedure reports are released immediately into your electronicmedical record. You may view this report before your referring provider.If you have questions, please contact your health care provider. Indication: Nasal crusting, chronic cough, sinusitis Technique: Noncontrast CT of the paranasal sinuses. Coronal and sagittal reformats.Bone and soft tissue algorithms. Comparison: CT sinus 11/01/2022 Findings: Frontal sinuses: The frontal sinuses and frontal recesses are clear. Ethmoid air cells: The ethmoid air cells are clear. Sphenoid sinuses: Minor mucosal thickening/secretions at the bilateralsphenoethmoidal recesses. Maxillary sinuses: The maxillary sinuses are clear. The osteomeatal unitsare clear. Nasal cavity: The nasal septum is relatively midline. Partiallyparadoxical right middle turbinate. Other structures: No suspicious osseous lesions. No periapical toothlucencies. Mastoid air cells are clear. IMPRESSION: 1. Minor mucosal thickening/secretions at the bilateral sphenoethmoidalrecesses. 2. Otherwise, grossly clear sinonasal cavities. Please note that all CT scans at this facility use dose modulation,iterative reconstruction, and/or weight-based dosing when appropriate toreduce radiation dose to as low as reasonably achievable. Dictated by Gisell Herrera MD @ 01/19/2024 3:11:55 PM (Electronically Signed) Bernardino Hobson MD CT * (ABNORMAL) CBC WITH AUTO DIFFERENTIAL (01/18/2024 8:50 AM [facility]) WHITE BLOOD COUNT 11.0 4.5 - 11.0 thou/cu mm 01/18/2024 9:08 AM [facility] RED BLOOD COUNT 5.33(H) 4.00 - 5.20 mil/cu mm 01/18/2024 9:08 AM [facility] HEMOGLOBIN 13.2 12.0 - 16.0 g/dL 01/18/2024 9:08 AM [facility] HEMATOCRIT 42.4 33.0 - 51.0 % 01/18/2024 9:08 AM [facility] MCV 80 80 - 100 fL 01/18/2024 9:08 AM [facility] MCH 24.8(L) 26.0 - 34.0 pg 01/18/2024 9:08 AM [facility] MCHC 31.1(L) 32.0 - 36.0 g/dL 01/18/2024 9:08 AM [facility] RDW 15.6(H) 11.5 - 15.5 % 01/18/2024 9:08 AM [facility] PLATELET COUNT 322 140 - 440 thou/cu mm 01/18/2024 9:08 AM [facility] MPV 9.9 6.5 - 11.0 fL 01/18/2024 9:08 AM [facility] % NEUT 59.5 % 01/18/2024 9:08 AM [facility] % LYMPH 31.2 % 01/18/2024 9:08 AM [facility] % MONO 5.7 % 01/18/2024 9:08 AM [facility] % EOS 3.2 % 01/18/2024 9:08 AM [facility] % BASO 0.4 % 01/18/2024 9:08 AM [facility] ABSOLUTE NEUTROPHILS 6.6 1.7 - 7.0 thou/cu mm 01/18/2024 9:08 AM CDT [facility] ABSOLUTE LYMPHOCYTES 3.4(H) 0.9 - 2.9 thou/cu mm 01/18/2024 9:08 AM CDT [facility] ABSOLUTE MONOCYTES 0.6 <0.9 thou/cu mm 01/18/2024 9:08 AM CDT [facility] ABSOLUTE EOSINOPHILS 0.4 <0.5 thou/cu mm 01/18/2024 9:08 AM CDT [facility] ABSOLUTE BASOPHILS 0.0 <0.3 thou/cu mm 01/18/2024 9:08 AM CDT [facility] Blood BLOOD SPECIMEN / Unknown Venipuncture / Unknown 01/18/2024 8:50 AM CDT 01/18/2024 8:50 AM CDT Do Barlow DO HEMATOLOGY Performing Organization Address City/State/[facility] Co de Phone Number [facility] [address] [place] [address] * HEMOGLOBIN A1C SCREENING (01/18/2024 8:50 AM CDT) HEMOGLOBIN A1C SCREENING 6.0 <=6.4 % 01/18/2024 9:31 AM CDT [facility] Blood BLOOD SPECIMEN / Unknown Venipuncture / Unknown 01/18/2024 8:50 AM CDT 01/18/2024 8:50 AM CDT Narrative [facility] - 01/18/2024 9:31 AM CDT ? (<5.7%) ?Normal ? (5.7% to 6.4%) ? Indicates prediabetes ? (>=6.5%) ? Confirms diabetes Falsely low levels may be seen with: Recent Transfusion, Recent Significant Blood Loss, Hemolytic Diseases, or Falsely elevated levels may be seen with: Untreated Anemias, Splenectomy Ela Waldron NP CHEMISTRY [facility] [address] [place] [address] * (ABNORMAL) LIPID PANEL W REFLEX MEASURED LDL (01/18/2024 8:50 AM CDT) CHOLESTEROL,TOTAL 215(H) 100 - 199 mg/dL 01/18/2024 9:21 AM T [facility] Comment: Cholesterol, Total Reference Ranges Desirable <200 mg/dL Borderline 200-239 mg/dL High >=240 mg/dL TRIGLYCERIDES 131 <150 mg/dL 01/18/2024 9:21 AM [facility] HDL CHOLESTEROL 42 >40 mg/dL 9:21 AM [facility] NON-HDL CHOLESTEROL 173(H) <145 mg/dl 01/18/2024 9:21 AM [facility] CHOL/HDL RATIO 5.12(H) <4.50 01/18/2024 9:21 AM [facility] LDL CHOLESTEROL 147(H) <=130 mg/dL 01/18/2024 9:21 AM [facility] VLDL CHOLESTEROL 26 <=30 mg/dL 01/18/2024 9:21 AM [facility] PROVIDER ORDERED STATUS RANDOM 01/18/2024 9:21 AM [facility] Blood BLOOD SPECIMEN / Unknown Venipuncture / Unknown 01/18/2024 8:50 AM CDT 01/18/2024 8:50 AM CDT Do Barlow DO CHEMISTRY [facility] [address] [place] [address] * (ABNORMAL) C-REACTIVE PROTEIN (01/18/2024 8:50 AM CDT) C-REACTIVE PROTEIN 1.6(H) <0.5 mg/dL 01/18/2024 9:21 AM T [facility] Blood BLOOD SPECIMEN / Unknown Venipuncture / Unknown 01/18/2024 8:50 AM CDT 01/18/2024 8:50 AM CDT Do Guallpa Cain CHEMISTRY [facility] [address] [place] [address] * COMP METABOLIC PANEL (01/18/2024 8:50 AM CDT) SODIUM 140 136 - 145 mmol/L 01/18/2024 9:21 AM [facility] POTASSIUM 3.5 3.5 - 5.1 mmol/L 01/18/2024 9:21 AM [facility] CHLORIDE 103 98 - 107 mmol/L 01/18/2024 9:21 AM [facility] CO2,TOTAL 25 22 - 29 mmol/L 01/18/2024 9:21 AM [facility] ANION GAP 12 5 - 18 01/18/2024 9:21 AM [facility] GLUCOSE 99 70 - 99 mg/dL 01/18/2024 9:21 AM [facility] CALCIUM 9.8 8.6 - 10.0 mg/dL 01/18/2024 9:21 AM [facility] BUN 12 6 - 20 mg/dL 01/18/2024 9:21 AM [facility] CREATININE 0.71 0.50 - 0.90 mg/dL 01/18/2024 9:21 AM [facility] BUN/CREAT RATIO 17 10 - 20 9:21 AM [facility] eGFR >90 >90 mL/min/1.7 3m2 01/18/2024 9:21 AM [facility] Comment:As of 2021, eG FR is calculated by the CKD-EPI creatinine equation without race adjustment. ??eGFR can be influenced by muscle mass, exercise, and diet. ??The reported eGFR is an estimation only and is only applicable if the renal function is stable. ALBUMIN 4.7 4.0 - 4.9 g/dL 01/18/2024 9:21 AM CDT [facility] PROTEIN,TOTAL 7.9 6.0 - 8.0 g/dL 01/18/2024 9:21 AM CDT [facility] BILIRUBIN,TOTAL 0.4 0.0 - 1.2 mg/dL 01/18/2024 9:21 AM CDT [facility] ALK PHOSPHATASE 90 35 - 104 IU/L 01/18/2024 9:21 AM CDT [facility] ALT (SGPT) 21 10 - 35 IU/L 01/18/2024 9:21 AM CDT [facility] AST (SGOT) 28 10 - 35 IU/L 01/18/2024 9:21 AM CDT [facility] Blood BLOOD SPECIMEN / Unknown Venipuncture / Unknown 01/18/2024 8:50 AM CDT 01/18/2024 8:50 AM CDT Do Barlow DO CHEMISTRY [facility] [address] [place] [address] * ANTI HCV (07/17/2023 9:53 AM CDT) HEPATITIS C ANTIBODY Non-Reacti ve Non-React gerahrd 07/17/2023 2:26 PM CDT [facility] Sessions [facility] Comment:Please note, per www .CDC.gov: If a patient is known to be at high risk of HCV infection, or is symptomatic, and the physician's suspicion of HCV infection is high, HCV RNA testing is often employed and is of diagnostic value, even after an initial negative anti-HCV test result. Blood BLOOD SPECIMEN / Unknown Venipuncture / Unknown 07/17/2023 9:53 AM CDT 07/17/2023 10:01 AM CDT Wesley Wilson MD SEND OUTS [facility] [address] [place] [address], [place] * ANTI HIV 1/2 (07/17/2023 9:53 AM CDT) [facility] HIV-1/HIV-2 SCREEN Non-Reacti ve Non-Reacti ve 07/17/2023 4:51 PM CDT [facility] Comment:HIV-1 p24 and HIV-1/ HIV-2 Ab Not Detected. Blood BLOOD SPECIMEN / Unknown Venipuncture / Unknown 07/17/2023 9:53 AM CDT 07/17/2023 10:01 AM CDT Wesley Wilson MD SEND OUTS [facility] [address] [place] [address] * KITCHEN CLEANER THIN PREP PAP SCREEN IMAGED (10/28/2019 8:43 AM HEATER ROOM HELPER) [facility] Case Report Gynecologic Cytology Report ? Case: [id number] ? Authorizing Provider: ??Coral Douglas NP ? Collected: ? 10/28/2019 0843 ? Ordering Location: ? [facility] ?Received: ?10/28/2019 0844 ? Clinic ? First Screen: ?Sander García ? Specimen: ?KITCHEN CLEANER ThinPrep Vial Screening, Cervical ? 11/05/2019 2:51 PM HEATER ROOM HELPER [facility] INTERPRETATION/ RESULT NEGATIVE FOR INTRAEPITHELIAL LESION OR MALIGNANCY (NIL) (none) 11/05/2019 2:51 PM HEATER ROOM HELPER [facility] IMEN ADEQUACY Satisfactory for evaluation Endocervical component present 11/05/2019 2:51 PM HEATER ROOM HELPER [facility] HPV REQUEST HPV and PAP 11/05/2019 2:51 PM HEATER ROOM HELPER [facility] Date of LMP on Depo 11/05/2019 2:51 PM HEATER ROOM HELPER [facility] Last Pap Date 11/01/16 11/05/2019 2:51 PM HEATER ROOM HELPER [facility] Last Pap Result NIL 0 2:51 PM HEATER ROOM HELPER [facility] Abnormal Pap or Mojave Bx in last 5 years No 11/05/2019 2:51 PM HEATER ROOM HELPER [facility] Menstrual Status Hormonally Suppressed 11/05/2019 2:51 PM HEATER ROOM HELPER [facility] Mojave Bx Done Today No 11/05/2019 2:51 PM HEATER ROOM HELPER [facility] Additional Information None given 11/05/2019 2:51 PM HEATER ROOM HELPER [facility] Comment: Cytology is screened at [facility] - [address], [place] [address] and [facility] - [address], [place] [address] and [facility] - [address] [place] [address] Interpreted at [facility] - [address], [place], [place] [address] Automated Review Successful 11/05/2019 2:51 PM HEATER ROOM HELPER [facility] Sessions LABORATORY-C ENTRAL LABORATORY Comment:Specimen processed s uccessfully by automated sliver lap machine tender device, [employer] System, [employer] ANCILLARY TESTING KITCHEN CLEANER HPV Ordered, Please see separate report 11/05/2019 2:51 PM HEATER ROOM HELPER [facility] EN[facility]AL [facility]AT[facility] Note The pap test is a screening technique, not a diagnostic procedure. It is used primarily to screen for squamous cancers and precursor lesions. Published studies have shown that it is subject to both false negative and false positive results. The pap test should not be used as the sole means to diagnose or exclude pre-malignant and malignant lesions. 11/05/2019 2:51 PM HEATER ROOM HELPER [facility] Other (Cervical) Non-Blood / Unknown 10/28/2019 8:43 AM HEATER ROOM HELPER 10/28/2019 8:44 AM HEATER ROOM HELPER Coral Douglas NP PATHOLOGY/CYTOLOGY [facility] [address] [place] [address], [place] from Last 3 Months or Most Recently Relevant to Health Maintenance Advance Directives * Full Code (Latest Code Status on File) Date Activated Date Inactivated Comments 06/17/2019 7:34 AM 06/17/2019 4:45 PM Question Answer Comments Code Status Discussion: Discussed * Full Code Date Activated Date Inactivated Comments 06/17/2019 7:34 AM 06/17/2019 7:34 AM Question Answer Comments Code Status Discussion: Discussed * Full Code Date Activated Date Inactivated Comments 10/22/2018 10:19 AM 10/22/2018 6:52 PM Question Answer Comments Code Status Discussion: Discussed * Full Code Date Activated Date Inactivated Comments 07/18/2016 11:34 AM 07/18/2016 5:35 PM Question Answer Comments Code Status Discussion: Not Discussed * Full Code Date Activated Date Inactivated Comments 07/18/2016 9:26 AM 07/18/2016 11:34 AM Question Answer Comments Code Status Discussion: Not Discussed Care Teams Process Control Supervisor Relationship Specialty Start Date End Date Do Barlow DO [address] [place] [address] PCP - General Internal Medicine 11/10/20 Ela Waldron NP [address] [place] [address] Nurse Practitioner - Family 04/11/23 Darino Erazo, RN [address] [place] [address] Registered Nurse 04/11/23 Kvng Sher MBBS [address] [place], [place] [id number] Allergy and Immunology 08/09/23 Diana Price, ABRAM [address] [place] [address] Neurology 08/09/23 Wesley Wilson MD [address] [facility] [address] [place] [address] Infectious Diseases 08/09/23 [place] [address] [place] [address] Pulmonology Pulmonary Medicine 12/14/23
--- OUTSIDE RECORDS SUMMARY | 2024-03-05 07:38 | XMS_ITS | Data Portability ---
Author Organization [place] [facility] Address [address] [place] [address] Care Team Providers Care Assigner Name Role Phone MIGUEL YATES Primary Care Provider [phone] MIGUEL YATES Referring Provider [facility] Physical Therapist [phone] Assessment Encounter Date Assessment Date Assessment LastModified by Organization Details LastModified Time 12/10/2019 12/10/2019 Today I spent a considerable amount of time discussing the patients past medical and personal history, as well as performing a physical examination all of which is documented in it's entirety in the electronic health record. I reviewed the pathophysiology of the disorder, potential contributing and risk factors as well as treatment options to address their complaints. Today panoramic imaging was obtained. In this radiograph the mandibular condyles were partially visualized and appear slightly flattened and irregular . There was no other suggestion of osseous or odontogenic abnormalities. I've not recommended advanced imaging at this time. From a treatment perspective I've recommended rehabilitative treatment approach. Treatment begins with home self management designed to rest the muscles of mastication and reduce inflammation in the temporomandibular joints. This includes heat and ice compresses, eating a soft food or pain-free diet, bilateral chewing identifying and decreasing daytime muscle tension and modification of their sleep position. Beyond self management I do believe that they would benefit from a maxillary intraoral appliance. In addition I've recommended rehabilitation with physical therapy in [place], [place].. The goal of treatment is to restore function and reduce pain. I do believe that by following these treatment recommendations there is a good prognosis for reduction of symptoms. Today a prescription for cyclobenzaprine 10 mg qhs, was provided to the patient. The risks and benefits associated with the prescribed medication was discussed with the patient today. Patient was asked to discontinue medication intake and return to clinic if significant side effects were noted from the medication. Today greater than 50% of the 60 minute visit was spent counseling and coordinating care. This may have included a review of the diagnosis, contributing factors, diagnostic imaging, home self-management strategies and the limitations and expectations. Cost of care and insurance coverage was reviewed and discussed with the patient. Not available 12/10/2019 14:37:46 03/12/2020 03/12/2020 Patient was seen today for follow-up and insertion of a maxillary stabilization intraoral appliance. Diagnosis and contributing factors were reviewed. Questions were answered. Self-management and home exercise techniques were reviewed. Today the intraoral appliance was fit to patient comfort. Specifically, adjustments were made to balance appliance occlusion. Instructions on proper use and care were discussed/reviewed both written and verbally. I suggested that the patient uses the appliance as a retraining tool to aid in relaxing their jaw muscles - put it in 20-30 minutes before bed time, keeping their jaw in a relaxed balanced position, simultaneously applying a heat compress on the jaw. Potential side effects were reviewed. The patient was advised to discontinue oral appliance use should they experience untoward side effects or be unable to return for follow-up care. The patient was advised to return in 3-4 weeks to reassess their progress and continue their treatment plan as previously outlined. In addition to oral appliance insertion today we review home self-care strategies as previously discussed. We discussed additional treatment options including rehabilitative treatment with physical therapy. Today greater than 50% of the 25 minute visit was spent counseling and coordinating care. This may have included a review of the diagnosis, contributing factors, home self-management strategies and the limitations and expectations. Not available 03/12/2020 10:07:18 Plan of Treatment Reminders Order Date Submit Date Provider Last Modified By Organization Details Last Modified Time Details Appointments None recorded. Lab None recorded. Referral physical therapist referral 2019 020 [facility], [address], Amarjit Cabrera, [place], [address], 0 09:15:38 Procedures None recorded. Surgeries None recorded. Imaging None recorded. Medication Orders cyclobenza perlita 10 mg tablet 2019 020 INTERFACE [facility], [place], [place], [address] [place], [address], 0 14:38:32 Patient TargetsNo targets recorded. Patient Instructions Encounter Date Encounter Id Patient Instructions Last Modified By Organization Details Last Modified Time 12/10/2019 [id number] oral appliance preparation* Not available 12/10/2019 14:38:27 Self Care for TMD Not availabl e 12/10/2019 14:38:27 Reason for Referral Physical Therapist Referral for Myofascial pain masticatory myofasial pain, limited opening, referred otalgia/tinnitus Referring Physician: Liza Grigsby, Pain Management, Encounter Date: 12/10/2019 Results Created Date Observation Date Name Description Value Unit Range Abnormal Flag LastModifiedBy Organization Detail LastModifiedTime 12/10/2019 oral appli ance prepa ratio n* Type of appliance maxill prieto stabil izatio n applia nce Not Available [place] [address] [facility] [address] [facility], [place], [address], 12/10/2019 13:52:40 12/10/19 20 XR, ortho panto gram No observ ation record ed. Not Available 12/10/2019 10:15:06 Result Notes None recorded. 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 Not Available [facility] 6 03:14:48 Fibromyositis Completed 201112/10/2019 RO[place] Aj - [facility] 0 13:50:53 Myofascial pain Active 2019 resolved [place] Aj - [facility] 0 10:06:42 Otalgia Active 2019 improved Liza croft, [facility] 0 10:06:23 Tinnitus of right ear Active 2019 improved Liza croft, [facility] 0 10:06:49 Limited opening of mandible Active 2019 resolved Liza Trisha croft [facility] 0 10:06:12 Episodic tension-type headache Active 2011 improved Liza Trisha croft, [facility] 0 10:06:36 Otalgia Active 2011 improved Liza croft [facility] 0 10:06:28 Arthralgia of temporomandibular joint Active 2011 resolved Liza Trisha croft [facility] 0 10:06:07 Problem Notes None recorded. Procedures Surgical History Date Name Laterality Status Provider Name and Address Organization Details Recorded Time 03/12/20 20 Oral appliance completed Giancarlo croft [facility] 03/12/2020 09:38:06 12/10/19 20 Orthopantogram completed Liza croft [facility] 12/10/2019 13:50:25 06/17/20 19 Other completed Deon croft [facility] 12/10/2019 09:54:02 07/17/20 16 Other completed Deon croft [facility] 12/10/2019 09:54:02 02/28/20 01 Tonsillectomy completed Deon croft [facility] 12/10/2019 09:54:02 [place] Teeth Extraction completed Deon croft [facility] 12/10/2019 09:54:02 Imaging Results Imaging Date Name Status LastModified by Organization Details LastModified Time 12/10/2019 XR, orthopantogram completed [email or web address] Inform ation not available 12/10/2019 10:15:06 Procedure Notes None recorded. Medical Equipment None Reported. Allergies Allergen ID Allergen Name Allergen Category Reaction Reaction Severity Criticality Documentation Date Start Date Code Code System Note Provider Name and Address Organization Details Recorded Time 60413 Medicinal product containin g penicilli n and acting as antibacte rial agent (product) medicatio n Not available Not available Not available 08/18/2016 17366 05 SNOMED Not Available [facility] 6 06:37:53 74627 Substance with sulfonami de structure and antibacte rial mechanism of action (substanc e) medicatio n Not available Not available Not available 08/18/2016 93656 8003 SNOMED Not Available [facility] 6 06:44:06 55574 erythromy bethel medicatio n nausea vomiting moderate severe Not available 12/10/2019 4053 RxNorm Deon croft [facility] 0 09:51:43 97547 Fish (substanc e) food,medi cation hives itching nausea vomiting severe severe moderate severe Not available 12/10/2019 18850 1005 SNOMED Deon croft [facility] 0 09:51:43 [address] [place] Not available anaphylax is severe Not available 12/10/2019 Deon croft [facility] 0 09:51:43 79654 cefprozil medicatio n rash severe Not available 12/10/2019 88994 RxNorm Deon croft [facility] 0 09:51:43 Medications Name Sig Start Date Stop Date Status Note LastModified by Organization Details LastModified Time cyclobenzap rine 10 mg tablet Take 1 tablet every day by oral route at bedtime for 30 days. active Not Available Not Available No t Available prednisone 10 mg tablet active Not Available Not Available Not Available albuterol sulfate 2.5 mg/3 mL (0.083 %) solution for nebulizatio n active Not Available Not Available Not Available citalopram 40 mg tablet active Not Available Not Available Not Available cetirizine 10 mg tablet active Not Available Not Available Not Available azithromyci n 250 mg tablet active Not Available Not Available Not Available benzonatate 200 mg capsule active Not Available Not Available Not Available prednisone 20 mg tablet active Not Available Not Available Not Available benzonatate 100 mg capsule active Not Available Not Available Not Available doxycycline monohydrate 100 mg capsule active Not Available Not Available Not Available omeprazole 20 mg capsule,del ayed release active Not Available Not Available Not Available budesonide 0.5 mg/2 mL suspension for nebulizatio n active Not Available Not Available Not Available montelukast 10 mg tablet active Not Available Not Available Not Available hydrochloro thiazide 25 mg tablet active Not Available Not Available No t Available gabapentin 100 mg capsule active Not Available Not Available Not Available azelastine 137 mcg (0.1 %) nasal spray aerosol active Not Available Not Available Not Available epinephrine 0.3 mg/0.3 mL injection, auto-inject or active Not Available Not Available Not Available albuterol sulfate HFA 90 mcg/actuati on aerosol inhaler active Not Available Not Available Not Available cefdinir 300 mg capsule active Not Available Not Available Not Available fluticasone propionate 50 mcg/actuati on nasal spray,suspe nsion active Not Available Not Available Not Available naproxen 500 mg tablet active Not Available Not Available Not Available oxycodone 5 mg tablet active Not Available Not Available No t Available hydroxyzine pamoate 25 mg capsule 12/09 completed Not Available Not Available Not Available azithromyci n 500 mg tablet active Not Available Not Available Not Available cyclobenzap rine 5 mg tablet active Not Available Not Available Not Available Dulera 200 mcg-5 mcg/actuati on HFA aerosol inhaler active Not Available Not Available Not Available Dulera 100 mcg-5 mcg/actuati on HFA aerosol inhaler active Not Available Not Available Not Available Virtussin AC 10 mg-100 mg/5 mL oral liquid 12/09 completed Not Available Not Available Not Available Fluarix Quad (PF) 60 mcg (15 mcg x 4)/0.5 mL IM syringe 12/09 completed Not Available Not Available Not Available Fasenra Pen 30 mg/mL subcutaneou s auto-inject or Inject by subcutane ous route. active Not Available Not Available No t Available Vitals Date Recorded Body height Body mass index (BMI) Body weight Systolic blood pressure Diastolic blood pressure Provider Name and Address Organization Details Last Updated DateTime 07/11/2012 182.88 cm 44 kg/m2 754010.3 3551 g 123 mm[Hg] 90 mm[Hg] Not Available [facility] 6 06:09:47 Date Recorded Body weight Body mass index (BMI) Systolic blood pressure Diastolic blood pressure Provider Name and Address Organization Details Last Updated DateTime 08/22/2012 301497.33 551 g 44 kg/m2 144 mm[Hg] 104 mm[Hg] Not Available [facility] 08/19/2016 05:10:21 Date Recorded Body height Body mass index (BMI) Body weight Provider Name and Address Organization Details Last Updated DateTime 12/10/2019 182.88 cm 47.1 kg/m2 040811.55 g Deon Yeh [facility] 12/10/2019 09:49:59 Date Recorded Body height Body mass index (BMI) Body weight Body temperature Heart rate Systolic blood pressure Diastolic blood pressure Provider Name and Address Organization Details Last Updated DateTime 0 182.88 cm 47.1 kg/m2 998168. 55 g 97.3 [degF] 107 /min 155 mm[Hg] 118 mm[Hg] Giancarlo Roldan [facility] 0 09:30:38 Social History Question Answer Notes LastModified by Organizat ion Details LastModified Time Tobacco Smoking Status Never Smoker Deon croft [facility] 12/10/2019 09:56:33 What Is Your Level Of Alcohol Consumption? None Information not available 12/10/2019 Auto Related Injury? No Information not available 12/10/2019 What Is Your Level Of Caffeine Consumption? Moderate Information not available 12/10/2019 Are You Currently Employed? Yes Information not available 12/10/2019 Currently No Information not available 12/10/2019 What Type Of Diet Are You Following? REGULAR Information not available 12/10/2019 Live Alone Or With Others? With Others Information not available 12/10/2019 Marital Status Informatio n not available 12/10/2019 General Stress Level Medium Information not available 12/10/2019 Do You Use Any Illicit Or Recreational Drugs? No Information not available 12/10/2019 Work Related Injury? No Information not available 12/10/2019 Sex: Female Functional Status None recorded. Mental Status None recorded. Family History Relationship Description Onset Age of this Age Resolved Age Notes Son Depressive disorder Mother Depressive disorder Mother Hypertensive disorder Mother Migraine Mother Headache Father Arthritis Father Depressive disorder Father Diabetes mellitus 60 Father Hypertensive disorder Maternal Grandfather Substance abuse Medical History Condition Response Coronary Artery Disease N Other N Gout N Chronic fatigue syndrome N Hyperthyroidism N Premenstrual syndrome (PMS) N MRSA N Head Trauma/Injury N Emphysema N Irritable bowel syndrome Y COPD N Depression Y Lung Disease N Glaucoma N Hypothyroidism N Pneumonia N Pacemaker N Obstructive Sleep Apnea N Anxiety Disorder N Muscle, Joint, or Bone Problems Y Autoimmune disease N Vision or Eye Problems N Arthritis N Serious Illness or Injuries N Acid Reflux (GERD) N Cancer N Stroke N Eating disorder N Neck Injury N Back Injury N High Cholesterol Y Neurologic Disorder N History of chemotherapy N Liver Disease N Organ Transplant N Rheumatoid Arthritis N Headaches N Fibromyalgia N Kidney Disease N Allergies/Hayfever Y Post traumatic stress disorder (PTSD) N Parkinson's Disease N Migraines N Brain Tumors N Anemia N Multiple Sclerosis N Immune System Disorder N Meningitis N Pancreatic disease N Heart Attack ([place]) N Stomach Ulcers N Back pain N Diabetes N Bleeding Disorder N Seizures/Epilepsy N Sjogren's syndrome N Tuberculosis N AIDS/HIV N History of radiation therapy N Hyperlipidemia N Dementia N Asthma Y Physical or sexual abuse N Substance Abuse N Peripheral Vascular Disease N Psoriasis N Reflux/GERD N Mental Problems N Vertigo N Sleep Disorder N Hepatitis N Aneurysm N Neuropathy N Heart Disease N Pulmonary Embolism N Hypertension N Osteoporosis N Gynecological HistoryNo gynecological history recorded. Obstetrics History GPAL:G 0 P 0 0 0 0 Immunizations Vaccine Type Date Status Provider Name and Address Organization Details Recorded Time Influenza, split virus, trivalent, preservative 06/11/[address] [facility] 12/10/2019 09:53:43 pneumococcal, unspecified formulation 11/08/[address] [facility] 12/10/2019 09:53:43 Past Encounters Encounter ID Performer Location Encounter Start Date Encounter Closed Date Diagnosis/Indication Diagnosis SNOMED-CT Code [id number] [address] [place] [id number] 12/10/2019 09:36:57 12/10/2019 11:17:33 Otalgia 28421691 Episodic t ension-type headache 244980540 Myofascial pain 72997578 9 Arthralgia of temporomandibular joint 52229921 Articular disc disorder of temporomandibular joint 88142705 Tinnitus of right ear 48 61967319219 Limited op ening of mandible 352763318 [id number] Liza Grigsby [address] [place] [id number] 03/12/2020 09:09:49 03/12/2020 09:55:05 Myofascial pain 329472770 Episodic t ension-type headache 694604319 Otalgia 84535309 Tinnitus of right ear 48 71353734637 Limited op ening of mandible 476257140 Arthralgia of temporomandibular joint 52850106 Articular disc disorder of temporomandibular joint 78870579 Health Concerns Section Related Observation LastModified by Organization Detai ls LastModified Time None Recorded Concern Status LastModified by Organization Details LastModified Time None Recorded Advance Directives Directive None Recorded Payers Encounter Date Sequence Insurance Name Policy Number Policy Rocha Covered Member ID Rocha Member ID Guarantor Name 03/12/2020 1 [facility] ([place]PLAC[place] - [place] [facility] [employer] Joshua Peters [id number] Joshua Peters 12/10/2019 1 [facility] [facility] [employer] Joshua Crumpchmillhi [id number] Joshua Peters Notes Date Note Type Note Provider Name and Address Organization Details Recorded Time 12/10/2019 text/html HPI Notes: gener al HPI for jaw, face, TMD pain Reported by patient. Onset: started 1 month(s) ago Location: right; ear Quality: dull; aching; sore Severity: pain level 6/10 Duration constant Symptom triggers: clenching; chews hard/crunchy/chewy foods Aggravating Factors: anxiety; clenching the teeth Alleviating Factors: acetaminophen; soft foods Associated Symptoms: jaw clicking left; tooth pain; headaches; tinnitus Prior Treatment: physical therapy Prior opinion primary care provider Patient presents today for follow-up. They report jaw symptoms which are worsened since the previous visit. Symptoms and pertinent information along with prior data was reviewed, updated and documented in the patient history of present illness. Patient rates the pain intensity as 6 on a scale of 0 to 10. Patient is not engaged in active treatment at this time. Joshua reports that she was a patient of Dr. Morris in 2011. She presents with pain and ringing in her right ear which radiates down her throat. Talking, eating, and yawning aggravate her pain and ear ringing. She has consulted with an ENT who examined and imaged her ears and throat and suggested that she consult with our clinic. 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 ROSEMARY Aj - [facility] 12/10/2019 14:38:32 03/12/2020 text/html HPI Notes: gener al HPI for jaw, face, TMD pain Reported by patient. Onset: started 1 month(s) ago Location: right; ear Quality: dull; aching; sore Severity: pain level 6/10 Duration constant Symptom triggers: clenching; chews hard/crunchy/chewy foods Aggravating Factors: anxiety; clenching the teeth Alleviating Factors: acetaminophen; soft foods Associated Symptoms: jaw clicking left; tooth pain; headaches; tinnitus Prior Treatment: physical therapy Prior opinion primary care provider Patient presents today for insertion of a maxillary stabilization oral appliance. They note improved symptoms which along with prior data was reviewed, updated and documented in the patient history of present illness. (S)he describes compliance with home self care as previously recommended. Joshua reports that she was unable to get into the physical therapist that we recommended due to Covid19, but she has met virtually with another physical therapist for her shoulder who taught her some jaw exercises. She is able to open wide and eat pizza now, which she could not do before. Her ear ringing is only present with weather changes. ROSEMARY Aj - [facility] 03/12/2020 10:08:04 OBGyn Episode No OBEpisode recorded.
--- OUTSIDE RECORDS SUMMARY | 2024-03-05 07:38 | XMS_ITS | Encounter Summary ---
Author Organization [facility] Address [address] [place] [address] Care Team Providers Care Procedure Analyst Name Role Phone Elsewhere, Pcp Primary Care Provider Unavailabl e Encounter Details Date Type Department Care Team (Late st Contact Info) Description 12/18/2023 Orders Only Department of Neurology in [place], [place] [address] [place] [phone] Diana Price, PEDRO, C.N.P., M.S.N. [address] [place] [address] Social History Tobacco Use Types Packs/Day Years Used Date Smoking Tobacco: Never Passive Smoke Exposure: Never Smokeless Tobacco: Never Alcohol Use Standard Drinks/Week Comments Never 0 (1 standard drink = 0.6 oz pur e alcohol) [facility] Utilities Answer Date Recorded In the past 12 months has [facility], gas, oil, or water [employer] threatened to shut off services in your [...] often do you attend chur ch or adventism services? Never 10/25/2022 Do you belong to any clubs o r organizations such as hindu groups, unions, fraternal or athletic groups, or [...] Answer Date Recorded PHQ-2 Score 2 12/15/2023 [facility] Occupational Stress Questionnaire Answer Date [...] your living situation today? I have a [facility] place to live 12/13/2023 Education Answer Date Recorded What is the highest level of school you have completed or the highest degree you have received? 12th grade 10/25/2022 Sex and Gender Information Value Date Recorded Sex Assigned at Female 10/21/2021 4:05 AM [employer] ATTENDANT Gender Identity Female 09/26/2020 6:43 AM [employer] ATTENDANT Sexual Orientation Straight 09/26/2020 6: 43 AM [employer] ATTENDANT documented as of this encounter Plan of Treatment Upcoming Encounters Date Type Department Care Team (Late st Contact Info) Description 03/19/2024 2:00 PM CDT Telemedicine Department of Neurology in [place], [place] [address] [place] [phone] Diana Price APRN, C.N.P., M.S.N. [address] [place] [phone] documented as of this encounter Visit Diagnoses Not on filedocumented in this encounter Additional Health Concerns Assessment Noted Time PHQ-9 Depression Total Score: 11 024 10:13 AM CDT documented as of this encounter Care Teams Procedure Analyst Relationship Specialty Start Date End Date Elsewhere, Pcp PCP - General Internal Medicine 04/24/23 documented as of this encounter
--- OUTSIDE RECORDS SUMMARY | 2024-03-05 07:38 | XMS_ITS | Encounter Summary ---
Author Organization [facility] Address [address] [place] [address] Care Team Providers Care Quality Assurance Associate Name Role Phone Elsewhere, Pcp Primary Care Provider Unavailabl e Reason for Visit * Reason Comments Med Refill Encounter Details Date Type Department Care Team (Late st Contact Info) Description 12/18/2023 Refill Department of Neurology in [place], [place] [address] [place] [phone] Diana Price, PEDRO, C.N.P., M.S.N. [address] [place] [phone] Med Refill Social History Tobacco Use Types Packs/Day Years Used Date Smoking Tobacco: Never Passive Smoke Exposure: Never Smokeless Tobacco: Never Alcohol Use Standard Drinks/Week Comments Never 0 (1 standard drink = 0.6 oz pur e alcohol) [facility] Utilities Answer Date Recorded In the past 12 months has [facility] [employer], gas, oil, or water [employer] threatened to shut off services in your [...] often do you attend chur ch or uatsdin services? Never 10/25/2022 Do you belong to any clubs o r organizations such as yarsanism groups, unions, fraternal or athletic groups, or [...] Answer Date Recorded PHQ-2 Score 2 12/15/2023 [facility] - Occupational Stress Questionnaire Answer [...] your living situation today? I have a [facility] place to live 12/13/2023 Education Answer Date Recorded What is the highest level of school you have completed or the highest degree you have received? 12th grade 10/25/2022 Sex and Gender Information Value Date Recorded Sex Assigned at Female 10/21/2021 4:05 AM MAINTENANCE MECHANIC TELEPHONE Gender Identity Female 09/26/2020 6:43 AM MAINTENANCE MECHANIC TELEPHONE Sexual Orientation Straight 09/26/2020 6: 43 AM MAINTENANCE MECHANIC TELEPHONE documented as of this encounter Plan of Treatment Upcoming Encounters Date Type Department Care Team (Late st Contact Info) Description 03/19/2024 2:00 PM CDT Telemedicine Department of Neurology in [place], [place] [address] [place] [address] Diana Price APRN, C.N.P., M.S.N. [address] [place] [address] documented as of this encounter Visit Diagnoses Not on filedocumented in this encounter Additional Health Concerns Assessment Noted Time PHQ-9 Depression Total Score: 11 024 10:13 AM CDT documented as of this encounter Care Teams Quality Assurance Associate Relationship Specialty Start Date End Date Elsewhere, Pcp PCP - General Internal Medicine 04/24/23 documented as of this encounter
--- OUTSIDE RECORDS SUMMARY | 2024-03-05 07:38 | XMS_ITS | Encounter Summary ---
Author Organization [facility] Address [address] [place] [address] Care Team Providers Care Spray Blender Name Role Phone Elsewhere, Pcp Primary Care Provider Unavailabl e Reason for Visit * Reason Onset Date Comments Pre-visit Intake 12/12/2023 Encounter Details Date Type Department Care Team (Latest Contact Info) Description 12/12/2023 9:45 AM CDT Clinical Communication Virtual Review in [place], [place] 200 [place] [address] Pre-visit Intake Social History Tobacco Use Types Packs/Day Years Used Date Smoking Tobacco: Never Passive Smoke Exposure: Never Smokeless Tobacco: Never Alcohol Use Standard Drinks/Week Comments Never 0 (1 standard drink = 0.6 oz pur e alcohol) [facility] Utilities Answer Date Recorded In the past 12 months has e [employer], gas, oil, or water [employer] threatened to shut off services in your [...] often do you attend chur ch or mormonism services? Never 10/25/2022 Do you belong to any clubs o r organizations such as tenriism groups, unions, fraternal or athletic groups, or [...] PHQ-2 Answer Date Recorded PHQ-2 Score 2 09/11/2023 [facility] ional Health [...] Recor ded PHQ-9 Total Score (max 27) 12 09/11 Nutrition Answer Date Recorded Nutrition: EVOO Fat [...] your living situation today? I have a [facility] place to live 12/13/2023 Education Answer Date Recorded What is the highest level of school you have completed or the highest degree you have received? 12th grade 10/25/2022 Sex and Gender Information Value Date Recorded Sex Assigned at Female 10/21/2021 4:05 AM ASSOCIATE LOAN OFFICER Gender Identity Female 09/26/2020 6:43 AM ASSOCIATE LOAN OFFICER Sexual Orientation Straight 09/26/2020 6: 43 AM ASSOCIATE LOAN OFFICER documented as of this encounter Plan of Treatment Upcoming Encounters Date Type Department Care Team (Late st Contact Info) Description 03/19/2024 2:00 PM CDT Telemedicine Department of Neurology in [place], [place] [address] [place] [address] Diana Price, PEDRO, C.N.P., M.S.N. [address] [place] [address] documented as of this encounter Visit Diagnoses Not on filedocumented in this encounter Additional Health Concerns Assessment Noted Time PHQ-9 Depression Total Score: 12 023 5:06 PM ASSOCIATE LOAN OFFICER documented as of this encounter Care Teams Spray Blender Relationship Specialty Start Date End Date Elsewhere, Pcp PCP - General Internal Medicine 04/24/23 documented as of this encounter
--- OUTSIDE RECORDS SUMMARY | 2024-03-05 07:38 | XMS_ITS | Encounter Summary ---
Author Organization [facility] Address [address] [place] [address] Care Team Providers Care Environmental Communications Specialist Name Role Phone Elsewhere, Pcp Primary Care Provider Unavailabl e Encounter Details Date Type Department Care Team (Late st Contact Info) Description 11/07/2023 Clinical Communication Pharmacy Prior Auth RAFA [phone] Deepa Maldonado Social History Tobacco Use Types Packs/Day Years Used Date Smoking Tobacco: Never Passive Smoke Exposure: Never Smokeless Tobacco: Never Alcohol Use Standard Drinks/Week Comments Never 0 (1 standard drink = 0.6 oz pur e alcohol) Humiliation, Afraid, Rape, and Kick questionnair e [...] Never 10/25/2022 How often do you attend [facility] or yarsanism services? Never 10/25/2022 Do you belong to any clubs o r organizations such as mandaeism groups, unions, fraternal or athletic groups, or [...] Answer Date Recorded PHQ-2 Score 2 09/11/2023 [facility] - Occupational Stress Questionnaire Answer Date Recorded [...] to strenuous exercise (like a brisk walk)? 4 days 10/25/2022 On average, how many minutes do you engage in exercise at this level? 10 min 10/25/2022 Hunger Vital Sign Answer Date Recorded Within the past 12 months, y ou worried that your food would run out before you got the money to buy more. Sometimes true Within the past 12 months, t he food you bought just didn't last and you didn't have money to get more. Sometimes true PRAPARE - Transportation Answer Date Re corded In the past 12 months, has l ack of transportation kept you from medical appointments or from getting medications? No 03/26 In the past 12 months, has l ack of transportation kept you from meetings, work, or from getting things needed for daily living? No 04/18/2023 Depression Answer Date Recor ded PHQ-9 Total Score (max 27) 12 09/11 Nutrition Answer Date Recorded Nutrition: EVOO Fat Source No 10/25 On average, how many serving s of fruits and vegetables do you eat per day (serving size is equal to 1 cup or approximately the size of a tennis ball)? 2-3 10/25/2022 Dental Answer Date Recorded Dental: Regular Dentist No 10/25/19 Employment Answer Date Recorded Employment status Permanently disabled Housing Stability Answer Date Recorded What is your living situation today? I have a [facility] place to live 04/18/2023 Education Answer Date Recorded What is the highest level of school you have completed or the highest degree you have received? 12th grade 10/25/2022 Sex and Gender Information Value Date Recorded Sex Assigned at Female 10/21/2021 4:05 AM REHEAT FURNACE OPERATOR Gender Identity Female 09/26/2020 6:43 AM REHEAT FURNACE OPERATOR Sexual Orientation Straight 09/26/2020 6: 43 AM REHEAT FURNACE OPERATOR documented as of this encounter Plan of Treatment Upcoming Encounters Date Type Department Care Team (Late st Contact Info) Description 03/19/2024 2:00 PM CDT Telemedicine Department of Neurology in [place], [place] [address] [place] [address] Diana Price, PEDRO, C.N.P., M.S.N. [address] [place] [address] documented as of this encounter Visit Diagnoses Not on filedocumented in this encounter Additional Health Concerns Assessment Noted Time PHQ-9 Depression Total Score: 12 023 5:06 PM REHEAT FURNACE OPERATOR documented as of this encounter Care Teams Environmental Communications Specialist Relationship Specialty Start Date End Date Elsewhere, Pcp PCP - General Internal Medicine 04/24/23 documented as of this encounter
--- OUTSIDE RECORDS SUMMARY | 2024-03-05 07:38 | XMS_ITS | Encounter Summary ---
Author Organization [facility] Address [address] [place] [address] Care Team Providers Care Household Personal Assistant Name Role Phone Elsewhere, Pcp Primary Care Provider Unavailabl e Encounter Details Date Type Department Care Team (Late st Contact Info) Description 12/21/2023 Clinical Communication Pharmacy Prior Auth RAFA [phone] Sallie Lewis Social History Tobacco Use Types Packs/Day Years Used Date Smoking Tobacco: Never Passive Smoke Exposure: Never Smokeless Tobacco: Never Alcohol Use Standard Drinks/Week Comments Never 0 (1 standard drink = 0.6 oz pur e alcohol) [facility] Utilities Answer Date Recorded In the past 12 months has e electric, gas, oil, or water [employer] threatened to shut off services in your [...] often do you attend chur ch or evangelical services? Never 10/25/2022 Do you belong to any clubs o r organizations such as yazidi groups, unions, fraternal or athletic groups, or [...] Answer Date Recorded PHQ-2 Score 2 12/15/2023 [facility] ional Health - [...] your living situation today? I have a [facility] place to live 12/13/2023 Education Answer Date Recorded What is the highest level of school you have completed or the highest degree you have received? 12th grade 10/25/2022 Sex and Gender Information Value Date Recorded Sex Assigned at Female 10/21/2021 4:05 AM SHAMPOO TECHNICIAN Gender Identity Female 09/26/2020 6:43 AM SHAMPOO TECHNICIAN Sexual Orientation Straight 09/26/2020 6: 43 AM SHAMPOO TECHNICIAN documented as of this encounter Plan of Treatment Upcoming Encounters Date Type Department Care Team (Late st Contact Info) Description 03/19/2024 2:00 PM CDT Telemedicine Department of Neurology in [place], [place] [address] [place] [address] Diana Price, PEDRO, C.N.P., M.S.N. [address] [place] [address] documented as of this encounter Visit Diagnoses Not on filedocumented in this encounter Additional Health Concerns Assessment Noted Time PHQ-9 Depression Total Score: 11 024 10:13 AM CDT documented as of this encounter Care Teams Household Personal Assistant Relationship Specialty Start Date End Date Elsewhere, Pcp PCP - General Internal Medicine 04/24/23 documented as of this encounter
--- OUTSIDE RECORDS SUMMARY | 2024-03-05 07:38 | XMS_ITS | Encounter Summary ---
Author Organization [facility] Address [address] [place] [address] Care Team Providers Care Lacing Operator Name Role Phone Elsewhere, Pcp Primary Care Provider Unavailabl e Reason for Referral * Medication Prior Authorization - Authorized Specialty Diagnoses / Procedures Referred By Contac t Referred To Contact Naomie Price APRN, C.N.P., M.S.N. [address] [place] [phone] Referral ID Status Reason Start Date Expiration Date V isits Requested Visits Authorized [id number] Authorized 09/25/2023 06/23/2024 1 1 * Outpatient (Routine) - Authorized Specialty Diagnoses / Procedures Referred By Contac t Referred To Contact Neurology Naomie Price APRN, C.N.P., M.S.N. [address] [place] [phone] [facility] Referral ID Status Reason Start Date Expiration Date V isits Requested Visits Authorized [id number] Authorized 12/18/2023 06/18/2025 1 1 Reason for Visit * Outpatient (Routine) - Closed Specialty Diagnoses / Procedures Referred By Contac t Referred To Contact Neurology Naomie Price APRN, C.N.P., M.S.N. 200 [place] [address] [facility] Referral ID Status Reason Start Date Expiration Date Visits Re quested Visits Authorized [id number] Closed 09/12/2023 09/11/2026 1 1 Encounter Details Date Type Department Care Team (Late st Contact Info) Description 12/18/2023 11:15 AM CDT Telemedicine Department of Neurology in [place], [place] [address] [place] [address] Naomie Price APRN, C.N.P., M.S.N. 200 [place] [phone] Chronic Migraine (Primary Dx); Migraine With Aura Not Intractable Without Status Migrainosus Social History Tobacco Use Types Packs/Day Years Used Date Smoking Tobacco: Never Passive Smoke Exposure: Never Smokeless Tobacco: Never Alcohol Use Standard Drinks/Week Comments Never 0 (1 standard drink = 0.6 oz pur e alcohol) [facility] Utilities Answer Date Recorded In the past 12 months has e electric, gas, oil, or water [employer] threatened to shut off services in your [...] often do you attend chur ch or scientologist services? Never 10/25/2022 Do you belong to any clubs o r organizations such as advent groups, unions, fraternal or athletic groups, or [...] Answer Date Recorded PHQ-2 Score 2 12/15/2023 [facility] ional Health - Occupational Stress [...] your living situation today? I have a [facility] place to live 12/13/2023 Education Answer Date Recorded What is the highest level of school you have completed or the highest degree you have received? 12th grade 10/25/2022 Sex and Gender Information Value Date Recorded Sex Assigned at Female 10/21/2021 4:05 AM DATA MINING ANALYST Gender Identity Female 09/26/2020 6:43 AM DATA MINING ANALYST Sexual Orientation Straight 09/26/2020 6: 43 AM DATA MINING ANALYST documented as of this encounter Progress Notes * Naomie Price APRN, C.N.P., M.S.N. - 12/18/2023 11:15 AM CDT SUBJECTIVE Visit was conducted via video consult using real-time audio/video technology by Naomie Price CNP, at [facility] with the patient in the patient's home. CHIEF COMPLAINT / REASON FOR VISIT Follow up headaches Established care in Neurology Headache Clinic: 2020 Previous headache providers: Erickson Gutierrez: From April 2022 to April 2023 no improvement HISTORY OF PRESENT ILLNESS: Ms. Peters is a 43 y.o. female, with an established diagnosis of chronic migraine headaches and migraine headache with visual aura. Patient also has a history of anxiety, depression, asthma, GERD, hyperlipidemia, hypertension, and IBS. Ms. Peters returns today for follow up and subsequentevaluation of headache symptoms. Ms. Peters was last evaluated for headache follow-up on September 12, 2023. Since our last visit the patient's headaches have gotten somewhat worse. At our last visit we elected to make no changes to her headache medications. She currently takes verapamil 240 mg ER daily, Cymbalta 60 mg daily, and gabapentin 900 mg t.i.d. for back pain. All of these medications are managed through her local healthcare provider. The patient also takes Emgality 120 mg subcutaneous monthly injections for migraine prophylaxis. Initially after starting the Emgality, she was endorsing some improvement in the duration of her severe migraine headaches. More recently, however, she has noticed a waning in efficacy of the Emgality. She is tolerating her medications without significant side effects. She is interested in discussing alternative migraine prophylaxis today. For abortive therapy she takes naratriptan up to 9 days per month for severe migraines. She will take an occasional naproxen paired with Tylenol for less severe headaches. She also takes Dramamine for dizziness and Compazine for nausea several times per week. She has had prednisone burst and tapersin the past, which have provided temporary relief for her headaches. She does have some insomnia related to the prednisone but otherwise tolerates it without difficulty. The patient has been following a local ENT provider for chronic cough. She has also been evaluated in pulmonology for her chronic cough. She is currently taking Tessalon Perles which has been helpfulin suppressing her cough. Her cough typically makes her migraines worse in severity. She has had animmunology evaluation, and her IgG levels were normal in June of this year. She typically struggles with recurrent sinus infections in the fall and winter months. She continues to struggle with chronic maxillofacial pain. She rinses with saltwater daily and uses [id number] steroid sprays on a regular basis. She continues to take multiple rounds of antibiotics throughout the cold and flu seasons. She was recently on a 2 month course of amoxicillin. Recent laryngoscopy exam revealed a vocal cord nodule, which they feel is likely from her chronic cough. She has follow up with ENT at theend of December. The patient has stopped Depo shots and switched to oral progesterone tablets. She has been on the oral progesterone for about one month but has not noticed any improvement in her headaches. She is otherwise tolerating the progesterone without difficulty. She had been on the Depo shot for roughly 18years, and was told that it could take 12-18 months to get completely out of her system. The patient continues to work closely with her local labels molder for ongoing weight management strategies. She has lost over 20 lb with dietary changes. The Depo shot was also discontinued due to the dramatic weight gain she has had over the years with the continued use of Depo Provera. PATIENT PROVIDED ELECTRONIC QUESTIONNAIRE DATA Current headache medications: Verapamil (Calan, Covera-HS, Verelan); Gabapentin (Neurontin); Galcanezumab (Emgality) at a dose of 120 mg sc; Headache activity past 4 weeks/ Medication side effects: Over the past 4 weeks, Ms. Peters reports having had 30 headache days. The patient rates the severity and disability of average headachesas moderate, 2 out of 3 in severity. Over the past 3 months, she reports experiencing side effects of: none MIDAS headache scale score: [450] PHQ9 depression/anxiety score: 12/15/2023 10:13 AM PHQ9 Score PHQ-9 Total Score (max 27) 11 Previous Headache Medications: Tylenol, Aleve, Excedrin, ibuprofen, naratriptan, rizatriptan GI upset, sumatriptan did not tolerate Amitriptyline, Cymbalta, metoprolol, Topamax dizzy and abdominal discomfort, verapamil dizzy, gabapentin for back pain, Botox, Emgality PERTINENT EVALUATIONS/IMAGING/TESTS 11/11/20 MRI/MRV Brain no evidence of IIH 11/13/20: LP [address] scan no evidence of chronic sinusitis Follows immunology at outside institution Follows labels molder locally for weight management strategies Pulmonology consult for chronic cough Follows ENT locally for chronic cough and recurrent sinus issues OBJECTIVE PHYSICAL EXAM Deferred ASSESSMENT / PLAN #1 Chronic migraine headaches #2 Migraine headache with visual aura #3 Sinus pain with recurrent sinusitis symptoms #4 Chronic cough Ms. Peters continues to struggle with nearly daily severe migraines. She did have some marginal improvement in the duration of her migraine headaches after starting Emgality, but unfortunately it is no longer providing the same benefit. At this time I recommend switching from Emgality to [id number] mg SQ monthly injections. Patient understands that it can take 3-4 months to appreciate improvement in her headaches after starting the Ajovy. There is a savings program available for this medication as well. She will continue with the rest of her prophylactic therapies as outlined below. The patient recently switched from Depo shots to the oral norethindrone. She has made several dietary changes which resulted in an over 20 lb weight loss. She continues to struggle with chronic coughwhich does exacerbate her migraine headaches. She is scheduled follow up with ENT in 1 month to monitor a vocal cord nodule. She will continue with the Tessalon Perles which have been helping with cough suppression. I will plan to follow in 3 months' time. If the patient has suboptimal response to the Ajovy, I mayconsider repeat imaging with an MRI of the brain with and without contrast at that time. The patient may contact me via the patient portal or contact my career development coordinator/teacher directly with any additional questions or concerns. All questions were answered to the best of my ability, and the patient verbalized understanding of the proposed treatment plan as outlined below: SUMMARY OF RECOMMENDATIONS: Preventive therapy: Start Emgality and start Ajovy 225 mg subcutaneous monthly injections. Continue Verapamil 240 mg ER, Cymbalta 60 mg daily and gabapentin 900 mg tid for back pain, and Norvasc and HCTZ for blood pressure. (All managed through PCP). For acute treatment of mild to moderate headaches, the patient may take naproxen as needed. Max dose 1100 mg in 24 hours. Limit use to no more than 10 days per month or 2-3 days per week. For acute treatment of severe headaches, the patient may take naratriptan. Take one tablet at firstonset of headache, may repeat dose in 4 hours if headache persists. Max dose of 5 mg in 24 hours. Limit use to no more than 9 days per month or 2 days per week. For nausea associated with headache the patient may take compazine or dramamine (for dizziness) as needed. Limit use to no more than 9 days per month or 2 days per week. Limit all abortive therapies collectively to no more than 10 days per month to avoid medication overuse headache or blocking the effects of preventive therapies. May take compazine, naratriptan, and naproxen together for a stronger effect. Future considerations for treatment include increasing Cymbalta or gabapentin, Vyepti, Qulipta, Nurtec, Lyrica. Consider prednisone taper 3 times/year to break status. Also consider nerve blocks, codes were sent via portal, or Depakote 5 day burst as well Consider repeat MRI Brain with/wo contrast if not responsive to Ajovy. Nonmedicinal headache treatments: Cefaly has been discussed in the past. Caution: Avoid medications that cause weight gain, avoid propranolol with asthma. Consider sleep medicine consult at some point in the future if headaches remain refractory. Continue to follow ENT and Allergy for chronic cough. Follow up recommendations: 3 months. documented in this encounter Miscellaneous Notes * Addendum Note - Naomie Price APRN, C.N.P., M.S.N. - 12/18/2023 11:15 AM CDTAddended by: NAOMIE PRICE on: 12/19/2023 06:49 PM Modules accepted: Orders documented in this encounter Plan of Treatment Upcoming Encounters Date Type Department Care Team (Late st Contact Info) Description 03/19/2024 2:00 PM CDT Telemedicine Department of Neurology in [place], [place] [address] [place] [address] Naomie Price APRN, C.N.P., M.S.N. [address] [place] [address] Scheduled Referrals Name Type Priority Associated Diagnoses Orde r Schedule Neurology office visit (clinic) Outpatient Referral Routine Expected: 03/19/2024 (Approximate), Expires: 03/19/2025 documented as of this encounter Visit Diagnoses Diagnosis Chronic Migraine- Primary Migraine With Aura Not Intractable Without Status Migrainosus documented in this encounter Additional Health Concerns Assessment Noted Time PHQ-9 Depression Total Score: 11 024 10:13 AM CDT documented as of this encounter Care Teams Lacing Operator Relationship Specialty Start Date End Date Elsewhere, Pcp PCP - General Internal Medicine 04/24/23 documented as of this encounter
--- OUTSIDE RECORDS SUMMARY | 2024-03-05 07:38 | XMS_ITS ---
Author Organization [facility] Address [address] [place] [address] Care Team Providers Care Crew Leader Gluing Name Role Phone Unavailable Unavailable Unavailable Surgery Details Not on file Complications Check Surgery Details section. Procedure Estimated Blood Loss Check Surgery Details section. Procedure Findings Check Surgery Details section. Procedure Specimens Taken Check Surgery Details section.
== END 2024-03-05 07:35 | disposition home or self-care (01) ==
LOC: INJ CL 07:35
PROVIDERS: PCP Internal Medicine; Visit Provider Family Medicine
DX: M54.16 Radiculopathy, lumbar region (principal); M51.26 Other intervertebral disc displacement, lumbar region
CPT/HCPCS: 64483; J1100; Q9966

== ENCOUNTER 2024-07-16 07:11 | Outpatient (CLI) | payer BC, SELFPAY ==
--- OUTSIDE RECORDS SUMMARY | 2024-07-16 07:14 | XMS_ITS | Continuity of Care Document ---
Author Organization [facility] Address [facility] [address] [place] [address]- Encounter 05/02/24 - 05/09/24 [facility] [address] [facility] [address] [place] [address] Allergies, Adverse Reactions, Alerts Substance Criticality Severity Reaction Reaction Severity Status cefprozil Active amitriptyline Hives Active Bactrim Active penicillin Active sulfa drug Active Medications Ajovy Autoinjector 225 mg/1.5 mL subcutaneous solution Instructions: INJECT 1.5ML SUB-Q EVERY 28 DAYS Start Date: 04/01/24 Status: Ordered albuterol 2.5 mg/3 mL (0.083%) inhalation solution = 3 mL ( 2.5 mg ), Inhale, q6 hrs, PRN: for wheezing, # 100 EA, 3 Refill(s), Type: Maintenance, Pharmacy: [facility], [place], 3 mL Inhale q6 hrs,PRN:for wheezing, 70, in, 12/12/22 11:36:00 CDT, Height Measured, 342, lb, 12/12/22 11:36:00 CDT, Weight Measured Start Date: 12/20/22 Status: Ordered albuterol 2.5 mg/3 mL (0.083%) inhalation solution = 3 mL ( 2.5 mg ), Inhale, q6 hrs, PRN: for wheezing, # 60 EA, 5 Refill(s), Type: Maintenance, [facility] [place], 3 mL Inhale q6 hrs,PRN:for wheezing, 70, in, 04/01/24 16:37:00CDT, Height Measured, 323, lb, 04/01/24 16:37:00 CDT, Weight Measured Start Date: 04/01/24 Status: Ordered ALLERGY RELIEF CETIRIZINE 10 TABS ALLERGY RELIEF CETIRIZINE 10 TABS, 1 tab(s), Oral, daily, # 90 tab(s), 3 Refill(s), Type: Maintenance, [facility] [place], TAKE ONE TABLET BY MOUTH EVERY DAY, 70, in, 02/14/23 8:51:00 CDT, Height Measured, 342, lb, 02/14/23 8:51:00 CDT, Weight Measured Start Date: 06/22/23 Status: Ordered amLODIPine 10 mg oral tablet Instructions: TAKE ONE TABLET BY MOUTH EVERY DAY Start Date: 04/01/24 Status: Ordered amoxicillin 500 mg oral capsule = 1 cap(s) ( 500 mg ), Oral, daily, # 30 cap(s), 1 Refill(s), Type: Soft Stop, [facility] [place], 1 cap(s) Oral daily,x30 day(s), 70, in, 06/26/23 10:52:00 CDT, Height Measured, 364, lb, 06/26/23 10:52:00 CDT, Weight Measured Start Date: 09/28/23 Stop Date: 11/27/23 Status: Ordered azithromycin 250 mg oral tablet = 1 packet(s), Oral, once, Instructions: as directed on package labeling repeat after 5 days off ifneeded, # 12 tab(s), 0 Refill(s), Type: Soft Stop, [facility] [place], 1 packet(s) Oral once,Instr:as directed on package labeling; repeat after 5 days off if needed, 70, in, 02/14/23 8:51:00 CDT, Height Measured, 342, lb, 02/14/23 8:51:00 CDT, Weight Measured Start Date: 03/23/23 Status: Ordered benzonatate 200 mg oral capsule Instructions: TAKE ONE CAPSULE BY MOUTH THREE TIMES A DAY NEEDED FOR COUGH Start Date: 04/01/24 Status: Ordered budesonide 0.5 mg/2 mL inhalation suspension = 2 mL, Inhale, bid, # 120 mL, 3 Refill(s), Type: Maintenance, [facility] [place], INHALE 2ML VIA NEBULIZER TWICE A DAY, 70, in, 06/21/22 9:06:00 CDT, Height Measured, 353, lb, 06/21/22 9:06:00 CDT, Weight Measured Start Date: 11/02/22 Status: Ordered cetirizine 10 mg oral tablet = 1 tab(s) ( 10 mg ), Oral, daily, # 90 tab(s), 3 Refill(s), Type: Maintenance, [facility] [place], 1 tab(s) Oral daily, 70, in, 06/21/22 9:06:00 CDT, Height Measured, 353, lb, 06/21/22 9:06:00 CDT, Weight Measured Start Date: 06/21/22 Status: Ordered citalopram 20 mg oral tablet = 1 tab(s) ( 20 mg ), po, daily, 0 Refill(s), Type: Maintenance Start Date: 05/31/17 Status: Ordered cyclobenzaprine 5 mg oral tablet Instructions: TAKE ONE TABLET BY MOUTH THREE TIMES A DAY NEEDED FOR MUSCLE SPASM Start Date: 04/01/24 Status: Ordered cycloSPORINE modified 25 mg oral capsule = 3 cap(s) ( 75 mg ), Oral, q12 hrs, # 180 cap(s), 1 Refill(s), Type: Maintenance, [facility] [place], 3 cap(s) Oral q12 hrs, 70, in, 02/14/23 8:51:00 CDT, Height Measured, 342,lb, 02/14/23 8:51:00 CDT, Weight Measured Start Date: 02/14/23 Status: Ordered Depo-Provera ( 400 mg ), im, 0 Refill(s), Type: Maintenance Start Date: 05/17/16 Status: Ordered Dulera 200 mcg-5 mcg/inh inhalation aerosol 2 puff(s), Inhale, bid, # 13 gm, 2 Refill(s), Type: Maintenance, [facility] [place], INHALE 2 PUFFS BY MOUTH TWO TIMES A DAY, 70, in, 04/01/24 16:37:00 CDT, Height Measured, 323, lb, 04/01/24 16:37:00 CDT, Weight Measured Start Date: 04/22/24 Status: Ordered DULoxetine 60 mg oral delayed release capsule Instructions: TAKE ONE CAPSULE BY MOUTH EVERY DAY Start Date: 04/01/24 Status: Ordered Emgality Prefilled Pen ( 120 mg ), Subcutaneous, qmonth, 0 Refill(s), Type: Maintenance Start Date: 06/26/23 Status: Ordered EpiPen 2-Addy ( 0.3 mg ), im, once, 0 Refill(s), Type: Maintenance Start Date: 05/17/16 Status: Ordered esomeprazole 20 mg oral delayed release capsule Instructions: TAKE ONE CAPSULE BY MOUTH EVERY DAY Start Date: 04/01/24 Status: Ordered fluticasone 50 mcg/inh nasal spray [...] 15 mL, 5 Refill(s), Type: Maintenance, Pharmacy: [facility] [place], [place], ADMINISTER 2 SPRAY(S) NASALLY FOUR TIMES A DAY, 70, in, 06/26/23 10:52:00 CDT, Height Measured, 364, lb, 06/26/23 10:52:00 CDT, Weight Measured Start Date: 10/17/23 Status: Ordered montelukast 10 mg oral tablet = 1 tab(s), Oral, qpm, # 90 tab(s), 1 Refill(s), Type: Maintenance, Pharmacy: [facility] [place], [place], TAKE ONE TABLET BY MOUTH EVERY EVENING, 70, in, 04/01/24 16:37:00 CDT, Height Measured, 323, lb, 04/01/24 16:37:00 CDT, Weight Measured Start Date: 04/08/24 Status: Ordered Mucus Relief ER 600 mg oral tablet, extended release Instructions: TAKE ONE TABLET BY MOUTH TWICE A DAY Start Date: 02/15/23 Status: Ordered naltrexone 50 mg oral tablet Instructions: TAKE 0.5 TABLET BY MOUTH ONCE DAILY FOR 30 DAYS THEN TAKE 1 TABLET ONCE DAILY STOP 7 DAYS PRIOR TO ANY SURGERY OR OPIATE USE Start Date: 04/01/24 Status: Ordered naproxen sodium 550 mg oral tablet 0 Refill(s), Type: Maintenance Start Date: 04/01/24 Status: Ordered naratriptan 2.5 mg oral tablet Instructions: TAKE ONE TABLET BY MOUTH EVERY 4 HOURS NEEDED FOR MIGRAINE. MAX 5MG (2 TABS) PER DAY. MAX 9 DAYS PER MONTH Start Date: 04/01/24 Status: Ordered Nasacort 0 Refill(s), Type: Maintenance Start Date: 05/17/16 Status: Ordered Nebulizer cup/mouthpiece/tubing Nebulizer cup/mouthpiece/tubing, Neb cup/tubing, Inhale, q4 hrs, Instructions: use with albuterol and pulmozyme solution, Supply, # 1 EA, 2 Refill(s), Type: Maintenance Start Date: 05/02/24 Status: Ordered Nebulizer Machine Nebulizer Machine, See Instructions, Instructions: Use with albuterol and pulmozyme as directed, Supply, # 1 EA, 0 Refill(s), Type: Maintenance Start Date: 05/02/24 Status: Ordered norethindrone 5 mg oral tablet Instructions: TAKE ONE-HALF TABLET BY MOUTH EVERY DAY Start Date: 04/01/24 Status: Ordered omeprazole Oral, daily, 0 Refill(s), Type: Maintenance Start Date: 11/05/19 Status: Ordered Pulmozyme 2.5 mg/2.5 mL inhalation solution ( 2.5 mg ), Inhale, bid, # 150 mL, 5 Refill(s), Type: Maintenance, Pharmacy: [facility], 2.5 mg Inhalebid, 70, in, 06/26/23 10:52:00 CDT, Height Measured, 364, lb, 06/26/23 10:52:00 CDT, Weight Measured Start Date: 01/07/24 Status: Ordered Qulipta 30 mg oral tablet 0 Refill(s), Type: Maintenance Start Date: 04/01/24 Status: Ordered Spiriva HandiHaler 18 mcg inhalation capsule Instructions: INHALE ONE CAPSULE BY MOUTH EVERY DAY USING HANDIHALER WILDE CAPSULE AND BREATHE IN POWDER. INHALE SAME CAPSULE TWICE Start Date: 04/01/24 Status: Ordered Symbicort 160 mcg-4.5 mcg/inh inhalation aerosol 2 puff(s), Inhale, bid, Instructions: Switch inhaler due to Dulera being out of stock., # 1 EA, 3 Refill(s), Type: Maintenance, Pharmacy: [facility], [place], 2 puff(s) Inhale bid,Instr:Switch inhaler due to Dulera being out of stock., 70, in, 06/26/23 10:52:00 CDT, Height Measured, 364,lb, 06/26/23 10:52:00 CDT, Weight Measured Start Date: 06/26/23 Status: Ordered Ventolin HFA 90 mcg/inh inhalation aerosol 2 puff(s), Inhale, q4 hrs, # 18 gm, 1 Refill(s), Type: Maintenance, Pharmacy: [facility], [place], 2 puff(s) Inhale q4 hrs, 70, in, 04/01/24 16:37:00 CDT, Height Measured, 323, lb, 04/01/24 16:37:00 CDT, Weight Measured Start Date: 05/06/24 Status: Ordered verapamil 80 mg oral tablet [...] Severity Life Cycle Status Age at Onset Allergic rhinitis.. POSITIVE Recurrent sinus infections.. POSITIVE Obesity.. POSITIVE Migraine POSITIVE Name: UnknownRelationship: Father Condition State Severity Life Cycle Status Age at Onset Obesity.. POSITIVE Migraine POSITIVE Diabetes.. POSITIVE Genetic disease POSITIVE Name: UnknownRelationship: Grandmother (M) Condition State Severity Life Cycle Status Age at Onset Migraine POSITIVE
--- OUTSIDE RECORDS SUMMARY | 2024-07-16 07:14 | XMS_ITS | Continuity of Care Document ---
Author Organization [facility] Address [facility] [address] [place] [address]- Encounter 05/24/24 - 05/31/24 [facility] [address] [facility], [facility] [address] [place] [address] Allergies, Adverse Reactions, Alerts Substance Criticality Severity Reaction Reaction Severity Status cefprozil Active amitriptyline Hives Active penicillin Active sulfa drug Active Bactrim Active Medications Ajovy Autoinjector 225 mg/1.5 mL subcutaneous solution Instructions: INJECT 1.5ML SUB-Q EVERY 28 DAYS Start Date: 04/01/24 Status: Ordered albuterol 2.5 mg/3 mL (0.083%) inhalation solution = 3 mL ( 2.5 mg ), Inhale, q6 hrs, PRN: for wheezing, # 100 EA, 3 Refill(s), Type: Maintenance, [facility]: [facility], [place], 3 mL Inhale q6 hrs,PRN:for wheezing, 70, in, 12/12/22 11:36:00 CDT, Height Measured, 342, lb, 12/12/22 11:36:00 CDT, Weight Measured Start Date: 12/20/22 Status: Ordered albuterol 2.5 mg/3 mL (0.083%) inhalation solution = 3 mL ( 2.5 mg ), Inhale, q6 hrs, PRN: for wheezing, # 60 EA, 5 Refill(s), Type: Maintenance, [facility], [place], 3 mL Inhale q6 hrs,PRN:for wheezing, 70, in, 04/01/24 16:37:00CDT, Height Measured, 323, lb, 04/01/24 16:37:00 CDT, Weight Measured Start Date: 04/01/24 Status: Ordered ALLERGY RELIEF CETIRIZINE 10 TABS ALLERGY RELIEF CETIRIZINE 10 TABS, 1 tab(s), Oral, daily, # 90 tab(s), 3 Refill(s), Type: Maintenance, [facility] [place], TAKE ONE TABLET BY MOUTH EVERY [...] cap(s), 1 Refill(s), Type: Soft Stop, [facility] [place], 1 cap(s) Oral daily,x30 day(s), 70, in, 06/26/23 10:52:00 CDT, Height Measured, 364, lb, 06/26/23 10:52:00 CDT, Weight Measured Start Date: 09/28/23 Stop Date: 11/27/23 Status: Ordered azithromycin 250 mg oral tablet = 1 packet(s), Oral, once, Instructions: as directed on package labeling repeat after 5 days off ifneeded, # 12 tab(s), 0 Refill(s), Type: Soft Stop, [facility] [place], 1 packet(s) Oral once,Instr:as directed on [...] 120 mL, 3 Refill(s), Type: Maintenance, [facility] [place], INHALE 2ML VIA NEBULIZER TWICE A DAY, 70, in, 06/21/22 9:06:00 CDT, Height Measured, 353, lb, 06/21/22 9:06:00 CDT, Weight Measured Start Date: 11/02/22 Status: Ordered cetirizine 10 mg oral tablet = 1 tab(s) ( 10 mg ), Oral, daily, # 90 tab(s), 3 Refill(s), Type: Maintenance, [facility] [place], 1 tab(s) Oral daily, 70, in, [...] 180 cap(s), 1 Refill(s), Type: Maintenance, [facility] [place], 3 cap(s) Oral q12 hrs, 70, in, 02/14/23 8:51:00 CDT, Height Measured, 342,lb, 02/14/23 8:51:00 CDT, Weight Measured Start Date: 02/14/23 Status: Ordered Depo-Provera ( 400 mg ), im, 0 Refill(s), Type: Maintenance Start Date: 05/17/16 Status: Ordered Dulera 200 mcg-5 mcg/inh inhalation aerosol 2 puff(s), Inhale, bid, # 13 gm, 2 Refill(s), Type: Maintenance, [facility] [place], INHALE 2 PUFFS BY MOUTH [...] 42 mcg/inh (0.06%) nasal spray 2 spray(s), Nostril-Both, qid, # 15 mL, 2 Refill(s), Type: Maintenance, Pharmacy: [facility], [place], [place], ADMINISTER 2 SPRAY(S) NASALLY FOUR TIMES A DAY, 70, in, 04/01/24 16:37:00 CDT, HeightMeasured, 323, lb, 04/01/24 16:37:00 CDT, Weight Measured Start Date: 05/20/24 Status: Ordered montelukast 10 mg oral tablet = 1 tab(s), Oral, qpm, # 90 tab(s), 1 Refill(s), Type: Maintenance, Pharmacy: [facility] [place], [place], TAKE ONE TABLET BY MOUTH EVERY [...] 1 EA, 3 Refill(s), Type: Maintenance, Pharmacy: [facility], [place], 2 puff(s) Inhale bid,Instr:Switch inhaler due to Dulera being out of stock., 70, in, 06/26/23 10:52:00 CDT, Height Measured, 364,lb, 06/26/23 10:52:00 CDT, Weight Measured Start Date: 06/26/23 Status: Ordered Ventolin HFA 90 mcg/inh inhalation aerosol 2 puff(s), Inhale, q4 hrs, # 18 gm, 1 Refill(s), Type: Maintenance, Pharmacy: [facility], [place], 2 puff(s) Inhale q4 hrs, 70, in, [...] Onset Migraine POSITIVE Recurrent sinus infections.. POSITIVE Allergic rhinitis.. POSITIVE Obesity.. POSITIVE Name: UnknownRelationship: Father Condition State Severity Life Cycle Status Age at Onset Migraine POSITIVE Obesity.. POSITIVE Genetic disease POSITIVE Diabetes.. POSITIVE Name: UnknownRelationship: Grandmother (M) Condition State Severity Life Cycle Status Age at Onset Migraine POSITIVE
--- OUTSIDE RECORDS SUMMARY | 2024-07-16 07:14 | XMS_ITS | Continuity of Care Document ---
Author Organization [facility] Address [facility] [address] [place] [address]- Encounter 05/06/24 - 05/13/24 [facility] [address] [facility], [facility] [address] [place] [address] Allergies, Adverse Reactions, Alerts Substance Criticality Severity [...] 100 EA, 3 Refill(s), Type: Maintenance, [facility] [place], 3 mL Inhale q6 hrs,PRN:for wheezing, 70, in, 12/12/22 11:36:00 CDT, Height Measured, 342, lb, 12/12/22 11:36:00 CDT, Weight Measured Start Date: 12/20/22 Status: Ordered albuterol 2.5 mg/3 mL (0.083%) inhalation solution = 3 mL ( 2.5 mg ), Inhale, q6 hrs, PRN: for wheezing, # 60 EA, 5 Refill(s), Type: Maintenance, [facility] [place], 3 mL Inhale q6 hrs,PRN:for wheezing, 70, in, 04/01/24 16:37:00CDT, Height Measured, 323, lb, 04/01/24 16:37:00 CDT, Weight Measured Start Date: 04/01/24 Status: Ordered ALLERGY RELIEF CETIRIZINE 10 TABS ALLERGY RELIEF CETIRIZINE 10 TABS, 1 tab(s), Oral, daily, # 90 tab(s), 3 Refill(s), Type: Maintenance, [facility] [place], TAKE ONE TABLET BY [...] cap(s), 1 Refill(s), Type: Soft Stop, [facility] [place], 1 cap(s) Oral daily,x30 day(s), 70, in, 06/26/23 10:52:00 CDT, Height Measured, 364, lb, 06/26/23 10:52:00 CDT, Weight Measured Start Date: 09/28/23 Stop Date: 11/27/23 Status: Ordered azithromycin 250 mg oral tablet = 1 packet(s), Oral, once, Instructions: as directed on package labeling repeat after 5 days off ifneeded, # 12 tab(s), 0 Refill(s), Type: Soft Stop, [facility] [place], 1 packet(s) Oral once,Instr:as [...] 120 mL, 3 Refill(s), Type: Maintenance, [facility] [place], INHALE 2ML VIA NEBULIZER TWICE A DAY, 70, in, 06/21/22 9:06:00 CDT, Height Measured, 353, lb, 06/21/22 9:06:00 CDT, Weight Measured Start Date: 11/02/22 Status: Ordered cetirizine 10 mg oral tablet = 1 tab(s) ( 10 mg ), Oral, daily, # 90 tab(s), 3 Refill(s), Type: Maintenance, [facility] [place], 1 tab(s) Oral daily, [...] 180 cap(s), 1 Refill(s), Type: Maintenance, [facility] [place], 3 cap(s) Oral q12 hrs, 70, in, 02/14/23 8:51:00 CDT, Height Measured, 342,lb, 02/14/23 8:51:00 CDT, Weight Measured Start Date: 02/14/23 Status: Ordered Depo-Provera ( 400 mg ), im, 0 Refill(s), Type: Maintenance Start Date: 05/17/16 Status: Ordered Dulera 200 mcg-5 mcg/inh inhalation aerosol 2 puff(s), Inhale, bid, # 13 gm, 2 Refill(s), Type: Maintenance, [facility] [place], INHALE 2 PUFFS BY MOUTH TWO [...] 15 mL, 5 Refill(s), Type: Maintenance, Pharmacy: [facility] [place], [place], ADMINISTER 2 SPRAY(S) NASALLY FOUR TIMES A DAY, 70, in, 06/26/23 10:52:00 CDT, Height Measured, 364, lb, 06/26/23 10:52:00 CDT, Weight Measured Start Date: 10/17/23 Status: Ordered montelukast 10 mg oral tablet = 1 tab(s), Oral, qpm, # 90 tab(s), 1 Refill(s), Type: Maintenance, Pharmacy: [facility] [place], [place], TAKE ONE TABLET BY MOUTH EVERY [...] EA, 3 Refill(s), Type: Maintenance, Pharmacy: [facility], [place], 2 puff(s) Inhale bid,Instr:Switch inhaler due to Dulera being out of stock., 70, in, 06/26/23 10:52:00 CDT, Height Measured, 364,lb, 06/26/23 10:52:00 CDT, Weight Measured Start Date: 06/26/23 Status: Ordered Ventolin HFA 90 mcg/inh inhalation aerosol 2 puff(s), Inhale, q4 hrs, # 18 gm, 1 Refill(s), Type: Maintenance, Pharmacy: [facility], [place], 2 puff(s) Inhale q4 [...] Cycle Status Age at Onset Obesity.. POSITIVE Recurrent sinus infections.. POSITIVE Allergic rhinitis.. POSITIVE Migraine POSITIVE Name: UnknownRelationship: Father Condition State Severity Life Cycle Status Age at Onset Diabetes.. POSITIVE Genetic disease POSITIVE Obesity.. POSITIVE Migraine POSITIVE Name: UnknownRelationship: Grandmother (M) Condition State Severity Life Cycle Status Age at Onset Migraine POSITIVE
--- OUTSIDE RECORDS SUMMARY | 2024-07-16 07:14 | XMS_ITS | Continuity of Care Document ---
Author Organization [facility] Address [facility] [address] [place] [address]- Encounter 05/02/24 - 05/09/24 [facility] [address] [facility], [facility] [address] [place] [address] Allergies, Adverse Reactions, Alerts Substance Criticality Severity [...] 100 EA, 3 Refill(s), Type: Maintenance, [facility] [place], 3 mL Inhale q6 hrs,PRN:for wheezing, 70, in, 12/12/22 11:36:00 CDT, Height Measured, 342, lb, 12/12/22 11:36:00 CDT, Weight Measured Start Date: 12/20/22 Status: Ordered albuterol 2.5 mg/3 mL (0.083%) inhalation solution = 3 mL ( 2.5 mg ), Inhale, q6 hrs, PRN: for wheezing, # 60 EA, 5 Refill(s), Type: Maintenance, [facility] [place], 3 mL Inhale q6 hrs,PRN:for wheezing, 70, in, 04/01/24 16:37:00CDT, Height Measured, 323, lb, 04/01/24 16:37:00 CDT, Weight Measured Start Date: 04/01/24 Status: Ordered ALLERGY RELIEF CETIRIZINE 10 TABS ALLERGY RELIEF CETIRIZINE 10 TABS, 1 tab(s), Oral, daily, # 90 tab(s), 3 Refill(s), Type: Maintenance, [facility] [place], TAKE ONE TABLET BY [...] cap(s), 1 Refill(s), Type: Soft Stop, [facility] [place], 1 cap(s) Oral daily,x30 day(s), 70, in, 06/26/23 10:52:00 CDT, Height Measured, 364, lb, 06/26/23 10:52:00 CDT, Weight Measured Start Date: 09/28/23 Stop Date: 11/27/23 Status: Ordered azithromycin 250 mg oral tablet = 1 packet(s), Oral, once, Instructions: as directed on package labeling repeat after 5 days off ifneeded, # 12 tab(s), 0 Refill(s), Type: Soft Stop, [facility] [place], 1 packet(s) Oral once,Instr:as [...] 120 mL, 3 Refill(s), Type: Maintenance, [facility] [place], INHALE 2ML VIA NEBULIZER TWICE A DAY, 70, in, 06/21/22 9:06:00 CDT, Height Measured, 353, lb, 06/21/22 9:06:00 CDT, Weight Measured Start Date: 11/02/22 Status: Ordered cetirizine 10 mg oral tablet = 1 tab(s) ( 10 mg ), Oral, daily, # 90 tab(s), 3 Refill(s), Type: Maintenance, [facility] [place], 1 tab(s) Oral daily, [...] 180 cap(s), 1 Refill(s), Type: Maintenance, [facility] [place], 3 cap(s) Oral q12 hrs, 70, in, 02/14/23 8:51:00 CDT, Height Measured, 342,lb, 02/14/23 8:51:00 CDT, Weight Measured Start Date: 02/14/23 Status: Ordered Depo-Provera ( 400 mg ), im, 0 Refill(s), Type: Maintenance Start Date: 05/17/16 Status: Ordered Dulera 200 mcg-5 mcg/inh inhalation aerosol 2 puff(s), Inhale, bid, # 13 gm, 2 Refill(s), Type: Maintenance, [facility] [place], INHALE 2 PUFFS BY MOUTH [...] 15 mL, 5 Refill(s), Type: Maintenance, Pharmacy: [facility] [place], [place], ADMINISTER 2 SPRAY(S) NASALLY FOUR TIMES A DAY, 70, in, 06/26/23 10:52:00 CDT, Height Measured, 364, lb, 06/26/23 10:52:00 CDT, Weight Measured Start Date: 10/17/23 Status: Ordered montelukast 10 mg oral tablet = 1 tab(s), Oral, qpm, # 90 tab(s), 1 Refill(s), Type: Maintenance, Pharmacy: [facility] [place], [place], TAKE ONE TABLET BY MOUTH EVERY [...] 1 EA, 3 Refill(s), Type: Maintenance, [facility] [place], 2 puff(s) Inhale bid,Instr:Switch inhaler due to Dulera being out of stock., 70, in, 06/26/23 10:52:00 CDT, Height Measured, 364,lb, 06/26/23 10:52:00 CDT, Weight Measured Start Date: 06/26/23 Status: Ordered Ventolin HFA 90 mcg/inh inhalation aerosol 2 puff(s), Inhale, q4 hrs, # 18 gm, 1 Refill(s), Type: Maintenance, Pharmacy: [facility], [place], 2 puff(s) Inhale [...] Age at Onset Recurrent sinus infections.. POSITIVE Obesity.. POSITIVE Allergic rhinitis.. POSITIVE Migraine POSITIVE Name: UnknownRelationship: Father Condition State Severity Life Cycle Status Age at Onset Obesity.. POSITIVE Migraine POSITIVE Genetic disease POSITIVE Diabetes.. POSITIVE Name: UnknownRelationship: Grandmother (M) Condition State Severity Life Cycle Status Age at Onset Migraine POSITIVE
--- OUTSIDE RECORDS SUMMARY | 2024-07-16 07:14 | XMS_ITS | Continuity of Care Document ---
Author Organization [facility] Pediatric [facility] Address [facility] [address] [place] [address]- Encounter 05/24/24 - 05/31/24 [facility] [address] [facility], [facility] [address] [place] [address] Allergies, Adverse Reactions, Alerts Substance Criticality Severity [...] 100 EA, 3 Refill(s), Type: Maintenance, [facility] [place], 3 mL Inhale q6 hrs,PRN:for wheezing, 70, in, 12/12/22 11:36:00 CDT, Height Measured, 342, lb, 12/12/22 11:36:00 CDT, Weight Measured Start Date: 12/20/22 Status: Ordered albuterol 2.5 mg/3 mL (0.083%) inhalation solution = 3 mL ( 2.5 mg ), Inhale, q6 hrs, PRN: for wheezing, # 60 EA, 5 Refill(s), Type: Maintenance, Pharmacy: [facility], [place], 3 mL Inhale q6 hrs,PRN:for wheezing, 70, in, 04/01/24 16:37:00CDT, Height Measured, 323, lb, 04/01/24 16:37:00 CDT, Weight Measured Start Date: 04/01/24 Status: Ordered ALLERGY RELIEF CETIRIZINE 10 TABS ALLERGY RELIEF CETIRIZINE 10 TABS, 1 tab(s), Oral, daily, # 90 tab(s), 3 Refill(s), Type: Maintenance, [facility] [place], TAKE ONE TABLET BY MOUTH EVERY [...] cap(s), 1 Refill(s), Type: Soft Stop, [facility] [place], 1 cap(s) Oral daily,x30 day(s), 70, in, 06/26/23 10:52:00 CDT, Height Measured, 364, lb, 06/26/23 10:52:00 CDT, Weight Measured Start Date: 09/28/23 Stop Date: 11/27/23 Status: Ordered azithromycin 250 mg oral tablet = 1 packet(s), Oral, once, Instructions: as directed on package labeling repeat after 5 days off ifneeded, # 12 tab(s), 0 Refill(s), Type: Soft Stop, [facility] [place], 1 packet(s) Oral once,Instr:as directed on [...] 120 mL, 3 Refill(s), Type: Maintenance, [facility] [place], INHALE 2ML VIA NEBULIZER TWICE A DAY, 70, in, 06/21/22 9:06:00 CDT, Height Measured, 353, lb, 06/21/22 9:06:00 CDT, Weight Measured Start Date: 11/02/22 Status: Ordered cetirizine 10 mg oral tablet = 1 tab(s) ( 10 mg ), Oral, daily, # 90 tab(s), 3 Refill(s), Type: Maintenance, [facility] [place], 1 tab(s) Oral daily, 70, in, [...] 1 Refill(s), Type: Maintenance, [facility] [place], 3 cap(s) Oral q12 hrs, 70, in, 02/14/23 8:51:00 CDT, Height Measured, 342,lb, 02/14/23 8:51:00 CDT, Weight Measured Start Date: 02/14/23 Status: Ordered Depo-Provera ( 400 mg ), im, 0 Refill(s), Type: Maintenance Start Date: 05/17/16 Status: Ordered Dulera 200 mcg-5 mcg/inh inhalation aerosol 2 puff(s), Inhale, bid, # 13 gm, 2 Refill(s), Type: Maintenance, [facility] [place], INHALE 2 PUFFS BY MOUTH [...] 15 mL, 2 Refill(s), Type: Maintenance, Pharmacy: [facility], [place], [place], ADMINISTER 2 SPRAY(S) NASALLY FOUR TIMES A DAY, 70, in, 04/01/24 16:37:00 CDT, HeightMeasured, 323, lb, 04/01/24 16:37:00 CDT, Weight Measured Start Date: 05/20/24 Status: Ordered montelukast 10 mg oral tablet = 1 tab(s), Oral, qpm, # 90 tab(s), 1 Refill(s), Type: Maintenance, Pharmacy: [facility] [place], [place], TAKE ONE TABLET BY MOUTH EVERY [...] 1 EA, 3 Refill(s), Type: Maintenance, Pharmacy: [facility], [place], 2 puff(s) Inhale bid,Instr:Switch inhaler due to Dulera being out of stock., 70, in, 06/26/23 10:52:00 CDT, Height Measured, 364,lb, 06/26/23 10:52:00 CDT, Weight Measured Start Date: 06/26/23 Status: Ordered Ventolin HFA 90 mcg/inh inhalation aerosol 2 puff(s), Inhale, q4 hrs, # 18 gm, 1 Refill(s), Type: Maintenance, Pharmacy: [facility], [place], 2 puff(s) Inhale q4 hrs, 70, in, [...]
--- OUTSIDE RECORDS SUMMARY | 2024-07-16 07:14 | XMS_ITS | Continuity of Care Document ---
Author Organization [facility] Address [facility] [address] [place] [address]- Encounter 04/29/24 - 05/06/24 [facility] [address] [facility], [facility] [address] [place] [address] Allergies, Adverse Reactions, Alerts Substance Criticality Severity [...] 100 EA, 3 Refill(s), Type: Maintenance, [facility] [place], 3 mL Inhale q6 hrs,PRN:for wheezing, 70, in, 12/12/22 11:36:00 CDT, Height Measured, 342, lb, 12/12/22 11:36:00 CDT, Weight Measured Start Date: 12/20/22 Status: Ordered albuterol 2.5 mg/3 mL (0.083%) inhalation solution = 3 mL ( 2.5 mg ), Inhale, q6 hrs, PRN: for wheezing, # 60 EA, 5 Refill(s), Type: Maintenance, Pharmacy: [facility], [place], 3 mL Inhale q6 hrs,PRN:for wheezing, 70, in, 04/01/24 16:37:00CDT, Height Measured, 323, lb, 04/01/24 16:37:00 CDT, Weight Measured Start Date: 04/01/24 Status: Ordered ALLERGY RELIEF CETIRIZINE 10 TABS ALLERGY RELIEF CETIRIZINE 10 TABS, 1 tab(s), Oral, daily, # 90 tab(s), 3 Refill(s), Type: Maintenance, [facility] [place], TAKE ONE TABLET BY [...] cap(s), 1 Refill(s), Type: Soft Stop, [facility] [place], 1 cap(s) Oral daily,x30 day(s), 70, in, 06/26/23 10:52:00 CDT, Height Measured, 364, lb, 06/26/23 10:52:00 CDT, Weight Measured Start Date: 09/28/23 Stop Date: 11/27/23 Status: Ordered azithromycin 250 mg oral tablet = 1 packet(s), Oral, once, Instructions: as directed on package labeling repeat after 5 days off ifneeded, # 12 tab(s), 0 Refill(s), Type: Soft Stop, [facility] [place], 1 packet(s) Oral once,Instr:as [...] 120 mL, 3 Refill(s), Type: Maintenance, [facility] [place], INHALE 2ML VIA NEBULIZER TWICE A DAY, 70, in, 06/21/22 9:06:00 CDT, Height Measured, 353, lb, 06/21/22 9:06:00 CDT, Weight Measured Start Date: 11/02/22 Status: Ordered cetirizine 10 mg oral tablet = 1 tab(s) ( 10 mg ), Oral, daily, # 90 tab(s), 3 Refill(s), Type: Maintenance, [facility] [place], 1 tab(s) Oral daily, [...] 180 cap(s), 1 Refill(s), Type: Maintenance, [facility] [place], 3 cap(s) Oral q12 hrs, 70, in, 02/14/23 8:51:00 CDT, Height Measured, 342,lb, 02/14/23 8:51:00 CDT, Weight Measured Start Date: 02/14/23 Status: Ordered Depo-Provera ( 400 mg ), im, 0 Refill(s), Type: Maintenance Start Date: 05/17/16 Status: Ordered Dulera 200 mcg-5 mcg/inh inhalation aerosol 2 puff(s), Inhale, bid, # 13 gm, 2 Refill(s), Type: Maintenance, [facility] [place], [facility]HALE 2 PUFFS BY [...] 15 mL, 5 Refill(s), Type: Maintenance, Pharmacy: [facility] [place], [place], ADMINISTER 2 SPRAY(S) NASALLY FOUR TIMES A DAY, 70, in, 06/26/23 10:52:00 CDT, Height Measured, 364, lb, 06/26/23 10:52:00 CDT, Weight Measured Start Date: 10/17/23 Status: Ordered montelukast 10 mg oral tablet = 1 tab(s), Oral, qpm, # 90 tab(s), 1 Refill(s), Type: Maintenance, Pharmacy: [facility] [place], [place], TAKE ONE TABLET BY MOUTH EVERY [...] 1 EA, 3 Refill(s), Type: Maintenance, [facility], [place], 2 puff(s) Inhale bid,Instr:Switch inhaler due to Dulera being out of stock., 70, in, 06/26/23 10:52:00 CDT, Height Measured, 364,lb, 06/26/23 10:52:00 CDT, Weight Measured Start Date: 06/26/23 Status: Ordered Ventolin HFA 90 mcg/inh inhalation aerosol 2 puff(s), Inhale, q4 hrs, # 18 gm, 1 Refill(s), Type: Maintenance, Pharmacy: [facility], [place], 2 puff(s) Inhale q4 [...] Status Age at Onset Allergic rhinitis.. POSITIVE Migraine POSITIVE Obesity.. POSITIVE Recurrent sinus infections.. POSITIVE Name: UnknownRelationship: Father Condition State Severity Life Cycle Status Age at Onset Migraine POSITIVE Obesity.. POSITIVE Genetic disease POSITIVE Diabetes.. POSITIVE Name: UnknownRelationship: Grandmother (M) Condition State Severity Life Cycle Status Age at Onset Migraine POSITIVE
--- OUTSIDE RECORDS SUMMARY | 2024-07-16 07:15 | XMS_ITS | Clinical Summary ---
Author Organization [facility] Address [address] [place] [address] Care Team Providers Care System Technologist Name Role Phone Elsewhere, Pcp Primary Care Provider Unavailabl e Source Comments Patient records contain information from all sites at [facility]. For routine questions regarding patient records, call [phone] during business hours, M-F 8:00 AM - 5:00 PM Central Time. Record requests for emergency care only can be directed to [phone] at any time.[facility] Allergies Active Allergy Reactions Criticality Noted [...] Sulfamethoxazole-Trimet hoprim Nausea And Vomiting 12/20/2006 Medications * This document contains information received from the source organization and may not represent a complete record from that organization. albuterol sulfate 90 mcg/actuation aero powdr breath act w/sensor Inhale 2 puffs every 4 (four) hours as needed. Active cetirizine 10 mg capsule Take 10 mg by mouth 2 (two) times a day. Active cyclobenzaprin e (FLEXERIL) 5 mg tablet 5 mg 3 (three) times a day as needed. Active albuterol (ACCUNEB) 2.5 mg /3 mL nebulizer solution as needed. 09/19/20 19 Active amLODIPine (NORVASC) 10 mg tablet Take 10 mg by mouth daily. 08/31/20 20 Active benzonatate (TESSALON) 200 mg capsule Take 200 mg by mouth as needed. 08/26/20 20 Active budesonide (PULMICORT) 0.5 mg/2 mL nebulizer solution Administer 0.5 mg into nostril(s) 2 (two) times a day. 02/19/20 20 Active magnesium oxide 500 mg tablet tablet Take 500 mg by mouth daily. 06/17/20 20 Active hydroCHLOROthi azide (HYDRODIURIL) 25 mg tablet Take 25 mg by mouth daily. 12/17/19 16 Active EPINEPHrine 0.3 mg/0.3 mL injection syringe as needed. 02/01/20 19 Active cholecalcifero l (VITAMIN D3) 50 mcg (2,000 Unit) capsule Take 2,000 Units by mouth daily. 09/29/19 17 Active montelukast (SINGULAIR) 10 mg tablet Take 10 mg by mouth daily. 09/28/19 22 Active Dulera 200-5 mcg/actuation inhaler 2 puffs 2 (two) times a day as needed. 09/30/19 22 Active gabapentin (NEURONTIN) 300 mg capsule Take 900 mg by mouth 3 (three) times a day. 09/28/19 22 Active sodium chloride (OCEAN) 0.65 % nasal spray Administer 1 spray into each nostril 2 (two) times a day. 15 mL 12 11/25/19 22 Active Additional Information Patient not taking.Reported on 06/12/2024 esomeprazole (NexIUM) [address] capsule Take 20 mg by mouth every morning before breakfast. Active fluticasone propionate (FLONASE) 50 mcg/actuation nasal sprayIndicatio ns:Deficiency Alpha 1 Antitrypsin (HCC) ADMINISTER 2 SPRAYS INTO EACH NOSTRIL DAILY 48 g 3 09/28/19 23 Active Additional Information Patient taking differently:2 spray each nostril2 times daily, Informant: Self, Reported on 10/28/2022 Pulmozyme 1 mg/mL nebulizer solution 2 (two) times a day. 10/27/19 23 Active loperamide (IMODIUM A-D) 1 mg/7.5 mL liquid Take 2 mg by mouth daily as needed. 11/11/19 22 Active cyanocobalamin (VITAMIN B12) 500 mcg SL tablet Dissolve 500 mcg in the mouth daily. Active guaiFENesin (MUCINEX) 600 mg 12 hr tablet Take 1 tablet by mouth 2 (two) times a day. 07/01/20 23 Active norethindrone (AYGESTIN) 5 mg tablet Take 0.5 tablets (2.5 mg total) by mouth daily. 45 tablet 3 09/06/20 23 024 Active DULoxetine (Cymbalta) [address] capsule Take 60 mg by mouth daily. Active naproxen sodium (Anaprox DS) 550 mg tablet TAKE ONE TABLET BY MOUTH TWICE A DAY NEEDED FOR MILD HEADACHE MAX 14 DAYS PER MONTH 60 tablet 3 03/30/20 24 Active vitamin B complex tablet extended release daily. 12/25/19 24 Active ferrous gluconate 324 mg (37.5 mg iron) tablet Take 37.5 mg of iron by mouth daily. 05/24/20 24 Active atogepant (Qulipta) 60 mg tablet tablet Take 1 tablet (60 mg total) by mouth daily. 90 tablet 3 06/19/20 24 Active naratriptan (Amerge) 2.5 mg tablet Take 1 tablet (2.5 mg total) by mouth every 4 (four) hours as needed for migraine. MAX 5mg/day. MAX 9 days/month. 18 tablet 6 06/19/20 24 025 Active prochlorperazi ne (Compazine) 5 mg tablet Take 1-2 tablets (5-10 mg total) by mouth every 6 (six) hours as needed for nausea. 50 tablet 3 06/19/20 24 Active prochlorperazi ne (COMPAZINE) 5 mg tablet Take 5-10 mg by mouth every 6 (six) hours as needed. 02/17/20 22 024 Discontinued(R eorder) naratriptan (AMERGE) 2.5 mg tablet Take 1 tablet (2.5 mg total) by mouth every 4 (four) hours as needed for migraine. MAX 5mg/day. MAX 9 days/month. 18 tablet 6 04/25/20 23 024 Discontinued(R eorder) atogepant (Qulipta) 30 mg tablet tablet Take 1 tablet (30 mg total) by mouth daily. 30 tablet 11 03/19/20 24 024 Discontinued(R eorder) verapamiL (Calan) 80 mg tablet Take 1 tablet (80 mg total) by mouth 2 (two) times a day. Take one 80 mg tablet by mouth twice daily for one week, then take one 80 mg tablet by mouth daily for one week, then stop. 21 tablet 03/19/20 24 Discontinued predniSONE (Deltasone) 10 mg tablet Take 1 tablet (10 [...] by mouth for 3 days. 63 tablet 04/12/20 24 024 Discontinued Active Problems Problem Noted Date Diagnosed Date Chronic Migraine 02/08/2022 Headache Daily 10/30/2020 Asthma Chronic Mild 12/17/2015 Overview (02/14/2017): Asthma Chronic Mild Hypertension Essential Benign 12/17/2015 Overview (02/14/2017): Hypertension (HTN) Essential Benign Morbid Obesity Body Mass Ind ex Greater Than Or Equal To 40 Adult 12/17/2015 Overview (02/14/2017): Morbid Obesity Body Mass Index (BMI) >40 Adult Encounters Date Type Department Care Team Description 06/19/2024 1:00 PM CDT Telemedicine Department of Neurology in [place], [place] [address] [place] [address] Diana Price, PEDRO C.N.P., M.S.N. Chronic Migraine (Primary Dx); Migraine With Aura Not Intractable Without Status Migrainosus 06/12/2024 8:15 AM CDT Clinical Communication Virtual Review in [place], [place] [address] [place] [address] Pre-visit Intake from Last 3 Months Immunizations Name Administration Dates Next Due H1N1 All Forms 09/08/2009 HepB, Unspecified 03/29/2006,03/02/2006 Influenza, Unspecified 08/20/2008,2006,07/25/2006,08/01/2005, 4,08/23/2002 Family History Medical History Relation Name Comments pneumothorax Brother 1 ADD Brother 2 Pedro Theronchmiller ADD Arthritis Father Harman Peters Coronary artery disease Father Harman Peters Bypass surgery and heart attack Depression Father Harman Peters Diabetes Father Harman Crumpchadore Hypertension Father Harman Rischmijori Migraines Father Harman Peters Sleep apnea Father Harman Rischmillih Tuberculosis Father Harman Rischmillhi Diabetes Father's Brother 1 John Crumpchmiller Tuberculosis Father's Sister 1 Giovana Crumpchmijori Thyroid disease Father's Sister 2 Michelle Nolan [...] Grandfather Derek Rischmiller Arthritis Paternal Grandmother Swathi Rischmiller Anxiety disorder Son Derek Rischmiller Depression Son Derek Rischmiller Relation Name Status Comments Brother 1 Brother 2 Pedro Rischmiller Father Harman Rischmiller Father's Brother 1 John Peters Father's Brother 2 Rishi Peters Father's Sister 1 Giovana Shabazzller Father's Sister 2 Michelle Nolan Maternal Grandfather Augie French Maternal Grandmother Bee French Mother Ludmila Crumpchmiller Mother's Brother Harvey French Mother's Sister Giovana French Paternal Grandfather Derek Peters Paternal Grandmother Swathi Peters Son Derek Peters Social History Tobacco Use Types Packs/Day Years Used Date Smoking Tobacco: Never Passive Smoke Exposure: Never Smokeless Tobacco: Never Tobacco Cessation:Counseling Given: Not Answered Alcohol Use Standard Drinks/Week Comments Never 0 (1 standard drink = 0.6 oz pur e alcohol) [facility] Utilities Answer Date Recorded In the past 12 months has e [employer], gas, oil, or water [employer] threatened to shut off services in your [...] often do you attend chur ch or baptism services? Never 10/25/2022 Do you belong to any clubs o r organizations such as christian groups, unions, fraternal or athletic groups, or [...] PHQ-2 Answer Date Recorded PHQ-2 Score 2 06/18/2024 [facility] [place] of Occupat ional Health - Occupational Stress [...] ded PHQ-9 Total Score (max 27) 11 06/18 Nutrition Answer Date Recorded On average, how many serving s of fruits and vegetables do you eat per day (serving size is equal to 1 cup or approximately the size of a tennis ball)? 3-5 12/13/2023 Dental Answer Date Recorded Dental: Regular Dentist Yes 12/13/19 Employment Answer Date Recorded Employment status Permanently disabled Housing Stability Answer Date Recorded What is your living situation today? I have a [facility] place to live 12/13/2023 Education Answer Date Recorded What is the highest level of school you have completed or the highest degree you have received? 12th grade 10/25/2022 Comments Unknown Sex and Gender Information Value Date Recorded Sex Assigned at Female 10/21/2021 4:05 AM 7TH GRADE SOCIAL STUDIES TEACHER Legal Sex Female 4:27 AM 7TH GRADE SOCIAL STUDIES TEACHER Gender Identity Female 09/26/2020 6:43 AM 7TH GRADE SOCIAL STUDIES TEACHER Sexual Orientation Straight 09/26/2020 6: 43 AM 7TH GRADE SOCIAL STUDIES TEACHER Last Filed Vital Signs Vital Sign Reading Time Taken Comments Blood Pressure 168/103 02/08/2022 10:50 AM CDT Pulse 120 02/08/2022 10:50 AM CDT Temperature 36.9 ??C (98.4 ??F) 10/25/2021 3:48 PM CS T Respiratory Rate 18 11/13/2020 11:21 AM 7TH GRADE SOCIAL STUDIES TEACHER Oxygen Saturation 95% 12/03/2021 8:47 AM 7TH GRADE SOCIAL STUDIES TEACHER Inhaled Oxygen Concentration - - Weight 167 kg (368 lb 2.7 oz) 02/08/2022 10:50 A M CDT Height 180.5 cm (5' 11.06) 02/08/2022 10:50 AM CDT Body Mass Index 51.26 02/08/2022 10:50 AM CDT Plan of Treatment Upcoming Encounters Date Type Department Care Team (Late st Contact Info) Description 09/24/2024 10:15 AM 7TH GRADE SOCIAL STUDIES TEACHER Telemedicine Department of Neurology in [place], [place] [address] [place] [address] Diana Price APRN, C.N.P., M.S.N. [address] [place] [address] Health Maintenance Due Date Last Done Comments Hepatitis C Screening 1980 Mammogram 1980 Office Visit for Blood Pressure Check / Re-check 1980 Hepatitis B Vaccines (3 of 3 - 19+ 3-dose series) 09/01/2006 03/29/2006, 03/02/2006 Asthma Action Plan 08/06/2020 Asthma Control Test Questionnaire 08/06/2020 Asthma Management/Exacerbation Questionnaire (AMQ/AEQ) 08/06/2020 Cervical Cancer Screening 10/28/2022 10/28/2019 COVID-19 Vaccine ( season) 2024 07/04/2022, 08/10/2021, 01/12/2021, Additional history exists Influenza Vaccine (#1) 2024 , 07/04/2022, 07/05/2021, Additional history exists Creatinine Level (Kidney Function Test) 05/20/2025 05/20/2024, 05/18/2024, 04/27/2024, Additional history exists Potassium Level 05/20/2025 05/20/2024, 04/26, 04/27/2024, Additional history exists Sodium Level 05/20/2025 05/20/2024, 04/26, 04/27/2024, Additional history exists Lipid (Cholesterol) Screening 01/17/2029 01/18/2024, 04/21/2023, 07/04/2022, Additional history exists DTaP,Tdap,and Td Vaccines (3 - Td or Tdap) 05/14/2031 05/14/2021, 05/10/2011 Pneumococcal vaccine (0-64 years) Completed 09/29/2022, 11/08/2019, 10/28/2019 Depression Screening (Annual PHQ-2) Completed 03/18/2024 HPV Vaccines Aged Out No longer eligi ble based on patient's age to complete this topic Medical Devices Implanted Type Area Picture Engraver Device Identifier Shelf Expiration Date Model / Serial / Lot Bilateral Ankle Hardware e.g. pins/screws/ rods Bilateral: Ankle Imaging Marker Imaging Marker Breast Description:Unknown which [facility] Insurance [facility] [place] [address] Care Teams System Technologist Relationship Specialty Start Date End Date Elsewhere, Pcp PCP - General Internal Medicine 06/12/24
--- OUTSIDE RECORDS SUMMARY | 2024-07-16 07:15 | XMS_ITS | Encounter Summary ---
Author Organization [facility] Address [address] [place] [address] Care Team Providers Care Tobacco Hanger Name Role Phone Elsewhere, Pcp Primary Care Provider Unavailabl e Reason for Visit * Reason Onset Date Comments Pre-visit Intake 06/12/2024 Encounter Details Date Type Department Care Team (Latest Contact Info) Description 06/12/2024 8:15 AM CDT Clinical Communication Virtual Review in [place], [place] [address] [place] [address] Pre-visit Intake Social History Tobacco Use Types Packs/Day Years Used Date Smoking Tobacco: Never Passive Smoke Exposure: Never Smokeless Tobacco: Never Tobacco Cessation:Counseling Given: Not Answered Alcohol Use Standard Drinks/Week Comments Never 0 (1 standard drink = 0.6 oz pur e alcohol) [facility] Utilities Answer Date Recorded In the past 12 months has [facility] [employer], gas, oil, or water [employer] threatened to shut off services in your [...] often do you attend chur ch or adventist services? Never 10/25/2022 Do you belong to any clubs o r organizations such as caodaism groups, unions, fraternal or athletic groups, or [...] PHQ-2 Answer Date Recorded PHQ-2 Score 2 03/18/2024 [facility] Questionnaire Answer Date [...] ded PHQ-9 Total Score (max 27) 12 03/18 Nutrition Answer Date Recorded On average, how [...] your living situation today? I have a [facility] place to [facility] 12/13/2023 Education Answer Date Recorded What is the highest level of school you have completed or the highest degree you have received? 12th grade 10/25/2022 Comments Unknown Sex and Gender Information Value Date Recorded Sex Assigned at Female 10/21/2021 4:05 AM SHEAR SETTER Legal Sex Female 4:27 AM SHEAR SETTER Gender Identity Female 09/26/2020 6:43 AM SHEAR SETTER Sexual Orientation Straight 09/26/2020 6: 43 AM SHEAR SETTER documented as of this encounter Plan of Treatment Upcoming Encounters Date Type Department Care Team (Late st Contact Info) Description 09/24/2024 10:15 AM SHEAR SETTER Telemedicine Department of Neurology in [place], [place] [address] [place] [address] Diana Price, PEDRO, C.N.P., M.S.N. [address] [place] [address] documented as of this encounter Visit Diagnoses Not on filedocumented in this encounter Additional Health Concerns Assessment Noted Time PHQ-9 Depression Total Score: 12 024 2:02 PM CDT documented as of this encounter Care Teams Tobacco Hanger Relationship Specialty Start Date End Date Elsewhere, Pcp PCP - General Internal Medicine 06/12/24 documented as of this encounter
--- OUTSIDE RECORDS SUMMARY | 2024-07-16 07:15 | XMS_ITS | Continuity of Care Document ---
Author Organization [facility] Address [address] [place] [address] Phone Care Team Providers Care Specialty Sales Consultant Name Role Phone Irena RUSS, PhD, Pankaj [...] ient Visit,Est, Mod [facility], [address], [place], [id number], [place] tel:[phone] [facility] Other intervertebral disc displacement, lumbar region 3 Irena Lira. [facility] [place], [address], [place], [address], [place]. tel:[phone] Referring Provider: Dong Ruvalcaba, [address], [address]. tel:[phone] [facility], [address], [place], [place], [id number], [place] tel:[phone] [facility] No Information 3 Vu Samuel. [facility], [address], [place], [place], [id number] , [place]. [phone] OFFICE/OUTPAT IENT VISIT EST Video [facility], [address], [place], [id number], [place] tel:[phone] [facility] No Information 2 Vu Samuel. [facility] [place], [address], [place], [place], [id number] , [place]. [phone] Referring Provider: Dong Ruvalcaba, [address], [address]. tel:[phone] OFFICE/OUTPAT IENT VISIT EST Phone [facility], [address], [place], [id number], [place] tel:[phone] [facility] No Information 2 Vu Samuel. [facility] [place], [address], [place], [place], [id number] , [place]. [phone] Referring Provider: Dong Ruvalcaba, [address], [address]. tel:[phone] Office/Outpat ient Visit,Est, Mod [facility], [address], [place], [place], [id number], [place] tel:[phone] [facility] Other intervertebral disc displacement, lumbar region 1 Vu Samuel. [facility] [place], [address], [place], [place], [id number] , [place]. tel:[phone] Referring Provider: Dong Ruvalcaba, [place] [address] [place] [address], [address]. tel:[phone] Office/Outpat ient Visit,Est, Mod [facility], [address], [place], [id number], [place] tel:[phone] [facility] Other intervertebral disc displacement, lumbar region 1 Vu Samuel. [facility], [address], [place], [place], [id number] , [place]. tel:[phone] Referring Provider: Dong Ruvalcaba, [place] [address] [place] [address], [address]. tel:[phone] Family History Family Member Type Diagnosis Age [...]
--- OUTSIDE RECORDS SUMMARY | 2024-07-16 07:15 | XMS_ITS | Clinical Summary ---
Author Organization [facility] Address [address] [place] [address] Care Team Providers Care Cloth Shearing Supervisor Name Role Phone Coral Douglas NP Primary Care Provider [phone] Allergies Active Allergy Reactions Criticality Noted Date [...] Date Diagnosed Date Severe persistent asthma, uncomplicated 02/27/20 20 Chronic rhinosinusitis 02/27/2020 Social History Tobacco Use [...] (once per calendar year) 2023 INFLUENZA VACCINE (#1) 2024 , 06/08/2020, 06/11/2019, Additional history exists DTAP/TDAP/TD IMMUNIZATION (3 - Td or Tdap) 05/14/2031 05/14/2021, 05/10/2011 Pneumococcal Vaccine: Pediatrics (0 to 5 Years) and At-Risk Patients (6 to 64 Years) (3 of 3 - PPSV23 or PCV20) 2045 11/08/2019, 10/28/2019 RSV VACCINE (1 - 1-dose 75+ series) 2055 HPV IMMUNIZATION Aged Out No longer e ligible based on patient's age to complete this topic MENINGITIS IMMUNIZATION Aged Out No l onger eligible based on patient's age to complete this topic RSV MONOCLONAL ANTIBODY Aged Out No l onger eligible based on patient's age to complete this topic Care Teams Cloth Shearing Supervisor Relationship Specialty Start Date End Date Coral Douglas NP PCP - General Nurse Practitioner 09/20/17
--- OUTSIDE RECORDS SUMMARY | 2024-07-16 07:15 | XMS_ITS | Referral Summary ---
Author Organization [facility] Address [address] [place] [address] Care Team Providers Care Physics Technician Name Role Phone Coral Douglas NP Primary Care Provider [phone] Allergies Active Allergy Reactions Criticality Noted Date [...] of Treatment Not on file Care Teams Physics Technician Relationship Specialty Start Date End Date Coral Douglas NP PCP - General Nurse Practitioner 09/20/17
--- OUTSIDE RECORDS SUMMARY | 2024-07-16 07:15 | XMS_ITS | Encounter Summary ---
Author Organization [facility] Address [address] [place] [address] Care Team Providers Care Train Electronic Technician Name Role Phone Elsewhere, Pcp Primary Care Provider Unavailabl e Reason for Referral * Outpatient (Routine) - Authorized Specialty Diagnoses / Procedures Referred By Loni t Referred To Contact Neurology Diana Price APRN, C.NJuan Francisco, M.S.N. [address] [place] [address] Phone: tel: fax: [facility] Referral ID Status Reason Start Date Expiration Date V isits Requested Visits Authorized [id number] Authorized 06/19/2024 12/19/2025 1 1 * Medication Prior Authorization - Authorized Specialty Diagnoses / Procedures Referred By Loni t Referred To Contact Diana Price APRN, C.N.Ang, M.S.N. [address] [place] [phone] Phone: tel: fax: Referral ID Status Reason Start Date Expiration Date V isits Requested Visits Authorized [id number] Authorized 03/22/2024 06/20/2025 1 1 Reason for Visit * Outpatient (Routine) - Closed Specialty Diagnoses / Procedures Referred By Contac t Referred To Contact Neurology Diana Price APRN, C.N.P., M.S.N. [address] [place] [address] Phone: tel: fax: [facility] Referral ID Status Reason Start Date Expiration Date Visits Re quested Visits Authorized [id number] Closed 03/19/2024 09/18/2025 1 1 Encounter Details Date Type Department Care Team (Late st Contact Info) Description 06/19/2024 1:00 PM CDT Telemedicine Department of Neurology in [place], [place] [address] [place] [phone] Diana Price APRN, C.N.P., M.S.N. [address] [place] [phone] Chronic Migraine (Primary Dx); Migraine With Aura Not Intractable Without Status Migrainosus Social History Tobacco Use Types Packs/Day Years Used Date Smoking Tobacco: Never Passive Smoke Exposure: Never Smokeless Tobacco: Never Alcohol Use Standard Drinks/Week Comments Never 0 (1 standard drink = 0.6 oz pur e alcohol) [facility] Utilities Answer Date Recorded In the past 12 months has e [employer], gas, oil, or water [employer] threatened to shut off services in your [...] any clubs o r organizations such as scientologist groups, unions, fraternal or athletic groups, or [...] Answer Date Recorded PHQ-2 Score 2 06/18/2024 [facility] of Occupat ional [facility] - Occupational Stress Questionnaire Answer Date [...] your living situation today? I have a [facility] place to live 12/13/2023 Education Answer Date Recorded What is the highest level of school you have completed or the highest degree you have received? 12th grade 10/25/2022 Comments Unknown Sex and Gender Information Value Date Recorded Sex Assigned at Female 10/21/2021 4:05 AM THEATRE ARTS PROFESSOR Legal Sex Female 4:27 AM THEATRE ARTS PROFESSOR Gender Identity Female 09/26/2020 6:43 AM THEATRE ARTS PROFESSOR Sexual Orientation Straight 09/26/2020 6: 43 AM THEATRE ARTS PROFESSOR documented as of this encounter Progress Notes * Diana Price, PEDRO, C.N.P., M.S.N. - 06/19/2024 1:00 PM CDT SUBJECTIVE Visit was conducted via video consult using real-time audio/video technology by Diana Price CNP, at [facility] with the patient in the patient's home. CHIEF COMPLAINT / REASON FOR VISIT Follow up headaches Established care in Neurology Headache Clinic: 2020 Previous headache providers: Erickson Ayalaox: From April 2022 to April 2023 no improvement HISTORY OF PRESENT ILLNESS: Ms. Peters is a 43 y.o. female, with an established diagnosis of chronic migraine headaches and migraine headache with visual aura. Patient also has a history of anxiety, depression, asthma, GERD, hyperlipidemia, chronic cough, hypertension, and IBS. Ms. Peters returns today for follow upand subsequent evaluation of headache symptoms. Ms. Peters was last evaluated for headache follow-up on March 19, 2024. Visit we elected to stop Verapamil and start the Qulipta for migraine prophylaxis. She is tolerating the Qulipta without side effects. Her blood pressure remains stable, in the 120s over 80s according to the patient. She does not feel that she has been able to appreciate the benefit of Qulipta yet, as she has been treating costochondritis with daily ibuprofen the entire month of April. During that time she did have an increase in headache severity. She is no longer taking the daily ibuprofen. She had 1 round of oral prednisone during the summer months, which helped with the severity of her migraines. Recall that she also gets steroid shots for her shoulder and back pain, which also help with her migraines. Since our last visit she has noticed a new headache symptom involving diffuse holocephalic sharp shooting pains. The pain is short-lived but can occur several times throughout the day, several times per week. She denies pulsatile tinnitus, Valsalva headache, positional headache, or vision changes. She continues to experience visual aura with about 70% of her migraine headaches. Nausea and light sensitivity continue to be frequent symptoms when she has a migraine. Barometric pressure changes continue to be a trigger for her migraines. She continues to have significant light sensitivity associated with her migraines. She is going to court next week for disability in the context of her migraines, and is worried that the lights are going to trigger her migraines. She has wondering if there isanything she can do to minimize her light sensitivity. For preventive therapy she takes Qulipta 30 mg daily, Cymbalta 60 mg daily, and gabapentin 900 mg 3times daily. She continues to have daily severe migraine headaches. These headaches are quite debilitating and interfere with activities of daily living. She denies intolerable side effects to these medications. For abortive therapy she takes naratriptan 9 days per month for severe migraines. She will take an occasional naproxen paired with Tylenol for less severe headaches. She also takes Dramamine for motion sickness and Compazine for nausea several times per week. She has had an increase in nausea, which has been present 5 out of the 7 days of the week. She is not at risk for medication overuse. The patient continues to work closely with her local rib chopper for ongoing weight management strategies. She lost over 20 lb with dietary changes. Recall that the Depo shot was also discontinued due to the dramatic weight gain she has had over the years. PATIENT PROVIDED ELECTRONIC QUESTIONNAIRE DATA Current headache medications: Qulipta 30 mg daily; Headache activity past 4 weeks/ Medication side effects: Over the past 4 weeks, Ms. Peters reports having had 28 headache days. The patient rates the severity and disability of average headachesas 3 out of 3 in severity. Over the past 3 months, she reports experiencing side effects of: none MIDAS headache scale score: [450] PHQ9 depression/anxiety score: 06/18/2024 1:10 PM PHQ9 Score PHQ-9 Total Score (max 27) 11 Previous Headache Medications: Tylenol, Aleve, Excedrin, ibuprofen, naratriptan, rizatriptan GI upset, sumatriptan did not tolerate Amitriptyline, Cymbalta, metoprolol, Topamax dizzy and abdominal discomfort, verapamil dizzy, gabapentin for back pain, Botox, Emgality, Ajovy, Depakote nausea, Qulipta PERTINENT EVALUATIONS/IMAGING/TESTS 11/11/20 MRI/MRV Brain no evidence of IIH 11/13/20: LP [address] scan no evidence of chronic sinusitis Follows immunology at outside institution Follows rib chopper locally for weight management strategies Pulmonology consult for chronic cough Follows ENT locally for chronic cough and recurrent sinus issues OBJECTIVE PHYSICAL EXAM Deferred ASSESSMENT / PLAN #1 Chronic migraine headaches #2 Migraine headache with visual aura #3 Sinus pain with recurrent sinusitis symptoms #4 Chronic cough Ms. Peters continues to struggle with nearly daily severe migraines after starting Qulipta. She was on daily ibuprofen for costochondritis the entire month of April, which may have caused an increase in headache severity. She is no longer taking daily ibuprofen, and she is not overusing her other abortive therapies. At this time I recommend increasing the Qulipta from 30 mg to 60 mg daily. I will see her back in 3 months to reassess her response to the higher dose of medication. The patient can use Compazine for nausea 3-4 times per week, to target nausea. We also discussed the use of FL 41 lenses, which can be helpful for her light sensitivity. I will hold off on reimaging at this time, and see if she responds to the higher dose of Qulipta. If she continues to have daily severe migraines, I will plan to move forward with a repeat MRI brain with and without contrast in August. The patient may contact me via the patient portal or contact my medical office secretary directly with any additional questions or concerns. All questions were answered to the best of my ability, and the patient verbalized understanding of the proposed treatment plan as outlined below: SUMMARY OF RECOMMENDATIONS: Preventive therapy: Increase Qulipta to 60 mg daily. Continue Cymbalta 60 mg daily and gabapentin 900 mg tid for back pain. For acute treatment of mild to moderate [...] to no more than 9 days per month. For nausea associated with headache the patient may take compazine as needed 3-4 times per week. The patient also has Dramamine for motion sickness which she takes on a p.r.n. basis. Limit all abortive therapies collectively to no more than 14 days per month to avoid medication overuse headache or blocking the effects of preventive therapies. Nonmedicinal migraine strategies: FL 41 lenses were discussed today. Future considerations for treatment include increasing Cymbalta or gabapentin, Vyepti, Nurtec, Lyrica, candesartan, restart verapamil if off Qulipta. Consider prednisone taper 3 times/year to break status. Also consider nerve blocks, codes were sent via portal. Consider MRI Brain with/wo contrast if not responsive to higher dose of Qulipta. Nonmedicinal headache treatments: Cefaly has been discussed in the past. Caution: Avoid medications that cause weight gain, avoid propranolol with asthma. Consider sleep medicine consult at some point in the future if headaches remain refractory. Follow up recommendations: 3 months via video visit. documented in this encounter Plan of Treatment Upcoming Encounters Date Type Department Care Team (Late st Contact Info) Description 09/24/2024 10:15 AM [facility] Telemedicine Department of Neurology in [place], [place] [address] [place] [address] Diana Price APRN, C.N.P., M.S.N. [address] [place] [address] Scheduled Referrals Name Type Priority Associated Diagnoses Orde r Schedule Neurology office visit (clinic) Outpatient Referral Routine Expected: 09/18/2024, Expires: 09/18/2025 documented as of this encounter Visit Diagnoses Diagnosis Chronic Migraine- Primary Migraine With Aura Not Intractable Without Status Migrainosus documented in this encounter Additional Health Concerns Assessment Noted Time PHQ-9 Depression Total Score: 11 06/18/2 024 1:10 PM CDT documented as of this encounter Care Teams Train Electronic Technician Relationship Specialty Start Date End Date Elsewhere, Pcp PCP - General Internal Medicine 06/12/24 documented as of this encounter
--- OUTSIDE RECORDS SUMMARY | 2024-07-16 07:15 | XMS_ITS ---
Author Organization [facility] Address [address] [place] [address] Care Team Providers Care Insulation Applicator Name Role Phone Unavailable Unavailable Unavailable Surgery Details Not on file Complications Check Surgery Details section. Procedure Estimated Blood Loss Check Surgery Details section. Procedure Findings Check Surgery Details section. Procedure Specimens Taken Check Surgery Details section.
--- OUTSIDE RECORDS SUMMARY | 2024-07-16 07:15 | XMS_ITS | Encounter Summary ---
Author Organization [facility] Address [address] [place] [address] Care Team Providers Care Network Strategist Name Role Phone Unavailable Primary Care Provider Unavailabl e Reason for Visit * Reason Onset Date Comments RX APPROVAL 03/21/2024 QULIPTA 30MG TAB Encounter Details Date Type Department Care Team (Latest Contact Info) Description 03/21/2024 Clinical Communication Pharmacy Prior Auth RO [phone] Lupe Romano RX APPROVAL (QULIPTA 30MG TAB) Social History Tobacco Use Types Packs/Day Years Used Date Smoking Tobacco: Never Passive Smoke Exposure: Never Smokeless Tobacco: Never Alcohol Use Standard Drinks/Week Comments Never 0 (1 standard drink = 0.6 oz pur e alcohol) [facility] Utilities Answer Date Recorded In the past 12 months has e [employer], gas, oil, or water [employer] threatened to shut off services in your [...] often do you attend chur ch or islam services? Never 10/25/2022 Do you belong to any clubs o r organizations such as yazdanism groups, unions, fraternal or athletic groups, or [...] Answer Date Recorded PHQ-2 Score 2 03/18/2024 [facility] of Occupat ional Health - Occupational Stress [...] your living situation today? I have a [facility] place to live 12/13/2023 Education Answer Date Recorded What is the highest level of school you have completed or the highest degree you have received? 12th grade 10/25/2022 Comments Unknown Sex and Gender Information Value Date Recorded Sex Assigned at Female 10/21/2021 4:05 AM PLATING OPERATOR Legal Sex Female 4:27 AM PLATING OPERATOR Gender Identity Female 09/26/2020 6:43 AM PLATING OPERATOR Sexual Orientation Straight 09/26/2020 6: 43 AM PLATING OPERATOR documented as of this encounter Miscellaneous Notes * Telephone Encounter - Lupe Romano - 03/21/2024 8:02 AM CDT Pharmaceutical prior authorization has been approved for QULIPTA 30MG TAB If you have any follow-up questions, please send an [employer] message to P [facility] PO[facility]. documented in this encounter Plan of Treatment Upcoming Encounters Date Type Department Care Team (Late st Contact Info) Description 09/24/2024 10:15 AM PLATING OPERATOR Telemedicine Department of Neurology in [place], [place] [address] [place] [address] Diana Price, PEDRO, C.N.P., M.S.N. 200 [place] [address] documented as of this encounter Visit Diagnoses Not on filedocumented in this encounter Additional Health Concerns Assessment Noted Time PHQ-9 Depression Total Score: 12 024 2:02 PM CDT documented as of this encounter
--- OUTSIDE RECORDS SUMMARY | 2024-07-16 07:15 | XMS_ITS | Referral Summary ---
Author Organization [facility] Address [address] [place] [address] Care Team Providers Care Benefit Authorizer Name Role Phone Elsewhere, Pcp Primary Care Provider Unavailabl e Source Comments Patient records contain information from all sites at [facility]. For routine questions regarding patient records, call [phone] during business hours, M-F 8:00 AM - 5:00 PM Central Time. Record requests for emergency care only can be directed to [phone] at any time.[facility] Encounters Date Type Department Care Team Description 06/19/2024 1:00 PM CDT Telemedicine Department of Neurology in [address] [phone] Diana Price, PEDRO, C.N.P., M.S.N. Chronic Migraine (Primary Dx); Migraine With Aura Not Intractable Without Status Migrainosus 06/12/2024 8:15 AM CDT Clinical Communication Virtual Review in [place], [place] [address] [place] [phone] Pre-visit Intake from Last 3 Months Allergies [...] (Reselect Reaction),Itching,Edgar h,Wheezing (Reselect Reaction) High 10/12/2020 [facility] Anaphylaxis High 01/28/2020 Metoprolol [...] week, then stop. 21 tablet 03/19/20 24 024 Discontinued predniSONE (Deltasone) 10 mg tablet Take [...] drink = 0.6 oz pur e alcohol) [employer] Answer Date Recorded In the past 12 months has [employer], gas, oil, or water [employer] threatened to shut off services in [...] Never 10/25/2022 How often do you attend [facility] or baptist services? Never 10/25/2022 Do you belong to any clubs o r organizations such as methodist groups, unions, fraternal or athletic groups, or [...] Answer Date Recorded PHQ-2 Score 2 06/18/2024 [facility] of Occupat ional [facility] - Occupational Stress Questionnaire Answer Date [...] your living situation today? I have a [facility] place to live 12/13/2023 Education Answer Date Recorded What is the highest level of school you have completed or the highest degree you have received? 12th grade 10/25/2022 Comments Unknown Sex and Gender Information Value Date Recorded Sex Assigned at Female 10/21/2021 4:05 AM DATA CONTROL CLERK Legal Sex Female 4:27 AM DATA CONTROL CLERK Gender Identity Female 09/26/2020 6:43 AM DATA CONTROL CLERK Sexual Orientation Straight 09/26/2020 6: 43 AM DATA CONTROL CLERK Last Filed Vital Signs Vital Sign Reading Time Taken Comments Blood Pressure 168/103 02/08/2022 10:50 AM CDT Pulse 120 02/08/2022 10:50 AM CDT Temperature 36.9 ??C (98.4 ??F) 10/25/2021 3:48 PM CS T Respiratory Rate 18 11/13/2020 11:21 AM DATA CONTROL CLERK Oxygen Saturation 95% 12/03/2021 8:47 AM DATA CONTROL CLERK Inhaled Oxygen Concentration - - Weight 167 kg (368 lb 2.7 oz) 02/08/2022 10:50 A M CDT Height 180.5 cm (5' 11.06) 02/08/2022 10:50 AM CDT Body Mass Index 51.26 02/08/2022 10:50 AM CDT Plan of Treatment Upcoming Encounters Date Type Department Care Team (Late st Contact Info) Description 09/24/2024 10:15 AM DATA CONTROL CLERK Telemedicine Department of Neurology in [place], [place] [address] [place] [phone] Diana Price APRN, C.N.P., M.S.N. 200 [place] [phone] Medical Devices Implanted Type Area Mine Motor Operator Device Identifier Shelf Expiration Date Model / Serial / Lot Bilateral Ankle Hardware e.g. pins/screws/ rods Bilateral: Ankle Imaging Marker Imaging Marker Breast Description:Unknown which [facility] Insurance [facility] [place] [phone] Care Teams Benefit Authorizer Relationship Specialty Start Date End Date Elsewhere, Pcp PCP - General Internal Medicine 06/12/24
--- OUTSIDE RECORDS SUMMARY | 2024-07-16 07:16 | XMS_ITS | Clinical Summary ---
Author Organization [employer] [facility] Address [place], [place] [address] Care Team Providers Care An/Syq 13 Nav/C2 Operator Name Role Phone Do Barlow DO Primary Care Provider [phone] Ela Waldron CONTINUOUS MINING MACHINE OPERATOR Unavailable Darion Erazo RN Unavailable Kvng Sher Unavailable [phone] Diana Price CONTINUOUS MINING MACHINE OPERATOR Unavailable Wesley Wilson MD Unavailable Philip Romano MD Unavailable Carol Esquivel MD Unavailable Giulia Phoenix CONTINUOUS MINING MACHINE OPERATOR Unavailable Allergies Active Allergy Reactions Criticality Noted [...] by mouth once daily. every morning 0 05/20/20 19 Active loperamide (IMODIUM) 1 mg/7.5 mL liquidIndications: Chronic diarrhea Take 15 mL (2 mg) by mouth each time if needed for Diarrhea. 236 mL 11/11/19 22 Active Pulmozyme 1 mg/mL neb solution 06/27/20 22 Active ipratropium (ATROVENT NASAL) 42 mcg (0.06 %) nasal spray Inhale 2 Sprays to both nostrils four times daily. 15 mL 07/04/20 22 Active cyanocobalamin, vitamin B-12, [address] 500 mcg under the tongue. Active Dulera 200-5 mcg/actuation inhaler 05/05/20 23 Active naproxen (ANAPROX DS) 550 mg tablet TAKE ONE TABLET BY MOUTH TWICE A DAY NEEDED FOR MILD HEADACHE MAX 14 DAYS PER MONTH Active naratriptan (AMERGE) 2.5 mg tablet TAKE ONE TABLET BY MOUTH EVERY 4 HOURS NEEDED FOR MIGRAINE. MAX 5MG (2 TABS) PER DAY. MAX 9 DAYS PER MONTH Active amLODIPine (NORVASC) 10 mg tabletIndications: Benign essential hypertension TAKE ONE TABLET BY MOUTH EVERY DAY 90 Tablet 3 08/15/20 23 Active prochlorperazine (COMPAZINE) 5 mg tabletIndications: Nausea TAKE ONE TO TWO TABLETS BY MOUTH EVERY 6 HOURS NEEDED FOR FOR NAUSEA AND VOMITING 30 Tablet 2 08/31/20 23 Active fluticasone (50 mcg per actuation) nasal solution (FLONASE)Indicatio ns:Chronic rhinosinusitis Inhale 1 [place] to both nostrils two times daily. 16 g 12 10/20/19 24 Active EPINEPHrine (EPIPEN) 0.3 mg/0.3 mL auto-injectorIndic ations:Allergic reaction, sequela Inject 0.3 mg (1 Pen) intramuscular each time if needed for Allergic Reaction. 2 Each 12 10/27/19 24 Active norethindrone (NORLUTATE) 5 mg tablet Take 2.5 mg by mouth once daily. Active mupirocin (BACTROBAN OINTMENT) ointmentIndication s:Nasal crusting Add pea size amount to sinus rinse three times a day 30 g 1 01/18/20 24 Active Additional Information Patient taking differently: EACH TIME PRN, Add pea size amount to sinus rinse three times a day, Reported on 02/28/2024 hydroCHLOROthiazid e 25 mg tabletIndications: Hypertension, unspecified type TAKE ONE TABLET BY MOUTH EVERY DAY 90 Tablet 3 01/23/20 24 Active gabapentin (NEURONTIN) 300 mg capsuleIndications :Acute bilateral low back pain without sciatica,Chronic midline low back pain with left-sided sciatica Take 3 Capsules (900 mg) by mouth three times daily. 810 Capsule 2 03/05/20 24 Active cyclobenzaprine (FLEXERIL) 5 mg tabletIndications: Acute bilateral low back pain without sciatica TAKE ONE TABLET BY MOUTH THREE TIMES A DAY NEEDED FOR MUSCLE SPASMS 90 Tablet 3 03/26/20 24 Active esomeprazole (NEXIUM) 20 mg capsuleIndications :Gastroesophageal reflux disease, unspecified whether esophagitis present TAKE ONE CAPSULE BY MOUTH EVERY DAY 90 Capsule 2 04/06/20 24 Active naltrexone (REVIA) 50 mg tabletIndications: Morbid obesity with BMI of 45.0-49.9, adult (HC) Take 1 Tablet (50 mg) by mouth once daily. Naltrexone should be stopped 7 days prior to any surgery or with concurrent oral opioids, opioid pain pump, opioid pain patches, opioid buccal films or medical marijuana. 04/11/20 24 Active benzonatate (TESSALON) 200 mg capsuleIndications :Vocal cord nodule Take 1 Capsule (200 mg) by mouth 3 times daily if needed for Cough. 90 Capsule 1 04/15/20 24 Active DULoxetine (CYMBALTA) 60 mg Delayed-release capsuleIndications :Depression with anxiety TAKE ONE CAPSULE BY MOUTH EVERY DAY 90 Capsule 3 04/22/20 24 Active Ventolin HFA 90 mcg/actuation inhalerIndications :Exacerbation of asthma, unspecified asthma severity, unspecified whether persistent INHALE TWO PUFFS BY MOUTH EVERY 4 HOURS NEEDED FOR SHORTNESS OF BREATH OR WHEEZING 18 g 1 05/06/20 24 Active Qulipta 30 mg tablet Take 30 mg by mouth once daily. 03/19/20 24 Active ferrous gluconate 324 mg (37.5 mg iron) tab tabletIndications: Low iron stores Take 1 Tablet (324 mg) by mouth once daily with a meal. 90 Tablet 1 05/24/20 24 Active Mucus Relief ER 600 mg Extended-Release tabletIndications: Chronic rhinosinusitis,Muc opurulent chronic bronchitis (HC) TAKE ONE TABLET BY MOUTH TWICE A DAY 180 Tablet 2 06/21/20 24 Active albuterol 0.083% (2.5 mg/3 mL) neb solutionIndication s:Exacerbation of asthma, unspecified asthma severity, unspecified whether persistent Inhale 3 mL (2.5 mg) via a nebulizer every 6 hours if needed for Shortness Of Breath. 180 mL 06/18/20 Active tiotropium (spiriva) 18 mcg inhalation capsuleIndications :Chronic cough Inhale 1 Capsule (18 mcg) by mouth once daily. Using a SPRIVA HANDIHALER wilde the capsule, then by mouth breathe in the powder. Inhale twice from the same capsule for full dose. 90 Capsule 3 06/18/20 24 Active montelukast (SINGULAIR) 10 mg tabletIndications: Intrinsic asthma Take 1 Tablet (10 mg) by mouth at bedtime. 90 Tablet 3 06/18/20 24 Active mometasone-formote rol (Dulera) 200-5 mcg/actuation inhalerIndications :Intrinsic asthma Inhale 2 Puffs by mouth two times daily. 13 g 06/18/20 Active albuterol (PROVENTIL) 0.083 % neb solutionIndication s:Exacerbation of asthma, unspecified asthma severity, unspecified whether persistent INHALE 3ML (1 AMPULE) VIA A NEBULIZER EVERY 4 HOURS NEEDED 1 box 2 09/21/20 20 024 Discontinued(*M edication adjustment) montelukast (SINGULAIR) 10 mg tabletIndications: Intrinsic asthma TAKE ONE TABLET BY MOUTH AT BEDTIME 90 tablet 2 11/01/19 21 024 Discontinued(Re order (E-cancel not sent)) guaiFENesin (Mucus Relief ER) 600 mg Extended-Release tabletIndications: Chronic rhinosinusitis,Muc opurulent chronic bronchitis (HC) TAKE ONE TABLET BY MOUTH TWICE A DAY 180 Tablet 2 10/09/19 24 024 Discontinued spiriva 18 mcg inhalation capsuleIndications :Chronic cough INHALE ONE CAPSULE BY MOUTH EVERY DAY USING HANDIHALER WILDE CAPSULE AND BREATHE IN POWDER. INHALE SAME CAPSULE TWICE 90 Capsule 04/22/20 24 024 Discontinued(Re order (E-cancel not sent)) amoxicillin-clavul anate (AUGMENTIN) 875-125 mg tabletIndications: Chronic rhinosinusitis Take 1 Tablet by mouth every 12 hours for 14 days. 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 Krishan Almendarez at [facility] in Oct 2020. 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 Ear pain 07/11/2012 Overview (06/07/2023): improved improved GERD (gastroesophageal reflux disease) 1 Allergic rhinitis, cause unspecified 04/02/2008 Dysthymic disorder 06/17/2007 Irritable bowel syndrome 12/20/2006 Neuritis of right sural nerve Resolved Problems Problem Noted Date Diagnosed Date Resolved Date COVID-19 virus infection 09/22/2020 Overview (09/22/2020): Positive covid antibody in Aug 2020, likely infection in Jul 2020 Pain 12/21/2018 05/14/2021 Moderate persistent asthma w ith acute exacerbation 02/07/2018 05/14/2021 Overview (11/18/2020): heterozygous for alpha 1 antitrypsin Adjustment disorder 01/27/2017 01/28/20 HTN (hypertension) 11/09/2015 1 Obesity 11/03/2014 05/14/2021 ALLERGIC RHINITIS 06/17/2007 01/30/2010 Unspecified asthma(493.90) 12/20/2006 0 05/14/2021 Scar tissue 05/14/2021 Encounters Date Type Department Care Team Description 07/11/2024 Travel 07/10/2024 8:45 AM CDT - 07/10/2024 11:59 PM CDT Hospital Encounter [facility] [address] [place] [address] Philip Romano MD Chronic cough 07/10/2024 Travel 07/07/2024 Travel 06/26/2024 9:00 AM CDT Telemedicine [facility] [address] [place] [address] Rukhsana Blair, [facility] Mental Health Consultants Visit; Telehealth 06/21/2024 Travel 06/18/2024 7:30 AM CDT Telemedicine [facility] [address] [facility] [address] [place] [id number] Philip Romano MD 06/17/[address] [place] [address] Do Barlow, DO Refill Request (Mucus Relief Er) 06/13/2024 Travel 06/12/2024 9:00 AM CDT Telemedicine [address] [place] [address] Rukhsana Blair, [facility] Mental Health Consultants Visit; Telehealth 06/10/2024 7:30 AM CDT Office Visit [address] [place] [address] Do Barlow, DO Medication Management 06/10/2024 Travel 06/08/2024 Travel 06/07/2024 7:45 AM CDT Procedure Only [facility] [address] [place] [address] Lazaro Ramirez MD Procedure (USGI-Right shoulder glenohumera... 06/07/2024 Travel 06/05/2024 Travel 06/04/2024 8:30 AM CDT Telemedicine [address] [place] [address] Medical Nutrition Therapy (MWL.12) 06/04/2024 Travel 05/30/2024 Travel 05/29/2024 9:00 AM CDT Telemedicine [address] [address] Rukhsana Blair, [facility] Mental Health Consultants Visit; Telehealth 05/24/2024 Travel 05/24/2024 Medical Messaging [facility] [address] [place] [address] Lazaro Ramirez MD Need some shots 05/23/2024 Orders Only [facility] Scanner 1 scan: (1-Ord) REALTIME, MYCOTOXIN PANEL REPORT, 05/23/2024 05/20/2024 9:10 AM CDT Office Visit [address] [address] Do Barlow, Hospital F/U (Seen in ED on 05/18/24 for chest discomfort/pain, SOB) 05/20/2024 Travel 05/18/2024 11:10 AM CDT - 05/18/2024 3:56 PM CDT Emergency [facility] [address] [place] [address] Kana Lora MD Chest discomfort (Primary Dx) Discharge Disposition: Home Self Care 05/18/2024 Travel 05/16/2024 8:15 AM CDT Telemedicine [facility] [address] [place] [address] Giulia Phoenix NP Follow Up; Telehealth 05/15/2024 9:00 AM CDT Telemedicine [facility] [address] [place] [address] Rukhsana Blair, [facility] Mental Health Consultants Visit; Telehealth 05/11/2024 Travel 05/10/2024 Travel 05/04/2024 Refill [facility] [address] [place] [address] Do Barlow DO Refill Request (Ventolin Hfa) 04/30/2024 9:00 AM CDT Telemedicine [facility] [address] [place] [address] Rukhsana Blair, [facility] Mental Health Consultants Visit; Telehealth 04/27/2024 8:54 AM CDT - 04/27/2024 1:35 PM CDT Emergency [facility] [address] [place] [address] Florence Mcnair MD Chest tightness (Primary Dx); History of asthma Discharge Disposition: Home Self Care 04/27/2024 Travel 04/20/2024 Refill [facility] [address] [place] [address] Kvng Sher MBBS Refill Request (Spiriva) 04/17/[address] [place] [address] Do Barlow, Refill Request (Duloxetine) 04/16/2024 10:00 AM CDT Telemedicine [address] [place] [address] Rukhsana Blair, [facility] Mental Health Consultants Visit; Telehealth; Trmt Plan 04/15/2024 7:30 AM CDT Office Visit [address] [place] [address] Do Barlow, Medication Management (Recheck lungs) 04/15/2024 Travel from Last 3 Months Immunizations Name Administration Dates Next Due COVID-19 VACCINE SPIKEVAX (M ODERNA 50MCG/0.5ML) 12YO+ PFS 07/17/2023 COVID-19 vaccine (SEDEMAC [employer] NTech 30mcg/0.3mL) 12YO+ BIVALENT PF, MDV 07/04/2022 COVID-19 vaccine ([employer]-Bio NTech 30mcg/0.3mL) PF, MDV 08/10/2021,01/12/2021,12/20/2020 Hepatitis B [...] Answer Date Recorded PHQ-2 TOTAL SCORE 2 07/07/2024 Social Connections Answer Date Recorded Frequency of Communication with Friends and Fami ly 4 12/16/2023 Financial Resource Strain Answer Date R ecorded Difficulty of Paying Living Expenses 3 12/16/2023 Difficulty of Paying Living Expenses Not on file 12/16/2023 Food Insecurity Answer Date Recorded Do you worry your food will run out before you are able to buy more? 1 12/16/2023 Transportation Needs Answer Date Record ed Lack of Transportation (Medical) 1 12/16/2023 Housing Stability Answer Date Recorded What is your housing situation today? 1 12/16/2023 Sex and Gender Information Value Date Recorded Sex Assigned at Not on file Gender Identity Not on file Sexual Orientation Not on file Obstetrics History Last Filed Vital Signs Vital Sign Reading Time Taken Comments Blood Pressure 122/72 06/10/2024 7:33 AM CDT Pulse 103 06/10/2024 7:33 AM CDT Temperature 36.8 ??C (98.2 ??F) 06/07/2024 7:47 AM CD T Respiratory Rate 20 05/20/2024 9:31 AM CDT Oxygen Saturation 99% 06/10/2024 7:33 AM CDT Inhaled Oxygen Concentration - - Weight 151.4 kg (333 lb 12.8 oz) 06/10/2024 7:33 AM CDT Height 177.8 cm (5' 10) 06/04/2024 9:00 AM CDT Body Mass Index 47.9 06/04/2024 9:00 AM CDT Plan of Treatment Upcoming Encounters Date Type Department Care Team (Late st Contact Info) Description 07/16/2024 8:00 AM CDT Office Visit [facility] [address] [place] [address] Lazaro Ramirez MD [address] [place] [address] 07/25/2024 8:00 AM CDT Telemedicine [facility] [address] [place] [address] Rishi Peter, [place], [facility] [address] [place] [address] 08/05/2024 8:15 AM BIODIESEL PRODUCT MANAGER Telemedicine [place] [address] [address] [phone] [place] [address] [facility] [facility] [address] [place], [place] [phone] 08/06/2024 8:00 AM BIODIESEL PRODUCT MANAGER Telemedicine [facility] [address] [place] [address] Kayla Ortiz, NIKKI [address] [place] [address] 09/09/2024 7:30 AM BIODIESEL PRODUCT MANAGER Telemedicine [facility] [address] [place] [address] Do Barlow, DO [address] [place] [address] 10/07/2024 8:00 AM BIODIESEL PRODUCT MANAGER Telemedicine Replaced By [facility] [address] [place] [address] Ela Waldron NP [address] [place], [place] [phone] Health Maintenance Due Date Last Done Comments Influenza for age 9-49 05/26/2024 3, 07/04/2022, 07/05/2021, Additional history exists Pap test for age 21-65 10/28/2024 0, 10/28/2019, 11/01/2016, Additional history exists BMI (ht and wt on same day) for age 18+ 06/04/2025 06/04/2024, 04/11/2024, 04/02/2024, Additional history exists Depression screening for age 12+ 10/07/2025 10/07/2024, 07/10/2024, 07/08/2024, Additional history exists Tetanus booster 05/14/2031 05/14/2021, 04/25, 10/20/1997 Tdap Completed 05/14/2021, 05/10/2011 Pneumococcal series for age 6-64 Completed 09/29/19, 10/28/2019 HIV for age 15-65 Completed 07/17/2023 Hepatitis C screening for ag e 18-79 Completed 07/17/2023, 11/08/2004 COVID-19 vaccine series Completed 06/25/20, 07/17/2023, 07/04/2022, Additional history exists Medical Devices Implanted Type Area Lastex Operator Device Identifier Shelf Expiration Date Model / Serial / Lot Mar-1688-Cp - [id number] Implanted:Qty: 1 on 07/18/2016 by Marcio Kramer DPM at [facility] Left: Ankle [employer] 04/24/2018 [id number] / / [id number] Description:Internal Brace Ancr Soft Tissue 4.75mm X 19mmswivelock - [id number] Implanted:Qty: 1 on 07/18/2016 by Marcio Kramer DPM at [facility] Left: Ankle [employer] Inc 01/22/2018 AR-2324BCC # / / [id number] Ancr Sut 2.4x8.5mm Suturetak Micro W/2-0 Fiberwire Ndls Bio - [id number] Implanted:Qty: 2 on 07/18/2016 by Marcio Kramer DPM at [facility] Left: Ankle [employer] 09/25/2016 [id number] F# / / [id number] Description:Suture anchor [facility]-8990st - [id number] Implanted:Qty: 2 on 10/22/2018 by Marcio Kramer DPM at [facility] Right: Ankle [employer] Inc 06/24/2023 AR-8990ST / / [id number] Description:Fiber Jordan DX Sut ure [place] with 1.3mm Fiberwire Suture Tape and Howe [facility]-1688-Cp - [id number] Implanted:Qty: 1 on 10/22/2018 by Marcio Kramer DPM at [facility] Right: Ankle [employer] Inc 08/24/2020 [id number] / / [id number] Description:Implant System, Internal brace Ligament Augmentation Repair Flexible Collagen Nerve Cuff- Neuroflex Implanted:Qty: 1 on 06/17/2019 by Marcio Kramer DPM at [facility] Right: Leg [employer] 09/24/2019 [id number] / / [id number] Description:On our shelf, wi th Jan implants Flexible Collagen Nerve Cuff- Neuroflex Implanted:Qty: 1 on 06/17/2019 by Marcio Kramer DPM at [facility] Right: Leg [employer] 11/23/2019 [id number] / / [id number] Description:In our cupboard with [place] implants Collagen Nerve Wrap- Neuromend Implanted:Qty: 1 on 06/17/2019 by Marcio Kramer DPM at [facility] Right: Leg [employer] 09/24/2019 [id number] / / [id number] Description:From our shelf b y Jan implants Explanted Type Area Lastex Operator Device Identifier Shelf Expiration Date Model / Serial / Lot Mar-8990st - [id number] Explanted:Qty: 1 on 10/22/2018 by Marcio Kramer DPM at [facility] Right: Ankle [employer] 06/24/2023 [id number] / / [id number] Description:Fiber Jordan DX Sut ure [place] with 1.3mm FiberWire Suture Tape and Howe Procedures Procedure Name Priority Date/Time Associated Diagnosis Comments COMPLETE PULMONARY FUNCTION TEST WITH BRONCHODILATOR Routine 07/10/2024 9:00 AM CDT Chronic cough BEDSIDE US STUDY ARCHIVE Routine 06/07/2024 10:50 AM CDT Instability of right shoulder joint Chronic right shoulder pain SCAN-LABORATORY REPORT 12:00 AM CDT RED CELL MORPHOLOGY Routine 05/20/2024 1 0:46 AM CDT Mucopurulent chronic bronchitis (HC) Chronic rhinosinusitis PLATELET ESTIMATE Routine 05/20/2024 10: 46 AM CDT Mucopurulent chronic bronchitis (HC) Chronic rhinosinusitis MANUAL DIFFERENTIAL Routine 05/20/2024 1 0:46 AM CDT Mucopurulent chronic bronchitis (HC) Chronic rhinosinusitis CBC WITH AUTO DIFFERENTIAL Routine 05/20/2024 10:46 AM CDT Mucopurulent chronic bronchitis (HC) Chronic rhinosinusitis BASIC METABOLIC PANEL Routine 05/20/2024 10:46 AM CDT Mucopurulent chronic bronchitis (HC) Chronic rhinosinusitis Hypokalemia C-REACTIVE PROTEIN Routine 05/20/2024 10 :46 AM CDT Mucopurulent chronic bronchitis (HC) Chronic rhinosinusitis CBC WITH AUTO DIFFERENTIAL Routine 05/20/2024 10:46 AM CDT Mucopurulent chronic bronchitis (HC) Chronic rhinosinusitis VITAMIN D 25 (DEFICIENCY) Routine 05/20/2024 10:46 AM CDT Abnormal RBC Irritable bowel syndrome with diarrhea Hormone imbalance Vitamin D insufficiency FERRITIN Routine 05/20/2024 10:46 AM CDT Abnormal RBC Irritable bowel syndrome with diarrhea Hormone imbalance VITAMIN B12 Routine 05/20/2024 10:46 AM CDT Abnormal RBC Irritable bowel syndrome with diarrhea Hormone imbalance CT CHEST PE STUDY STAT 05/18/2024 2:3 9 PM CDT TROPONIN T (HS) ONE TIME Timed 05/18/2024 1:47 PM CDT COVID-19 MOLECULAR Today 05/18/2024 12 :00 PM CDT XR CHEST 1 VIEW PORTABLE STAT 05/18/2024 11:58 AM CDT D-DIMER,QUANTITATIVE STAT 05/18/2024 11:44 AM CDT TROPONIN T (HS) ACUTE W/2HR REFLEX STAT 05/18/2024 11:44 AM CDT CBC W PLT NO DIFF STAT 05/18/2024 11: 44 AM CDT BASIC METABOLIC PANEL STAT 05/18/2024 11:44 AM CDT EKG 12 LEAD STAT 05/18/2024 11:20 AM CDT TROPONIN T (HS) ONE TIME Timed 04/27/2024 11:35 AM CDT XR CHEST 2 VIEWS PA AND LATERAL STAT 04/27/2024 11:00 AM CDT RED CELL MORPHOLOGY STAT 04/27/2024 9 :28 AM CDT PLATELET ESTIMATE STAT 04/27/2024 9:2 8 AM CDT MANUAL DIFFERENTIAL STAT 04/27/2024 9 :28 AM CDT CBC WITH AUTO DIFFERENTIAL STAT 04/27/2024 9:28 AM CDT TROPONIN T (HS) ACUTE W/2HR REFLEX STAT 04/27/2024 9:28 AM CDT BASIC METABOLIC PANEL STAT 04/27/2024 9:28 AM CDT D-DIMER,QUANTITATIVE STAT 04/27/2024 9:28 AM CDT CBC WITH AUTO DIFFERENTIAL STAT 04/27/2024 9:28 AM CDT EKG 12 LEAD STAT 04/27/2024 9:09 AM CDT ANTI HIV 1/2 Routine 07/17/2023 9:53 AM CDT Chronic rhinosinusitis Allergic rhinitis, unspecified seasonality, unspecified trigger ANTI HCV Routine 07/17/2023 9:53 AM CDT Chronic rhinosinusitis Allergic rhinitis, unspecified seasonality, unspecified trigger INDUSTRIAL TRUCK MECHANIC THIN PREP PAP SCREEN IMAGED Routine 10/28/2019 8:43 AM BIODIESEL PRODUCT MANAGER Pap smear for cervical cancer screening from Last 3 Months or Most Recently Relevant to Health Maintenance Results * COMPLETE PULMONARY FUNCTION TEST WITH BRONCHODILATOR (07/10/2024 9:00 AM CDT) Narrative BEYOND NOW - 07/10/2024 9:00 AM CDT Phiilp Romano MD ? 07/11/2024 ??4:14 PM Pulmonary Function Testing Interpretation: Effort: Good effort with reproducible results. Spirometry and Flow Volume Loop: Normal spirometry. Lung Volumes: Normal lung volumes. Elevated RV and RV/TLC indicate air trapping. Diffusing Capacity: Normal diffusing capacity. Conclusion: Normal pulmonary function tests. There is evidence of air trapping. Philip Romano MD ?? Pulmonary Medicine and Critical Care [facility] Philip Romano MD PFT ORD BEYOND NOW [place], [place] * BEDSIDE US STUDY ARCHIVE (06/07/2024 10:50 AM CDT) Narrative Bri Florence - 06/07/2024 10:50 AM CDT The patient was seen for ultrasound guided injection by Dr. Lazaro Ramirez. Ultrasound was not used for diagnostic purposes, but to guide the needle placement and document the position of the injection. ?? See patient's EPIC encounter for the detail of the procedure; see DEJAN for saved images of the injection. Lazaro Ramirez MD PROCEDURE ORD * SCAN-LABORATORY REPORT (05/23/2024 12:00 AM CDT) Scanner OTHER * (ABNORMAL) CBC WITH AUTO DIFFERENTIAL (05/20/2024 10:46 AM CDT) Only the most recent of2 resultswithin the time period is included. WHITE BLOOD COUNT 14.2(H) 4.5 - 11.0 thou/cu mm 05/20/2024 11:59 AM CDT [facility] RED BLOOD COUNT 5.17 4.00 - 5.20 mil/cu mm 05/20/2024 11:59 AM [facility] HEMOGLOBIN 13.3 12.0 - 16.0 g/dL 05/20/2024 11:59 AM [facility] HEMATOCRIT 40.9 33.0 - 51.0 % 05/20/2024 11:59 AM [facility] MCV 79(L) 80 - 100 fL 05/20/2024 11:59 AM [facility] MCH 25.7(L) 26.0 - 34.0 pg 05/20/2024 11:59 AM [facility] MCHC 32.5 32.0 - 36.0 g/dL 05/20/2024 11:59 AM [facility] RDW 15.9(H) 11.5 - 15.5 % 05/20/2024 11:59 AM [facility] PLATELET COUNT 332 140 - 440 thou/cu mm 05/20/2024 11:59 AM [facility] MPV 9.9 6.5 - 11.0 fL 05/20/2024 11:59 AM [facility] Blood BLOOD SPECIMEN / Unknown Butterfly / Unknown 05/20/2024 10:46 AM CDT 05/20/2024 10:46 AM CDT Do Barlow DO HEMATOLOGY [facility] [address] [place] [id number] * (ABNORMAL) RED CELL MORPHOLOGY (05/20/2024 10:46 AM CDT) Only the most recent of2 resultswithin the time period is included. ELLIPTOCYTES Few 05/20/2024 11:59 AM [facility] RBC COMMENT Present(A ) RBC morphology appears normal, RBC morphology within normal limits for newborns. 05/20/2024 11:59 AM [facility] Blood BLOOD SPECIMEN / Unknown Butterfly / Unknown 05/20/2024 10:46 AM CDT 05/20/2024 10:46 AM CDT Do Barlow DO HEMATOLOGY Performing Organization Address City/[facility]/ZIP Co de Phone Number [facility] [address] [place] [address] * PLATELET ESTIMATE (05/20/2024 10:46 AM CDT) Only the most recent of2 resultswithin the time period is included. PLATELET ESTIMATE Adequate Adequate, No estimate 05/20/2024 11:59 AM CDT [facility] Blood BLOOD SPECIMEN / Unknown Butterfly / Unknown 05/20/2024 10:46 AM CDT 05/20/2024 10:46 AM CDT Do Barlow DO HEMATOLOGY Performing Organization Address [facility] Co de Phone Number [facility] [address] [place] [address] * VITAMIN D 25 (DEFICIENCY) (05/20/2024 10:46 AM CDT) Pathologist [facility] VITAMIN D TOTAL 41.4 20.0 - 80.0 ng/mL 05/20/2024 11:26 PM CDT [facility] Blood BLOOD SPECIMEN / Unknown Butterfly / Unknown 05/20/2024 10:46 AM CDT 05/20/2024 10:46 AM CDT Narrative [facility] - 05/20/2024 11:26 PM CDT ? Vitamin D Status Deficiency: ? <20 ng/mL Insufficiency: ?20-29 ng/mL Sufficiency: ?30-80 ng/mL Possible Toxicity: ??>80 ng/mL Based on [place] of Medicine recommendations Biotin supplements may cause clinically significant interference for this test assay. ??If interference is suspected, it is strongly recommended that biotin is discontinued for at least one week prior to retesting. Giulia Phoenix CONTINUOUS MINING MACHINE OPERATOR SEND OUT S Performing Organization Address City/[facility]/ZIP Co de Phone Number [facility] [address] [place] [address], * (ABNORMAL) MANUAL DIFFERENTIAL (05/20/2024 10:46 AM CDT) Only the most recent of2 resultswithin the time period is included. % NEUTROPHILS 70.0 % 05/20/2024 11:59 AM T [facility] % LYMPHOCYTES 25.0 % 05/20/2024 11:59 AM T [facility] % MONOCYTES 4.0 % 05/20/2024 11:59 AM T [facility] % EOSINOPHILS 1.0 % 05/20/2024 11:59 AM [facility] % BASOPHILS 0.0 % 05/20/2024 11:59 AM [facility] NEUTROPHILS ABSOLUTE 9.9(H) 1.7 - 7.0 thou/cu mm 05/20/2024 11:59 AM T [facility] LYMPHOCYTES ABSOLUTE 3.6(H) 0.9 - 2.9 thou/cu mm 05/20/2024 11:59 AM T [facility] MONOCYTES ABSOLUTE 0.6 <0.9 thou/cu mm 05/20/2024 11:59 AM [facility] EOSINOPHILS ABSOLUTE 0.1 <0.5 thou/cu mm 05/20/2024 11:59 AM T [facility] BASOPHILS ABSOLUTE 0.0 <0.3 thou/cu mm 05/20/2024 11:59 AM T [facility] Blood BLOOD SPECIMEN / Unknown Butterfly / Unknown 05/20/2024 10:46 AM CDT 05/20/2024 10:46 AM CDT Do Barlow DO HEMATOLOGY [facility] [address] [place] [address] * (ABNORMAL) C-REACTIVE PROTEIN (05/20/2024 10:46 AM CDT) Pathologist [facility] C-REACTIVE PROTEIN 2.2(H) <0.5 mg/dL 05/20/2024 11:18 AM CDT [facility] Blood BLOOD SPECIMEN / Unknown Butterfly / Unknown 05/20/2024 10:46 AM CDT 05/20/2024 10:46 AM CDT Do Barlow DO CHEMISTRY Performing Organization Address [facility]/ZIP Co de Phone Number [facility] [address] [place] [address] * (ABNORMAL) FERRITIN (05/20/2024 10:46 AM CDT) FERRITIN 14.8(L) 15.0 - 150.0 ng/mL 05/20/2024 11:54 PM CDT [facility] Blood BLOOD SPECIMEN / Unknown Butterfly / Unknown 05/20/2024 10:46 AM CDT 05/20/2024 10:46 AM CDT Giulia Phoenix CONTINUOUS MINING MACHINE OPERATOR CHEMISTR Y Performing Organization Address [facility] de Phone Number [facility] [address] * (ABNORMAL) VITAMIN B12 (05/20/2024 10:46 AM CDT) VITAMIN B12 3,053(H) 232 - 1,245 pg/mL 05/20/2024 11:58 PM CDT [facility] Blood BLOOD SPECIMEN / Unknown Butterfly / Unknown 05/20/2024 10:46 AM CDT 05/20/2024 10:46 AM CDT Narrative [facility] - 05/20/2024 11:58 PM CDT Biotin supplements may cause clinically significant interference for this test assay. ??If interference is suspected, it is strongly recommended that biotin is discontinued for at least one week prior to retesting. Giulia Phoenix CONTINUOUS MINING MACHINE OPERATOR CHEMISTR Y Performing Organization Address [facility]/ZIP Co de Phone Number [facility] [address] [place] [address], * (ABNORMAL) BASIC METABOLIC PANEL (05/20/2024 10:46 AM CDT) Only the most recent of3 resultswithin the time period is included. SODIUM 138 136 - 145 mmol/L 05/20/2024 11:18 AM [facility] POTASSIUM 3.6 3.5 - 5.1 mmol/L 05/20/2024 11:18 AM [facility] CHLORIDE 102 98 - 107 mmol/L 05/20/2024 11:18 AM [facility] CO2,TOTAL 22 22 - 29 mmol/L 05/20/2024 11:18 AM [facility] ANION GAP 14 5 - 18 05/20/2024 11:18 AM [facility] GLUCOSE 103(H) 70 - 99 mg/dL 05/20/2024 11:18 AM [facility] CALCIUM 9.9 8.6 - 10.0 mg/dL 05/20/2024 11:18 AM [facility] BUN 14 6 - 20 mg/dL 05/20/2024 11:18 AM [facility] CREATININE 0.76 0.50 - 0.90 mg/dL 05/20/2024 11:18 AM [facility] BUN/CREAT RATIO 18 10 - 20 11:18 AM [facility] eGFR >90 >90 mL/min/1.7 3m2 05/20/2024 11:18 AM [facility] Comment:As of 2021, eG FR is calculated by the CKD-EPI creatinine equation without race adjustment. ??eGFR can be influenced by muscle mass, exercise, and diet. ??The reported eGFR is an estimation only and is only applicable if the renal function is stable. Blood BLOOD SPECIMEN / Unknown Butterfly / Unknown 05/20/2024 10:46 AM CDT 05/20/2024 10:46 AM CDT Do Barlow DO CHEMISTRY [facility] [address] [place] [address] * CT CHEST PE STUDY (05/18/2024 2:39 PM CDT) Anatomical Region Laterality Modality CHEST, THORAX, HEART Computed To mography 05/18/2024 3:14 PM CDT Impressions 05/18/2024 3:[address] of the chest. No pulmonary embolism or pneumonia. Please note that all CT scans at this facility use dose modulation, iterative reconstruction, and/or weight-based dosing when appropriate to reduce radiation dose to as low as reasonably achievable. Dictated by Dk Sandoval MD @ 05/18/2024 3:14:59 PM (Electronically Signed) Narrative 05/18/2024 3:14 PM CDT For Patients: ??As a result of the Cures Act, medical imaging exams and procedure reports are released immediately into your electronic medical record. ??You may view this report before your referring provider. ??If you have questions, please contact your health care provider. INDICATION: Pulmonary embolism (PE) suspected, positive D-dimer. TECHNIQUE: CT chest PE was acquired with 100 cc Omnipaque 350 IV contrast. COMPARISON: February 24, 2020. FINDINGS: Heart and vasculature: Contrast opacification of the pulmonary arterial tree is adequate. No sign of pulmonary embolism. Heart size is normal. Thoracic aorta and pulmonary artery are normal in caliber. Lungs and pleura: No suspicious nodules or infiltrates. There are scattered calcified granulomas. No pleural effusions, pleural thickening, or pneumothorax. Lymph nodes/mediastinum: No mediastinal, hilar, or axillary adenopathy. Chest wall: No masses. Upper abdomen: No acute or significant findings. Bones: Unremarkable for age. Procedure Note Dk Sandoval MD - 05/18/2024 For Patients: As a result of the Cures Act, medical imagingexams and procedure reports are released immediately into your electronicmedical record. You may view this report before your referring provider.If you have questions, please contact your health care provider. INDICATION: Pulmonary embolism (PE) suspected, positive D-dimer. TECHNIQUE: CT chest PE was acquired with 100 cc Omnipaque 350 IV contrast. COMPARISON: February 24, 2020. FINDINGS: Heart and vasculature: Contrast opacification of the pulmonary arterialtree is adequate. No sign of pulmonary embolism. Heart size is normal.Thoracic aorta and pulmonary artery are normal in caliber. Lungs and pleura: No suspicious nodules or infiltrates. There arescattered calcified granulomas. No pleural effusions, pleural thickening,or pneumothorax. Lymph nodes/mediastinum: No mediastinal, hilar, or axillary adenopathy. Chest wall: No masses. Upper abdomen: No acute or significant findings. Bones: Unremarkable for age. IMPRESSION: Unremarkable CT of the chest. No pulmonary embolism or pneumonia. Please note that all CT scans at this facility use dose modulation,iterative reconstruction, and/or weight-based dosing when appropriate toreduce radiation dose to as low as reasonably achievable. Dictated by Dk Sandoval MD @ 05/18/2024 3:14:59 PM (Electronically Signed) Kana Lora MD CT * TROPONIN T (HS) ONE TIME (05/18/2024 1:47 PM CDT) Only the most recent of2 resultswithin the time period is included. [facility] TROPONIN T HS 8 6-10 ng/L ng/L 05/18/2024 2:11 PM CDT [facility] Blood BLOOD SPECIMEN / Unknown Venipuncture / Unknown 05/18/2024 1:47 PM CDT 05/18/2024 1:53 PM CDT Kana oLra MD CHEMISTRY [facility] [address] [place] [address] * COVID-19 MOLECULAR (05/18/2024 12:00 PM CDT) [facility] COVID 19 ALLARABELLA MOLECULAR Not detected Not detected 05/18/2024 12:24 PM CDT [facility] TESTING LABORATORY [facility] 05/18/2024 12:24 PM CDT [facility] Comment:Specimen submitted t o [facility] for testing. Other SPECIMEN FROM NASOPHARYNGEAL STRUCTURE / Unknown Non-Blood / Unknown 05/18/2024 12:00 PM CDT 05/18/2024 12:03 PM CDT Kana Lora MD MICROBIOLOGY [facility] [address] [place] [address] * XR CHEST 1 VIEW PORTABLE (05/18/2024 11:58 AM CDT) Anatomical Region Laterality Modality HEART, THORAX, CHEST Digital Rad iography 05/18/2024 12:4 2 PM CDT Impressions 05/18/2024 12:42 PM CDT No acute or significant findings. Dictated by Roscoe Barajas MD @ 05/18/2024 12:42:57 PM (Electronically Signed) Narrative 05/18/2024 12:42 PM CDT For Patients: ??As a result of the Cures Act, medical imaging exams and procedure reports are released immediately into your electronic medical record. ??You may view this report before your referring provider. ??If you have questions, please contact your health care provider. INDICATION: Chest pain. TECHNIQUE: Chest 1 views. COMPARISON: Chest radiographs dated 04/27/2024. FINDINGS: Cardiovasculature and mediastinum: ??Heart size is normal. ??Unremarkable mediastinum. Lungs and pleural spaces: ??Lungs are clear. ??No sign of infiltrate or mass. ??No sign of pleural effusion. ??No pneumothorax. ?? Bones and soft tissues: ??No significant findings. Procedure Note Roscoe Barajas MD - 05/18/2024 For Patients: As a result of the Cures Act, medical imagingexams and procedure reports are released immediately into your electronicmedical record. You may view this report before your referring provider.If you have questions, please contact your health care provider. INDICATION: Chest pain. TECHNIQUE: Chest 1 views. COMPARISON: Chest radiographs dated 04/27/2024. FINDINGS: Cardiovasculature and mediastinum: Heart size is normal. Unremarkablemediastinum. Lungs and pleural spaces: Lungs are clear. No sign of infiltrate ormass. No sign of pleural effusion. No pneumothorax. Bones and soft tissues: No significant findings. IMPRESSION: No acute or significant findings. Dictated by Roscoe Barajas MD @ 05/18/2024 12:42:57 PM (Electronically Signed) Kana Lora MD GENERAL IMAGING * TROPONIN T (HS) ACUTE W/2HR REFLEX (05/18/2024 11:44 AM CDT) Only the most recent of2 resultswithin the time period is included. TROPONIN T HS <6 6-10 ng/L ng/L 05/18/2024 12:10 PM CDT [facility] Blood BLOOD SPECIMEN / Unknown Venipuncture / Unknown 05/18/2024 11:44 AM CDT 05/18/2024 11:50 AM CDT [facility] - 05/18/2024 12:10 PM CDT hs-cTnT (Elecsys Troponin T Gen 5) concentration (s) above the sex-specific 99th percentile (16 ng/L or greater for males or 11 ng/L or greater for females) are indicative of myocardial injury. If initial hs-cTnT <=100 ng/L at presentation, a 0h/2h ABSOLUTE (ng/L) delta change (rising or falling) of >=10 ng/L suggests a significant change, whereas a 0h/2h delta change <=3 ng/L suggests no significant change. If initial hs-cTnT >100 ng/L at presentation, a 0h/2h/ RELATIVE (percent, %) delta change of 20% is suggested to distinguish patients with acute vs. chronic myocardial injury. There are multiple etiologies that can cause hs-cTnT increases above the 99th percentile (myocardial injury) other than acute myocardial infarction. Clinical context and careful clinical evaluation are critical for diagnosis and risk-stratification. The diagnosis of acute myocardial infarction requires a rising and/or falling pattern in hs-cTnT concentrations with at least one value above the sex-specific 99th percentile PLUS at least one of the following clinical criteria: ischemic symptoms, new or presumed new significant ST-T wave changes or new LBBB, development of pathological Q waves, imaging evidence of new loss of viable myocardium or new regional wall motion abnormality, or identification of intracoronary atherothrombosis or an acute angiographic culprit on coronary angiography. In appropriate low-risk patients with a non-ischemic electrocardiogram without active chest pain with a symptom onset >3-hours without recurrence, a single initial hs-cTnT<6 ng/L identifies patient with a very low risk in emergency department patient population. Kana Lora MD CHEMISTRY [facility] [address] [place] [address] * (ABNORMAL) CBC W PLT NO DIFF (05/18/2024 11:44 AM CDT) WHITE BLOOD COUNT 11.0 4.5 - 11.0 thou/cu mm 05/18/2024 11:53 AM [facility] RED BLOOD COUNT 5.10 4.00 - 5.20 mil/cu mm 05/18/2024 11:53 AM [facility] HEMOGLOBIN 13.0 12.0 - 16.0 g/dL 05/18/2024 11:53 AM [facility] HEMATOCRIT 40.4 33.0 - 51.0 % 05/18/2024 11:53 AM [facility] MCV 79(L) 80 - 100 fL 05/18/2024 11:53 AM [facility] MCH 25.5(L) 26.0 - 34.0 pg 05/18/2024 11:53 AM [facility] MCHC 32.2 32.0 - 36.0 g/dL 05/18/2024 11:53 AM [facility] RDW 15.8(H) 11.5 - 15.5 % 05/18/2024 11:53 AM [facility] PLATELET COUNT 299 140 - 440 thou/cu mm 05/18/2024 11:53 AM [facility] MPV 9.8 6.5 - 11.0 fL 05/18/2024 11:53 AM CDT [facility] Blood BLOOD SPECIMEN / Unknown Venipuncture / Unknown 05/18/2024 11:44 AM CDT 05/18/2024 11:50 AM CDT Kana Lora MD HEMATOLOGY Performing Organization Address [facility] de Phone Number [facility] [address] [place] [address] * (ABNORMAL) D-DIMER,QUANTITATIVE (05/18/2024 11:44 AM CDT) Only the most recent of2 resultswithin the time period is included. Pathologist [facility] D-DIMER,QUANTI TATIVE 0.63(H) <=0.49 FEU mcg/mL 05/18/2024 11:59 AM CDT [facility] Blood BLOOD SPECIMEN / Unknown Venipuncture / Unknown 05/18/2024 11:44 AM CDT 05/18/2024 11:50 AM CDT Narrative [facility] - 05/18/2024 11:59 AM CDT The cut off value for exclusion of Deep Vein Thrombosis and / or Pulmonary Embolism is 0.50 FEU mcg/mL For patients greater than 50 years of age the upper limit is age dependent and was calculated with the formula: ?? (PATIENT AGE x 0.01) FEU mcg/mL = Upper limit of normal range Kana Lora MD HEMATOLOGY Performing Organization Address [facility] de Phone Number [facility] [address] [place] [address] * EKG 12 LEAD (05/18/2024 11:20 AM CDT) Only the most recent of2 resultswithin the time period is included. Pathologist [facility] Interpretation Sinus tachycardia Normal intervals no signs of acute infarct or ischemia compared to 04/27/2024 When compared with ECG of 27-Apr-2024 09:09, Nonspecific T wave abnormality now evident in Anterior leads BEYOND NOW Ventricular Rate 112 BPM BEYOND NOW Atrial Rate 112 BPM BEYOND NOW P-R Interval 146 ms BEYOND NOW QRS Duration 90 ms BEYOND NOW QT 342 ms BEYOND NOW QTc 466 ms BEYOND NOW P [place] 39 degrees BEYOND NOW R [place] 85 degrees BEYOND NOW T [place] 2 degrees BEYOND NOW 05/18/2024 11:2 0 AM CDT 05/18/2024 12:54 PM CDT Kana Lora MD EKG ORD BEYOND NOW [place], [place] * XR CHEST 2 VIEWS PA AND LATERAL (04/27/2024 11:00 AM CDT) Anatomical Region Laterality Modality CHEST, THORAX, Lung, HEART Digit al Radiography 04/27/2024 11:2 2 AM CDT Narrative 04/27/2024 11:22 AM CDT For Patients: ??As a result of the Cures Act, medical imaging exams and procedure reports are released immediately into your electronic medical record. ??You may view this report before your referring provider. ??If you have questions, please contact your health care provider. Indication: Chest pain and shortness of breath. Technique: Chest 2 views. Comparison: Chest radiograph 04/13/2023 and 12/16/2022. Findings: The cardiomediastinal silhouette size is normal. Unchanged 6 mm benign calcified granuloma in the right upper lobe. No focal consolidation, pleural effusion or pneumothorax. Minimal degenerative changes in the thoracic spine. Impression: No acute cardiopulmonary abnormality. Dictated by Regine Donahue MD @ 04/27/2024 11:22:44 AM (Electronically Signed) Procedure Note Regine Donahue MD - 04/27/2024 For Patients: As a result of the Cures Act, medical imagingexams and procedure reports are released immediately into your electronicmedical record. You may view this report before your referring provider.If you have questions, please contact your health care provider. Indication: Chest pain and shortness of breath. Technique: Chest 2 views. Comparison: Chest radiograph 04/13/2023 and 12/16/2022. Findings: The cardiomediastinal silhouette size is normal. Unchanged 6 mm benigncalcified granuloma in the right upper lobe. No focal consolidation,pleural effusion or pneumothorax. Minimal degenerative changes in thethoracic spine. Impression: No acute cardiopulmonary abnormality. Dictated by Regine Donahue MD @ 04/27/2024 11:22:44 AM (Electronically Signed) Florence Mcnair MD GENERAL IMAGING * ANTI HCV (07/17/2023 9:53 AM CDT) HEPATITIS C ANTIBODY Non-Reacti ve Non-React gerhard 07/17/2023 2:26 PM CDT [facility] [place] [facility] Comment:Please note, per www .CDC.gov: [...] AM CDT Wesley Wilson MD SEND OUTS Performing Organization Address City/[facility]/ZIP Co de Phone Number [facility] [address] [place] [address], * ANTI HIV 1/2 (07/17/2023 9:53 AM CDT) HIV-1/HIV-2 SCREEN Non-Reacti ve Non-Reacti ve 07/17/2023 4:51 PM CDT [facility] Comment:HIV-1 p24 and HIV-1/ HIV-2 Ab Not Detected. Blood BLOOD SPECIMEN / Unknown Venipuncture / Unknown 07/17/2023 9:53 AM CDT 07/17/2023 10:01 AM CDT Wesley Wilson MD SEND OUTS Performing Organization Address City/[facility]/ZIP Co de Phone Number [facility] [employer] [facility] [address] [place] [address], * INDUSTRIAL TRUCK MECHANIC THIN PREP PAP SCREEN IMAGED (10/28/2019 8:43 AM BIODIESEL PRODUCT MANAGER) Case Report Gynecologic Cytology Report ? Case: [id number] ? Authorizing Provider: ??Coral Douglas NP ? Collected: ? 10/28/2019 0843 ? Ordering Location: ? [facility] [place] ?Received: ?10/28/2019 0844 ? Clinic ? First Screen: ?Sander García ? Specimen: ?INDUSTRIAL TRUCK MECHANIC ThinPrep Vial Screening, Cervical ? 11/05/2019 2:51 PM BIODIESEL PRODUCT MANAGER [facility] ENTRAL LABORATORY INTERPRETATION/ RESULT NEGATIVE FOR INTRAEPITHELIAL LESION OR MALIGNANCY (NIL) (none) 11/05/2019 2:51 PM BIODIESEL PRODUCT MANAGER [facility] IMEN ADEQUACY Satisfactory for evaluation Endocervical component present 11/05/2019 2:51 PM BIODIESEL PRODUCT MANAGER [facility] HPV REQUEST HPV and PAP 11/05/2019 2:[address]EL [address] [facility] Date of LMP on Depo 11/05/2019 2:51 PM BIODIESEL PRODUCT MANAGER [facility] EN[facility] LAB[facility] Last Pap Date 11/01/16 11/05/2019 2:51 [address] BIOD[address]EL PR[address] MA[address]GER [facility] Last Pap Result NIL 0 2:51 PM BIODIESEL PRODUCT MANAGER [facility] Abnormal Pap or Mammoth Bx in last 5 years No 11/05/2019 2:51 [address] BI[address]EL PR[address]GER [facility] Menstrual Status Hormonally Suppressed 11/05/2019 2:51 [address] BIOD[address]EL PR[address] MA[address]GER [facility] Mammoth Bx Done Today No 11/05/2019 2:51 PM BIODIESEL PRODUCT MANAGER [facility] Additional Information None given 11/05/2019 2:51 PM BIODIESEL PRODUCT MANAGER [facility] Comment: Cytology is screened at [facility] Central Laboratory - [address] [facility] [address] [address] and [facility] - [address] , [place] [address] and [facility] - [address] [place] [address] Interpreted at [facility] - [address], [place] [address] Automated Review Successful 11/05/2019 2:51 PM BIODIESEL PRODUCT MANAGER [facility] Comment:Specimen processed s uccessfully by automated acrobatic rigger device, ThinPrep Imaging System, [employer] ANCILLARY TESTING INDUSTRIAL TRUCK MECHANIC HPV Ordered, Please see separate report 11/05/2019 2:51 PM BIOD[address]EL PRODUCT MANAGER [facility] Note The pap test is a screening technique, not a diagnostic procedure. It is used primarily to screen for squamous cancers and precursor lesions. Published studies have shown that it is subject to both false negative and false positive results. The pap test should not be used as the sole means to diagnose or exclude pre-malignant and malignant lesions. 11/05/2019 2:51 PM BIOD[address]EL PRODUCT MANAGER [facility] Other (Cervical) Non-Blood / Unknown 10/28/2019 8:43 AM BIODIESEL PRODUCT MANAGER 10/28/2019 8:44 AM BIODIESEL PRODUCT MANAGER Coral Douglas NP PATHOLOGY/CYTOLOGY [facility]-CEN[facility]AL LABORATORY [address] [place] [address], from Last 3 Months or Most Recently [...] Code Status Discussion: Not Discussed Care Teams An/Syq 13 Nav/C2 Operator Relationship Specialty Start Date End Date CainDo DO [address] [place] [address] PCP - General Internal Medicine 11/10/20 Ela Waldron, CONTINUOUS MINING MACHINE OPERATOR [address] [place] [address] Nurse Practitioner - Family 04/11/23 Darion Erazo, DAMON [address] [place], [place] [id number] Registered Nurse 04/11/23 Kvng Sher MBBS [address] [place] [id number] Allergy and Immunology 08/09/23 Diana Price, CONTINUOUS MINING MACHINE OPERATOR [address] [place] [id number] Neurology 08/09/23 Wesley Wilson MD [address] [address] Infectious Diseases 08/09/23 [place] [address] [place] [address] Pulmonology Pulmonary Medicine 12/14/23 Carol Esquivel MD [address] [facility] [address] [place] [address] Allergy and Immunology 06/10/24 Giulia [place], ABRAM [address] [place] [address] [facility] 06/10/24
--- OUTSIDE RECORDS SUMMARY | 2024-07-16 07:16 | XMS_ITS | Data Portability ---
Author Organization [place] [facility] Address [address] [address] Care Team Providers Care Crystal Lapper Name Role Phone MIGUEL YATES Primary Care Provider MIGUEL YATES Referring Provider [phone] [facility] Physical Therapist [phone] Assessment Encounter Date Assessment Date Assessment LastModified [...] I've recommended rehabilitation with physical therapy in [place], [place].. The goal of treatment is to [...] 1960 [address], Amarjit Cabrera, [place], [address], 0 09:15:38 Procedures None recorded. Surgeries None recorded. Imaging None recorded. Medication Orders cyclobenza perlita 10 mg tablet 2019 020 INTERFACE [facility], [place], [place], [address] [place], [address], 0 14:38:32 Patient TargetsNo targets recorded. Patient Instructions Encounter Date Encounter Id Patient Instructions Last Modified By Organization Details Last Modified Time 12/10/2019 [id number] oral appliance preparation* Not available 12/10/2019 14:38:27 Self Care for TMD Not availabl e 12/10/2019 14:38:27 Reason for Referral Physical Therapist Referral for Myofascial pain masticatory myofasial pain, limited opening, referred otalgia/tinnitus Referring Physician: Liza Grigsby, Pain Management, Encounter Date: 12/10/2019 Results Created Date Observation Date Name Description Value Unit Range Abnormal Flag Note LastModifiedBy Organization Detail LastModifiedTime 12/10/2019 oral appli ance prepa ratio n* Type of appliance maxill prieto stabil izatio n applia nce Not Available [place] [address] [facility] [address], [place], [address], 12/10/2019 13:52:40 12/10/19 20 XR, ortho panto gram No observ ation record ed. Not Available 12/09 10:15:06 Result Notes None recorded. 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 64177133 Active 2011 Not Available [facility] 6 03:14:48 Fibromyo sitis 83535332 Completed 201112/10/2019 [place] Aj - [facility] 0 13:50:53 Myofasci al pain 501718147 Active 2019 resolved ROSEMARY Aj - [facility] 0 10:06:42 Otalgia 38057297 Active 2019 improved Liza croft [facility] 0 10:06:23 Tinnitus of right ear 26452130138 08 Active 2019 improved Liza Trisha guerda [facility] 0 10:06:49 Limited opening of mandible 698214053 Active 2019 resolved Liza Grigsby guerda [facility] 0 10:06:12 Episodic tension- type headache 839724271 Active 2011 improved Liza croft [facility] 0 10:06:36 Otalgia 74693502 Active 2011 improved Liza croft [facility] 0 10:06:28 Arthralg ia of temporom andibula r joint 49981657 Active 2011 resolved Liza Trisha guerda [facility] 0 10:06:07 Problem Notes None recorded. Procedures Surgical History Date Name Laterality Status Provider Name and Address Organization Details Recorded Time 03/12/20 20 Oral appliance completed Giancarlo Roldan [facility] 03/12/2020 09:38:06 12/10/19 20 Orthopantogram completed Liza Grigsby [facility] 12/10/2019 13:50:25 06/17/20 19 Other completed Deon Yeh [facility] 12/10/2019 09:54:02 07/17/20 16 Other completed Deon Yeh [facility] 12/10/2019 09:54:02 02/28/20 01 Tonsillectomy completed Deon Yeh [facility] 12/10/2019 09:54:02 [place] Teeth Extraction completed Deon Yeh [facility] 12/10/2019 09:54:02 Imaging Results Imaging Date Name Status LastModified by Organization Details LastModified Time 12/10/2019 XR, orthopantogram completed Inform ation not available 12/10/2019 10:15:06 Procedure Notes None recorded. Medical Equipment None Reported. Allergies Allergen ID Allergen Name Allergen Category Reaction Reaction Severity Criticality Documentation Date Start Date Code Code System Note Provider Name and Address Organization Details Recorded Time 88186 Medicinal product containin g penicilli n and acting as antibacte rial agent (product) medicatio n Not available Not available Not available 08/18/2016 01007 05 SNOMED Not Available [facility] 6 06:37:53 27912 Substance with sulfonami de structure and antibacte rial mechanism of action (substanc e) medicatio n Not available Not available Not available 08/18/2016 25377 8003 SNOMED Not Available [facility] 6 06:44:06 63702 erythromy bethel medicatio n nausea vomiting moderate severe Not available 12/10/2019 4053 RxNorm Deon croft [facility] 0 09:51:43 82111 Fish (substanc e) food,medi cation hives itching nausea vomiting severe severe moderate severe Not available 12/10/2019 36593 1005 SNOMED Deon croft [facility] 0 09:51:43 70102 [place] Not available anaphylax is severe Not available 12/10/2019 Deon croft [facility] 0 09:51:43 32136 cefprozil medicatio n rash severe Not available 12/10/2019 78276 RxNorm Deon croft [facility] 0 09:51:43 [...] azelastine 137 mcg (0.1 %) nasal spray active Not Available Not Available Not Available [...] Updated DateTime 12/10/2019 182.88 cm 47.1 kg/m2 824998.55 g Deon Yeh [facility] 12/10/2019 09:49:59 Date Recorded Body height Body mass index (BMI) Body weight Body temperature Heart rate Systolic blood pressure Diastolic blood pressure Provider Name and Address Organization Details Last Updated DateTime 0 182.88 cm 47.1 kg/m2 580571. 55 g 97.3 [degF] 107 /min 155 mm[Hg] 118 mm[Hg] Giancarlo Shawnjocelyn [facility] 0 09:30:38 Social History Question Answer Notes LastModified by Organizat ion Details LastModified Time Tobacco Smoking Status Never Smoker Deon Leeppard guerda [facility] 12/10/2019 09:56:33 [...] Injury? No Information not available 12/10/2019 Sex: Unknown Functional Status None recorded. Mental Status None recorded. Family History Relationship Description Onset Age of this Age Resolved Age Notes LastModified by Organization Details LastModified Time Son Depressive disorder Not available 12/09 09:51:52 Mother Depressive disorder Not available 12/09 09:51:52 Mother Hypertensive disorder Not available 12/09 09:51:52 Mother Migraine Not availab le 12/10/2019 09:51:52 Mother Headache Not availab le 12/10/2019 09:51:52 Father Arthritis Not availa ble 12/10/2019 09:51:52 Father Depressive disorder Not available 12/09 09:51:52 Father Diabetes mellitus 60 Not available 12/09 09:51:52 Father Hypertensive disorder Not available 12/09 09:51:52 Maternal Grandfather Substance abuse Not available 12/09 09:51:52 Medical History Condition Response Coronary Artery Disease N Other N Gout N Chronic fatigue syndrome N Hyperthyroidism N Premenstrual syndrome (PMS) N MRSA N Emphysema N Head Trauma/Injury N Irritable bowel syndrome Y COPD N Depression Y Lung Disease N Hypothyroidism N Glaucoma N Pneumonia N Pacemaker N Obstructive Sleep Apnea N Anxiety Disorder N Autoimmune disease N Muscle, Joint, or Bone Problems Y Vision or Eye Problems N Arthritis N Serious Illness or Injuries N Acid Reflux (GERD) N Cancer N Stroke N Neck Injury N Eating disorder N Back Injury N High Cholesterol Y History of chemotherapy N Neurologic Disorder N Liver Disease N Organ Transplant N Rheumatoid Arthritis N Fibromyalgia N Headaches N Kidney Disease N Allergies/Hayfever Y Post traumatic stress disorder (PTSD) N Parkinson's Disease N Migraines N Brain Tumors N Anemia N Multiple Sclerosis N Immune System Disorder N Meningitis N Pancreatic disease N Heart Attack (IA) N Stomach Ulcers N Back pain N [...] Time Influenza, split virus, trivalent, preservative 06/11/2019 completed ROSEMARY [place] [facility] 12/10/2019 09:53:43 pneumococcal, unspecified formulation 11/08/2019 completed ROSEM[place] - [facility] 12/10/2019 09:53:43 Past Encounters Encounter ID Performer Location Encounter Start Date Encounter Closed Date Diagnosis/Indication Diagnosis SNOMED-CT Code Diagnosis ICD10 Code [id number] Liza Grigsby Kailey [address] [place] [id number] 12/10/2019 09:36:57 12/10/2019 11:17:33 Otalgia 56801124 H92.01 Episodic t ension-type headache 158473280 G44.219 Myofascial pain 83535044 9 M79.11 Arthralgia of temporomandibular joint 58449626 M26.629 Articular disc disorder of temporomandibular joint 93686963 M26.639 Tinnitus of right ear 48 09290632 108 H93.11 Limited op ening of mandible 581558303 M26.52 [id number] Liza Trisha burr [address] [place] [id number] 03/12/2020 09:09:49 03/12/2020 09:55:05 Myofascial pain 864405089 M79.11 Episodic t ension-type headache 960811702 G44.219 Otalgia 05500676 H92.01 Tinnitus of right ear 48 50671800 108 H93.11 Limited op ening of mandible 393204655 M26.52 Arthralgia of temporomandibular joint 53203846 M26.629 Articular disc disorder of temporomandibular joint 30079785 M26.639 Health Concerns Section Related Observation LastModified by Organization Detai ls LastModified Time None Recorded Concern Status LastModified by Organization Details LastModified Time None Recorded Advance Directives Directive None Recorded Payers Encounter Date Sequence Insurance Name Policy Number Policy Rocha Covered Member ID Rocha Member ID Guarantor Name 12/10/2019 1 [employer]LO (MEDICAID REPLACEMENT - HMO) [employer] Joshua Peters [id number] Joshua Peters 03/12/2020 1 [employer]LO (MEDICAID REPLACEMENT - HMO) [id number] [id number] Joshua Peters Notes Date Note Type [...] our clinic. 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 Liza croft [facility] 12/10/2019 14:38:32 [...]
== END 2024-07-16 07:12 | disposition home or self-care (01) ==
LOC: INJ CL 07:12
PROVIDERS: PCP Internal Medicine; Visit Provider Family Medicine
DX: M54.16 Radiculopathy, lumbar region (principal); M51.369 Other intervertebral disc degeneration, lumbar region without mention of lumbar back pain or lower extremity pain
CPT/HCPCS: 64483; J1100; Q9966

== ENCOUNTER 2024-11-05 07:48 | Outpatient (CLI) | payer MEDICARE, MEDICAID, SELFPAY | END 2024-11-05 07:49 | disposition home or self-care (01) | PROVIDERS: PCP Internal Medicine; Visit Provider Family Medicine | DX: M54.16 Radiculopathy, lumbar region (principal); M51.26 Other intervertebral disc displacement, lumbar region | CPT/HCPCS: 64483; Q9966 ==

== ENCOUNTER 2025-03-04 07:15 | Outpatient (CLI) | payer MEDICARE, BC, SELFPAY | END 2025-03-04 07:16 | disposition home or self-care (01) | LOC: INJ CL 07:17 | PROVIDERS: PCP Internal Medicine; Visit Provider Family Medicine | DX: M54.16 Radiculopathy, lumbar region (principal); M51.26 Other intervertebral disc displacement, lumbar region | CPT/HCPCS: 64483; J1100; Q9966 ==

== ENCOUNTER 2025-07-01 07:07 | Outpatient (CLI) | payer MEDICARE, BC, SELFPAY | END 2025-07-01 07:08 | disposition home or self-care (01) | LOC: INJ CL 07:08 | PROVIDERS: PCP Internal Medicine; Visit Provider Family Medicine | DX: M54.16 Radiculopathy, lumbar region (principal); M51.26 Other intervertebral disc displacement, lumbar region | CPT/HCPCS: 64483; J1100; Q9966 ==